=== PATIENT | female | born 1970 | race Caucasian/White ===

== ENCOUNTER 2016-07-12 12:08 | Outpatient (CLI) | payer MEDICARE, MEDICAID ==
[~2016-07-12] VITALS: Ht 160 cm; Wt 125.0 kg
[~2016-07-12 12:08] MED LIST: /ONDA4TA; /ONDA4TA OR; ACET500C; ACET500C OR; ALLE25CA OR; AMBI10TA OR; AMIT25TA PO; AUGM875T27 PO; BIOTPOW20; BIOTPOW20 OR; BONI150T PO; CALC500T36 PO; CALC500T49 OR; DARV100T; DIFL150T PO; DIPH50CA PO; FOSA5TAB OR; HUMIRA INJ; IBUP600T OR; IBUP800T OR; IBUPPOW25; INFL10VL IV; MORP15TA6 PO; NASAL SPRAY NEB; NEXI40CA PO; OXYC-208 PO; OXYC1SOL PO; PERC5TAB8 PO; PERCOCET; PRENATAL VIT; PRENATAL VITAMIN PO; PRENTAB74 PO; PROM25SU5 PO; RYZOLT; SODIUM CHLORIDE 0.9% INJ 10 ML SYR IV SCH; TRAZ50TA; TYLENOL; TYLENOL PM; TYLENOL PM OR; TYLENOL PM PO; ULTR300T; VITA50TA12; VITAMIN D50000 UNT OR; [UNRECOGNIZED DRUG - OTHER] OR; diphenhydrAMINE 25 MG CAP PO SCH; oxycodone IR PO; prenatal vitamin PO
[2016-07-12] MEDS ORDERED: NS 1,000 ML IV SCH (12:15)
[2016-07-12] MEDS ORDERED: inFLIXimab INJECTION 700 MG in NS 180 ML IV ONE (12:30)
[2016-07-12] MEDS ORDERED: ACETAMINOPHEN TAB 650MG DOSE (2X325MG) PO ONE (12:30)
== END 2016-07-12 15:00 | disposition home or self-care (01) ==
LOC: M INFU 12:08
PROVIDERS: ATTEND Hospitalist
DX: K50.80 Crohn's disease of both small and large intestine without complications (principal)
CPT/HCPCS: 96413; 96415; J1745

== ENCOUNTER 2016-08-09 12:02 | Outpatient (CLI) | payer MEDICARE, MEDICAID ==
[~2016-08-09] VITALS: Ht 165.1 cm; Wt 125.0 kg
[2016-08-09] MEDS ORDERED: ACETAMINOPHEN TAB 650MG DOSE (2X325MG) PO ONE (12:15)
[2016-08-09] MEDS ORDERED: inFLIXimab INJECTION 700 MG in NS 180 ML IV ONE (12:15)
[2016-08-09] MEDS ORDERED: NS 1,000 ML IV SCH (12:15)
== END 2016-08-09 15:00 | disposition home or self-care (01) ==
LOC: M INFU 12:02
PROVIDERS: ATTEND Internal Medicine
DX: K50.80 Crohn's disease of both small and large intestine without complications (principal)
CPT/HCPCS: 96413; 96415; J1745

== ENCOUNTER 2016-09-15 12:48 | Outpatient (CLI) | payer MEDICARE, MEDICAID ==
[~2016-09-15] VITALS: Ht 165.1 cm; Wt 125.0 kg
[2016-09-15] MEDS ORDERED: NS 1,000 ML IV SCH (13:15)
[2016-09-15] MEDS ORDERED: ACETAMINOPHEN TAB 650MG DOSE (2X325MG) PO ONE (13:30)
[2016-09-15] MEDS ORDERED: inFLIXimab INJECTION 700 MG in NS 180 ML IV ONE (13:30)
== END 2016-09-15 15:45 | disposition home or self-care (01) ==
LOC: M INFU 12:48
PROVIDERS: ATTEND General Practice
DX: K50.80 Crohn's disease of both small and large intestine without complications (principal)
CPT/HCPCS: 96413; 96415; J1745

== ENCOUNTER → 2016-09-22 | Outpatient (CLI) | payer MEDICARE, MEDICAID ==
[~2016-09-22] MED LIST changes: -SODIUM CHLORIDE 0.9% INJ 10 ML SYR IV SCH; -diphenhydrAMINE 25 MG CAP PO SCH
--- NOTE | 2016-09-27 02:41 | ECWPNPC ---
PATIENT NAME: KAYLA CRUZ : 1970 GENDER: FEMALE VISIT DATE: 09/22/2016 DISCHARGE DATE: 09/22/16 1542 VISIT LOCKED DATE TIME: PHYSICIAN: BETY HOGAN RESOURCE: BETY HOGAN REASON FOR APPOINTMENT 1. REVIEW MRI, BLOODWORK HISTORY OF PRESENT ILLNESS HISTORY OF PRESENT ILLNESS: PAIN THE PATIENT DESCRIBES THE PAIN... FALL RISK SCREENING: SCREENING :NO FALLS IN THE PAST YEAR TODAY'S VISIT: NOTES: RATES PAIN TODAY 9/10. HAS BEEN HAVING INCREASED PAIN IN RECTAL AREA.ATTEMPTED TO TAKE A BATH, FELT SEVERE BURNING IN RECTAL AREA - HAD CLEAR NON ODOROUS DRAINAGE - NEXT MORNING HAD EXPULSION OF RECTAL PACKING THAT HAS BEEN THERE SINCE 2005. IS HAVING PAIN IN HIP AREA DUE TO HAVING TO BE ON SIDES. IS STILL ON REMICADE Q 4 WEEKS. ALL THE JOINTS ARE BOTHERING.DESCRIBES THE PAIN CONSTANT, ACHING, BURNING, SHARP , STABBING AND SHOOTING.AT LAST VISIT WAS STARTED ON METHYLPHENIDATE 10 MG IN AM FOR EXCESSIVE DAYTIME SLEEPINESS - NOTES THAT THIS IS EFFECTIVE BUT DOES NOT TAKE IT EVERY DAY.. CURRENT MEDICATIONS TAKING ZOFRAN ODT 4 MG TABLET DISPERSIBLE 1 TABLET ON THE TONGUE AND ALLOW TO DISSOLVE ORALLY EVERY 6 HRS TAKING CALCIUM 150 MG TABLET ORALLY DAILY TAKING VITAMIN D3 MAXIMUM STRENGTH 5000 UNIT CAPSULE ORALLY DAILY TAKING REMICADE 100 MG SOLUTION RECONSTITUTED INTRAVENOUS EVERY 4 WKS TAKING BONIVA 150 MG TABLET 1 TABLET ORALLY MONTHLY TAKING ACETAMINOPHEN 325 MG TABLET 1 TABLET NEEDED ORALLY EVERY 4- 6 HRS TAKING AMITRIPTYLINE HCL 25 MG TABLET 3 TABLET ORALLY ONCE A DAY AT BEDTIME TAKING PROMETHAZINE HCL 25 MG TABLET 1 TABLET NEEDED ORALLY EVERY 8 HRS PRN NAUSEA TAKING METHYLPHENIDATE HCL 10 MG TABLET 1 TABLET ORALLY DAILY MDD=1 TAKING OXYCODONE HCL 15 MG TABLET 1- 2 TABLET NEEDED ORALLY Q4-6H MDD6 TAKING IBUPROFEN 800 MG TABLET 1 TABLET ORALLY THREE TIMES A DAY MEDICATION LIST REVIEWED AND RECONCILED WITH THE PATIENT PAST MEDICAL HISTORY 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 CERVICAL AND OVARIAN CANCER HX FISTULAS ALLERGIES NAPROXEN: VOMITING FLAGYL: VOMITING VICODIN: VOMITING 6MP: ANAPHYLAXIS: ALLERGY SOCIAL HISTORY GENERAL: TOBACCO USE ARE YOU A:NONSMOKER LEARNING BARRIERS / SPECIAL NEEDS ORIENTED TO PLAN OF CARE: PATIENT, PAIN MANAGEMENT PATIENT, ORIENTED TO PLAN OF CARE: PATIENT, PAIN MANAGEMENT PATIENT. NEW PATIENT PAIN DIARY TODAY'S VISITNOTES FROM 0-10, WHAT LEVEL IS YOUR PAIN TODAY?0 PAIN CLINIC PFS, CLERGY, PUBLIC HEALTH REFERRALS PFS REFERRAL NEEDED?NO CLERGY REFERRAL NEEDED?NO PUBLIC HEALTH REFERRAL NEEDED?NO WAS THE PROVIDER NOTIFIED OF ANY PERTINENT INFO?NO PFS REFERRAL NEEDED?NO CLERGY REFERRAL NEEDED?NO PUBLIC HEALTH REFERRAL NEEDED?NO WAS THE PROVIDER NOTIFIED OF ANY PERTINENT INFO?NO REVIEW OF SYSTEMS CONSTITUTIONAL: ANY CHANGE IN YOUR MEDICAL CONDITION? NO . CHILLS NO . FEVER NO . INFECTION: DO YOU HAVE NEW INFECTIONS? NO . DO YOU HAVE HISTORY OF MRSA? NO . MUSCULOSKELETAL: ANY NEW PATTERNS OF PAIN OR NUMBNESS? YES RECTAL AREA DISCOMFORT . GASTROENTEROLOGY: ANY NEW CHANGE IN BOWEL CONTROL? NO . GENITOURINARY: ANY NEW CHANGE IN BLADDER CONTROL? NO . IS THERE A CHANCE YOU COULD BE ? NO . HEMATOLOGY/LYMPH: DO YOU TAKE ANY BLOOD THINNERS? (FOR EXAMPLE- COUMADIN, PLAVIX, AGGRENOX, PLATEL, PRADAXA, OR XARELTO) NO . WHEN WAS YOUR LAST DOSE? DATE: TIME: . NEUROLOGY: HAVE YOU FALLEN IN THE PAST 6 MONTHS? NO . ANY NEW EXTREMITY NUMBNESS OR WEAKNESS? NO . CARDIOLOGY: DO YOU HAVE A PACEMAKER OR DEFIBRILLATOR? NO . RESPIRATORY: HAVE YOU BEEN SICK IN THE PAST WEEK? NO . FEVER NO . FLU LIKE SYMPTOMS? NO . COUGH NO . INTEGUMENTARY: DO YOU HAVE ANY RASHES OR OPEN SORES? YES ABDOMINAL WOUND/RECTAL WOUND . ALLERGIC/IMMUNO: ARE YOU ALLERGIC TO SHELLFISH OR IV DYE? NO . ANY NEW ALLERGIES? NO . PSYCHIATRIC: DO YOU HAVE THOUGHTS OF HURTING YOURSELF OR SOMEONE ELSE? NO . ARE YOU ABUSED, NEGLECTED, OR IN AN UNSAFE ENVIRONMENT? NO . ENDOCRINOLOGY: ARE YOU DIABETIC? NO . OTHER: DO YOU NEED ANY PRESCRIPTIONS? NO . IF YES, PLEASE LIST: ____ . ANY NEW PROBLEMS WITH YOUR MEDICATIONS? NO . WHEN DID YOU LAST EAT? ____ . WHEN DID YOU LAST DRINK? ____ . WHAT DID YOU LAST DRINK? ____ . NAME OF PERSON DRIVING YOU HOME? ____ . DO YOU HAVE ANY OTHER QUESTIONS OR CONCERNS NO . REVIEWED BY: PROVIDER: BETY ARDON . VITAL SIGNS WT 285.2 LBS, HT 63 IN, BMI 50.52 INDEX, BP 148/82 MM HG, HR 90 /MIN, RR 18 /MIN, TEMP 98.6 F, OXYGEN SAT % 98%, REVIEWED BY: MLF. EXAMINATION GENERAL EXAMINATION: PSYCHALERT , ORIENTED X 3 , APPROPRIATE MOOD AND AFFECT . LUNGS:CLEAR TO AUSCULTATION BILATERALLY. HEART:HEART RATE REGULAR, RAPID. ABDOMEN:SOFT AND TENDER. BOWEL SOUNDS SCTIVE. . MUSCULOSKELETAL:MUSCLE STRENGTH TESTING 5/5 BILATERAL, TRIGGER POINTS:, ELICITED WITH PALPATION OVER LUMBAR PARAVERTEBRAL MUSCLES AND INTO THE SECRUM. RESTRICTION OF ROM IN THIS AREA. DUSKY BLUE COLORATION OF BOTH HANDS. HANDS COLD TO TOUCH.. JOINTS:BILATERAL KNEE , SWELLING , PAIN . DECREASED ROM WITH FLEXION/ EXTENSION AT KNEES. . ASSESSMENTS ABDOMINAL PAIN - R10.9 (PRIMARY) JOINT PAIN - M25.50 CHRONIC PRESCRIPTION OPIATE USE - Z79.899 TREATMENT ABDOMINAL PAIN REFILL OXYCODONE HCL TABLET, 15 MG, 1- 2 TABLET NEEDED, ORALLY, Q4-6H MDD6, 30 DAY(S), 180, REFILLS 0 START PROCARDIA CAPSULE, 10 MG, 1 CAPSULE, ORALLY, BID, 30 DAY(S), 60 CAPSULE, REFILLS 2 NOTES: DR BENNY VASQUEZ - [facility]. [phone] (FANY IS HIS NURSE) OK TO TAKE OXYCODONE 15 MG PRESCIBED 1-2 TABES EVERY 4-6 HRS MAX 6 TABS PER DAY TALK TO DR ESPAÑA ABOUT PROCARDIA/NIFEDIPINE 10 MG BID FOR RAYNAUDS SYMPTOMS. NO SMOKING., # 226 TOBACCO USE SCREENING/INTERVENTION: PATIENT CURRENTLY USED TOBACCO. WAS OFFERED SMOKING CESSATION FOR GUIDANCE IN QUITTING THROUGH THE [facility] QUITS PROGRAM AND THE [facility] CESSATION PROGRAM. , #128 - SCREENING BMI AND F/U PLAN IN : BMI ABOVE NORMAL TODAY. DISCUSSED WITH PATIENT NUTRITIONAL FOOD CHOICES TO ASSIST WITH WEIGHT LOSS. RECCOMMENDED REDUCING SALT, SUGAR, SODA INTAKE. RECOMMEND INCREASE ACTIVITY TO INCLUDE WALKING ON A REGULAR BASIS., FALLS CARE PLAN: 1. RECOMMEND REMOVING ALL THROW RUGS. 2. RECOMMEND NIGHT LIGHTS 3. RECOMMEND WEARING RUBBER SOLED SHOES AND TO NOT GO BAREFOOT. 4.. ADVISED TO CHANGE POSITION SLOWLY FROM SUPINE TO STANDING TO AVOID DIZZINESS. 5. ADVISED TO USE ASSISTIVE DEVICE SUCH CANE OR WALKER IF NEEDED. 6. USE LIFELINE SERVICES OR KEEP PORTABLE PHONE READILY AVAILABLE. CLINICAL NOTES: ISTOP REGISTRY REVIEWED AND DEMNOSTRATES COMPLLIANCE. BRINGS IN MEDICATIONS WHICH IS APPROPRIATE FOR WHAT WAS DISPENSED. RECENT URINE TOXICOLOGY REVIEWED. NO UNAUTHORIZED MEDICATIONS. NO ILLICIT SUBSTANCES AND PRESCRIBED MEDICATIONS WERE PRESENT. PROCEDURE CODES FA211 ESTABILISHED PATIENT [facility] FACILITY CHARGE G8783 BP SCR PRFRM RCMDD DEFIND SCR INTVL G8730 PAIN ASSESS POS TOOL F/U PLAN DOC 1124F ACP DISCUSS-NO [id number] DOCD 1036F TOBACCO NON-USER 0518F FALL PLAN OF CARE DOCD G8427 DOC MEDS VERIFIED W/PT OR RE G8417 BMI >=30 CALCUATE W/FOLLOWUP 3288F FALL RISK ASSESSMENT DOCD 4004F PT TOBACCO SCREEN RCVD TLK DISPOSITION & COMMUNICATION FOLLOW UP 3 MONTHS ELECTRONICALLY SIGNED BY MICHELA LEIGH ON 09/26/2016 AT 09:49 AM EDT DISCLAIMER : THIS IS A VISIT SUMMARY EXTRACTED FROM THE [facility] CHART. IT IS NOT A COPY OF THE [facility] PROGRESS NOTE. MTDD
== END ==
LOC: M PAIN 14:40
PROVIDERS: ATTEND Nurse Practitioner Family
DX: Z09 Encounter for follow-up examination after completed treatment for conditions other than malignant neoplasm (principal); G89.29 Other chronic pain; R10.2 Pelvic and perineal pain; M25.561 Pain in right knee; M25.562 Pain in left knee; M06.9 Rheumatoid arthritis, unspecified; M19.90 Unspecified osteoarthritis, unspecified site; K50.90 Crohn's disease, unspecified, without complications; Z88.5 Allergy status to narcotic agent; Z88.8 Allergy status to other drugs, medicaments and biological substances; Z79.1 Long term (current) use of non-steroidal anti-inflammatories (NSAID); Z79.899 Other long term (current) drug therapy

== ENCOUNTER 2016-10-26 12:12 | Outpatient (CLI) | payer MEDICARE, MEDICAID ==
[~2016-10-26] VITALS: Ht 165.1 cm; Wt 125.0 kg
[~2016-10-26 12:12] MED LIST changes: +SODIUM CHLORIDE 0.9% INJ 10 ML SYR IV SCH; +diphenhydrAMINE 25 MG CAP PO SCH
[2016-10-26] MEDS ORDERED: inFLIXimab INJECTION 700 MG in NS 180 ML IV ONE (12:30)
[2016-10-26] MEDS ORDERED: NS 1,000 ML IV SCH (12:30)
[2016-10-26] MEDS ORDERED: ACETAMINOPHEN TAB 650MG DOSE (2X325MG) PO ONE (12:30)
== END 2016-10-26 15:00 | disposition home or self-care (01) ==
LOC: M INFU 12:12
PROVIDERS: ATTEND Internal Medicine Nephrology
DX: K50.80 Crohn's disease of both small and large intestine without complications (principal)
CPT/HCPCS: 96413; 96415; J1745

== ENCOUNTER 2016-12-09 12:45 | Outpatient (CLI) | payer MEDICARE, MEDICAID ==
[~2016-12-09] VITALS: Ht 165.1 cm; Wt 125.0 kg
[~2016-12-09 12:45] MED LIST changes: -diphenhydrAMINE 25 MG CAP PO SCH
[2016-12-09] MEDS ORDERED: NS 1,000 ML IV SCH (13:15)
[2016-12-09] MEDS ORDERED: ACETAMINOPHEN TAB 650MG DOSE (2X325MG) PO ONE (13:30)
[2016-12-09] MEDS ORDERED: diphenhydrAMINE 25 MG CAP PO ONE (13:30)
[2016-12-09] MEDS ORDERED: inFLIXimab INJECTION 700 MG in NS 180 ML IV ONE (14:00)
== END 2016-12-09 16:30 | disposition home or self-care (01) ==
LOC: M INFU 12:45
PROVIDERS: ATTEND General Practice
DX: K50.80 Crohn's disease of both small and large intestine without complications (principal)
CPT/HCPCS: 96413; 96415; J1745

== ENCOUNTER → 2016-12-28 | Outpatient (CLI) | payer MEDICARE, MEDICAID ==
[~2016-12-28] MED LIST changes: -AUGM875T27 PO; +AUGM875T28 PO; -SODIUM CHLORIDE 0.9% INJ 10 ML SYR IV SCH
--- NOTE | 2017-01-17 00:41 | ECWPNPC ---
PATIENT NAME: KAYLA CRUZ : 1970 GENDER: FEMALE VISIT DATE: 12/28/2016 DISCHARGE DATE: 12/28/16 1457 VISIT LOCKED DATE TIME: PHYSICIAN: BETY HOGAN RESOURCE: BETY HOGAN REASON FOR APPOINTMENT 1. FOLLOW UP HISTORY OF PRESENT ILLNESS HISTORY OF PRESENT ILLNESS: PAIN THE PATIENT DESCRIBES THE PAIN... FALL RISK SCREENING: SCREENING :NO FALLS IN THE PAST YEAR TODAY'S VISIT: NOTES: RATES PAIN TODAY 9/10. DESCRIBES PAIN CONSTANT, ACHING, BURNING SHARP, STABBING AND THROBBING. REPORTS CONTINUED OPEN AREAS OVER ABDOMEN AND PERINEUM. NOTES PAINFUL JOINTS AT KNEES AND GENERALIZED ALL OVER PAIN. REMAINS ON REMICADE.IS TO SEE WOUND CENTER DR VASQUEZ IN NEXT FEW WEEKS. . CURRENT MEDICATIONS TAKING ZOFRAN ODT 4 MG TABLET DISPERSIBLE 1 TABLET ON THE TONGUE AND ALLOW TO DISSOLVE ORALLY EVERY 6 HRS TAKING CALCIUM 150 MG TABLET ORALLY DAILY TAKING VITAMIN D3 MAXIMUM STRENGTH 5000 UNIT CAPSULE ORALLY DAILY TAKING REMICADE 100 MG SOLUTION RECONSTITUTED INTRAVENOUS EVERY 4 WKS TAKING BONIVA 150 MG TABLET 1 TABLET ORALLY MONTHLY TAKING ACETAMINOPHEN 325 MG TABLET 1 TABLET NEEDED ORALLY EVERY 4- 6 HRS TAKING AMITRIPTYLINE HCL 25 MG TABLET 3 TABLET ORALLY ONCE A DAY AT BEDTIME TAKING PROMETHAZINE HCL 25 MG TABLET 1 TABLET NEEDED ORALLY EVERY 8 HRS PRN NAUSEA TAKING METHYLPHENIDATE HCL 10 MG TABLET 1 TABLET ORALLY DAILY NEEDED TAKING IBUPROFEN 800 MG TABLET 1 TABLET ORALLY THREE TIMES A DAY TAKING OXYCODONE HCL 15 MG TABLET 1- 2 TABLET NEEDED ORALLY Q4-6HRS PRN PAIN MDD6 NOT-TAKING PROCARDIA 10 MG CAPSULE 1 CAPSULE ORALLY BID MEDICATION LIST REVIEWED AND RECONCILED WITH THE PATIENT PAST MEDICAL HISTORY 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 CERVICAL AND OVARIAN CANCER HX FISTULAS ALLERGIES NAPROXEN: VOMITING FLAGYL: VOMITING VICODIN: VOMITING 6MP: ANAPHYLAXIS: ALLERGY SOCIAL HISTORY GENERAL: PAIN CLINIC PFS, CLERGY, PUBLIC HEALTH REFERRALS PFS REFERRAL NEEDED?NO CLERGY REFERRAL NEEDED?NO PUBLIC HEALTH REFERRAL NEEDED?NO HAS THE PATIENT BEEN EDUCATED REGARDING HIS/HER PLAN OF CARE?YES HAS THE PATIENT BEEN EDUCATED REGARDING PAIN, THE RISK FOR PAIN, THE IMPORTANCE OF EFFECTIVE PAIN MANAGEMENT, AND THE PAIN ASSESSMENT PROCESS?YES ADVANCE DIRECTIVES HEALTH CARE PROXY?YES NAME OF HCP ROLY MARIA AND JUSTO FREEDMAN DO YOU HAVE A COPY WITH YOU?NO REVIEW OF SYSTEMS REVIEWED BY: PROVIDER: BETY ARDON . CONSTITUTIONAL: ANY CHANGE IN YOUR MEDICAL CONDITION? YES, PAIN BEHIND OSTOMY . CHILLS NO . FEVER NO . INFECTION: DO YOU HAVE NEW INFECTIONS? NO . DO YOU HAVE HISTORY OF MRSA? NO . MUSCULOSKELETAL: ANY NEW PATTERNS OF PAIN OR NUMBNESS? YES, PAIN BEHIND OSTOMY . GASTROENTEROLOGY: ANY NEW CHANGE IN BOWEL CONTROL? NO . GENITOURINARY: ANY NEW CHANGE IN BLADDER CONTROL? NO . IS THERE A CHANCE YOU COULD BE ? NO . HEMATOLOGY/LYMPH: DO YOU TAKE ANY BLOOD THINNERS? (FOR EXAMPLE- COUMADIN, PLAVIX, AGGRENOX, PLATEL, PRADAXA, OR XARELTO) NO . WHEN WAS YOUR LAST DOSE? DATE: TIME: . NEUROLOGY: HAVE YOU FALLEN IN THE PAST 6 MONTHS? NO . ANY NEW EXTREMITY NUMBNESS OR WEAKNESS? NO . CARDIOLOGY: DO YOU HAVE A PACEMAKER OR DEFIBRILLATOR? NO . RESPIRATORY: HAVE YOU BEEN SICK IN THE PAST WEEK? NO . FEVER NO . FLU LIKE SYMPTOMS? NO . COUGH NO . INTEGUMENTARY: DO YOU HAVE ANY RASHES OR OPEN SORES? YES . ALLERGIC/IMMUNO: ARE YOU ALLERGIC TO SHELLFISH OR IV DYE? NO . ANY NEW ALLERGIES? NO . PSYCHIATRIC: DO YOU HAVE THOUGHTS OF HURTING YOURSELF OR SOMEONE ELSE? NO . ARE YOU ABUSED, NEGLECTED, OR IN AN UNSAFE ENVIRONMENT? NO . ENDOCRINOLOGY: ARE YOU DIABETIC? NO . OTHER: DO YOU NEED ANY PRESCRIPTIONS? YES . IF YES, PLEASE LIST: TYLENOL. IBUPROFEN, OXYCODONE. METHYLPHENIDATE, PROMETHAZINE AND AMITRIPTYLINE . ANY NEW PROBLEMS WITH YOUR MEDICATIONS? NO . WHEN DID YOU LAST EAT? ____ . WHEN DID YOU LAST DRINK? ____ . WHAT DID YOU LAST DRINK? ____ . NAME OF PERSON DRIVING YOU HOME? ____ . DO YOU HAVE ANY OTHER QUESTIONS OR CONCERNS NO . VITAL SIGNS WT 282.4 LBS, HT 63 IN, BMI 50.02 INDEX, BP 143/80 MM HG, HR 96 /MIN, RR 16 /MIN, TEMP 98.7 F, OXYGEN SAT % 98%, NA INITIALS TL 1409, REVIEWED BY: CS. EXAMINATION GENERAL EXAMINATION: PSYCHALERT , ORIENTED X 3 , APPROPRIATE MOOD AND AFFECT . LUNGS:CLEAR TO AUSCULTATION BILATERALLY. HEART:HEART RATE REGULAR, RAPID. ABDOMEN:SOFT AND TENDER. BOWEL SOUNDS SCTIVE. . MUSCULOSKELETAL:MUSCLE STRENGTH TESTING 5/5 BILATERAL UPPER AND LOWER EXTREMITIES. , TRIGGER POINTS:, ELICITED WITH PALPATION OVER LUMBAR PARAVERTEBRAL MUSCLES AND INTO THE SACRUM., WELL ACROSS THE TRAPEZIUS MUSCLES. RESTRICTION OF ROM IN THIS AREA. SLOW TO RISE TO STANDING POSITION. GAIT SLOW , ROCKING, STIFF. JOINTS:BILATERAL KNEE , SWELLING , PAIN . DECREASED ROM WITH FLEXION/ EXTENSION AT KNEES. . ASSESSMENTS ABDOMINAL PAIN - R10.9 (PRIMARY) OSTEOARTHRITIS OF MULTIPLE JOINTS, UNSPECIFIED OSTEOARTHRITIS TYPE - M15.9 CHRONIC PRESCRIPTION OPIATE USE - Z79.891 TREATMENT ABDOMINAL PAIN REFILL AMITRIPTYLINE HCL TABLET, 25 MG, 3 TABLET, ORALLY, ONCE A DAY AT BEDTIME, 30 DAY(S), 90, REFILLS 5 REFILL METHYLPHENIDATE HCL TABLET, 10 MG, 1 TABLET, ORALLY, Q AM MDD=1, 30 DAY(S), 30, REFILLS 0 REFILL IBUPROFEN TABLET, 800 MG, 1 TABLET, ORALLY, THREE TIMES A DAY, 20 DAY(S), 60, REFILLS 2 REFILL ACETAMINOPHEN TABLET, 325 MG, 1 TABLET NEEDED, ORALLY, EVERY 4- 6 HRS, 30 DAY(S), 180, REFILLS 5 REFILL PROMETHAZINE HCL TABLET, 25 MG, 1 TABLET NEEDED, ORALLY, EVERY 8 HRS PRN NAUSEA, 30 DAY(S), 90, REFILLS 3 NOTES: UTOX TODAY. CLINICAL NOTES: ISTOP REGISTRY REVIEWED AND DEMNOSTRATES COMPLLIANCE. BRINGS IN MEDICATIONS WHICH IS APPROPRIATE FOR WHAT WAS DISPENSED. RECENT URINE TOXICOLOGY REVIEWED. NO UNAUTHORIZED MEDICATIONS. NO ILLICIT SUBSTANCES AND PRESCRIBED MEDICATIONS WERE PRESENT. PROCEDURE CODES FA211 ESTABILISHED PATIENT [facility] FACILITY CHARGE G8730 PAIN ASSESS POS TOOL F/U PLAN DOC G8427 DOC MEDS VERIFIED W/PT OR RE DISPOSITION & COMMUNICATION FOLLOW UP 2-3 MONTHS (REASON: JOINT PAIN) ELECTRONICALLY SIGNED BY MICHELA LEIGH ON 01/16/2017 AT 11:29 AM EDT DISCLAIMER : THIS IS A VISIT SUMMARY EXTRACTED FROM THE [employer] CHART. IT IS NOT A COPY OF THE [employer] PROGRESS NOTE. MTDD
== END | disposition home or self-care (01) ==
LOC: M PAIN 14:20
PROVIDERS: ATTEND Nurse Practitioner Family
DX: G89.29 Other chronic pain (principal); R10.9 Unspecified abdominal pain; M15.9 Polyosteoarthritis, unspecified; M06.9 Rheumatoid arthritis, unspecified; K50.90 Crohn's disease, unspecified, without complications; L88 Pyoderma gangrenosum; Z85.41 Personal history of malignant neoplasm of cervix uteri; Z85.43 Personal history of malignant neoplasm of ovary; Z79.899 Other long term (current) drug therapy; Z88.5 Allergy status to narcotic agent; Z88.8 Allergy status to other drugs, medicaments and biological substances

== ENCOUNTER 2017-01-17 12:46 | Outpatient (CLI) | payer MEDICARE, MEDICAID ==
[~2017-01-17] VITALS: Ht 165.1 cm; Wt 125.0 kg
[~2017-01-17 12:46] MED LIST changes: +SODIUM CHLORIDE 0.9% INJ 10 ML SYR IV SCH; +diphenhydrAMINE 25 MG CAP PO SCH
[2017-01-17] MEDS ORDERED: NS 1,000 ML IV SCH (13:00)
[2017-01-17] MEDS ORDERED: inFLIXimab INJECTION 700 MG in NS 180 ML IV ONE (14:00)
[2017-01-17] MEDS ORDERED: ACETAMINOPHEN TAB 650MG DOSE (2X325MG) PO ONE (14:00)
== END 2017-01-17 16:00 | disposition home or self-care (01) ==
LOC: M INFU 12:46
PROVIDERS: ATTEND Internal Medicine Nephrology
DX: K50.80 Crohn's disease of both small and large intestine without complications (principal); F17.210 Nicotine dependence, cigarettes, uncomplicated; Z88.8 Allergy status to other drugs, medicaments and biological substances; Z79.899 Other long term (current) drug therapy
CPT/HCPCS: 96413; 96415; J1745

== ENCOUNTER 2017-02-22 12:39 | Outpatient (CLI) | payer MEDICARE, MEDICAID ==
[~2017-02-22] VITALS: Ht 165.1 cm; Wt 125.0 kg
[~2017-02-22 12:39] MED LIST changes: -diphenhydrAMINE 25 MG CAP PO SCH
[2017-02-22] MEDS ORDERED: NS 1,000 ML IV SCH (13:00)
[2017-02-22] MEDS ORDERED: ACETAMINOPHEN TAB 650MG DOSE (2X325MG) PO ONE (13:00)
[2017-02-22] MEDS ORDERED: diphenhydrAMINE 25 MG CAP PO ONE (13:00)
[2017-02-22] MEDS ORDERED: inFLIXimab INJECTION 700 MG in NS 180 ML IV ONE (13:30)
== END 2017-02-22 15:45 | disposition home or self-care (01) ==
LOC: M INFU 12:39
PROVIDERS: ATTEND Hospitalist
DX: K50.80 Crohn's disease of both small and large intestine without complications (principal); Z72.0 Tobacco use; Z88.8 Allergy status to other drugs, medicaments and biological substances; Z79.2 Long term (current) use of antibiotics; Z79.899 Other long term (current) drug therapy
CPT/HCPCS: 96413; 96415; J1745

== ENCOUNTER → 2017-03-21 | Outpatient (CLI) | payer MEDICARE, MEDICAID ==
[~2017-03-21] MED LIST changes: -SODIUM CHLORIDE 0.9% INJ 10 ML SYR IV SCH
--- NOTE | 2017-04-05 02:39 | ECWPNPC ---
PATIENT NAME: KAYLA CRUZ : 1970 GENDER: FEMALE VISIT DATE: 03/21/2017 DISCHARGE DATE: 03/21/17 1532 VISIT LOCKED DATE TIME: PHYSICIAN: BETY HOGAN RESOURCE: BETY HOGAN REASON FOR APPOINTMENT 1. CHRONIC PAIN HISTORY OF PRESENT ILLNESS HISTORY OF PRESENT ILLNESS: PAIN THE PATIENT DESCRIBES THE PAIN... FALL RISK SCREENING: SCREENING :NO FALLS IN THE PAST YEAR TODAY'S VISIT: NOTES: RATES PAIN TODAY 10/10. PAIN TODAY IS ALL OVER THE BODY AND IS DESCRIBES ACHING, BURNING, SHARP, STABBING, SHOOTING AND TENDER AND SORE. HAS BEEN HAVING DIFFICULTY WITH HER PORT FOR REMICADE INFUSION AND THEY HAVE BEEN HAVING DIFFICULTY GETTING AHOLD OF DR ESPAÑA. SHE FEELS SHE IS COMING OUT OF REMISSION. HAS NEW FISTULA UNDER LEFT BUTTUCK. WOUND DRAINAGE HAS INCREASED.. CURRENT MEDICATIONS TAKING ZOFRAN ODT 4 MG TABLET DISPERSIBLE 1 TABLET ON THE TONGUE AND ALLOW TO DISSOLVE ORALLY EVERY 6 HRS TAKING CALCIUM 150 MG TABLET ORALLY DAILY TAKING REMICADE 100 MG SOLUTION RECONSTITUTED INTRAVENOUS EVERY 4 WKS TAKING BONIVA 150 MG TABLET 1 TABLET ORALLY MONTHLY TAKING AMITRIPTYLINE HCL 25 MG TABLET 3 TABLET ORALLY ONCE A DAY AT BEDTIME TAKING PROMETHAZINE HCL 25 MG TABLET 1 TABLET NEEDED ORALLY EVERY 8 HRS PRN NAUSEA TAKING IBUPROFEN 800 MG TABLET 1 TABLET ORALLY THREE TIMES A DAY TAKING ACETAMINOPHEN 325 MG TABLET 1 TABLET NEEDED ORALLY EVERY 4- 6 HRS TAKING OXYCODONE HCL 15 MG TABLET 1- 2 TABLET NEEDED ORALLY Q4-6HRS PRN PAIN MDD6 NOT-TAKING AUGMENTIN 875-125 MG TABLET 1 TABLET ORALLY EVERY 12 HRS NOT-TAKING VENTOLIN HFA 108 (90 BASE) MCG/ACT AEROSOL SOLUTION 1-2 PUFFS NEEDED INHALATION EVERY 4-6 HRS MEDICATION LIST REVIEWED AND RECONCILED WITH THE PATIENT PAST MEDICAL HISTORY 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 CERVICAL AND OVARIAN CANCER HX FISTULAS ALLERGIES NAPROXEN: VOMITING FLAGYL: VOMITING VICODIN: VOMITING 6MP: ANAPHYLAXIS: ALLERGY SOCIAL HISTORY GENERAL: TOBACCO USE ARE YOU A:NONSMOKER HIV / HEP-C SCREENING HIV TEST OFFERED TO PATIENT:YES DATE OFFERED:02/15/2017 TEST ACCEPTED:NO REASON:PATIENT DECLINED HEP-C TEST OFFERED TO PATIENT:NO PROTESTANT [id number] NONE LANGUAGE LANGUAGES SPOKEN:[place] LEARNING BARRIERS / SPECIAL NEEDS CHANGE FROM LAST VISIT?NO BARRIERS TO LEARNING?NO HEARING IMPAIRED?NO VISION IMPAIRED?NO COGNITIVELY IMPAIRED?NO READINESS TO LEARN?YES LEARNING PREFERENCES?NO LEARNING CAPABILITIES PRESENT?YES EMOTIONAL BARRIERS?NO SPECIAL DEVICES?NO INVENTORY ASSISTANT NEEDED?NO PAIN CLINIC PFS, CLERGY, PUBLIC HEALTH REFERRALS PFS REFERRAL NEEDED?NO CLERGY REFERRAL NEEDED?NO PUBLIC HEALTH REFERRAL NEEDED?NO HAS THE PATIENT BEEN EDUCATED REGARDING HIS/HER PLAN OF CARE?YES HAS THE PATIENT BEEN EDUCATED REGARDING PAIN, THE RISK FOR PAIN, THE IMPORTANCE OF EFFECTIVE PAIN MANAGEMENT, AND THE PAIN ASSESSMENT PROCESS?YES ADVANCE DIRECTIVES HEALTH CARE PROXY?YES NAME OF HCP ROLY MARIA AND JUSTO FREEDMAN DO YOU HAVE A COPY WITH YOU?NO REVIEW OF SYSTEMS REVIEWED BY: PROVIDER: BETY ARDON . CONSTITUTIONAL: ANY CHANGE IN YOUR MEDICAL CONDITION? NO . CHILLS NO . FEVER NO . INFECTION: DO YOU HAVE NEW INFECTIONS? NO . DO YOU HAVE HISTORY OF MRSA? NO . MUSCULOSKELETAL: ANY NEW PATTERNS OF PAIN OR NUMBNESS? YES, INCREASED PAIN ALL OVER. PATIENT FEELS SHE'S HAVING ISSUES WITH THE CROHN'S DISEASE . JOINT PAIN ANKLES - AUDIBLE CLICKING . GASTROENTEROLOGY: ANY NEW CHANGE IN BOWEL CONTROL? NO . GENITOURINARY: ANY NEW CHANGE IN BLADDER CONTROL? NO - HAD SINGLE EPISODE OF HEMATURIA . IS THERE A CHANCE YOU COULD BE ? NO . HEMATOLOGY/LYMPH: DO YOU TAKE ANY BLOOD THINNERS? (FOR EXAMPLE- COUMADIN, PLAVIX, AGGRENOX, PLATEL, PRADAXA, OR XARELTO) NO . WHEN WAS YOUR LAST DOSE? DATE: TIME: . NEUROLOGY: HAVE YOU FALLEN IN THE PAST 6 MONTHS? NO . ANY NEW EXTREMITY NUMBNESS OR WEAKNESS? NO . CARDIOLOGY: DO YOU HAVE A PACEMAKER OR DEFIBRILLATOR? NO . RESPIRATORY: HAVE YOU BEEN SICK IN THE PAST WEEK? YES, BRONCHITIS . FEVER NO . FLU LIKE SYMPTOMS? NO . COUGH NO . INTEGUMENTARY: DO YOU HAVE ANY RASHES OR OPEN SORES? YES . ALLERGIC/IMMUNO: ARE YOU ALLERGIC TO SHELLFISH OR IV DYE? NO . ANY NEW ALLERGIES? NO . PSYCHIATRIC: DO YOU HAVE THOUGHTS OF HURTING YOURSELF OR SOMEONE ELSE? NO . ARE YOU ABUSED, NEGLECTED, OR IN AN UNSAFE ENVIRONMENT? NO . ENDOCRINOLOGY: ARE YOU DIABETIC? NO . OTHER: DO YOU NEED ANY PRESCRIPTIONS? NO . IF YES, PLEASE LIST: ____ . ANY NEW PROBLEMS WITH YOUR MEDICATIONS? NO . WHEN DID YOU LAST EAT? ____ . WHEN DID YOU LAST DRINK? ____ . WHAT DID YOU LAST DRINK? ____ . NAME OF PERSON DRIVING YOU HOME? ____ . DO YOU HAVE ANY OTHER QUESTIONS OR CONCERNS NO . SKIN: PATIENT COMPLAINING OF ABD/RECTAL WOUNDS AND NEW FISTULAS . VITAL SIGNS WT 278.4 LBS, HT 63 IN, BMI 49.31 INDEX, BP 141/82 MM HG, HR 109 /MIN, RR 18 /MIN, TEMP 99.2 F, OXYGEN SAT % 97%, NA INITIALS SC 14:37, REVIEWED BY: CS. EXAMINATION GENERAL EXAMINATION: PSYCHALERT , ORIENTED X 3 , APPROPRIATE MOOD AND AFFECT . LUNGS:CLEAR TO AUSCULTATION BILATERALLY. HEART:HEART RATE REGULAR, RAPID. ABDOMEN:SOFT AND TENDER. BOWEL SOUNDS SCTIVE. . MUSCULOSKELETAL:MUSCLE STRENGTH TESTING 5/5 BILATERAL UPPER AND LOWER EXTREMITIES. , TRIGGER POINTS:, ELICITED WITH PALPATION OVER LUMBAR PARAVERTEBRAL MUSCLES AND INTO THE SACRUM., WELL ACROSS THE TRAPEZIUS MUSCLES. RESTRICTION OF ROM IN THIS AREA. SLOW TO RISE TO STANDING POSITION. GAIT SLOW , ROCKING, STIFF. JOINTS:BILATERAL KNEE , SWELLING , PAIN . DECREASED ROM WITH FLEXION/ EXTENSION AT KNEES. . ASSESSMENTS ABDOMINAL PAIN - R10.9 (PRIMARY) OSTEOARTHRITIS OF MULTIPLE JOINTS, UNSPECIFIED OSTEOARTHRITIS TYPE - M15.9 CHRONIC PRESCRIPTION OPIATE USE - Z79.891 TREATMENT ABDOMINAL PAIN REFILL PROMETHAZINE HCL TABLET, 25 MG, 1 TABLET NEEDED, ORALLY, EVERY 8 HRS PRN NAUSEA, 30 DAY(S), 90, REFILLS 3 REFILL IBUPROFEN TABLET, 800 MG, 1 TABLET, ORALLY, THREE TIMES A DAY, 20 DAY(S), 60, REFILLS 2 REFILL OXYCODONE HCL TABLET, 15 MG, 1- 2 TABLET NEEDED, ORALLY, Q4-6HRS PRN PAIN MDD6, 30 DAY(S), 180, REFILLS 0 START TRAZODONE HCL TABLET, 50 MG, 1 - 2 TABLET, ORALLY, BEFORE BEDTIME, 30 DAY(S), 60, REFILLS 1 REFILL AMITRIPTYLINE HCL TABLET, 25 MG, 3 TABLET, ORALLY, ONCE A DAY AT BEDTIME, 30 DAY(S), 90, REFILLS 5 NOTES: UPDATE NARCOTIC AGREEMENT. WEAN OFF AMITRIPTYLINE. CLINICAL NOTES: ISTOP REGISTRY REVIEWED AND DEMNOSTRATES COMPLLIANCE. BRINGS IN MEDICATIONS WHICH IS APPROPRIATE FOR WHAT WAS DISPENSED. RECENT URINE TOXICOLOGY REVIEWED. NO UNAUTHORIZED MEDICATIONS. NO ILLICIT SUBSTANCES AND PRESCRIBED MEDICATIONS WERE PRESENT. PROCEDURE CODES FA211 ESTABILISHED PATIENT [facility] FACILITY CHARGE G8730 PAIN ASSESS POS TOOL F/U PLAN DOC G8427 DOC MEDS VERIFIED W/PT OR RE DISPOSITION & COMMUNICATION FOLLOW UP 3 MONTHS (REASON: ABD PAIN/JOINT PAIN) ELECTRONICALLY SIGNED BY MICHELA LEIGH ON 04/04/2017 AT 07:45 PM EDT DISCLAIMER : THIS IS A VISIT SUMMARY EXTRACTED FROM THE [employer] CHART. IT IS NOT A COPY OF THE [employer] PROGRESS NOTE. SHERIDAN
== END ==
LOC: M PAIN 15:00
PROVIDERS: ATTEND Nurse Practitioner Family
DX: R10.9 Unspecified abdominal pain (principal); M15.9 Polyosteoarthritis, unspecified; G89.29 Other chronic pain; Z79.891 Long term (current) use of opiate analgesic; Z79.899 Other long term (current) drug therapy; Z88.6 Allergy status to analgesic agent; Z88.5 Allergy status to narcotic agent

== ENCOUNTER 2017-03-22 12:08 | Outpatient (CLI) | payer MEDICARE, MEDICAID ==
[~2017-03-22 12:08] MED LIST changes: +SODIUM CHLORIDE 0.9% INJ 10 ML SYR IV SCH
[2017-03-22] MEDS ORDERED: diphenhydrAMINE 25 MG CAP PO ONE (12:30)
[2017-03-22] MEDS ORDERED: ACETAMINOPHEN TAB 650MG DOSE (2X325MG) PO ONE (12:30)
[2017-03-22] MEDS ORDERED: NS 1,000 ML IV SCH (12:30)
[2017-03-22] MEDS ORDERED: INFLIXIMAB BIOSIMILAR 700 MG in NS 180 ML IV ONE (12:30)
[2017-03-22] MEDS ORDERED: inFLIXimab INJECTION 700 MG in NS 180 ML IV ONE (13:00)
== END 2017-03-22 15:30 | disposition home or self-care (01) ==
LOC: M INFU 12:08
PROVIDERS: ATTEND Hospitalist
DX: K50.80 Crohn's disease of both small and large intestine without complications (principal); Z88.8 Allergy status to other drugs, medicaments and biological substances; Z88.5 Allergy status to narcotic agent; Z85.41 Personal history of malignant neoplasm of cervix uteri; Z85.43 Personal history of malignant neoplasm of ovary; F17.210 Nicotine dependence, cigarettes, uncomplicated; Z87.19 Personal history of other diseases of the digestive system; Z79.899 Other long term (current) drug therapy
CPT/HCPCS: 96413; 96415; J1745; Q5102

== ENCOUNTER 2017-04-19 13:17 | Outpatient (CLI) | payer MEDICARE, MEDICAID ==
[~2017-04-19] VITALS: Ht 165.1 cm; Wt 125.0 kg
[2017-04-19] MEDS ORDERED: diphenhydrAMINE 25 MG CAP PO ONE (13:30)
[2017-04-19] MEDS ORDERED: ACETAMINOPHEN TAB 650MG DOSE (2X325MG) PO ONE (13:30)
[2017-04-19] MEDS ORDERED: NS 1,000 ML IV SCH (13:30)
[2017-04-19] MEDS ORDERED: INFLIXIMAB BIOSIMILAR 700 MG in NS 180 ML IV ONE (14:00)
== END 2017-04-19 16:20 | disposition home or self-care (01) ==
LOC: M INFU 13:17
PROVIDERS: ATTEND Neuromusculoskeletal Medicine & OMM
DX: K50.80 Crohn's disease of both small and large intestine without complications (principal); Z87.891 Personal history of nicotine dependence; Z88.8 Allergy status to other drugs, medicaments and biological substances; Z88.5 Allergy status to narcotic agent; Z79.899 Other long term (current) drug therapy
CPT/HCPCS: 96413; 96415; Q5102

== ENCOUNTER 2017-05-17 12:18 | Outpatient (CLI) | payer MEDICARE, MEDICAID ==
[~2017-05-17] VITALS: Ht 165.1 cm; Wt 125.0 kg
[2017-05-17] MEDS ORDERED: diphenhydrAMINE 25 MG CAP PO ONE (12:30)
[2017-05-17] MEDS ORDERED: NS 1,000 ML IV SCH (12:30)
[2017-05-17] MEDS ORDERED: INFLIXIMAB BIOSIMILAR 700 MG in NS 180 ML IV ONE (12:30)
[2017-05-17] MEDS ORDERED: ACETAMINOPHEN TAB 650MG DOSE (2X325MG) PO ONE (12:30)
== END 2017-05-17 15:35 | disposition home or self-care (01) ==
LOC: M INFU 12:18
PROVIDERS: ATTEND Hospitalist
DX: K50.80 Crohn's disease of both small and large intestine without complications (principal); Z85.41 Personal history of malignant neoplasm of cervix uteri; Z85.43 Personal history of malignant neoplasm of ovary; Z92.3 Personal history of irradiation; Z88.8 Allergy status to other drugs, medicaments and biological substances; Z88.5 Allergy status to narcotic agent; Z72.0 Tobacco use
CPT/HCPCS: 96413; 96415; Q5102

== ENCOUNTER 2017-06-14 12:19 | Outpatient (CLI) | payer MEDICARE, MEDICAID ==
[~2017-06-14] VITALS: Ht 165.1 cm; Wt 125.0 kg
[2017-06-14] MEDS ORDERED: INFLIXIMAB BIOSIMILAR 700 MG in NS 180 ML IV ONE (13:00)
[2017-06-14] MEDS ORDERED: diphenhydrAMINE 25 MG CAP PO ONE (13:00)
[2017-06-14] MEDS ORDERED: NS 1,000 ML IV SCH (13:00)
[2017-06-14] MEDS ORDERED: ACETAMINOPHEN TAB 650MG DOSE (2X325MG) PO ONE (13:00)
== END 2017-06-14 15:15 | disposition home or self-care (01) ==
LOC: M INFU 12:19
PROVIDERS: ATTEND Internal Medicine
DX: K50.80 Crohn's disease of both small and large intestine without complications (principal); D64.9 Anemia, unspecified; M54.2 Cervicalgia; M19.90 Unspecified osteoarthritis, unspecified site; F17.210 Nicotine dependence, cigarettes, uncomplicated; Z79.891 Long term (current) use of opiate analgesic; Z79.899 Other long term (current) drug therapy; Z79.2 Long term (current) use of antibiotics; Z88.8 Allergy status to other drugs, medicaments and biological substances
CPT/HCPCS: 96413; 96415; Q5102

== ENCOUNTER 2017-07-20 12:39 | Outpatient (CLI) | payer MEDICARE, MEDICAID ==
[2017-07-20] MEDS: diphenhydrAMINE 25 MG CAP PO (13:19)
[2017-07-20] MEDS: ACETAMINOPHEN TAB 650MG DOSE (2X325MG) PO (13:20)
[2017-07-20] MEDS: NS 1,000 ML IV (13:20)
[2017-07-20] MEDS: INFLIXIMAB BIOSIMILAR 700 MG in NS 180 ML IV (13:21)
[2017-07-20] MEDS: SODIUM CHLORIDE 0.9% INJ 10 ML SYR IV (15:37)
[2017-07-21] MEDS ORDERED: SODIUM CHLORIDE 0.9% INJ 10 ML SYR IV (09:00)
== END 2017-07-20 15:55 | disposition home or self-care (01) ==
LOC: M INFU 12:39
DX: K50.80 Crohn's disease of both small and large intestine without complications (principal); Z79.2 Long term (current) use of antibiotics; Z79.899 Other long term (current) drug therapy; Z88.5 Allergy status to narcotic agent; Z88.8 Allergy status to other drugs, medicaments and biological substances; Z88.1 Allergy status to other antibiotic agents
CPT/HCPCS: 96413

== ENCOUNTER → 2017-08-08 | Outpatient (CLI) | payer MEDICARE, MEDICAID | LOC: M PAIN 14:30 | DX: R10.9 Unspecified abdominal pain (principal); M25.50 Pain in unspecified joint; L88 Pyoderma gangrenosum; M06.9 Rheumatoid arthritis, unspecified; M19.90 Unspecified osteoarthritis, unspecified site; K50.90 Crohn's disease, unspecified, without complications; Z79.899 Other long term (current) drug therapy; Z88.1 Allergy status to other antibiotic agents; Z88.5 Allergy status to narcotic agent; Z88.8 Allergy status to other drugs, medicaments and biological substances | CPT/HCPCS: G0463 ==

== ENCOUNTER 2017-08-23 12:40 | Outpatient (CLI) | payer MEDICARE, MEDICAID ==
[2017-08-23] MEDS: diphenhydrAMINE 25 MG CAP PO (13:31)
[2017-08-23] MEDS: ACETAMINOPHEN TAB 650MG DOSE (2X325MG) PO (13:31)
[2017-08-23] MEDS: NS 1,000 ML IV (13:33)
[2017-08-23] MEDS: INFLIXIMAB BIOSIMILAR 700 MG in NS 180 ML IV (13:33)
[2017-08-23] MEDS: SODIUM CHLORIDE 0.9% INJ 10 ML SYR IV (15:34)
== END 2017-08-23 16:00 | disposition home or self-care (01) ==
LOC: M INFU 12:40
DX: K50.80 Crohn's disease of both small and large intestine without complications (principal); Z79.899 Other long term (current) drug therapy; Z79.891 Long term (current) use of opiate analgesic; Z88.8 Allergy status to other drugs, medicaments and biological substances
CPT/HCPCS: Q5102

== ENCOUNTER 2017-09-27 12:40 | Outpatient (CLI) | payer MEDICARE, MEDICAID ==
[2017-09-27] MEDS: ACETAMINOPHEN TAB 650MG DOSE (2X325MG) PO (13:01)
[2017-09-27] MEDS: diphenhydrAMINE 25 MG CAP PO (13:01)
[2017-09-27] MEDS: NS 1,000 ML IV (13:02)
[2017-09-27] MEDS: INFLIXIMAB BIOSIMILAR 700 MG in NS 180 ML IV (13:18)
[2017-09-27] MEDS: SODIUM CHLORIDE 0.9% INJ 10 ML SYR IV (15:28)
== END 2017-09-27 15:55 | disposition home or self-care (01) ==
LOC: M INFU 12:40
DX: K50.80 Crohn's disease of both small and large intestine without complications (principal); Z88.8 Allergy status to other drugs, medicaments and biological substances; Z88.5 Allergy status to narcotic agent; Z79.899 Other long term (current) drug therapy
CPT/HCPCS: Q5102

== ENCOUNTER → 2017-11-06 | Outpatient (CLI) | payer MEDICARE, MEDICAID | LOC: M PAIN 15:00 | DX: G89.29 Other chronic pain (principal); R10.9 Unspecified abdominal pain; M25.50 Pain in unspecified joint; M06.9 Rheumatoid arthritis, unspecified; M19.90 Unspecified osteoarthritis, unspecified site; K50.90 Crohn's disease, unspecified, without complications; Z85.41 Personal history of malignant neoplasm of cervix uteri; Z85.43 Personal history of malignant neoplasm of ovary; Z90.49 Acquired absence of other specified parts of digestive tract; F17.210 Nicotine dependence, cigarettes, uncomplicated; Z79.899 Other long term (current) drug therapy; Z79.891 Long term (current) use of opiate analgesic; Z88.6 Allergy status to analgesic agent; Z88.5 Allergy status to narcotic agent; Z88.1 Allergy status to other antibiotic agents; Z88.8 Allergy status to other drugs, medicaments and biological substances | CPT/HCPCS: G0463 ==

== ENCOUNTER 2017-11-13 13:25 | Outpatient (CLI) | payer MEDICARE, MEDICAID ==
[2017-11-13] MEDS: FILTER 1.2 MICRON (ADULT TPN/MANNITOL/REMICADE) XX (13:45)
[2017-11-13] MEDS: diphenhydrAMINE 25 MG CAP PO (14:04)
[2017-11-13] MEDS: ACETAMINOPHEN TAB 650MG DOSE (2X325MG) PO (14:05)
[2017-11-13] MEDS: NS 1,000 ML IV (14:05)
[2017-11-13] MEDS: INFLIXIMAB BIOSIMILAR 700 MG in NS 180 ML IV (14:10)
[2017-11-13] MEDS: SODIUM CHLORIDE 0.9% INJ 10 ML SYR IV (16:17)
== END 2017-11-13 16:30 | disposition home or self-care (01) ==
LOC: M INFU 13:25
DX: K50.80 Crohn's disease of both small and large intestine without complications (principal); Z88.8 Allergy status to other drugs, medicaments and biological substances; Z88.5 Allergy status to narcotic agent; Z79.899 Other long term (current) drug therapy
CPT/HCPCS: Q5103

== ENCOUNTER 2017-12-25 11:20 | Outpatient (CLI) | payer MEDICARE, MEDICAID ==
[2017-12-25] MEDS: diphenhydrAMINE 25 MG CAP PO (11:57)
[2017-12-25] MEDS: ACETAMINOPHEN TAB 650MG DOSE (2X325MG) PO (11:57)
[2017-12-25] MEDS: FILTER 1.2 MICRON (ADULT TPN/MANNITOL/REMICADE) XX (11:58)
[2017-12-25] MEDS ORDERED: NS 1,000 ML IV (12:00)
[2017-12-25] MEDS: INFLIXIMAB BIOSIMILAR 700 MG in NS 180 ML IV (12:21)
[2017-12-25] MEDS: SODIUM CHLORIDE 0.9% INJ 10 ML SYR IV (14:40)
== END 2017-12-25 15:00 | disposition home or self-care (01) ==
LOC: M INFU 11:20
DX: K50.80 Crohn's disease of both small and large intestine without complications (principal); D64.9 Anemia, unspecified; M54.2 Cervicalgia; F17.210 Nicotine dependence, cigarettes, uncomplicated; Z79.891 Long term (current) use of opiate analgesic; Z79.899 Other long term (current) drug therapy; Z88.8 Allergy status to other drugs, medicaments and biological substances; Z90.710 Acquired absence of both cervix and uterus
CPT/HCPCS: Q5103

== ENCOUNTER 2018-01-22 13:19 | Outpatient (CLI) | payer MEDICARE, MEDICAID ==
[2018-01-22] MEDS ORDERED: NS 1,000 ML IV (13:30)
[2018-01-22] MEDS: diphenhydrAMINE 25 MG CAP PO (13:54)
[2018-01-22] MEDS: ACETAMINOPHEN TAB 650MG DOSE (2X325MG) PO (13:54)
[2018-01-22] MEDS: INFLIXIMAB BIOSIMILAR 700 MG in NS 180 ML IV (14:38)
[2018-01-22] MEDS: FILTER 1.2 MICRON (ADULT TPN/MANNITOL/REMICADE) XX (14:40)
[2018-01-22] MEDS: SODIUM CHLORIDE 0.9% INJ 10 ML SYR IV (16:44)
== END 2018-01-22 17:00 | disposition home or self-care (01) ==
LOC: M INFU 13:19
DX: K50.80 Crohn's disease of both small and large intestine without complications (principal); Z88.8 Allergy status to other drugs, medicaments and biological substances; Z88.5 Allergy status to narcotic agent; Z79.899 Other long term (current) drug therapy; Z79.2 Long term (current) use of antibiotics
CPT/HCPCS: Q5103

== ENCOUNTER → 2018-02-07 | Outpatient (CLI) | payer MEDICARE, MEDICAID | LOC: M PAIN 14:30 | DX: R10.9 Unspecified abdominal pain (principal); M25.50 Pain in unspecified joint; K50.90 Crohn's disease, unspecified, without complications; M15.9 Polyosteoarthritis, unspecified; Z79.891 Long term (current) use of opiate analgesic; Z79.899 Other long term (current) drug therapy; Z88.8 Allergy status to other drugs, medicaments and biological substances | CPT/HCPCS: G0463 ==

== ENCOUNTER 2018-02-21 14:21 | Outpatient (CLI) | payer MEDICARE, MEDICAID ==
[2018-02-21] MEDS: diphenhydrAMINE 25 MG CAP PO (14:47)
[2018-02-21] MEDS: ACETAMINOPHEN TAB 650MG DOSE (2X325MG) PO (14:47)
[2018-02-21] MEDS: FILTER 1.2 MICRON (ADULT TPN/MANNITOL/REMICADE) XX (14:51)
[2018-02-21] MEDS: INFLIXIMAB BIOSIMILAR 700 MG in NS 180 ML IV (14:51)
[2018-02-21] MEDS ORDERED: NS 1,000 ML IV (15:00)
[2018-02-21] MEDS: SODIUM CHLORIDE 0.9% INJ 10 ML SYR IV (17:11)
== END 2018-02-21 17:15 | disposition home or self-care (01) ==
LOC: M INFU 14:21
DX: K50.80 Crohn's disease of both small and large intestine without complications (principal); D64.9 Anemia, unspecified; M12.9 Arthropathy, unspecified; F17.210 Nicotine dependence, cigarettes, uncomplicated; Z79.891 Long term (current) use of opiate analgesic; Z79.899 Other long term (current) drug therapy; Z88.8 Allergy status to other drugs, medicaments and biological substances; Z90.710 Acquired absence of both cervix and uterus; Z93.2 Ileostomy status
CPT/HCPCS: Q5103

== ENCOUNTER → 2018-02-26 | Outpatient (REF) | payer MEDICARE, MEDICAID ==
[2018-02-26 18:52] LABS: APPEARANCE, URINE HAZY (CLEAR); BACTERIA, URINE AUTO NEGATIVE (NEGATIVE); BILIRUBIN, URINE AUTO NEGATIVE (NEGATIVE); BLOOD, URINE BLOOD 3+ (NEGATIVE); COLOR, URINE YELLOW (YELLOW); GLUCOSE, URINE (UA) AUTO NEGATIVE (NEGATIVE); KETONE, URINE AUTO NEGATIVE (NEGATIVE); LEUKOCYTE ESTERASE, URINE AUTO TRACE (NEGATIVE); MUCUS, URINE SMALL (NEGATIVE); NITRITE, URINE AUTO NEGATIVE (NEGATIVE); PROTEIN, URINE AUTO NEGATIVE (NEGATIVE); RBC, URINE AUTO 127 /HPF (0-3); SPECIFIC GRAVITY URINE AUTO 1.016 (1.002-1.035); SQUAMOUS EPITHELIAL CELL UR AU 0 /HPF (0-6); UROBILINOGEN, URINE AUTO 0.2 mg/dL (0.0-2.0); WBC, URINE AUTO 0 /HPF (0-3)
== END ==
LOC: M SMT 17:23
DX: N20.0 Calculus of kidney (principal)
CPT/HCPCS: 81001

== ENCOUNTER → 2018-03-19 | Outpatient (CLI) | payer MEDICARE, MEDICAID | LOC: M WUC 12:09 | DX: R05 Cough (principal) | CPT/HCPCS: 71046 ==

== ENCOUNTER 2018-03-30 13:22 | Outpatient (CLI) | payer MEDICARE, MEDICAID ==
[2018-03-30] MEDS: SODIUM CHLORIDE 0.9% INJ 10 ML SYR IV (09:00)
[2018-03-30] MEDS: diphenhydrAMINE 25 MG CAP PO (14:00)
[2018-03-30] MEDS ORDERED: NS 1,000 ML IV (14:00)
[2018-03-30] MEDS: FILTER 1.2 MICRON (ADULT TPN/MANNITOL/REMICADE) XX (14:00)
[2018-03-30] MEDS: ACETAMINOPHEN TAB 650MG DOSE (2X325MG) PO (14:00)
[2018-03-30] MEDS: INFLIXIMAB BIOSIMILAR 700 MG in NS 180 ML IV (15:04)
== END 2018-03-30 16:45 | disposition home or self-care (01) ==
LOC: M INFU 13:22
DX: K50.80 Crohn's disease of both small and large intestine without complications (principal); Z88.8 Allergy status to other drugs, medicaments and biological substances; Z88.5 Allergy status to narcotic agent
CPT/HCPCS: Q5103

== ENCOUNTER 2018-04-27 13:26 | Outpatient (CLI) | payer MEDICARE, MEDICAID ==
[2018-04-27] MEDS: diphenhydrAMINE 25 MG CAP PO (13:51)
[2018-04-27] MEDS: ACETAMINOPHEN TAB 650MG DOSE (2X325MG) PO (13:51)
[2018-04-27] MEDS ORDERED: NS 1,000 ML IV (14:00)
[2018-04-27] MEDS: FILTER 1.2 MICRON (ADULT TPN/MANNITOL/REMICADE) XX (14:00)
[2018-04-27] MEDS: INFLIXIMAB BIOSIMILAR 700 MG in NS 180 ML IV (14:04)
[2018-04-27] MEDS: SODIUM CHLORIDE 0.9% INJ 10 ML SYR IV (16:15)
== END 2018-04-27 16:25 | disposition home or self-care (01) ==
LOC: M INFU 13:26
DX: K50.80 Crohn's disease of both small and large intestine without complications (principal); Z79.891 Long term (current) use of opiate analgesic; Z79.899 Other long term (current) drug therapy
CPT/HCPCS: Q5103

== ENCOUNTER → 2018-05-03 | Outpatient (REF) | payer MEDICARE, MEDICAID ==
[2018-05-03 13:51] LABS: INR 0.93; PROTHROMBIN TIME 12.5 SECONDS (12.1-14.4)
[2018-05-03 13:56] LABS: APPEARANCE, URINE HAZY (CLEAR); BACTERIA, URINE AUTO NEGATIVE (NEGATIVE); BILIRUBIN, URINE AUTO NEGATIVE (NEGATIVE); BLOOD, URINE BLOOD 2+ (NEGATIVE); COLOR, URINE YELLOW (YELLOW); GLUCOSE, URINE (UA) AUTO NEGATIVE (NEGATIVE); KETONE, URINE AUTO NEGATIVE (NEGATIVE); LEUKOCYTE ESTERASE, URINE AUTO 1+ (NEGATIVE); MUCUS, URINE MODERATE (NEGATIVE); NITRITE, URINE AUTO NEGATIVE (NEGATIVE); PROTEIN, URINE AUTO NEGATIVE (NEGATIVE); RBC, URINE AUTO 77 /HPF (0-3); SPECIFIC GRAVITY URINE AUTO 1.018 (1.002-1.035); SQUAMOUS EPITHELIAL CELL UR AU 0 /HPF (0-6); WBC, URINE AUTO 15 /HPF (0-3)
[2018-05-03 14:13] LABS: PARTIAL THROMBOPLASTIN TIME 40.3 SECONDS (25.4-37.6)
== END ==
LOC: M LAB REF 13:12
DX: Z01.818 Encounter for other preprocedural examination (principal); N20.0 Calculus of kidney
CPT/HCPCS: 85610

== ENCOUNTER 2018-05-11 06:02 | Day surgery (SDC) | payer MEDICARE, MEDICAID ==
[2018-05-11] MEDS ORDERED: LIDOCAINE 2% INJ 100 MG/5 ML SDV (FOR ANES.) As Ordered (06:15)
[2018-05-11] MEDS ORDERED: ROCURONIUM BROMIDE 50 MG/5 ML VIAL As Ordered (06:15)
[2018-05-11] MEDS ORDERED: KETOROLAC 60 MG/2 ML VIAL (J1885) As Ordered (06:15)
[2018-05-11] MEDS ORDERED: ONDANSETRON 4MG/2ML VIAL (J2405) As Ordered ×2 (06:15→09:53)
[2018-05-11] MEDS ORDERED: PROPOFOL 200 MG/20 ML VIAL As Ordered (06:15)
[2018-05-11] MEDS ORDERED: dexameTHASONE 4 MG/ML 1ML VIAL (J1100) As Ordered (06:15)
[2018-05-11] MEDS: LR 1,000 ML IV (06:57)
[2018-05-11] MEDS: ceFAZolin SOD 1 GM in D5W MINI-BAG PLUS 50 ML IV (07:40)
[2018-05-11] MEDS ORDERED: MIDAZOLAM INJ 2 MG/2 ML VIAL (J2250) As Ordered (08:09)
[2018-05-11] MEDS ORDERED: fentaNYL 100 MCG/2 ML INJECTION (J3010) As Ordered ×2 (08:09→09:48)
[2018-05-11] MEDS: CONRAY-60 60% 50ML VIAL (Q9961) As Ordered (08:11)
[2018-05-11] MEDS ORDERED: PERCOCET 5MG/325MG TAB As Ordered (09:48)
[2018-05-11] MEDS: fentaNYL 100 MCG/2 ML INJECTION (J3010) IV ×4 (09:52→10:07)
[2018-05-11] MEDS: ONDANSETRON 4MG/2ML VIAL (J2405) IV (10:00)
[2018-05-11] MEDS ORDERED: LR 1,000 ML IV (10:00)
[2018-05-11] MEDS ORDERED: PERCOCET 5MG/325MG TAB PO ×2 (10:00)
[2018-05-11] MEDS: PERCOCET 5MG/325MG TAB PO ×2 (10:09→10:53)
[2018-05-11] MEDS ORDERED: MORPHINE 10 MG/ML 1ML VIAL (J2270) As Ordered (10:36)
[2018-05-11] MEDS: MORPHINE 10 MG/ML 1ML VIAL (J2270) IV ×4 (10:38→10:53)
[2018-05-11] MEDS ORDERED: HYDROMORPHONE HCL 0.5 MG/ 0.5 ML SYRINGE (J1170 PER 1) As Ordered ×2 (11:14→11:40)
[2018-05-11] MEDS: HYDROMORPHONE HCL 0.5 MG/ 0.5 ML SYRINGE (J1170 PER 1) IV ×4 (11:20→11:50)
== END 2018-05-11 13:40 | disposition home or self-care (01) ==
LOC: M SDC 06:02
DX: N20.0 Calculus of kidney (principal); K50.913 Crohn's disease, unspecified, with fistula; M19.90 Unspecified osteoarthritis, unspecified site; L88 Pyoderma gangrenosum; E66.01 Morbid (severe) obesity due to excess calories; Z68.42 Body mass index [BMI] 45.0-49.9, adult; Z88.5 Allergy status to narcotic agent; Z88.6 Allergy status to analgesic agent; Z88.8 Allergy status to other drugs, medicaments and biological substances; Z79.899 Other long term (current) drug therapy; Z92.21 Personal history of antineoplastic chemotherapy; Z92.3 Personal history of irradiation; Z90.710 Acquired absence of both cervix and uterus; Z85.41 Personal history of malignant neoplasm of cervix uteri; Z85.43 Personal history of malignant neoplasm of ovary; Z72.0 Tobacco use; Z98.42 Cataract extraction status, left eye; Z96.1 Presence of intraocular lens
CPT/HCPCS: 52356

== ENCOUNTER 2018-05-29 12:53 | Outpatient (CLI) | payer MEDICARE, MEDICAID ==
[2018-05-29] MEDS: NS 1,000 ML IV (12:30)
[~2018-05-29 12:53] MED LIST changes: -/ONDA4TA; -/ONDA4TA OR; -ACET500C; -ACET500C OR; -ALLE25CA OR; -AMBI10TA OR; -AMIT25TA PO; -AUGM875T28 PO; -BIOTPOW20; -BIOTPOW20 OR; -BONI150T PO; -CALC500T36 PO; -CALC500T49 OR; -DARV100T; -DIFL150T PO; -DIPH50CA PO; +FILTER 1.2 MICRON (ADULT TPN/MANNITOL/REMICADE) XX; -FOSA5TAB OR; -HUMIRA INJ; -IBUP600T OR; -IBUP800T OR; -IBUPPOW25; -INFL10VL IV; -MORP15TA6 PO; -NASAL SPRAY NEB; -NEXI40CA PO; -OXYC-208 PO; -OXYC1SOL PO; -PERC5TAB8 PO; -PERCOCET; -PRENATAL VIT; -PRENATAL VITAMIN PO; -PRENTAB74 PO; -PROM25SU5 PO; -RYZOLT; +SODIUM CHLORIDE 0.9% INJ 10 ML SYR IV; -SODIUM CHLORIDE 0.9% INJ 10 ML SYR IV SCH; -TRAZ50TA; -TYLENOL; -TYLENOL PM; -TYLENOL PM OR; -TYLENOL PM PO; -ULTR300T; -VITA50TA12; -VITAMIN D50000 UNT OR; -[UNRECOGNIZED DRUG - OTHER] OR; -oxycodone IR PO; -prenatal vitamin PO
[2018-05-29] MEDS: diphenhydrAMINE 25MG PO PRIOR TO INFUSION PO (13:16)
[2018-05-29] MEDS: ACETAMINOPHEN 650MG PO PRIOR TO INFUSION PO (13:17)
[2018-05-29] MEDS: INFLIXIMAB BIOSIMILAR 700 MG in NS 180 ML IV (13:25)
== END 2018-05-29 15:45 | disposition home or self-care (01) ==
LOC: M INFU 12:53
DX: K50.80 Crohn's disease of both small and large intestine without complications (principal); Z88.8 Allergy status to other drugs, medicaments and biological substances; Z88.1 Allergy status to other antibiotic agents; Z88.5 Allergy status to narcotic agent
CPT/HCPCS: Q5103

== ENCOUNTER → 2018-06-11 | Outpatient (REF) | payer MEDICARE, MEDICAID ==
[2018-06-11 17:31] LABS: INR 0.96; PROTHROMBIN TIME 12.8 SECONDS (12.1-14.4)
[2018-06-11 17:32] LABS: PARTIAL THROMBOPLASTIN TIME 41.2 SECONDS (25.4-37.6)
== END ==
LOC: M LAB REF 16:51
DX: Z01.818 Encounter for other preprocedural examination (principal); N20.0 Calculus of kidney
CPT/HCPCS: 85610

== ENCOUNTER 2018-06-14 07:30 | Day surgery (SDC) | payer MEDICARE, MEDICAID ==
[2018-06-14] MEDS ORDERED: MIDAZOLAM INJ 2 MG/2 ML VIAL (J2250) As Ordered (07:55)
[2018-06-14] MEDS ORDERED: fentaNYL 100 MCG/2 ML INJECTION (J3010) As Ordered (07:55)
[2018-06-14] MEDS ORDERED: PROPOFOL 200 MG/20 ML VIAL As Ordered ×2 (07:55→09:39)
[2018-06-14] MEDS ORDERED: LR 1,000 ML IV (08:00)
[2018-06-14] MEDS: ceFAZolin SOD 1 GM in D5W MINI-BAG PLUS 50 ML IV (09:13)
== END 2018-06-14 10:37 | disposition home or self-care (01) ==
LOC: M SDC 07:30
DX: N20.0 Calculus of kidney (principal); M06.9 Rheumatoid arthritis, unspecified; M19.90 Unspecified osteoarthritis, unspecified site; K50.90 Crohn's disease, unspecified, without complications; L88 Pyoderma gangrenosum; R06.02 Shortness of breath; M81.0 Age-related osteoporosis without current pathological fracture; F41.9 Anxiety disorder, unspecified; F03.90 Unspecified dementia, unspecified severity, without behavioral disturbance, psychotic disturbance, mood disturbance, and anxiety; M79.7 Fibromyalgia; E66.9 Obesity, unspecified; Z68.42 Body mass index [BMI] 45.0-49.9, adult; Z88.5 Allergy status to narcotic agent; Z88.6 Allergy status to analgesic agent; Z88.8 Allergy status to other drugs, medicaments and biological substances; Z79.899 Other long term (current) drug therapy; Z85.41 Personal history of malignant neoplasm of cervix uteri; Z85.43 Personal history of malignant neoplasm of ovary; Z90.710 Acquired absence of both cervix and uterus; Z92.3 Personal history of irradiation; Z72.0 Tobacco use; Z98.42 Cataract extraction status, left eye; Z96.1 Presence of intraocular lens
CPT/HCPCS: 50590

== ENCOUNTER 2018-06-27 11:55 | Outpatient (CLI) | payer MEDICARE, MEDICAID ==
[~2018-06-27] VITALS: Ht 157.5 cm; Wt 125.0 kg
[2018-06-27] VITALS (8 sets, daily range): BP systolic 129–162; BP diastolic 65–80
[~2018-06-27 11:55] MED LIST changes: +/ONDA4TA; +/ONDA4TA OR; +ACET500C; +ACET500C OR; +ALLE25CA OR; +AMBI10TA OR; +AMIT25TA PO; +AUGM875T28 PO; +BIOTPOW20; +BIOTPOW20 OR; +BONI150T PO; +CALC500T36 PO; +CALC500T49 OR; +DARV100T; +DIFL150T PO; +DIPH50CA PO; -FILTER 1.2 MICRON (ADULT TPN/MANNITOL/REMICADE) XX; +FOSA5TAB OR; +HUMIRA INJ; +IBUP-1114 PO; +IBUP600T OR; +IBUP800T OR; +IBUPPOW25; +INFL10VL IV; +MORP15TA6 PO; +NASAL SPRAY NEB; +NEXI40CA PO; +OXYC-208 PO; +OXYC15TA76 PO; +OXYC1SOL PO; +PERC5TAB8 PO; +PERCOCET; +PRENATAL VIT; +PRENATAL VITAMIN PO; +PRENTAB74 PO; +PROM25SU5 PO; +PROM25TA PO; +RYZOLT; -SODIUM CHLORIDE 0.9% INJ 10 ML SYR IV; +SODIUM CHLORIDE 0.9% INJ 10 ML SYR IV SCH; +TRAZ50TA; +TYLENOL; +TYLENOL PM; +TYLENOL PM OR; +TYLENOL PM PO; +ULTR300T; +VITA50TA12; +VITAMIN D50000 UNT OR; +ZOFR4SOL PO; +[UNRECOGNIZED DRUG - OTHER] OR; +oxycodone IR PO; +prenatal vitamin PO
[2018-06-27] MEDS ORDERED: INFLIXIMAB BIOSIMILAR 700 MG in NS 180 ML IV ONE (13:00)
[2018-06-27] MEDS ORDERED: ACETAMINOPHEN 650MG PO PRIOR TO INFUSION PO ONE (13:00)
[2018-06-27] MEDS ORDERED: NS 1,000 ML IV SCH (13:00)
[2018-06-27] MEDS ORDERED: FILTER 1.2 MICRON (ADULT TPN/MANNITOL/REMICADE) XX ONE (13:00)
[2018-06-27] MEDS ORDERED: diphenhydrAMINE 25MG PO PRIOR TO INFUSION PO ONE (13:00)
== END 2018-06-27 15:15 | disposition home or self-care (01) ==
LOC: M INFU 11:55
PROVIDERS: ATTEND Internal Medicine
DX: K50.80 Crohn's disease of both small and large intestine without complications (principal); Z88.8 Allergy status to other drugs, medicaments and biological substances; Z88.1 Allergy status to other antibiotic agents; Z88.5 Allergy status to narcotic agent
CPT/HCPCS: 96413; 96415; Q5103

== ENCOUNTER → 2018-07-23 | Outpatient (CLI) | payer MEDICARE, MEDICAID ==
[~2018-07-23] MED LIST changes: -PROM25TA PO; +PROM25TA12 PO; -SODIUM CHLORIDE 0.9% INJ 10 ML SYR IV SCH
--- NOTE | 2018-07-23 15:03 | REP ---
KUB ONE VIEW: HISTORY: Kidney stone. COMPARISON: 06/14/2018. A small amount of air is present in the intestine. There are no air fluid levels or dilated loops of intestine. There is no pneumoperitoneum. Calcifications are present overlying the right kidney consistent with nephrolithiasis. A right ureteral stent is present. Degenerative change is present in the spine. IMPRESSION: Nonspecific bowl gas pattern. Right nephrolithiasis. Electronically Signed by Jesus Villa MD 07/23/2018 03:08 P
== END ==
LOC: M SMT 13:14
PROVIDERS: ATTEND Urology
DX: N20.0 Calculus of kidney (principal)

== ENCOUNTER 2018-08-02 13:28 | Outpatient (CLI) | payer MEDICARE, MEDICAID ==
[2018-08-02] VITALS (7 sets, daily range): BP systolic 111–148; BP diastolic 57–89
[~2018-08-02] VITALS: Ht 157.5 cm; Wt 115.7 kg
[~2018-08-02 13:28] MED LIST changes: +SODIUM CHLORIDE 0.9% INJ 10 ML SYR IV SCH
[2018-08-02] MEDS ORDERED: NS 1,000 ML IV SCH (14:00)
[2018-08-02] MEDS ORDERED: diphenhydrAMINE 25MG PO PRIOR TO INFUSION PO ONE (14:00)
[2018-08-02] MEDS ORDERED: FILTER 1.2 MICRON (ADULT TPN/MANNITOL/REMICADE) XX ONE (14:00)
[2018-08-02] MEDS ORDERED: ACETAMINOPHEN 650MG PO PRIOR TO INFUSION PO ONE (14:00)
[2018-08-02] MEDS ORDERED: INFLIXIMAB BIOSIMILAR 700 MG in NS 180 ML IV ONE (14:00)
== END 2018-08-02 16:35 | disposition home or self-care (01) ==
LOC: M INFU 13:28
PROVIDERS: ATTEND Internal Medicine
DX: K50.90 Crohn's disease, unspecified, without complications (principal); Z88.8 Allergy status to other drugs, medicaments and biological substances; Z88.5 Allergy status to narcotic agent
CPT/HCPCS: 96413; 96415; Q5103

== ENCOUNTER 2018-08-30 11:49 | Outpatient (CLI) | payer MEDICARE, MEDICAID ==
[2018-08-30] VITALS (8 sets, daily range): BP systolic 129–151; BP diastolic 67–94
[~2018-08-30] VITALS: Ht 157.5 cm; Wt 112.0 kg
[~2018-08-30 11:49] MED LIST changes: -SODIUM CHLORIDE 0.9% INJ 10 ML SYR IV SCH
[2018-08-30] MEDS ORDERED: SODIUM CHLORIDE 0.9% INJ 10 ML SYR IV PRN (12:15)
[2018-08-30] MEDS ORDERED: INFLIXIMAB BIOSIMILAR 700 MG in NS 180 ML IV ONE (12:30)
[2018-08-30] MEDS ORDERED: NS 1,000 ML IV SCH (12:30)
[2018-08-30] MEDS ORDERED: FILTER 1.2 MICRON (ADULT TPN/MANNITOL/REMICADE) XX ONE (12:30)
[2018-08-30] MEDS ORDERED: ACETAMINOPHEN 650MG PO PRIOR TO INFUSION PO ONE (12:30)
[2018-08-30] MEDS ORDERED: diphenhydrAMINE 25MG PO PRIOR TO INFUSION PO ONE (12:30)
[2018-08-31] MEDS ORDERED: SODIUM CHLORIDE 0.9% INJ 10 ML SYR IV SCH (09:00)
== END 2018-08-30 14:40 | disposition home or self-care (01) ==
LOC: M INFU 11:49
PROVIDERS: ATTEND Internal Medicine
DX: K50.90 Crohn's disease, unspecified, without complications (principal); Z79.891 Long term (current) use of opiate analgesic; Z79.899 Other long term (current) drug therapy; Z88.5 Allergy status to narcotic agent; Z88.8 Allergy status to other drugs, medicaments and biological substances
CPT/HCPCS: 96413; 96415; Q5103

== ENCOUNTER → 2018-09-20 | Outpatient (CLI) | payer MEDICARE, MEDICAID ==
--- NOTE | 2018-10-05 01:55 | ECWPNPC ---
PATIENT NAME: KAYLA CRUZ : 1970 GENDER: FEMALE VISIT DATE: 09/20/2018 DISCHARGE DATE: 09/20/18 1053 VISIT LOCKED DATE TIME: PHYSICIAN: GUERO JACQUES RESOURCE: GUERO JACQUES REASON FOR APPOINTMENT 1. SW PATIENT,ABD PAIN HISTORY OF PRESENT ILLNESS HISTORY OF PRESENT ILLNESS: HERE FOR F/U OF CHRONIC GENERALIZED BODY PAIN W HX OF RHEUMATOID ARTHRITIS AND CROHNS DISEASE.REPORTING POOR SLEEP DESPITE MEDICATIONS.RATING PAIN VAS 8/10. PAIN THE PATIENT DESCRIBES THE PAIN... FALL RISK SCREENING: SCREENING : NO FALLS IN THE PAST YEAR. CURRENT MEDICATIONS TAKING REMICADE 100 MG SOLUTION RECONSTITUTED INTRAVENOUS EVERY 4 WKS TAKING BONIVA 150 MG TABLET 1 TABLET ORALLY MONTHLY TAKING AMITRIPTYLINE HCL 25 MG TABLET 3 TABLET ORALLY ONCE A DAY AT BEDTIME TAKING IBUPROFEN 800 MG TABLET 1 TABLET ORALLY THREE TIMES A DAY TAKING ACETAMINOPHEN 325 MG TABLET 1 TABLET NEEDED ORALLY EVERY 4- 6 HRS PRN PAIN MAX 3000 MG/24 HRS TAKING ZOFRAN ODT 4 MG TABLET DISPERSIBLE 1 TABLET ON THE TONGUE AND ALLOW TO DISSOLVE ORALLY EVERY 6 HRS TAKING OXYCODONE HCL 15 MG TABLET 1- 2 TABLET NEEDED ORALLY Q4-6HRS PRN PAIN MDD6 TAKING PROMETHAZINE HCL 25 MG TABLET 1 TABLET NEEDED ORALLY EVERY 8 HRS PRN NAUSEA TAKING SILVADENE 1 % CREAM 1 APPLICATION TO AFFECTED AREA EXTERNALLY ONCE A DAY TO OPEN LESIONS POSTERIOR THIGHS NOT-TAKING FLOMAX 0.4 MG CAPSULE 1 CAPSULE ORALLY ONCE A DAY NOT-TAKING CIPROFLOXACIN HCL 500 MG TABLET 1 TABLET FOR YOUR CYSTOSCOPY TODAY ORALLY DIRECTED NOT-TAKING OXYBUTYNIN CHLORIDE 5 MG TABLET 1 TABLET ORALLY EVERY 8 HOURS A NEEDED FOR BLADDER SPASMS OR URINARY FREQUENCY NOT-TAKING FLOMAX 0.4 MG CAPSULE 1 CAPSULE 30 MINUTES AFTER THE SAME MEAL EACH DAY ORALLY ONCE A DAY NOT-TAKING CALCIUM 150 MG TABLET ORALLY DAILY DISCONTINUED FLOMAX 0.4 MG CAPSULE 1 CAPSULE ORALLY ONCE A DAY MEDICATION LIST REVIEWED AND RECONCILED WITH THE PATIENT PAST MEDICAL HISTORY 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 CERVICAL AND OVARIAN CANCER HX FISTULAS KIDNEY STONES ABDOMINAL PAIN JOINT PAIN 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 ALLERGIES NAPROXEN: VOMITING - CONTRAINDICATION FLAGYL: VOMITING - CONTRAINDICATION VICODIN: VOMITING - CONTRAINDICATION 6MP: ANAPHYLAXIS - ALLERGY SURGICAL HISTORY ANAL FISTULA SURGERY 1997 VAGINAL ANAL FISTULA SURGERY 2003 EMERGENCY FULL HYSTERECTOMY AND COLON REMOVAL AND LARGE INTESTINE 2004 EMERGENCY HERNIA REPAIR BLOCKAGE 2012 CATARACT LEFT GALL BLADDER ILEOSTOMY SALPINGECTOMY RIGHT URETEROSCOPY WITH LASER LITHOTRIPSY AND BASKET EXTRACTION OF STONES, RIGHT RETROGRADE PYELOGRAM WITH INTRAOPERATIVE INTERCEPTION OF IMAGES, RIGHT URETERAL STENT PLACEMENT 05/11/2018 CYSTO RIGHT STENT REMOVAL 07/23/2018 FAMILY HISTORY FATHER: ALIVE MOTHER: , STARTED LUNG CANCER THAT SPREAD EVERYWHERE, DIAGNOSED WITH HEART DISEASE, CANCER SIBLINGS: SISTER-GRAVES DISEASE MATERNAL GRAND FATHER: HEART DISEASE MATERNAL GRAND MOTHER: CANCER 1 SISTER(S) . 1DAUGHTER(S) - HEALTHY. DENIES FAMILY HISTORY OF UROLOGICAL DX. SOCIAL HISTORY GENERAL: TOBACCO USE ARE YOU A:CURRENT SMOKER ARE YOU INTERESTED IN QUITTING?NOT READY TO QUIT COUNSELED THE PATIENT ON SMOKING EFFECTS, EDUCATION [id number]/14/2019 HOW MANY CIGARETTES A DAY DO YOU SMOKE?5 OR LESS HOW OFTEN DO YOU SMOKE CIGARETTES?EVERY DAY PATIENT COUNSELED ON THE DANGERS OF TOBACCO USE AND URGED TO QUIT:09/20/2018 ALCOHOL SCREENING DID YOU HAVE A DRINK CONTAINING ALCOHOL IN THE PAST YEAR?NO POINTS0 INTERPRETATIONNEGATIVE RECREATIONAL DRUG USE DRUG USE?NO CAFFEINE CAFFEINE USE?NO SEXUAL HX HAD SEX IN THE LAST 12 MONTHS (VAGINAL, ORAL, OR ANAL)?NO HAVE YOU EVER HAD AN STD?NO YARSANI [id number] UATSDIN NO MANDAEN BELIEFS THAT WOULD IMPACT HEALTH CARE. EDUCATION LEVEL OF EDUCATION:FINISHED HIGH SCHOOL LEARNING BARRIERS / SPECIAL NEEDS BARRIERS TO LEARNING?NO HEARING IMPAIRED?NO VISION IMPAIRED?YES :CORRECTIVE LENSES READINESS TO LEARN?YES LEARNING PREFERENCES?NO LEARNING CAPABILITIES PRESENT?YES EMOTIONAL BARRIERS?NO SPECIAL DEVICES?NO PERIPHERAL EQUIPMENT OPERATOR NEEDED?NO DOMESTIC VIOLENCE DO YOU FEEL SAFE IN YOUR ENVIRONMENT?YES DIET: REGULAR. EXERCISE: NO REGULAR EXERCISE. MARITAL STATUS: .. PAIN CLINIC PFS, CLERGY, PUBLIC HEALTH REFERRALS PFS REFERRAL NEEDED?NO CLERGY REFERRAL NEEDED?NO PUBLIC HEALTH REFERRAL NEEDED?NO HAS THE PATIENT BEEN EDUCATED REGARDING HIS/HER PLAN OF CARE?YES HAS THE PATIENT BEEN EDUCATED REGARDING PAIN, THE RISK FOR PAIN, THE IMPORTANCE OF EFFECTIVE PAIN MANAGEMENT, AND THE PAIN ASSESSMENT PROCESS?YES ADVANCE DIRECTIVE ADVANCE DIRECTIVE DISCUSSED WITH PATIENT:YES 09/20/18 PT STATES SHE HAS HCP--JUSTO FREEDMAN [phone] 09/20/18 REVIEWED WITH PT. AD. HOSPITALIZATION/MAJOR DIAGNOSTIC PROCEDURE R/T SURGERIES KIDNEY STONES 01/2018 REVIEW OF SYSTEMS REVIEWED BY: PROVIDER: GUERO ARDON . CONSTITUTIONAL: ANY CHANGE IN YOUR MEDICAL CONDITION? NO . CHILLS NO . FEVER NO . INFECTION: DO YOU HAVE NEW INFECTIONS? YES, HAS BEEN SICK ALL WINTER WITH RESP. ISSUES . DO YOU HAVE HISTORY OF MRSA? NO . MUSCULOSKELETAL: ANY NEW PATTERNS OF PAIN OR NUMBNESS? NO . GASTROENTEROLOGY: ANY NEW CHANGE IN BOWEL CONTROL? NO . GENITOURINARY: ANY NEW CHANGE IN BLADDER CONTROL? NO . IS THERE A CHANCE YOU COULD BE ? NO . HEMATOLOGY/LYMPH: DO YOU TAKE ANY BLOOD THINNERS? (FOR EXAMPLE- COUMADIN, PLAVIX, AGGRENOX, PLATEL, PRADAXA, OR XARELTO) NO . WHEN WAS YOUR LAST DOSE? DATE: TIME: . NEUROLOGY: HAVE YOU FALLEN IN THE PAST 12 MONTHS? NO . ANY NEW EXTREMITY NUMBNESS OR WEAKNESS? NO . CARDIOLOGY: DO YOU HAVE A PACEMAKER OR DEFIBRILLATOR? NO . RESPIRATORY: HAVE YOU BEEN SICK IN THE PAST WEEK? YES . FEVER YES . FLU LIKE SYMPTOMS? NO . COUGH YES, PRODUCTIVE, YELLOW TO CLEAR SPUTUM . INTEGUMENTARY: DO YOU HAVE ANY RASHES OR OPEN SORES? YES, OPEN SORES AND RASH WAIST TO GROIN AND ON BUTTOCKS . ALLERGIC/IMMUNO: ARE YOU ALLERGIC TO IV DYE? NO . ANY NEW ALLERGIES? NO . PSYCHIATRIC: DO YOU HAVE THOUGHTS OF HURTING YOURSELF OR SOMEONE ELSE? NO . ARE YOU ABUSED, NEGLECTED, OR IN AN UNSAFE ENVIRONMENT? NO . ENDOCRINOLOGY: ARE YOU DIABETIC? NO . OTHER: DO YOU NEED ANY PRESCRIPTIONS? YES . IF YES, PLEASE LIST: JIM NOT SURE IF ANYTHING ELSE . ANY NEW PROBLEMS WITH YOUR MEDICATIONS? NO . WHEN DID YOU LAST EAT? ____ . WHEN DID YOU LAST DRINK? ____ . WHAT DID YOU LAST DRINK? ____ . NAME OF PERSON DRIVING YOU HOME? ____ . DO YOU HAVE ANY OTHER QUESTIONS OR CONCERNS YES, WOULD LIKE TO DISCUSS SLEEP AID__NOT SLEEPING WELL AT ALL-HAS BEEN GOING ON FOR YEARS BUT IS WORSE LATELY . VITAL SIGNS WT 249 LBS, HT 63 IN, BMI 44.10 INDEX, BP 144/94 MM HG, HR 109 /MIN, RR 18 /MIN, TEMP 97.4 F, OXYGEN SAT % 96, SAFE IN ENV? (Y/N) Y, NA INITIALS AW [id number], REVIEWED BY: SAMEER. EXAMINATION GENERAL EXAMINATION: GENERAL APPEARANCE:AWAKE,ALERT ,PLEAASANT . PSYCHAFFECT NORMAL . LUNGS:LUNG BELLA ARE CLEAR TO AUSCULTATION BILATERALLY. GOOD MOVEMENT OF AIR . HEART:S1, S2 IN A REGULAR RATE AND RHYTHM. NO SIGNIFICANT MURMURS, RUBS OR GALLOPS NOTED . ASSESSMENTS ABDOMINAL PAIN - R10.9 (PRIMARY) TREATMENT ABDOMINAL PAIN REFILL OXYCODONE HCL TABLET, 15 MG, 1- 2 TABLET NEEDED, ORALLY, Q4-6HRS PRN PAIN MDD6, 30 DAY(S), 180, REFILLS 0 CONTINUE AMITRIPTYLINE HCL TABLET, 25 MG, 3 TABLET, ORALLY, ONCE A DAY AT BEDTIME START GABAPENTIN CAPSULE, 300 MG, 1 TO CAP 2, ORALLY, BEFORE BEDTIME, 30 DAY(S), 60, REFILLS 2 NOTES: ISTOP REGISTRY REVIEWED AND DEMONSTRATES COMPLLIANCE. (REF # ) BRINGS IN MEDICATIONS WHICH IS APPROPRIATE FOR WHAT WAS DISPENSED. RECENT URINE TOXICOLOGY REVIEWED. NO UNAUTHORIZED MEDICATIONS. NO ILLICIT SUBSTANCES AND PRESCRIBED MEDICATIONS WERE PRESENT. [facility] WAS REVIEWED/UPDATED AND SIGNED TODAY BY THE PATIENT. SEE ATTACHED DOCUMENT FOR FULL DETAILS; SPECIFIC ISSUES WERE REVIEWED: 1) KEEP PAIN MEDS IN THEIR ORIGINAL BOTTLES AND ANY WEEKLY PLANNERS ARE TO BE BROUGHT TO THE PAIN CENTER AT EVERY VISIT. 2) THE PATIENT IS NOT TO INCREASE DOSING OR TIMING OF THEIR PAIN MEDICATION WITHOUT SPECIFIC DIRECTION OF THEIR PAIN CENTERPROVIDER (NOT ER OR OTHER PROVIDERS). 3) ALL PAIN MEDS ARE TO BE KEPT SECURED, IN A LOCKED BOX. 4) NO PAIN MEDS ARE TO BE SHARED WITH ANY OTHER PERSON FOR ANY REASON. 5) NO PAIN MEDS MAY BE TAKEN FROM ANY FRIENDS OR RELATIVES FOR ANY REASON 6) NO MEDS OR SUBSTANCES WHICH ARE NOT LEGAL ARE TO BE USED- NO MARIJUANA, NO COCAINE, AMPHETAMINES, HEROIN, OR OTHERS ARE EVER TO BE USED. 7)URINE TESTING IS DONE TO ACCOUNT FOR MEDS AND SUBSTANCES BEING TAKEN AND WILL BE DONE RANDOMLY., RISKS AND BENEFITS OF NARCOTIC/OPIOD MEDICATIONS WERE REVIEWED WITH PATIENT - THIS INCLUDES BUT IS NOT LIMITED TO RISK OF DEPENDANCE/DEVELOPMENT OF ADDICTION, MOOD DISTURBANCE AND DEPRESSION, OSTEOPOROSIS, HORMONAL AND LABIDAL CHANGES, RESPIRATORY DEPRESSION AND . PATIENT IS ADVISED NOT TO DRIVE OR DRINK ALCOHOL WHILE ON THESE MEDICATIONS, . PROCEDURE CODES FA211 ESTABILISHED PATIENT [facility] CHARGE DISPOSITION & COMMUNICATION FOLLOW UP 2 MONTHS ELECTRONICALLY SIGNED BY DUGLAS OTTH ON 10/04/2018 AT 04:30 PM EDT DISCLAIMER : THIS IS A VISIT SUMMARY EXTRACTED FROM THE [employer] CHART. IT IS NOT A COPY OF THE [email or web address] PROGRESS NOTE. SHERIDAN
== END ==
LOC: M PAIN 09:30
PROVIDERS: ATTEND Nurse Practitioner Family
DX: R10.9 Unspecified abdominal pain (principal); M06.9 Rheumatoid arthritis, unspecified; M19.90 Unspecified osteoarthritis, unspecified site; K50.90 Crohn's disease, unspecified, without complications; F17.210 Nicotine dependence, cigarettes, uncomplicated; L88 Pyoderma gangrenosum; Z85.41 Personal history of malignant neoplasm of cervix uteri; Z87.442 Personal history of urinary calculi; Z85.43 Personal history of malignant neoplasm of ovary; Z79.891 Long term (current) use of opiate analgesic; Z79.899 Other long term (current) drug therapy; Z98.42 Cataract extraction status, left eye; Z88.5 Allergy status to narcotic agent; Z88.6 Allergy status to analgesic agent; Z88.8 Allergy status to other drugs, medicaments and biological substances

== ENCOUNTER 2018-10-02 11:33 | Outpatient (CLI) | payer MEDICARE, MEDICAID ==
[~2018-10-02] VITALS: Ht 157.5 cm; Wt 115.7 kg
[~2018-10-02 11:33] MED LIST changes: +SODIUM CHLORIDE 0.9% INJ 10 ML SYR IV SCH
[2018-10-02] MEDS ORDERED: diphenhydrAMINE 25MG PO PRIOR TO INFUSION PO ONE (11:45)
[2018-10-02] MEDS ORDERED: ACETAMINOPHEN 650MG PO PRIOR TO INFUSION PO ONE (11:45)
[2018-10-02] MEDS ORDERED: inFLIXimab INJECTION 700 MG in NS 180 ML IV ONE (11:45)
[2018-10-02] MEDS ORDERED: FILTER 1.2 MICRON (ADULT TPN/MANNITOL/REMICADE) XX ONE (11:45)
[2018-10-02] MEDS ORDERED: NS 1,000 ML IV SCH (11:45)
[2018-10-02 11:54] VITALS: BP 148/80
[2018-10-02] MEDS ORDERED: ALTEPLASE 2 MG/2 ML VIAL (J2997 PER 1MG) XX ONE ×2 (12:00→13:15)
[2018-10-02 14:57] VITALS: BP 136/87
== END 2018-10-02 15:15 | disposition home or self-care (01) ==
LOC: M INFU 11:33
PROVIDERS: ATTEND Internal Medicine
DX: K50.90 Crohn's disease, unspecified, without complications (principal); Z88.5 Allergy status to narcotic agent; Z88.8 Allergy status to other drugs, medicaments and biological substances
CPT/HCPCS: 36593; 96413; 96415; J1745; J2997

== ENCOUNTER → 2018-10-31 | Outpatient (CLI) | payer MEDICARE, MEDICAID ==
[~2018-10-31] MED LIST changes: -/ONDA4TA; -/ONDA4TA OR; -BONI150T PO; +BONI1TAB PO; +BUPIVACAINE HCL 0.5% 10 ML VIAL As Ordered ONE; +CALC12504 PO; -CALC500T36 PO; +ISOVUE-300 61% 100ML VIAL (Q9967) As Ordered ONE; +LIDOCAINE 2% MDV 20 ML VIAL As Ordered ONE; +ONDA-1; +ONDA-1 OR; -SODIUM CHLORIDE 0.9% INJ 10 ML SYR IV SCH; +ceFAZolin 1GM INJ (J0690 PER 500MG) As Ordered ONE
== END ==
LOC: M IRPRO 10-17 09:30
PROVIDERS: ATTEND Surgery Vascular Surgery
DX: T82.9XXA Unspecified complication of cardiac and vascular prosthetic device, implant and graft, initial encounter (principal); X58.XXXA Exposure to other specified factors, initial encounter; Y92.9 Unspecified place or not applicable; Z53.29 Procedure and treatment not carried out because of patient's decision for other reasons

== ENCOUNTER 2018-11-06 12:52 | Outpatient (CLI) | payer MEDICARE, MEDICAID ==
[~2018-11-06] VITALS: Ht 157.5 cm; Wt 115.7 kg
[~2018-11-06 12:52] MED LIST changes: -BUPIVACAINE HCL 0.5% 10 ML VIAL As Ordered ONE; -ISOVUE-300 61% 100ML VIAL (Q9967) As Ordered ONE; -LIDOCAINE 2% MDV 20 ML VIAL As Ordered ONE; +SODIUM CHLORIDE 0.9% INJ 10 ML SYR IV SCH; -ceFAZolin 1GM INJ (J0690 PER 500MG) As Ordered ONE
[2018-11-06] MEDS ORDERED: FILTER 1.2 MICRON (ADULT TPN/MANNITOL/REMICADE) XX ONE (13:15)
[2018-11-06] MEDS ORDERED: INFLIXIMAB BIOSIMILAR 700 MG in NS 180 ML IV ONE (13:15)
[2018-11-06] MEDS ORDERED: ACETAMINOPHEN 650MG PO PRIOR TO INFUSION PO ONE (13:15)
[2018-11-06] MEDS ORDERED: diphenhydrAMINE 25MG PO PRIOR TO INFUSION PO ONE (13:15)
[2018-11-06] MEDS ORDERED: NS 1,000 ML IV SCH (13:15)
[2018-11-06 13:40] VITALS: BP 136/80
== END 2018-11-06 16:00 | disposition home or self-care (01) ==
LOC: M INFU 12:52
PROVIDERS: ATTEND Internal Medicine
DX: K50.90 Crohn's disease, unspecified, without complications (principal); Z88.8 Allergy status to other drugs, medicaments and biological substances; Z88.5 Allergy status to narcotic agent
CPT/HCPCS: 96413; 96415; Q5103

== ENCOUNTER → 2018-11-20 | Outpatient (CLI) | payer MEDICARE, MEDICAID ==
[~2018-11-20] MED LIST changes: -SODIUM CHLORIDE 0.9% INJ 10 ML SYR IV SCH
--- NOTE | 2018-12-08 01:47 | ECWPNPC ---
PATIENT NAME: KAYLA CRUZ : 1970 GENDER: FEMALE VISIT DATE: 11/20/2018 DISCHARGE DATE: 11/20/18 1509 VISIT LOCKED DATE TIME: PHYSICIAN: GUERO JACQUES RESOURCE: GUERO JACQUES REASON FOR APPOINTMENT 1. ABD PAIN HISTORY OF PRESENT ILLNESS HISTORY OF PRESENT ILLNESS: HERE FOR F/U OF CHRONIC GENERALIZED BODY PAIN W HX OF RHEUMATOID ARTHRITIS AND CROHNS DISEASE.REPORTING POOR SLEEP DESPITE MEDICATIONS.RATING PAIN VAS 9/10. PAIN THE PATIENT DESCRIBES THE PAIN... THE PATIENT DESCRIBES THE PAIN... FALL RISK SCREENING: SCREENING :NO FALLS REPORTED IN THE LAST YEAR CURRENT MEDICATIONS TAKING REMICADE 100 MG SOLUTION RECONSTITUTED INTRAVENOUS EVERY 4 WKS TAKING IBUPROFEN 800 MG TABLET 1 TABLET ORALLY THREE TIMES A DAY TAKING ACETAMINOPHEN 325 MG TABLET 1 TABLET NEEDED ORALLY EVERY 4- 6 HRS PRN PAIN MAX 3000 MG/24 HRS TAKING ZOFRAN ODT 4 MG TABLET DISPERSIBLE 1 TABLET ON THE TONGUE AND ALLOW TO DISSOLVE ORALLY EVERY 6 HRS TAKING PROMETHAZINE HCL 25 MG TABLET 1 TABLET NEEDED ORALLY EVERY 8 HRS PRN NAUSEA TAKING AMITRIPTYLINE HCL 25 MG TABLET 3 TABLET ORALLY ONCE A DAY AT BEDTIME TAKING OXYCODONE HCL 15 MG TABLET 1- 2 TABLET NEEDED ORALLY Q4-6HRS PRN PAIN MDD6 TAKING PHENTERMINE HCL 15 MG CAPSULE 1 CAPSULE ORALLY ONCE A DAY TAKING AMOXICILLIN 500 MG CAPSULE 1 CAPSULE ORALLY TWICE A DAY NOT-TAKING BONIVA 150 MG TABLET 1 TABLET ORALLY MONTHLY NOT-TAKING GABAPENTIN 300 MG CAPSULE 1 TO CAP 2 ORALLY BEFORE BEDTIME NOT-TAKING FLOMAX 0.4 MG CAPSULE 1 CAPSULE ORALLY ONCE A DAY NOT-TAKING CIPROFLOXACIN HCL 500 MG TABLET 1 TABLET FOR YOUR CYSTOSCOPY TODAY ORALLY DIRECTED NOT-TAKING OXYBUTYNIN CHLORIDE 5 MG TABLET 1 TABLET ORALLY EVERY 8 HOURS A NEEDED FOR BLADDER SPASMS OR URINARY FREQUENCY NOT-TAKING FLOMAX 0.4 MG CAPSULE 1 CAPSULE 30 MINUTES AFTER THE SAME MEAL EACH DAY ORALLY ONCE A DAY NOT-TAKING CALCIUM 150 MG TABLET ORALLY DAILY DISCONTINUED SILVADENE 1 % CREAM 1 APPLICATION TO AFFECTED AREA EXTERNALLY ONCE A DAY TO OPEN LESIONS POSTERIOR THIGHS MEDICATION LIST REVIEWED AND RECONCILED WITH THE PATIENT PAST MEDICAL HISTORY 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 CERVICAL AND OVARIAN CANCER HX FISTULAS KIDNEY STONES ABDOMINAL PAIN JOINT PAIN 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 ALLERGIES NAPROXEN: VOMITING - CONTRAINDICATION FLAGYL: VOMITING - CONTRAINDICATION VICODIN: VOMITING - CONTRAINDICATION 6MP: ANAPHYLAXIS - ALLERGY SURGICAL HISTORY ANAL FISTULA SURGERY 1998 VAGINAL ANAL FISTULA SURGERY 2003 EMERGENCY FULL HYSTERECTOMY AND COLON REMOVAL AND LARGE INTESTINE 2004 EMERGENCY HERNIA REPAIR BLOCKAGE 2012 CATARACT LEFT GALL BLADDER ILEOSTOMY SALPINGECTOMY RIGHT URETEROSCOPY WITH LASER LITHOTRIPSY AND BASKET EXTRACTION OF STONES, RIGHT RETROGRADE PYELOGRAM WITH INTRAOPERATIVE INTERCEPTION OF IMAGES, RIGHT URETERAL STENT PLACEMENT 05/11/2018 CYSTO RIGHT STENT REMOVAL 07/23/2018 FAMILY HISTORY FATHER: ALIVE MOTHER: , STARTED LUNG CANCER THAT SPREAD EVERYWHERE, DIAGNOSED WITH HEART DISEASE, CANCER SIBLINGS: SISTER-GRAVES DISEASE MATERNAL GRAND FATHER: HEART DISEASE MATERNAL GRAND MOTHER: CANCER 1 SISTER(S) . 1DAUGHTER(S) - HEALTHY. DENIES FAMILY HISTORY OF UROLOGICAL DX. SOCIAL HISTORY GENERAL: TOBACCO USE ARE YOU A:CURRENT SMOKER ARE YOU INTERESTED IN QUITTING?NOT READY TO QUIT COUNSELED THE PATIENT ON SMOKING EFFECTS, EDUCATION [id number]/14/2019 HOW MANY CIGARETTES A DAY DO YOU SMOKE?5 OR LESS HOW OFTEN DO YOU SMOKE CIGARETTES?EVERY DAY PATIENT COUNSELED ON THE DANGERS OF TOBACCO USE AND URGED TO QUIT:09/20/2018 EDUCATION LEVEL OF EDUCATION:FINISHED HIGH SCHOOL DIET: REGULAR. DOMESTIC VIOLENCE DO YOU FEEL SAFE IN YOUR ENVIRONMENT?YES RECREATIONAL DRUG USE DRUG USE?NO EXERCISE: NO REGULAR EXERCISE. LEARNING BARRIERS / SPECIAL NEEDS BARRIERS TO LEARNING?NO HEARING IMPAIRED?NO VISION IMPAIRED?YES :CORRECTIVE LENSES READINESS TO LEARN?YES LEARNING PREFERENCES?NO LEARNING CAPABILITIES PRESENT?YES EMOTIONAL BARRIERS?NO SPECIAL DEVICES?NO WATCH SUPERVISOR NEEDED?NO PAIN CLINIC PFS, CLERGY, PUBLIC HEALTH REFERRALS PFS REFERRAL NEEDED?NO CLERGY REFERRAL NEEDED?NO PUBLIC HEALTH REFERRAL NEEDED?NO HAS THE PATIENT BEEN EDUCATED REGARDING HIS/HER PLAN OF CARE?YES HAS THE PATIENT BEEN EDUCATED REGARDING PAIN, THE RISK FOR PAIN, THE IMPORTANCE OF EFFECTIVE PAIN MANAGEMENT, AND THE PAIN ASSESSMENT PROCESS?YES LATEX QUESTIONNAIRE LATEX ALLERGY : HAVE YOU EVER DEVELOPED ANY TYPE OF REACTION AFTER HANDLING LATEX PRODUCTS SUCH RUBBER GLOVES, CONDOMS, DIAPHRAGMS, BALLOONS, SOCKS, OR UNDERWEAR?NO LATEX ALLERGY : HAVE YOU EVER DEVELOPED ANY TYPE OF REACTION DURING OR AFTER DENTAL APPOINTMENT, VAGINAL/RECTAL EXAMINATION, SURGICAL PROCEDURE, OR ANY OTHER EXPOSURE?NO LATEX RISK : HAVE YOU EVER HAD ANY DIFFICULTY BREATHING OR HIVES AFTER EATING OR HANDLING ANY FRUITS, OR VEGETABLES; SUCH KIWI, BANANAS, STONE FRUITS, OR CHESTNUTSNO LATEX RISK : DO YOU HAVE A PREVIOUS PERSONAL HISTORY OF MORE THAN NINE SURGERIES, SPINA BIFIDA, OR REPEATED CATHERTIZATIONS? YES - PLEASE INDICATE : > 9 SURGERIES LATEX RISK : ARE YOU FREQUENTLY EXPOSED TO LATEX PRODUCTS IN YOUR OCCUPATION?NO DATE ASKED : 11/20/2018 CAFFEINE CAFFEINE USE?NO ADVANCE DIRECTIVE ADVANCE DIRECTIVE DISCUSSED WITH PATIENT:YES PT STATES SHE HAS HCP--JUSTO FREEDMAN [phone] 11/20/18 GNOSTICISM [id number] TAOISM NO YARSANISM BELIEFS THAT WOULD IMPACT HEALTH CARE. MARITAL STATUS: .. ALCOHOL SCREENING DID YOU HAVE A DRINK CONTAINING ALCOHOL IN THE PAST YEAR?NO POINTS0 INTERPRETATIONNEGATIVE SEXUAL HX HAD SEX IN THE LAST 12 MONTHS (VAGINAL, ORAL, OR ANAL)?NO HAVE YOU EVER HAD AN STD?NO 09/20/18 REVIEWED WITH PT. ADREVIEWED WITH PT 11/20/18 1432 BV. HOSPITALIZATION/MAJOR DIAGNOSTIC PROCEDURE R/T SURGERIES KIDNEY STONES 01/2018 REVIEW OF SYSTEMS REVIEWED BY: PROVIDER: GUERO ARDON . CONSTITUTIONAL: ANY CHANGE IN YOUR MEDICAL CONDITION? NO . CHILLS NO . FEVER NO . INFECTION: DO YOU HAVE NEW INFECTIONS? YES, CURRENTLY ON ANTIBIOTICS FOR INFECTION IN JAW . DO YOU HAVE HISTORY OF MRSA? NO . MUSCULOSKELETAL: ANY NEW PATTERNS OF PAIN OR NUMBNESS? NO . GASTROENTEROLOGY: ANY NEW CHANGE IN BOWEL CONTROL? NO . GENITOURINARY: ANY NEW CHANGE IN BLADDER CONTROL? NO . IS THERE A CHANCE YOU COULD BE ? NO . HEMATOLOGY/LYMPH: DO YOU TAKE ANY BLOOD THINNERS? (FOR EXAMPLE- COUMADIN, PLAVIX, AGGRENOX, PLATEL, PRADAXA, OR XARELTO) NO . WHEN WAS YOUR LAST DOSE? DATE: TIME: . NEUROLOGY: HAVE YOU FALLEN IN THE PAST 12 MONTHS? NO . ANY NEW EXTREMITY NUMBNESS OR WEAKNESS? NO . CARDIOLOGY: DO YOU HAVE A PACEMAKER OR DEFIBRILLATOR? NO . RESPIRATORY: HAVE YOU BEEN SICK IN THE PAST WEEK? YES, PT CURRENTLY ON ANTIBIOTICS FOR INFECTION, SEE ABOVE. . FEVER NO . FLU LIKE SYMPTOMS? NO . COUGH NO . INTEGUMENTARY: DO YOU HAVE ANY RASHES OR OPEN SORES? YES, PT STATES SHE SEES WOUND CARE REGARDING OPEN SORES SHE HAS . ALLERGIC/IMMUNO: ARE YOU ALLERGIC TO IV DYE? NO . ANY NEW ALLERGIES? NO . PSYCHIATRIC: DO YOU HAVE THOUGHTS OF HURTING YOURSELF OR SOMEONE ELSE? NO . ARE YOU ABUSED, NEGLECTED, OR IN AN UNSAFE ENVIRONMENT? NO . ENDOCRINOLOGY: ARE YOU DIABETIC? NO . OTHER: DO YOU NEED ANY PRESCRIPTIONS? YES, OXYCODONE, IBUPROFEN, ZOFRAN, PROMETHAZINE, ACETAMINOPHEN, AMITRIPTYLINE . IF YES, PLEASE LIST: ____ . ANY NEW PROBLEMS WITH YOUR MEDICATIONS? NO . WHEN DID YOU LAST EAT? ____ . WHEN DID YOU LAST DRINK? ____ . WHAT DID YOU LAST DRINK? ____ . NAME OF PERSON DRIVING YOU HOME? ____ . DO YOU HAVE ANY OTHER QUESTIONS OR CONCERNS NO . VITAL SIGNS WT 251.0 LBS, HT 63 IN, BMI 44.46 INDEX, BP 149/83 MM HG, HR 96 /MIN, RR 18 /MIN, TEMP 98.6 F, OXYGEN SAT % 96, NA INITIALS MP 1423, REVIEWED BY: BV. EXAMINATION GENERAL EXAMINATION: GENERAL APPEARANCE:AWAKE,ALERT ,PLEAASANT . PSYCHAFFECT NORMAL . LUNGS:LUNG BELLA ARE CLEAR TO AUSCULTATION BILATERALLY. GOOD MOVEMENT OF AIR . HEART:S1, S2 IN A REGULAR RATE AND RHYTHM. NO SIGNIFICANT MURMURS, RUBS OR GALLOPS NOTED . ASSESSMENTS ABDOMINAL PAIN - R10.9 (PRIMARY) TREATMENT ABDOMINAL PAIN CONTINUE OXYCODONE HCL TABLET, 15 MG, 1- 2 TABLET NEEDED, ORALLY, Q4-6HRS PRN PAIN MDD6 CONTINUE AMITRIPTYLINE HCL TABLET, 25 MG, 3 TABLET, ORALLY, ONCE A DAY AT BEDTIME CONTINUE IBUPROFEN TABLET, 800 MG, 1 TABLET, ORALLY, THREE TIMES A DAY CONTINUE ACETAMINOPHEN TABLET, 325 MG, 1 TABLET NEEDED, ORALLY, EVERY 4- 6 HRS PRN PAIN MAX 3000 MG/24 HRS NOTES: ISTOP REGISTRY REVIEWED AND DEMONSTRATES COMPLLIANCE. BRINGS IN MEDICATIONS WHICH IS APPROPRIATE FOR WHAT WAS DISPENSED. RECENT URINE TOXICOLOGY REVIEWED. NO UNAUTHORIZED MEDICATIONS. NO ILLICIT SUBSTANCES AND PRESCRIBED MEDICATIONS WERE PRESENT. , RISKS AND BENEFITS OF NARCOTIC/OPIOD MEDICATIONS WERE REVIEWED WITH PATIENT - THIS INCLUDES BUT IS NOT LIMITED TO RISK OF DEPENDANCE/DEVELOPMENT OF ADDICTION, MOOD DISTURBANCE AND DEPRESSION, OSTEOPOROSIS, HORMONAL AND LABIDAL CHANGES, RESPIRATORY DEPRESSION AND . PATIENT IS ADVISED NOT TO DRIVE OR DRINK ALCOHOL WHILE ON THESE MEDICATIONS. PROCEDURE CODES FA211 ESTABILISHED PATIENT [facility] CHARGE DISPOSITION & COMMUNICATION FOLLOW UP 3 MONTHS ELECTRONICALLY SIGNED BY DUGLAS TOTH ON 12/06/2018 AT 12:45 PM EDT DISCLAIMER : THIS IS A VISIT SUMMARY EXTRACTED FROM THE [employer] CHART. IT IS NOT A COPY OF THE [employer] PROGRESS NOTE. SHERIDAN
== END ==
LOC: M PAIN 14:00
PROVIDERS: ATTEND Nurse Practitioner Family
DX: R10.9 Unspecified abdominal pain (principal); G89.29 Other chronic pain; M06.9 Rheumatoid arthritis, unspecified; F17.210 Nicotine dependence, cigarettes, uncomplicated; Z88.1 Allergy status to other antibiotic agents; Z88.5 Allergy status to narcotic agent; Z88.6 Allergy status to analgesic agent; E66.01 Morbid (severe) obesity due to excess calories; Z68.41 Body mass index [BMI] 40.0-44.9, adult; Z79.1 Long term (current) use of non-steroidal anti-inflammatories (NSAID); Z79.899 Other long term (current) drug therapy

== ENCOUNTER 2019-01-18 12:33 | Outpatient (CLI) | payer MEDICARE, MEDICAID ==
[~2019-01-18] VITALS: Ht 160 cm; Wt 111.3 kg
[~2019-01-18 12:33] MED LIST changes: -CALC12504 PO; +CALC500T61 PO; +SODIUM CHLORIDE 0.9% INJ 10 ML SYR IV SCH
[2019-01-18 12:40] VITALS: BP 173/102
[2019-01-18] MEDS ORDERED: ACETAMINOPHEN 650MG PO PRIOR TO INFUSION PO ONE (13:45)
[2019-01-18] MEDS ORDERED: NS 1,000 ML IV SCH (13:45)
[2019-01-18] MEDS ORDERED: diphenhydrAMINE 25MG PO PRIOR TO INFUSION PO ONE (13:45)
[2019-01-18] MEDS ORDERED: FILTER 1.2 MICRON (ADULT TPN/MANNITOL/REMICADE) XX ONE (13:45)
[2019-01-18] MEDS ORDERED: INFLIXIMAB BIOSIMILAR 600 MG in NS 190 ML IV ONE (14:15)
[2019-01-18 16:35] VITALS: BP 163/88
== END 2019-01-18 16:35 | disposition home or self-care (01) ==
LOC: M INFU 12:33
PROVIDERS: ATTEND Internal Medicine Gastroenterology
DX: K50.80 Crohn's disease of both small and large intestine without complications (principal); Z88.8 Allergy status to other drugs, medicaments and biological substances
CPT/HCPCS: 96413; 96415; Q5103

== ENCOUNTER → 2019-01-31 | Outpatient (CLI) | payer MEDICARE, MEDICAID ==
[~2019-01-31] MED LIST changes: +IBUP1TAB7 PO; +ONDA4TAB6 PO; -SODIUM CHLORIDE 0.9% INJ 10 ML SYR IV SCH
--- NOTE | 2019-01-31 15:15 | REP ---
REASON: History of renal calculi. COMPARISON: 07/23/2018 The double pigtail catheter seen previously on the right has been removed. Once again, there are multiple calcifications seen in the right kidney, status quo. Chronic changes are again seen involving the spine, hips, and sacroiliac joints. IMPRESSION: Status post removal of the right-sided stent. Calcifications and other findings as described above. Electronically Signed by Amish Prajapati DO 01/31/2019 04:20 P
== END ==
LOC: M SMT 14:15
PROVIDERS: ATTEND Urology
DX: N20.0 Calculus of kidney (principal)
CPT/HCPCS: 74018; G0463

== ENCOUNTER → 2019-02-05 | Outpatient (CLI) | payer MEDICARE, MEDICAID ==
[~2019-02-05] MED LIST changes: -IBUP1TAB7 PO; -ONDA4TAB6 PO
--- NOTE | 2019-02-05 15:52 | REP ---
Clinical: Kidney stone. Technique: Real time fuchs scale and color evaluation using curved array transducer. Findings: Bilateral kidneys are normal in contour, size, echogenicity, and reniform shape without hydronephrosis, or renal mass lesion. No perinephric fluid collections are identified. The right kidney measures 12.1 x 5.3 x 5.1 cm with suspected 8 mm mid pole and 3 mm lower pole nonobstructing calculi as well as possible 2.5 cm medial peripelvic cyst. The left kidney measures 12.5 x 5.2 x 5.2 cm and punctate nonobstructing calculi cannot be excluded. Impression: Suspected bilateral nonobstructing calculi (right greater than left) and possible 2.5 cm right medial peripelvic cyst Electronically Signed by John Paul Joshua MD 02/05/2019 03:44 P
== END ==
LOC: M RAD 14:00
PROVIDERS: ATTEND Urology
DX: N20.0 Calculus of kidney (principal)

== ENCOUNTER 2019-02-20 12:08 | Outpatient (CLI) | payer MEDICARE, MEDICAID ==
[~2019-02-20] VITALS: Ht 160 cm; Wt 109.5 kg
[~2019-02-20 12:08] MED LIST changes: -IBUP1TAB7 PO; -ONDA4TAB6 PO; +SODIUM CHLORIDE 0.9% INJ 10 ML SYR IV SCH
[2019-02-20] MEDS ORDERED: NS 1,000 ML IV SCH (12:15)
[2019-02-20] MEDS ORDERED: FILTER 1.2 MICRON (ADULT TPN/MANNITOL/REMICADE) XX ONE (12:15)
[2019-02-20] MEDS ORDERED: INFLIXIMAB BIOSIMILAR 600 MG in NS 190 ML IV ONE (12:15)
[2019-02-20] MEDS ORDERED: ACETAMINOPHEN 650MG PO PRIOR TO INFUSION PO ONE (12:15)
[2019-02-20] MEDS ORDERED: diphenhydrAMINE 25MG PO PRIOR TO INFUSION PO ONE (12:15)
[2019-02-20 12:50] VITALS: BP 136/74
== END 2019-02-20 14:15 | disposition home or self-care (01) ==
LOC: M INFU 12:08
PROVIDERS: ATTEND Internal Medicine Gastroenterology
DX: K50.80 Crohn's disease of both small and large intestine without complications (principal); Z88.1 Allergy status to other antibiotic agents; Z88.2 Allergy status to sulfonamides; Z88.8 Allergy status to other drugs, medicaments and biological substances
CPT/HCPCS: 96413; G0463; Q5103

== ENCOUNTER → 2019-02-20 | Outpatient (CLI) | payer MEDICARE, MEDICAID ==
[~2019-02-20] MED LIST changes: +IBUP1TAB7 PO; +ONDA4TAB6 PO
--- NOTE | 2019-02-22 00:27 | ECWPNPC ---
PATIENT NAME: KAYLA CRUZ : 1970 GENDER: FEMALE VISIT DATE: 02/20/2019 DISCHARGE DATE: 02/20/19 1201 VISIT LOCKED DATE TIME: PHYSICIAN: NEIL PEREZ RESOURCE: NEIL PEREZ REASON FOR APPOINTMENT 1. ABD PAIN HISTORY OF PRESENT ILLNESS HISTORY OF PRESENT ILLNESS: PAIN THE PATIENT DESCRIBES THE PAIN... 49 YEAR OLD FEMALE IN FOR CHRONIC PAIN FOLLOW UP. SHE RATES HER PAIN AT A 9/10 CURRENTLY AND DESCRIBES IT ACHING, BURNING, SHARP, SORE, TENDER, STABBING, AND SHOOTING. SHE FEELS THE MEDICATIONS ARE WORKING WELL AND DENIES MED SIDE EFFECTS. FALL RISK SCREENING: SCREENING :NO FALLS REPORTED IN THE LAST YEAR CURRENT MEDICATIONS TAKING REMICADE 100 MG SOLUTION RECONSTITUTED INTRAVENOUS EVERY 4 WKS TAKING PROMETHAZINE HCL 25 MG TABLET 1 TABLET NEEDED ORALLY EVERY 8 HRS PRN NAUSEA TAKING AMITRIPTYLINE HCL 25 MG TABLET 3 TABLET ORALLY ONCE A DAY AT BEDTIME TAKING IBUPROFEN 800 MG TABLET 1 TABLET ORALLY THREE TIMES A DAY TAKING ZOFRAN ODT 4 MG TABLET DISPERSIBLE 1 TABLET ON THE TONGUE AND ALLOW TO DISSOLVE ORALLY EVERY 6 HRS TAKING OXYCODONE HCL 15 MG TABLET -1 2 TABLET NEEDED ORALLY Q4-6HRS PRN PAIN MDD6 TAKING ACETAMINOPHEN 325 MG TABLET 1 TABLET NEEDED ORALLY EVERY -4 6 HRS PRN PAIN MAX 3000 MG/24 HRS NOT-TAKING AMOXICILLIN 500 MG CAPSULE 1 CAPSULE ORALLY TWICE A DAY NOT-TAKING PHENTERMINE HCL 15 MG CAPSULE 1 CAPSULE ORALLY ONCE A DAY NOT-TAKING BONIVA 150 MG TABLET 1 TABLET ORALLY MONTHLY NOT-TAKING GABAPENTIN 300 MG CAPSULE 1 TO CAP 2 ORALLY BEFORE BEDTIME NOT-TAKING FLOMAX 0.4 MG CAPSULE 1 CAPSULE ORALLY ONCE A DAY NOT-TAKING CIPROFLOXACIN HCL 500 MG TABLET 1 TABLET FOR YOUR CYSTOSCOPY TODAY ORALLY DIRECTED NOT-TAKING OXYBUTYNIN CHLORIDE 5 MG TABLET 1 TABLET ORALLY EVERY 8 HOURS A NEEDED FOR BLADDER SPASMS OR URINARY FREQUENCY NOT-TAKING FLOMAX 0.4 MG CAPSULE 1 CAPSULE 30 MINUTES AFTER THE SAME MEAL EACH DAY ORALLY ONCE A DAY NOT-TAKING CALCIUM 150 MG TABLET ORALLY DAILY MEDICATION LIST REVIEWED AND RECONCILED WITH THE PATIENT PAST MEDICAL HISTORY 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 CERVICAL AND OVARIAN CANCER HX FISTULAS KIDNEY STONES ABDOMINAL PAIN JOINT PAIN 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 ALLERGIES NAPROXEN: VOMITING - CONTRAINDICATION FLAGYL: VOMITING - CONTRAINDICATION VICODIN: VOMITING - CONTRAINDICATION 6MP: ANAPHYLAXIS - ALLERGY SURGICAL HISTORY ANAL FISTULA SURGERY 1998 VAGINAL ANAL FISTULA SURGERY 2003 EMERGENCY FULL HYSTERECTOMY AND COLON REMOVAL AND LARGE INTESTINE 2004 EMERGENCY HERNIA REPAIR BLOCKAGE 2012 CATARACT LEFT GALL BLADDER ILEOSTOMY SALPINGECTOMY RIGHT URETEROSCOPY WITH LASER LITHOTRIPSY AND BASKET EXTRACTION OF STONES, RIGHT RETROGRADE PYELOGRAM WITH INTRAOPERATIVE INTERCEPTION OF IMAGES, RIGHT URETERAL STENT PLACEMENT 05/11/2018 CYSTO RIGHT STENT REMOVAL 07/23/2018 FAMILY HISTORY FATHER: ALIVE MOTHER: , STARTED LUNG CANCER THAT SPREAD EVERYWHERE, DIAGNOSED WITH CANCER, HEART DISEASE SIBLINGS: SISTER-GRAVES DISEASE MATERNAL GRAND FATHER: HEART DISEASE MATERNAL GRAND MOTHER: CANCER 1 SISTER(S) . 1DAUGHTER(S) - HEALTHY. DENIES FAMILY HISTORY OF UROLOGICAL DX. SOCIAL HISTORY GENERAL: TOBACCO USE ARE YOU A:CURRENT SMOKER ARE YOU INTERESTED IN QUITTING?NOT READY TO QUIT COUNSELED THE PATIENT ON SMOKING EFFECTS, EDUCATION [id number]/14/2019 HOW MANY CIGARETTES A DAY DO YOU SMOKE?5 OR LESS HOW OFTEN DO YOU SMOKE CIGARETTES?EVERY DAY PATIENT COUNSELED ON THE DANGERS OF TOBACCO USE AND URGED TO QUIT:02/20/2019 EDUCATION LEVEL OF EDUCATION:FINISHED HIGH SCHOOL DIET: REGULAR. DOMESTIC VIOLENCE DO YOU FEEL SAFE IN YOUR ENVIRONMENT?YES RECREATIONAL DRUG USE DRUG USE?NO EXERCISE: NO REGULAR EXERCISE. LEARNING BARRIERS / SPECIAL NEEDS BARRIERS TO LEARNING?NO HEARING IMPAIRED?NO VISION IMPAIRED?YES :CORRECTIVE LENSES READINESS TO LEARN?YES LEARNING PREFERENCES?NO LEARNING CAPABILITIES PRESENT?YES EMOTIONAL BARRIERS?NO SPECIAL DEVICES?NO ARTIFICIAL BREEDING DISTRIBUTOR NEEDED?NO PAIN CLINIC PFS, CLERGY, PUBLIC HEALTH REFERRALS PFS REFERRAL NEEDED?NO CLERGY REFERRAL NEEDED?NO PUBLIC HEALTH REFERRAL NEEDED?NO WAS THE PROVIDER NOTIFIED OF ANY PERTINENT INFO?YES HAS THE PATIENT BEEN EDUCATED REGARDING HIS/HER PLAN OF CARE?YES HAS THE PATIENT BEEN EDUCATED REGARDING PAIN, THE RISK FOR PAIN, THE IMPORTANCE OF EFFECTIVE PAIN MANAGEMENT, AND THE PAIN ASSESSMENT PROCESS?YES LATEX QUESTIONNAIRE LATEX ALLERGY : HAVE YOU EVER DEVELOPED ANY TYPE OF REACTION AFTER HANDLING LATEX PRODUCTS SUCH RUBBER GLOVES, CONDOMS, DIAPHRAGMS, BALLOONS, SOCKS, OR UNDERWEAR?NO LATEX ALLERGY : HAVE YOU EVER DEVELOPED ANY TYPE OF REACTION DURING OR AFTER DENTAL APPOINTMENT, VAGINAL/RECTAL EXAMINATION, SURGICAL PROCEDURE, OR ANY OTHER EXPOSURE?NO LATEX RISK : HAVE YOU EVER HAD ANY DIFFICULTY BREATHING OR HIVES AFTER EATING OR HANDLING ANY FRUITS, OR VEGETABLES; SUCH KIWI, BANANAS, STONE FRUITS, OR CHESTNUTSNO LATEX RISK : DO YOU HAVE A PREVIOUS PERSONAL HISTORY OF MORE THAN NINE SURGERIES, SPINA BIFIDA, OR REPEATED CATHERIZATIONS? YES - PLEASE INDICATE : > 9 SURGERIES LATEX RISK : ARE YOU FREQUENTLY EXPOSED TO LATEX PRODUCTS IN YOUR OCCUPATION?NO DATE ASKED : 02/20/2019 CAFFEINE CAFFEINE USE?NO ADVANCE DIRECTIVE ADVANCE DIRECTIVE DISCUSSED WITH PATIENT:YES PT STATES SHE HAS HCP--JUSTO FREEDMAN [phone] 11/20/18 CATHOLIC [id number] PENTECOSTALISM NO PENTECOSTAL BELIEFS THAT WOULD IMPACT HEALTH CARE. MARITAL STATUS: .. ALCOHOL SCREENING DID YOU HAVE A DRINK CONTAINING ALCOHOL IN THE PAST YEAR?NO POINTS0 INTERPRETATIONNEGATIVE SEXUAL HX HAD SEX IN THE LAST 12 MONTHS (VAGINAL, ORAL, OR ANAL)?NO HAVE YOU EVER HAD AN STD?NO 09/20/18 REVIEWED WITH PT. ADREVIEWED WITH PT 11/20/18 1432 BV. HOSPITALIZATION/MAJOR DIAGNOSTIC PROCEDURE R/T SURGERIES KIDNEY STONES 01/2018 REVIEW OF SYSTEMS REVIEWED BY: PROVIDER: LESLIE PEREZ DIRECTOR OF GLOBAL TALENT-C . CONSTITUTIONAL: ANY CHANGE IN YOUR MEDICAL CONDITION? NO . CHILLS NO . FEVER NO . INFECTION: DO YOU HAVE NEW INFECTIONS? NO . DO YOU HAVE HISTORY OF MRSA? NO . MUSCULOSKELETAL: ANY NEW PATTERNS OF PAIN OR NUMBNESS? NO . GASTROENTEROLOGY: ANY NEW CHANGE IN BOWEL CONTROL? NO . GENITOURINARY: ANY NEW CHANGE IN BLADDER CONTROL? YES, KIDNEY STONES, SEEING [facility] . IS THERE A CHANCE YOU COULD BE ? NO . HEMATOLOGY/LYMPH: DO YOU TAKE ANY BLOOD THINNERS? (FOR EXAMPLE- COUMADIN, PLAVIX, AGGRENOX, PLATEL, PRADAXA, OR XARELTO) NO . WHEN WAS YOUR LAST DOSE? DATE: TIME: . NEUROLOGY: HAVE YOU FALLEN IN THE PAST 12 MONTHS? NO . ANY NEW EXTREMITY NUMBNESS OR WEAKNESS? NO . CARDIOLOGY: DO YOU HAVE A PACEMAKER OR DEFIBRILLATOR? NO . RESPIRATORY: HAVE YOU BEEN SICK IN THE PAST WEEK? YES, NO FEVER . FEVER NO . FLU LIKE SYMPTOMS? NO . COUGH NO . INTEGUMENTARY: DO YOU HAVE ANY RASHES OR OPEN SORES? YES, STOMACH, BUTTOCKS . ALLERGIC/IMMUNO: ARE YOU ALLERGIC TO IV DYE? NO . ANY NEW ALLERGIES? NO . PSYCHIATRIC: DO YOU HAVE THOUGHTS OF HURTING YOURSELF OR SOMEONE ELSE? NO . ARE YOU ABUSED, NEGLECTED, OR IN AN UNSAFE ENVIRONMENT? NO . ENDOCRINOLOGY: ARE YOU DIABETIC? NO . OTHER: DO YOU NEED ANY PRESCRIPTIONS? YES, ALL REFILLS . IF YES, PLEASE LIST: ____ . ANY NEW PROBLEMS WITH YOUR MEDICATIONS? NO . WHEN DID YOU LAST EAT? ____ . WHEN DID YOU LAST DRINK? ____ . WHAT DID YOU LAST DRINK? ____ . NAME OF PERSON DRIVING YOU HOME? ____ . DO YOU HAVE ANY OTHER QUESTIONS OR CONCERNS NO . VITAL SIGNS WT 243 LBS, HT 63 IN, BMI 43.04 INDEX, BP 152/77 MM HG, HR 95 /MIN, RR 18 /MIN, TEMP 97.0 F, OXYGEN SAT % 99%, SAFE IN ENV? (Y/N) Y, NA INITIALS SC 11:18, REVIEWED BY: [place]. EXAMINATION GENERAL EXAMINATION: GENERALNO ACUTE DISTRESS, WELL NOURISHED AND HYDRATED. PSYCHAPPROPRIATE MOOD AND AFFECT . LUNGS:CLEAR TO AUSCULTATION BILATERALLY, NO WHEEZES, RHONCHI, RALES. HEART:NO MURMURS, REGULAR RATE AND RHYTHM. ASSESSMENTS ABDOMINAL PAIN - R10.9 (PRIMARY) TREATMENT ABDOMINAL PAIN REFILL AMITRIPTYLINE HCL TABLET, 25 MG, 3 TABLET, ORALLY, ONCE A DAY AT BEDTIME, 30 DAY(S), 90, REFILLS 5 OTHERS REFILL OXYCODONE HCL TABLET, 15 MG, -1 2 TABLET NEEDED, ORALLY, Q4-6HRS PRN PAIN MDD6, 30 DAY(S), 180, REFILLS 0 CLINICAL NOTES: 49 YEAR OLD FEMALE IN FOR CHRONIC PAIN FOLLOW UP. GIVEN PRESENTING SYMPTOMS AND RESULTS OF PHYSICAL EXAMINATION RECOMMENDED CONTINUATION OF CURRENT MEDICATION REGIMEN WITH FOLLOW UP IN 3 MONTHS. PATIENT HAS EXPRESSED UNDERSTANDING OF AND WAS IN AGREEMENT WITH TREATMENT PLAN. GIVEN TIME TO ASK QUESTIONS AND EXPRESS CONCERNS. , ISTOP REGISTRY REVIEWED AND DEMONSTRATES COMPLLIANCE. (REF #[id number] ) BRINGS IN MEDICATIONS WHICH IS APPROPRIATE FOR WHAT WAS DISPENSED. RECENT URINE TOXICOLOGY REVIEWED. NO UNAUTHORIZED MEDICATIONS. NO ILLICIT SUBSTANCES AND PRESCRIBED MEDICATIONS WERE PRESENT. PROCEDURE CODES FA211 ESTABILISHED PATIENT [facility] CHARGE DISPOSITION & COMMUNICATION FOLLOW UP 3 MONTHS (REASON: CHRONIC PAIN ) ELECTRONICALLY SIGNED BY DUGLAS KUNZ ON 02/21/2019 AT 10:26 AM EDT DISCLAIMER : THIS IS A VISIT SUMMARY EXTRACTED FROM THE [employer] CHART. IT IS NOT A COPY OF THE [employer] PROGRESS NOTE. SHERIDAN
== END ==
LOC: M PAIN 11:15
PROVIDERS: ATTEND Family Medicine
DX: R10.9 Unspecified abdominal pain (principal); G89.29 Other chronic pain; M06.9 Rheumatoid arthritis, unspecified; M19.90 Unspecified osteoarthritis, unspecified site; F17.210 Nicotine dependence, cigarettes, uncomplicated; Z88.5 Allergy status to narcotic agent; Z88.6 Allergy status to analgesic agent; Z88.8 Allergy status to other drugs, medicaments and biological substances; E66.01 Morbid (severe) obesity due to excess calories; Z68.41 Body mass index [BMI] 40.0-44.9, adult; Z79.899 Other long term (current) drug therapy

== ENCOUNTER 2019-02-24 03:22 | Emergency (ER) | payer MEDICARE, MEDICAID ==
[~2019-02-24] VITALS: Ht 160 cm; Wt 109.5 kg
[~2019-02-24 03:22] MED LIST changes: -SODIUM CHLORIDE 0.9% INJ 10 ML SYR IV SCH
[2019-02-24] MEDS ORDERED: ONDANSETRON 4MG/2ML VIAL (J2405) IV ONE (04:15)
[2019-02-24] MEDS ORDERED: KETOROLAC 30 MG/ML VIAL (J1885) IV ONE (04:15)
[2019-02-24] MEDS ORDERED: NS 1,000 ML IV ONE (04:15)
[2019-02-24 04:22] LABS: BASO % 0.5 % (0.0-1.0); EOS # 0.1 10^3/uL (0.0-0.50); EOS % 1.3 % (0.0-3.0); HEMATOCRIT 45.2 % (36.0-47.0); HEMOGLOBIN 15.2 g/dl (12.0-15.5); LYMPH # 2.1 10^3/uL (1.5-4.5); MEAN CORPUSCULAR HEMOGLOBIN 30.5 pg (27.0-33.0); MEAN CORPUSCULAR HGB CONC 33.6 g/dl (32.0-36.5); MEAN CORPUSCULAR VOLUME 90.6 fl (80.0-96.0); MONO # 0.5 10^3/uL (0.0-0.8); MONO % 5.5 % (0.0-5.0); NEUTROPHILS # 5.5 10^3/uL (1.8-7.7); NEUTROPHILS % 66.3 % (36.0-66.0); PLATELET COUNT, AUTOMATED 229 10^3/uL (150-450); RED BLOOD COUNT 4.99 10^6/uL (4.00-5.40); WHITE BLOOD COUNT 8.2 10^3/uL (4.0-10.0)
[2019-02-24 04:33] LABS: ALBUMIN 3.4 GM/DL (3.2-5.2); BILIRUBIN,DIRECT 0.1 MG/DL (0.0-0.2); BILIRUBIN,TOTAL 0.3 MG/DL (0.2-1.0); TOTAL PROTEIN 7.7 GM/DL (6.4-8.2)
[2019-02-24] MEDS: HYDROMORPHONE HCL 0.5 MG/ 0.5 ML SYRINGE (J1170 PER 1) IV PRN ×2 (05:38→07:43)
--- NOTE | 2019-02-24 06:40 | REPVR ---
EXAM: CT Abdomen and Pelvis Without Contrast EXAM DATE/TIME: 02/24/2019 4:45 AM CLINICAL HISTORY: 49 years old, female; Abdominal pain; Flank; Right; Additional info: Right flank pain TECHNIQUE: Imaging protocol: Axial computed tomography images of the abdomen and pelvis without contrast. Coronal and sagittal reformatted images were created and reviewed. Radiation optimization: All CT scans at this facility use at least one of these dose optimization techniques: automated exposure control; mA and/or kV adjustment per patient size (includes targeted exams where dose is matched to clinical indication); or iterative reconstruction. COMPARISON: RENAL US 02/05/2019 2:34 PM FINDINGS: Lungs: There is minimal, nonspecific dependent density in the lung bases. Liver: There are no focal liver lesions present. Gallbladder and bile ducts: There has been a cholecystectomy. There is no biliary ductal dilation. Pancreas: There is diffuse atrophy of the pancreatic parenchyma. Spleen: The spleen is normal. Adrenals: The adrenal glands are normal. Kidneys and ureters: There is moderate right hydronephrosis.There is right sided perinephric stranding. There are multiple stones in tandem in the distal right ureter. The largest stone is the most proximal stone which measures 12 x 8 x 8 mm. The ureter beyond the stones appears nondilated. Multiple additional clustered stones are present in a lower pole calyx in the right kidney and there is an additional 4 mm right kidney upper pole stone. The left ureter appears normal with no stones or hydronephrosis. Stomach and bowel: There is an ostomy in the right lower abdominal wall with a large parastomal hernia. There is extension of multiple loops of bowel into the hernia sac. There is evidence of at least a partial colon resection. It is difficult to differentiate small bowel from colon due to distortion of the bowel. No dilated or thickened bowel is seen to indicate obstruction or strangulation. Appendix: The appendix is not specifically identified. Intraperitoneal space: There is no free intraperitoneal air. There is no evidence of free intraperitoneal or pelvic fluid. Vasculature: Atherosclerotic changes are present in the abdominal aorta and the iliac arteries. Lymph nodes: There are a few prominent right inguinal lymph nodes. Bladder: There is mild distortion of the bladder, somewhat elongated in configuration from anterior to posterior, probably related to prior pelvic surgery. No significant bladder wall thickening or bladder stones identified. Reproductive: The uterus may have been resected. There is a soft tissue structure posteriorly in the pelvis which may be the uterus or any residual segment of the distal colon. Bones/joints: The bones appear diffusely osteopenic with coarsening of the trabecular pattern. H-shaped vertebrae are seen throughout the visualized lower thoracic and lumbar spine. Soft tissues: There is a large parastomal hernia in the right lower anterior abdominal wall. There are multiple varices in the anterior abdominal wall. There is distortion of the anterior abdominal wall and thickening of the superficial fascia in the lower anterior abdominal wall, likely scar tissue. IMPRESSION: 1. Right-sided hydronephrosis with ureteral obstruction by multiple stones in tandem in the distal right ureter. Multiple additional nonobstructing stones in the right renal calyces. 2. Large parastomal hernia without signs of bowel obstruction or strangulation. 3. Diffuse osteopenia and coarsening of the trabecular pattern with central end plate depressions throughout visualized spine, most likely a systemic disorder or metabolic bone disease such as sickle cell disease. Please correlate with history. Electronically signed by: Crystal Bowling On 02/24/2019 06:39:44 AM
[2019-02-24 08:20] VITALS: BP 120/59
== END 2019-02-24 08:26 | disposition home or self-care (01) ==
LOC: M ED 03:22
DX: N20.1 Calculus of ureter (principal); Z88.5 Allergy status to narcotic agent; Z88.8 Allergy status to other drugs, medicaments and biological substances
CPT/HCPCS: 74176; 80047; 80076; 81001; 83690; 85025; 87086; 93041; 96361; 96374; 96375; 96376; 99285; J1170; J1885; J2405

== ENCOUNTER 2019-03-15 18:19 | Inpatient (IN) | payer MEDICARE, MEDICAID ==
[~2019-03-15] VITALS: Ht 160 cm; Wt 106.8 kg
[~2019-03-15 18:19] MED LIST changes: -IBUP1TAB7 PO; -ONDA4TAB6 PO
[2019-03-15] MEDS ORDERED: NS 1,000 ML IV SCH (18:36)
[2019-03-15 18:56] LABS: BASO % 0.4 % (0.0-1.0); EOS # 0.1 10^3/uL (0.0-0.5); EOS % 1.1 % (0.0-3.0); HEMATOCRIT 46.2 % (36.0-47.0); HEMOGLOBIN 15.5 g/dl (12.0-15.5); LYMPH # 1.6 10^3/uL (1.5-5.0); LYMPH % 20.3 % (24.0-44.0); MEAN CORPUSCULAR HEMOGLOBIN 30.5 pg (27.0-33.0); MEAN CORPUSCULAR HGB CONC 33.5 g/dl (32.0-36.5); MEAN CORPUSCULAR VOLUME 90.9 fl (80.0-96.0); MONO # 0.5 10^3/uL (0.0-0.8); MONO % 6.6 % (0.0-5.0); NEUTROPHILS # 5.6 10^3/uL (1.5-8.5); NEUTROPHILS % 71.3 % (36.0-66.0); PLATELET COUNT, AUTOMATED 224 10^3/uL (150-450); RED BLOOD COUNT 5.08 10^6/uL (4.00-5.40); WHITE BLOOD COUNT 7.8 10^3/uL (4.0-10.0)
[2019-03-15 19:18] LABS: ALBUMIN 3.7 GM/DL (3.2-5.2); ALT/SGPT 17 U/L (12-78); BILIRUBIN,DIRECT < 0.1 MG/DL (0.0-0.2); BILIRUBIN,TOTAL 0.2 MG/DL (0.2-1.0); BLOOD UREA NITROGEN 46 MG/DL (7-18); CALCIUM LEVEL 9.5 MG/DL (8.5-10.1); CARBON DIOXIDE LEVEL 25 MEQ/L (21-32); CHLORIDE LEVEL 104 MEQ/L (98-107); CREATININE FOR GFR 2.84 MG/DL (0.55-1.30); GLOMERULAR FILTRATION RATE 18.8 (>58); GLUCOSE, FASTING 115 MG/DL (70-100); LIPASE 59 U/L (73-393); POTASSIUM SERUM 3.8 MEQ/L (3.5-5.1); SODIUM LEVEL 137 MEQ/L (136-145); TOTAL PROTEIN 8.5 GM/DL (6.4-8.2)
[2019-03-15] MEDS ORDERED: AMITRIPTYLINE 25 MG TAB PO SCH (21:00)
--- NOTE | 2019-03-15 22:15 | REPVR ---
EXAM: US Retroperitoneal Limited, Kidneys EXAM DATE/TIME: 03/15/2019 9:42 PM CLINICAL HISTORY: 49 years old, female; Abnormal findings; Abnormal lab test; Abnormal kidney function lab tests; Additional info: Right renal calculi; Elevated cre TECHNIQUE: Imaging protocol: Real-time ultrasound of the retroperitoneum with image documentation. Examination was focused on the kidneys. COMPARISON: RENAL US 02/05/2019 2:34 PM FINDINGS: Right kidney: Right kidney measures 12.4 x 5.3 x 5.9 cm. Multiple shadowing echogenic foci demonstrated with the largest measuring 7.6 mm in the lower pole consistent with renal calculi. Mild hydronephrosis. Proximal right ureter not visualized. Left kidney: Left kidney measures 13 x 5 x 4.8 cm. Bladder: Urinary bladder unremarkable. Ureteral jets are visualized. IMPRESSION: Mild right hydronephrosis. Multiple right renal calculi measuring up to 7.6 mm. Electronically signed by: Robinson Farris On 03/15/2019 22:15:34 PM
[2019-03-15] MEDS ORDERED: NS 1,000 ML IV ONE (22:45)
[2019-03-15] MEDS ORDERED: cefTRIAXone SOD 1 GM in D5W MINI-BAG PLUS 50 ML IV ONE (22:45)
[2019-03-15] MEDS ORDERED: oxyCODONE 5MG TAB PO ONE (23:00)
[2019-03-15] MEDS ORDERED: IBUP1TAB7 PO (23:26)
[2019-03-15] MEDS ORDERED: ONDA4TAB6 PO (23:26)
--- NOTE | 2019-03-15 23:39 | HPEPDOC ---
[facility] Medical History & Physical Date of Admission Mar 15, 2019 Date of Service: Mar 15, 2019 Primary Care Physician: JAZIEL VAZ DO Attending Physician: JUNE QUINTERO MD History and Physical TIME OF SERVICE: 10:50 PM CHIEF COMPLAINT: Sent by PCP HISTORY OF PRESENT ILLNESS: This is a 49-year-old female who was sent by her PCP for evaluation because of abnormal labs. According to the patient, she has a history of recurrent kidney stones and was scheduled to have a procedure done, including stent placement on the . She went to her PCP today for perioperative evaluation and had blood work done. Later on in the afternoon her PCP called her back and instructed her to come to the hospital because her lab work looked abnormal. The patient denies having any back pain today and only had 1 episode a few weeks ago. She denies abdominal pain, denies having fevers, denies having chills, denies having chest pain, and denies having dyspnea. She has had a poor appetite, and joint pain today, which she attributes to her Crohn's acting up; per discussion with the ED provider the patient has been using a lot of Motrin. REVIEW OF SYSTEMS: 12 point review of systems negative except as listed in HPI PAST MEDICAL/ SURGICAL HISTORY: Crohn's disease complicated by arthritis and pyoderma gangrenosum. History of cervical and ovarian cancer CKD History of recurrent kidney stones that is closed. Uterus copy and laser lithotripsy with basket extraction. Status post cystoscopy and right stent removal 2018 Status post anal fistula repair. 1997 Status post vaginal anal fistula repair 2002. Status post hysterectomy and colectomy with resection of large intestine and placement of colostomy 2003. Status post hernia repair 2011. Status post cataract surgery Status post cholecystectomy. Status post ileostomy SOCIAL HISTORY: Smoker FAMILY HISTORY: Coronary artery disease Lung cancer Graves' disease ALLERGIES: Please see below. HOME MEDICATIONS: Please see below. PHYSICAL EXAMINATION: VITAL SIGNS: Please see below. GENERAL APPEARANCE: Well-nourished, well-developed, not in apparent distress, does not appear toxic HEENT: Normocephalic, atraumatic, mucous members moist and pink CARDIOVASCULAR: Regular rate and rhythm. No murmurs, rubs or gallops LUNGS: Clear to auscultation bilaterally on room air, soft and nontender on palpation. There is a colostomy bag lower abdomen ABDOMEN: Bowel sounds present, MUSCULOSKELETAL: Age of motion intact in all 4 extremities INTEGUMENT: There are postsurgical scars and scars from healed pyoderma gangrenosum at the abdomen and coccyx NEUROLOGICAL: Cranial nerves II-12 are grossly intact. Speech is not dysarthric PSYCHIATRIC: Alert and oriented to person, place and time, able to understand and follow commands LABORATORY DATA: See below. IMAGING: Renal ultrasound revealed mild hydronephrosis, and multiple renal calculi measuring up to 7.6 mm; those no mention of findings consistent with CKD and the kidneys were not less than 10 cm in length MICROBIOLOGY: Please see below. ASSESSMENT: 1. HOMAR, on CKD HOMAR, likely due to increased Motrin use The patient reports having CKD at baseline. Baseline, creatine 0.8 in 2010, today it is 2.84. BUN was previously 15, today's 46 GFR was previously 60 today to 18.8. Calcium within normal limits UA positive for protein & glucose. Renal ultrasound reviewed Plan: Plan: Is/Os, daily weights / IVF / f/u BMP daily / Renal diet / f/u ulytes for FENa or FEUrea, Phosphorous, 25 Vitamin D, PTH, C3, C4, UPro:Cr ratio / pending repeat BMP that day time team can decide if a nephrology consult is warranted / stop Ibuprofen, and avoid other Nephrotoxic drugs 2. Crohn's disease / arthritis / pyoderma gangrenosum Patient reports that she feels like her Crohn's is acting up Plan: Continue home meds/ Solu-Medrol once tonight 3. Abnormal UA. The patient denies having stomach pain or back pain. UA positive for leukocyte esterase, WBCs, and squamous cells. She received ceftriaxone in the ED Plan: repeat UA as previous and squamous cells/ will not continue antibiotics because the patient is asymptomatic. 4. Nephrolithiasis Renal ultrasound findings as listed above Per discussion with the ED attending Dr. Cintron did not feel that this was due to obstructive uropathy Plan: Follow-up with urology, Dr. Cintron 5. Morbid obesity BMI 41.7 Plan: Patient requires special equipment including bariatric bed DVT prophylaxis with heparin because of reduced GFR. Disposition pending clinical course Vital Signs Vital Signs Date Time Temp Pulse Resp B/P (MAP) Pulse Ox O2 Delivery O2 Flow Rate FiO2 03/15/19 23:13 95 20 150/80 (103) 98 Room Air 03/15/19 18:19 97.2 Laboratory Data Labs 24H Laboratory Tests 2 9/6/19 18:38: Immature Granulocyte % (Auto) 0.3, White Blood Count 7.8, Red Blood Count 5.08, Hemoglobin 15.5, Hematocrit 46.2, Mean Corpuscular Volume 90.9, Mean Corpuscular Hemoglobin 30.5, Mean Corpuscular Hemoglobin Concent 33.5, Red Cell Distribution Width 13.6, Platelet Count 224, Neutrophils (%) (Auto) 71.3H, Lymphocytes (%) (Auto) 20.3L, Monocytes (%) (Auto) 6.6H, Eosinophils (%) (Auto) 1.1, Basophils (%) (Auto) 0.4, Neutrophils # (Auto) 5.6, Lymphocytes # (Auto) 1.6, Monocytes # (Auto) 0.5, Eosinophils # (Auto) 0.1, Basophils # (Auto) 0.0, Nucleated Red Blood Cells % (auto) 0.0, Anion Gap 8, Glomerular Filtration Rate 18.8L, Calcium Level 9.5, Aspartate Amino Transf (AST/SGOT) 14, Alanine Aminotransferase (ALT/SGPT) 17, Alkaline Phosphatase 90, Total Bilirubin 0.2, Direct Bilirubin < 0.1, Total Protein 8.5H, Albumin 3.7, Albumin/Globulin Ratio 0.77L, Lipase 59L 03/15/19 19:28: Urine Color YELLOW, Urine Appearance HAZY, Urine pH 5.0, Urine Specific Aston 1.012, Urine Protein 1+H, Urine Glucose (UA) 1+H, Urine Ketones NEGATIVE, Urine Blood 2+H, Urine Nitrite NEGATIVE, Urine Bilirubin NEGATIVE, Urine Urobilinogen 0.2, Urine Leukocyte Esterase 3+H, Urine WBC (Auto) 63H, Urine RBC (Auto) 20H, Urine Hyaline Casts (Auto) 4, Urine Bacteria (Auto) 1+H, Urine Squamous Epithelial Cells 3, Urine Transitional Epithelial Cells 3, Urine Mucus (Auto) SMALL, Urine Sperm (Auto) CBC/BMP Laboratory Tests 03/15/19 18:38 Red Blood Count 5.08, Mean Corpuscular Volume 90.9, Mean Corpuscular Hemoglobin 30.5, Mean Corpuscular Hemoglobin Concent 33.5, Red Cell Distribution Width 13.6, Neutrophils (%) (Auto) 71.3 H, Lymphocytes (%) (Auto) 20.3 L, Monocytes (%) (Auto) 6.6 H, Eosinophils (%) (Auto) 1.1, Basophils (%) (Auto) 0.4, Neutrophils # (Auto) 5.6, Lymphocytes # (Auto) 1.6, Monocytes # (Auto) 0.5, Eosinophils # (Auto) 0.1, Basophils # (Auto) 0.0 Microbiology Microbiology 03/15/19 Urine Culture, Received Pending Home Medications Scheduled Amitriptyline HCl (Amitriptyline HCl) 25 Mg Tab, 75 MG PO QHS Infliximab Injection (Remicade) 100 Mg/10 Ml Vial, 100 MG IV Q4WKS Ondansetron (Ondansetron Odt) 4 Mg Tab.rapdis, 4 MG PO Q6H Scheduled PRN Oxycodone Hcl (Oxycodone HCl) 15 Mg Tab, 15 MG PO TIDP PRN for PAIN Allergies Coded Allergies: azathioprine (Verified Adverse Reaction, Intermediate, SEVERE VOMITING, 02/24/19) diclofenac (Verified Adverse Reaction, Intermediate, SEVERE VOMITING, 02/07 02/25) hydrocodone (Verified Adverse Reaction, Intermediate, SEVERE VOMITING, 02/24/19) mercaptopurine (Verified Adverse Reaction, Intermediate, 6MP- SEVERE VOMITING, 02/24/19) naproxen (Verified Adverse Reaction, Intermediate, VOMITING, 02/24/19) metronidazole (Verified Adverse Reaction, Unknown, SEVERE VOMITING, 02/24/19) A-FIB/CHADSVASC A-FIB History Current/History of A-Fib/PAF?: No Current PO Anticoag Therapy: JUNE Gao MD Mar 15, 2019 23:39
[2019-03-15] MEDS ORDERED: methylPREDNISolone INJ 125 MG/2 ML VIAL (J2930) IV ONE (23:45)
[2019-03-15] MEDS ORDERED: oxyCODONE 5MG TAB PO PRN (23:45)
[2019-03-15] MEDS: NS 1,000 ML IV SCH (23:55)
[2019-03-16] MEDS: ONDANSETRON 4 MG ORAL DISINTEGRATING TAB (Q0162 PER 1MG) PO SCH ×3 (00:26→12:00)
[2019-03-16 01:30] VITALS: BP 176/91
[2019-03-16 02:00] LABS: CREATININE,RANDOM URINE 73.2 MG/DL; SODIUM,RANDOM URINE 53 MEQ/L; UREA NITROGEN RANDOM URINE 404 MG/DL
[2019-03-16 02:04] LABS: APPEARANCE, URINE HAZY (CLEAR); BACTERIA, URINE AUTO NEGATIVE (NEGATIVE); BILIRUBIN, URINE AUTO NEGATIVE (NEGATIVE); BLOOD, URINE BLOOD 1+ (NEGATIVE); COLOR, URINE YELLOW (YELLOW); GLUCOSE, URINE (UA) AUTO 1+ mg/dL (NEGATIVE); KETONE, URINE AUTO NEGATIVE (NEGATIVE); LEUKOCYTE ESTERASE, URINE AUTO 3+ (NEGATIVE); MUCUS, URINE SMALL (NEGATIVE); NITRITE, URINE AUTO NEGATIVE (NEGATIVE); PROTEIN, URINE AUTO 1+ mg/dL (NEGATIVE); RBC, URINE AUTO 12 /HPF (0-3); SQUAMOUS EPITHELIAL CELL UR AU 2 /HPF (0-6); UROBILINOGEN, URINE AUTO 0.2 mg/dL (0.0-2.0); WBC, URINE AUTO 28 /HPF (0-3)
[2019-03-16 06:00] VITALS: BP 153/92
[2019-03-16] MEDS ORDERED: HEPARIN SOD (PORCINE) 5000 UNITS/ML VIAL SC SCH (06:00)
[2019-03-16] MEDS: NS 1,000 ML IV SCH (06:10)
[2019-03-16 06:31] LABS: HEMATOCRIT 43.6 % (36.0-47.0); HEMOGLOBIN 14.4 g/dl (12.0-15.5); MEAN CORPUSCULAR HEMOGLOBIN 29.4 pg (27.0-33.0); MEAN CORPUSCULAR VOLUME 89.2 fl (80.0-96.0); PLATELET COUNT, AUTOMATED 227 10^3/uL (150-450); RED BLOOD COUNT 4.89 10^6/uL (4.00-5.40); WHITE BLOOD COUNT 6.1 10^3/uL (4.0-10.0)
[2019-03-16 06:59] LABS: CALCIUM LEVEL 8.8 MG/DL (8.5-10.1); CREATININE FOR GFR 2.23 MG/DL (0.55-1.30); GLOMERULAR FILTRATION RATE 24.9 (>58); MAGNESIUM LEVEL 1.9 MG/DL (1.8-2.4); PHOSPHORUS LEVEL 2.5 MG/DL (2.5-4.9); POTASSIUM SERUM 3.5 MEQ/L (3.5-5.1)
--- NOTE | 2019-03-16 10:23 | CR.PDOC ---
General Date of Consultation: Mar 16, 2019 Consultation REASON FOR CONSULTATION/CHIEF COMPLAINT: Nephrolithiasis HISTORY OF PRESENT ILLNESS: 49-year-old female with a long history of nephrolithiasis. Several weeks ago patient presented to the emergency department with right-sided colic. A CT scan at that time showed several right ureteral ca lculi with hydronephrosis. Patient had been scheduled for ureteroscopy with laser lithotripsy next week. She states she has passed 3 large stones and her pain resolved. She has residual calculi in the right lower pole and was scheduled for lithotripsy of her renal calculi. Her preadmission lab testing showed renal insufficiency with a BUN 46 and a creatinine of 2.84. Patient denies any abdominal or flank pain. She denies nausea or vomiting fever or chills. She denies difficulty urinating. She denies gross hematuria. Patient reports she had been using ibuprofen and large amounts for pain control. A renal ultrasound was performed in the emergency department reporting only mild right hydronephrosis. ALLERGIES: Please see below. HOME MEDICATIONS: Please see below. PAST MEDICAL HISTORY: 1. Crohn's disease. 2. History of cervical and ovarian carcinoma. PAST SURGICAL HISTORY: 1. Total abdominal hysterectomy and colectomy 2. Cholecystectomy 3. Repair of a vaginal anal fistula REVIEW OF SYSTEMS: CONSTITUTIONAL: Denies nausea or vomiting. HEENT: Denies eye or ear pain. CARDIOVASCULAR: Denies shortness of breath or chest pain. RESPIRATORY: Denies shortness of breath. GENITOURINARY: See HPI. MUSCULOSKELETAL: Denies joint pain. GASTROINTESTINAL: Denies nausea or vomiting. SKIN: Denies rashes. NEUROLOGICAL: Denies weakness or paresthesias. HEMATOLOGIC/LYMPHATIC: Denies bleeding disorders. . PHYSICAL EXAMINATION: VITAL SIGNS: Please see below. GENERAL APPEARANCE: Awake and alert in no apparent distress. HEENT: Unremarkable. RESPIRATORY: No respiratory distress. CARDIOVASCULAR: Mild peripheral edema. ABDOMEN: Obese nontender with no CVA tenderness. EXTREMITIES: Full range of motion. NEUROLOGICAL: No focal deficits. LABORATORY DATA: Please see below. ASSESSMENT/PLAN: 1. Patient has acute renal insufficiency with a history of nephrolithiasis. She reports passing 3 large stones and most recent ultrasound shows only mild right- sided hydronephrosis. A CT scan stone protocol will be obtained to rule out residual ureteral calculi. If there is no evidence of ureteral obstruction, no urologic intervention is necessary at this time. Patient's elevated creatinine is likely secondary to her intake of ibuprofen. We will follow with you during her hospitalization. Thank you very much for this consultation. Vital Signs/I&O Vital Signs Date Time Temp Pulse Resp B/P (MAP) Pulse Ox O2 Delivery O2 Flow Rate FiO2 03/16/19 09:04 18 03/16/19 06:00 97.5 83 153/92 (112) 98 03/16/19 00:51 Room Air I&O- Last 24 Hours up to 6 AM 03/16/19 05:59 Intake Total 1800 ml Output Total 600 ml Balance 1200 ml Laboratory Data Labs 24H Laboratory Tests 2 03/15/19 18:38: Immature Granulocyte % (Auto) 0.3, White Blood Count 7.8, Red Blood Count 5.08, Hemoglobin 15.5, Hematocrit 46.2, Mean Corpuscular Volume 90.9, Mean Corpuscular Hemoglobin 30.5, Mean Corpuscular Hemoglobin Concent 33.5, Red Cell Distribution Width 13.6, Platelet Count 224, Neutrophils (%) (Auto) 71.3H, Lymphocytes (%) (Auto) 20.3L, Monocytes (%) (Auto) 6.6H, Eosinophils (%) (Auto) 1.1, Basophils (%) (Auto) 0.4, Neutrophils # (Auto) 5.6, Lymphocytes # (Auto) 1.6, Monocytes # (Auto) 0.5, Eosinophils # (Auto) 0.1, Basophils # (Auto) 0.0, Nucleated Red Bloo d Cells % (auto) 0.0, Anion Gap 8, Glomerular Filtration Rate 18.8L, Calcium Level 9.5, Aspartate Amino Transf (AST/SGOT) 14, Alanine Aminotransferase (ALT/SGPT) 17, Alkaline Phosphatase 90, Total Bilirubin 0.2, Direct Bilirubin < 0.1, Total Protein 8.5H, Albumin 3.7, Albumin/Globulin Ratio 0.77L, Lipase 59L 03/15/19 19:28: Urine Color YELLOW, Urine Appearance HAZY, Urine pH 5.0, Urine Specific Bradley 1.012, Urine Protein 1+H, Urine Glucose (UA) 1+H, Urine Ketones NEGATIVE, Urine Blood 2+H, Urine Nitrite NEGATIVE, Urine Bilirubin NEGATIVE, Urine Urobilinogen 0.2, Urine Leukocyte Esterase 3+H, Urine WBC (Auto) 63H, Urine RBC (Auto) 20H, Urine Hyaline Casts (Auto) 4, Urine Bacteria (Auto) 1+H, Urine Squamous Epithelial Cells 3, Urine Transitional Epithelial Cells 3, Urine Mucus (Auto) SMALL, Urine Sperm (Auto) 03/16/19 01:40: Urine Color YELLOW, Urine Appearance HAZY, Urine pH 5.0, Urine Specific Bradley 1.010, Urine Protein 1+H, Urine Glucose (UA) 1+H, Urine Ketones NEGATIVE, Urine Blood 1+H, Urine Nitrite NEGATIVE, Urine Bilirubin NEGATIVE, Urine Urobilinogen 0.2, Urine Leukocyte Esterase 3+H, Urine WBC (Auto) 28H, Urine RBC (Auto) 12H, Urine Hyaline Casts (Auto) 0, Urine Bacteria (Auto) NEGATIVE, Urine Squamous Epithelial Cells 2, Urine Mucus (Auto) SMALL, Urine Sperm (Auto) , Urine Random Creatinine 73.2, Urine Random Sodium 53, Urine Random Potassium 39.0, Urine Random Urea Nitrogen 404 03/16/19 06:13: Nucleated Red Blood Cells % (auto) 0.0, Anion Gap 6L, Glomerular Filtration Rate 24.9L, Calcium Level 8.8, Blood Urea Nitrogen 41H, Creatinine 2.23H, Sodium Level 138, Potassium Level 3.5, Chloride Level 111H, Carbon Dioxide Level 21, Phosphorus Level 2.5, Magnesium Level 1.9 CBC/BMP Laboratory Tests 03/15/19 18:38 Red Blood Count 5.08, Mean Corpuscular Volume 90.9, Mean Corpuscular Hemoglobin 30.5, Mean Corpuscular Hemoglobin Concent 33.5, Red Cell Distribution Width 13.6, Neutrophils (%) (Auto) 71.3 H, Lymphocytes (%) (Auto) 20.3 L, Monocytes (%) (Auto) 6.6 H, Eosinophils (%) (Auto) 1.1, Basophils (%) (Auto) 0.4, Neutrophils # (Auto) 5.6, Lymphocytes # (Auto) 1.6, Monocytes # (Auto) 0.5, Eosinophils # (Auto) 0.1, Basophils # (Auto) 0.0 03/16/19 06:13 Red Blood Count 4.89, Mean Corpuscular Volume 89.2, Mean Corpuscular Hemoglobin 29.4, Mean Corpuscular Hemoglobin Concent 33.0, Red Cell Distribution Width 13.6, Calcium Level 8.8 Microbiology Microbiology 03/15/19 Urine Culture, Received Pending Allergies Coded Allergies: azathioprine (Verified Adverse Reaction, Intermediate, SEVERE VOMITING, 02/24/19) diclofenac (Verified Adverse Reaction, Intermediate, SEVERE VOMITING, 02/24/19) hydrocodone (Verified Adverse Reaction, Intermediate, SEVERE VOMITING, 02/24/19) mercaptopurine (Verified Adverse Reaction, Intermediate, 6MP- SEVERE VOMITING, 02/24/19) naproxen (Verified Adverse Reaction, Intermediate, VOMITING, 02/24/19) metronidazole (Verified Adverse Reaction, Unknown, SEVERE VOMITING, 02/24/19) Home Medications Scheduled Amitriptyline HCl (Amitriptyline HCl) 25 Mg Tab, 75 MG PO QHS, (Reported) Ibuprofen (Ibuprofen) 800 Mg Tablet, 1,600 MG PO BID, (Reported) PRESCRIBED FOR 1 TAB TID, PATIENT TAKES 2 TABS BID Infliximab Injection (Remicade) 100 Mg/10 Ml Vial, 100 MG IV Q4WKS, (Reported) Ondansetron (Ondansetron Odt) 4 Mg Tab.rapdis, 4 MG PO Q6H, (Reported) Scheduled PRN Oxycodone Hcl (Oxycodone HCl) 15 Mg Tab, 15 MG PO TIDP PRN for PAIN, (Reported) Shalom Cintron MD Mar 16, 2019 10:23
--- NOTE | 2019-03-16 10:36 | REP ---
Clinical: History of obstructive uropathy with elevated renal function tests. Technique: Axial noncontrast images from the lung bases to the pubic symphysis with coronal and sagittal re-formations. Comparison: 02/24/2019. Findings: Stable moderate right-sided hydroureteronephrosis secondary to a conglomerate of multiple obstructing distal right ureteral calculi measuring greater than 12 mm (images 85-91) again noted along with nonobstructing right intrarenal calculi. Left kidney/ureter appears normal. Bladder is grossly unremarkable. There is evidence for prior partial bowel resection. A large right parastomal/spigelian hernia contains multiple loops of nonobstructed bowel and appears relatively stable including bowel extending through the stoma. Liver, spleen, pancreas, and bilateral adrenal glands are normal. Evidence of prior cholecystectomy. Pelvis demonstrates relatively normal bladder and evidence of prior hysterectomy. No ascites. No free air. No obvious adenopathy. Abdominal aorta without aneurysm. Osseous structures demonstrate ill-defined degenerative changes and osteopenia. Impression: 1. Moderate stable right-sided obstructive uropathy as described above unchanged from prior examination. 2. Relatively stable appearance to the right parastomal hernia with multiple loops of nonobstructed bowel. 3. No ascites. No focal inflammatory stranding. No adenopathy. 4. Further chronic changes as above. Electronically Signed by John Paul Joshua MD 03/16/2019 10:27 A
--- NOTE | 2019-03-16 12:35 | IPNPDOC ---
Date Seen The patient was seen on 03/16/19. Progress Note SUBJECTIVE: Pt without c/o. CT scan reviewed. Patient with distal ureteral calculi present. LABORATORY DATA, IMAGING STUDIES, MICROBIOLOGY: Please see below. ASSESSMENT AND PLAN: Patients distal ureteral stones may contribute to her elevated BUN/Creatinine. However, she has no colic and is not septic. Urologically cleared for discharge. Patient will f/u on for ureteroscopy laser lithotripsy. VS, I&O, 24H, Fishbone Vital Signs/I&O Vital Signs Date Time Temp Pulse Resp B/P (MAP) Pulse Ox O2 Delivery O2 Flow Rate FiO2 03/16/19 09:34 16 03/16/19 06:00 97.5 83 153/92 (112) 98 03/16/19 00:51 Room Air I&O- Last 24 Hours up to 6 AM 03/16/19 06:00 Intake Total 1800 ml Output Total 600 ml Balance 1200 ml Laboratory Data 24H LABS Laboratory Tests 2 03/15/19 18:38: Immature Granulocyte % (Auto) 0.3, White Blood Count 7.8, Red Blood Count 5.08, Hemoglobin 15.5, Hematocrit 46.2, Mean Corpuscular Volume 90.9, Mean Corpuscular Hemoglobin 30.5, Mean Corpuscular Hemoglobin Concent 33.5, Red Cell Distribution Width 13.6, Platelet Count 224, Neutrophils (%) (Auto) 71.3H, Lymphocytes (%) (Auto) 20.3L, Monocytes (%) (Auto) 6.6H, Eosinophils (%) (Auto) 1.1, Basophils (%) (Auto) 0.4, Neutrophils # (Auto) 5.6, Lymphocytes # (Auto) 1.6, Monocytes # (Auto) 0.5, Eosinophils # (Auto) 0.1, Basophils # (Auto) 0.0, Nucleated Red Blood Cells % (auto) 0.0, Anion Gap 8, Glomerular Filtration Rate 18.8L, Calcium Level 9.5, Aspartate Amino Transf (AST/SGOT) 14, Alanine Aminotransferase (ALT/SGPT) 17, Alkaline Phosphatase 90, Total Bilirubin 0.2, Direct Bilirubin < 0.1, Total Protein 8.5H, Albumin 3.7, Albumin/Globulin Ratio 0.77L, Lipase 59L 03/15/19 19:28: Urine Color YELLOW, Urine Appearance HAZY, Urine pH 5.0, Urine Specific Junior 1.012, Urine Protein 1+H, Urine Glucose (UA) 1+H, Urine Ketones NEGATIVE, Urine Blood 2+H, Urine Nitrite NEGATIVE, Urine Bilirubin NEGATIVE, Urine Urobilinogen 0.2, Urine Leukocyte Esterase 3+H, Urine WBC (Auto) 63H, Urine RBC (Auto) 20H, Urine Hyaline Casts (Auto) 4, Urine Bacteria (Auto) 1+H, Urine Squamous Epithelial Cells 3, Urine Transitional Epithelial Cells 3, Urine Mucus (Auto) SMALL, Urine Sperm (Auto) 03/16/19 01:40: Urine Color YELLOW, Urine Appearance HAZY, Urine pH 5.0, Urine Specific Junior 1.010, Urine Protein 1+H, Urine Glucose (UA) 1+H, Urine Ketones NEGATIVE, Urine Blood 1+H, Urine Nitrite NEGATIVE, Urine Bilirubin NEGATIVE, Urine Urobilinogen 0.2, Urine Leukocyte Esterase 3+H, Urine WBC (Auto) 28H, Urine RBC (Auto) 12H, Urine Hyaline Casts (Auto) 0, Urine Bacteria (Auto) NEGATIVE, Urine Squamous Epithelial Cells 2, Urine Mucus (Auto) SMALL, Urine Sperm (Auto) , Urine Random Creatinine 73.2, Urine Random Sodium 53, Urine Random Potassium 39.0, Urine Random Urea Nitrogen 404 03/16/19 06:13: Nucleated Red Blood Cells % (auto) 0.0, Anion Gap 6L, Glomerular Filtration Rate 24.9L, Calcium Level 8.8, Blood Urea Nitrogen 41H, Creatinine 2.23H, Sodium Level 138, Potassium Level 3.5, Chloride Level 111H, Carbon Dioxide Level 21, Phosphorus Level 2.5, Magnesium Level 1.9 CBC/BMP Laboratory Tests 03/15/19 18:38 Red Blood Count 5.08, Mean Corpuscular Volume 90.9, Mean Corpuscular Hemoglobin 30.5, Mean Corpuscular Hemoglobin Concent 33.5, Red Cell Distribution Width 13 .6, Neutrophils (%) (Auto) 71.3 H, Lymphocytes (%) (Auto) 20.3 L, Monocytes (%) (Auto) 6.6 H, Eosinophils (%) (Auto) 1.1, Basophils (%) (Auto) 0.4, Neutrophils # (Auto) 5.6, Lymphocytes # (Auto) 1.6, Monocytes # (Auto) 0.5, Eosinophils # (Auto) 0.1, Basophils # (Auto) 0.0 03/16/19 06:13 Red Blood Count 4.89, Mean Corpuscular Volume 89.2, Mean Corpuscular Hemoglobin 29.4, Mean Corpuscular Hemoglobin Concent 33.0, Red Cell Distribution Width 13.6, Calcium Level 8.8 Microbiology Microbiology 03/15/19 Urine Culture, Received Pending Shalom Cintron MD Mar 16, 2019 12:35
--- NOTE | 2019-03-17 14:20 | DS.PDOC ---
Discharge Summary General Date of Admission Mar 15, 2019 at 23:35 Date of Discharge March 16, 2019 Specialist/Consultants Involve: Shalom Cintron MD Discharge Summary PROCEDURES PERFORMED DURING STAY: None. ADMITTING DIAGNOSES: 1. Acute kidney injury. DISCHARGE DIAGNOSES: 1. Acute on chronic kidney injury improving, known chronic kidney disease, Crohn's disease, arthritis, recurrent nephrolithiasis. COMPLICATIONS/CHIEF COMPLAINT: Acute Kidney Injury. HISTORY OF PRESENT ILLNESS/HOSPITAL COURSE: This is a 49-year-old female with a known history of nephrolithiasis. She's had recurrent stones. She is scheduled to have intervention with stent placement. She went to her PCP for preop evaluation and was notified that her creatinine was elevated and that she needed to go to the emergency room. The patient's creatinine was noted to be 2.84 with an elevated BUN of 46. GFR was noted to be 18.8. The patient was given IV hydration and her creatinine came down to 2.23. Patient was not having any other clinical difficulty. She underwent evaluation by ultrasound as she has the past, which demonstrated multiple renal stones to the right kidney. Similar findings were found. His CT scan of the abdomen and pelvis. Patient was seen by the urology service who know the patient well. There were no new findings, and she was not felt to be having an acute obstructive process. The greatest contributory factor was the patient had been taking significant amounts of ibuprofen for pain related to her Crohn's disease flare. With stopping the ibuprofen and continuing aggressive hydration the patient's creatinine appears to be responding. Of interest, we do not have the patient's true baseline as her last known creatinine that we have is 0.8 from 2010. The patient is otherwise stable for discharge to home.. DISCHARGE MEDICATIONS: Please see below. ALLERGIES: Please see below. PHYSICAL EXAMINATION ON DISCHARGE: VITAL SIGNS: Please see below. GENERAL: Fully awake, alert, conversant, and ambulatory. HEENT: Neck is supple with no adenopathy or thyromegaly, oral mucosa is moist, she does not have any scleral icterus CARDIOVASCULAR EXAMINATION: Regular rate and rhythm with a normal S1 and S2 RESPIRATORY EXAMINATION: Clear to auscultation, no wheezes or rales ABDOMINAL EXAMINATION: Soft, mildly tender, nondistended, moderate central obesity, ostomy site is intact and functioning EXTREMITIES: No peripheral edema or lesions or jaundice NEUROLOGICAL EXAMINATION: No focal neuromotor or sensory deficit PSYCHIATRIC EXAMINATION: Calm but frustrated, she would like to go home LABORATORY DATA: Please see below. IMAGING: PROGNOSIS: ACTIVITY: As tolerated. DIET: As tolerated by her Crohn's disease DISCHARGE PLAN: Patient is stable for discharge to home. She has been instructed not to resume her ibuprofen; she has listed adverse reactions to diclofenac and naproxen and we have explained that ibuprofen is in the same drug class. She will follow-up and proceed with her outpatient procedure on March [address] Newton of the urology service. She has also been referred to Dr. Weber for nephrology follow-up; patient thought Drs. Newton and Abdulaziz were nephrologists as well. We have explained the difference. DISPOSITION: 01 Home, Self-Care. DISCHARGE INSTRUCTIONS: 1. . ITEMS TO FOLLOWUP ON ON OUTPATIENT: 1. . DISCHARGE CONDITION: Stable. TIME SPENT ON DISCHARGE: Greater than 35 minutes. Vital Signs/I&Os Vital Signs Date Time Temp Pulse Resp B/P (MAP) Pulse Ox O2 Delivery O2 Flow Rate FiO2 03/16/19 09:34 16 03/16/19 06:00 97.5 83 153/92 (112) 98 03/16/19 00:51 Room Air I&O- Last 24 Hours up to 6 AM 03/17/19 05:59 Intake Total 1080 ml Output Total 800 ml Balance 280 ml Microbiology Microbiology 03/15/19 Urine Culture - Final, Complete Discharge Medications Scheduled Amitriptyline HCl (Amitriptyline HCl) 25 Mg Tab, 75 MG PO QHS, (Reported) Infliximab Injection (Remicade) 100 Mg/10 Ml Vial, 100 MG IV Q4WKS, (Reported) Ondansetron (Ondansetron Odt) 4 Mg Tab.rapdis, 4 MG PO Q6H, (Reported) Scheduled PRN Oxycodone Hcl (Oxycodone HCl) 15 Mg Tab, 15 MG PO TIDP PRN for PAIN, (Reported) Allergies Coded Allergies: azathioprine (Verified Adverse Reaction, Intermediate, SEVERE VOMITING, 02/24/19) diclofenac (Verified Adverse Reaction, Intermediate, SEVERE VOMITING, 02/24/19) hydrocodone (Verified Adverse Reaction, Intermediate, SEVERE VOMITING, 02/24/19) mercaptopurine (Verified Adverse Reaction, Intermediate, 6MP- SEVERE VOMITING, 02/24/19) naproxen (Verified Adverse Reaction, Intermediate, VOMITING, 02/24/19) metronidazole (Verified Adverse Reaction, Unknown, SEVERE VOMITING, 02/24/19) ZACK HERNANDEZ MD Mar 17, 2019 14:20
[2019-03-18 14:40] LABS: PTH INTACT 67.1 PG/ML (18.5-88.0); TOTAL 25(OH) VITAMIN D 27.8 NG/ML (30.0-100.0)
== END 2019-03-16 13:40 | disposition home or self-care (01) | DRG 683 ==
LOC: M ED 18:19 → M ED INP 23:35 → M MS5PR 03-16 01:18
PROVIDERS: ADMIT Internal Medicine; ATTEND Internal Medicine
DX: N17.9 Acute kidney failure, unspecified (principal); Z68.41 Body mass index [BMI] 40.0-44.9, adult; K50.90 Crohn's disease, unspecified, without complications; L88 Pyoderma gangrenosum; N13.2 Hydronephrosis with renal and ureteral calculous obstruction; N13.30 Unspecified hydronephrosis; E66.01 Morbid (severe) obesity due to excess calories; T39.315A Adverse effect of propionic acid derivatives, initial encounter; Z90.49 Acquired absence of other specified parts of digestive tract; Z90.710 Acquired absence of both cervix and uterus; Z93.3 Colostomy status; Z98.49 Cataract extraction status, unspecified eye; Z88.5 Allergy status to narcotic agent; Z88.6 Allergy status to analgesic agent; Z88.8 Allergy status to other drugs, medicaments and biological substances

== ENCOUNTER → 2019-03-15 | Outpatient (REF) | payer MEDICARE, MEDICAID ==
[~2019-03-15] MED LIST changes: +IBUP1TAB7 PO; +ONDA4TAB6 PO
== END ==
LOC: M LAB REF 16:24
PROVIDERS: ATTEND Internal Medicine
DX: Z01.818 Encounter for other preprocedural examination (principal); N20.0 Calculus of kidney

== ENCOUNTER 2019-03-21 11:00 | Day surgery (SDC) | payer MEDICARE, MEDICAID ==
[~2019-03-21] VITALS: Ht 160 cm; Wt 109.1 kg
[~2019-03-21 11:00] MED LIST changes: +IBUP1TAB7 PO; +LIDOCAINE 1% MDV 20ML VIAL SQ PRN; +LR 1,000 ML IV ONE; +ONDA4TAB6 PO
[2019-03-21] MEDS ORDERED: fentaNYL 100 MCG/2 ML INJECTION (J3010) As Ordered ONE ×3 (12:10→16:40)
[2019-03-21] MEDS ORDERED: PROPOFOL 200 MG/20 ML VIAL As Ordered ONE (12:11)
[2019-03-21] MEDS ORDERED: MIDAZOLAM INJ 2 MG/2 ML VIAL (J2250) As Ordered ONE (12:11)
[2019-03-21] MEDS ORDERED: ONDANSETRON 4MG/2ML VIAL (J2405) As Ordered ONE (12:11)
[2019-03-21] MEDS ORDERED: dexameTHASONE 4 MG/ML 1ML VIAL (J1100) As Ordered ONE (12:11)
[2019-03-21] MEDS ORDERED: LIDOCAINE 2% INJ 100 MG/5 ML SDV (FOR ANES.) As Ordered ONE (12:11)
[2019-03-21] MEDS ORDERED: CONRAY-60 60% 50ML VIAL (Q9961) As Ordered ONE (13:08)
[2019-03-21] MEDS ORDERED: ACETAMINOPHEN 1000MG 100ML IV BTL (OFIRMEV) (J0131 PER 10MG) As Ordered ONE (13:41)
[2019-03-21] MEDS ORDERED: ONDANSETRON 4MG/2ML VIAL (J2405) IV PRN (16:30)
[2019-03-21] MEDS ORDERED: PERCOCET 5MG/325MG TAB PO PRN ×2 (16:30)
[2019-03-21] MEDS: fentaNYL 100 MCG/2 ML INJECTION (J3010) IV PRN ×4 (16:43→16:58)
--- NOTE | 2019-03-21 16:58 | REP ---
Portable abdomen, one-view. Indication: Postop in PACU. Comparison: CT abdomen pelvis of 03/16/2019. Findings: There is a double-J right ureteral stent which is new since the prior study. No calcification or other foreign body is identified. There is diffuse bone demineralization. There are diffuse degenerative changes of the spine and bony pelvis. Image bowel gas pattern is within normal limits. Electronically Signed by Avelino Echeverria MD 03/21/2019 04:50 P
[2019-03-21] MEDS ORDERED: HYDROMORPHONE HCL 0.5 MG/ 0.5 ML SYRINGE (J1170 PER 1) As Ordered ONE ×2 (17:02→17:11)
[2019-03-21] MEDS: HYDROMORPHONE HCL 0.5 MG/ 0.5 ML SYRINGE (J1170 PER 1) IV PRN ×3 (17:05→17:15)
[2019-03-21] MEDS ORDERED: LR 1,000 ML IV SCH (17:15)
[2019-03-21 18:29] VITALS: BP 158/80
--- NOTE | 2019-03-22 11:37 | RO ---
DATE OF PROCEDURE: 03/21/2019 PREPROCEDURE DIAGNOSIS: Right kidney and ureteral stones. POSTPROCEDURE DIAGNOSIS: Right kidney and ureteral stones. PROCEDURE: Cystoscopy, right ureteroscopy with laser lithotripsy and basket extraction of stones, right ureteral stent placement. SURGEON: David Newton MD [employer] TEACHER: None. ANESTHESIA: General. OPERATIVE INDICATIONS: This is a 49-year-old female who was found to have an obstructing 1 cm distal right ureteral stone as well as several stones in the right kidney. She was brought to the operating room today for above-listed procedure. DESCRIPTION OF PROCEDURE: The patient was brought to the operating room and general anesthesia induced. Prophylactic antibiotics were infused. She was then placed in dorsal lithotomy position, prepped and draped in the usual sterile fashion. At this point, a rigid cystoscope was inserted into the urethral meatus and advanced to the bladder. A guidewire was advanced up the right collecting system. I then went up the right collecting system with a short semi rigid ureteroscope and within the distal ureter a 1 cm stone was seen. The stone was fragmented into smaller pieces using a 272 micron laser fiber and the fragments were removed using a basket. Of note, it was difficult to get to the stone given the location and it took a while to get all the fragments out. Ultimately, we were able to get the fragments out and then we advanced the ureteral access sheath into the more proximal ureter. We then went in the kidney with the flexible ureteroscope and of note there were several stones in the lower pole of the right kidney. These stones were fragmented into smaller pieces using a laser. We then removed all the larger fragments using a basket. Once done it appeared that the only fragments remained appeared to be small enough to pass. Once this was done, the ureteroscope was removed along with the access sheath no additional stones were seen within the ureter. I then utilized the wire and advanced a 7 Lebanese x 22-32 cm JJ ureteral stent up into the right collecting system. The wire was then removed and then I went back in the bladder with a camera and there was adequate curl of the stent, distal end of the stent in the bladder. The bladder was emptied of all fluids and marked the conclusion of the procedure. The patient was then taken out of dorsal lithotomy position, awakened from anesthesia and transported to the recovery room in stable condition. ESTIMATED BLOOD LOSS: 5 mL. COMPLICATIONS: None. SPECIMENS: Kidney stone fragments. PLAN: I will leave the patient's stent in for approximately 3-4 weeks as there was trauma in the distal ureter due to the impacted stone. I will have her followup after the time and get a KUB prior to stent removal. SHERIDAN
== END 2019-03-21 18:30 | disposition home or self-care (01) ==
LOC: M SDC 11:00
PROVIDERS: ATTEND Urology
DX: N20.0 Calculus of kidney (principal); N20.1 Calculus of ureter; L88 Pyoderma gangrenosum; M79.7 Fibromyalgia; M81.0 Age-related osteoporosis without current pathological fracture; Z85.43 Personal history of malignant neoplasm of ovary; Z92.21 Personal history of antineoplastic chemotherapy; Z92.3 Personal history of irradiation; F17.210 Nicotine dependence, cigarettes, uncomplicated; Z79.899 Other long term (current) drug therapy
CPT/HCPCS: 52356; 74018; 74420; 82360; 88300; C1769; C1894; C2617; J0131; J0690; J1100; J2250; J2405; J3010; Q9961

== ENCOUNTER 2019-04-01 12:18 | Outpatient (CLI) | payer MEDICARE, MEDICAID ==
[~2019-04-01] VITALS: Ht 160 cm; Wt 113.5 kg
[~2019-04-01 12:18] MED LIST changes: -LIDOCAINE 1% MDV 20ML VIAL SQ PRN; -LR 1,000 ML IV ONE; +SODIUM CHLORIDE 0.9% INJ 10 ML SYR IV SCH
[2019-04-01 12:20] VITALS: BP 128/78
[2019-04-01] MEDS ORDERED: INFLIXIMAB BIOSIMILAR 600 MG in NS 190 ML IV ONE (12:30)
[2019-04-01] MEDS ORDERED: diphenhydrAMINE 25MG PO PRIOR TO INFUSION PO ONE (12:30)
[2019-04-01] MEDS ORDERED: FILTER 1.2 MICRON (ADULT TPN/MANNITOL/REMICADE) XX ONE (12:30)
[2019-04-01] MEDS ORDERED: ACETAMINOPHEN 650MG PO PRIOR TO INFUSION PO ONE (12:30)
[2019-04-01] MEDS: NS 1,000 ML IV SCH ×2 (13:39→14:19)
== END 2019-04-01 15:15 | disposition home or self-care (01) ==
LOC: M INFU 12:18
PROVIDERS: ATTEND Internal Medicine Gastroenterology
DX: K50.80 Crohn's disease of both small and large intestine without complications (principal); Z88.8 Allergy status to other drugs, medicaments and biological substances; Z88.5 Allergy status to narcotic agent
CPT/HCPCS: 96413; Q5103

== ENCOUNTER → 2019-04-08 | Outpatient (CLI) | payer MEDICARE, MEDICAID ==
[~2019-04-08] MED LIST changes: -SODIUM CHLORIDE 0.9% INJ 10 ML SYR IV SCH
--- NOTE | 2019-04-08 19:33 | REP ---
KUB ABDOMEN AND PELVIS: Two KUB films of the abdomen and pelvis were performed. Right ureteral stent was again noted. This does not appear to be significantly changed in position when compared to the prior study of 03/21/2019. Three subcentimeter calcific densities overlie the mid to lower right kidney. Cholecystectomy clips overlie the upper aspect of the right renal shadow. No abnormal calcifications are seen overlying the left renal shadow. Bowel gas pattern is normal. There are degenerative changes of the spine. Electronically Signed by Marcus Purvis MD 04/10/2019 03:59 P
== END ==
LOC: M SMT 14:55
PROVIDERS: ATTEND Urology
DX: N20.0 Calculus of kidney (principal)

== ENCOUNTER 2019-05-07 13:33 | Outpatient (CLI) | payer MEDICARE, MEDICAID ==
[~2019-05-07] VITALS: Ht 160 cm; Wt 113.5 kg
[2019-05-07 13:34] VITALS: BP 137/99
[2019-05-07] MEDS ORDERED: SODIUM CHLORIDE 0.9% INJ 10 ML SYR IV ONE (14:00)
[2019-05-07] MEDS ORDERED: INFLIXIMAB BIOSIMILAR 600 MG in NS 190 ML IV ONE (14:30)
[2019-05-07] MEDS ORDERED: ACETAMINOPHEN 650MG PO PRIOR TO INFUSION PO ONE (14:30)
[2019-05-07] MEDS ORDERED: FILTER 1.2 MICRON (ADULT TPN/MANNITOL/REMICADE) XX ONE (14:30)
[2019-05-07] MEDS ORDERED: NS 1,000 ML IV SCH (14:30)
[2019-05-07] MEDS ORDERED: diphenhydrAMINE 25MG PO PRIOR TO INFUSION PO ONE (14:30)
== END 2019-05-07 16:00 | disposition home or self-care (01) ==
LOC: M INFU 13:33
PROVIDERS: ATTEND Internal Medicine Gastroenterology
DX: K50.80 Crohn's disease of both small and large intestine without complications (principal); Z88.8 Allergy status to other drugs, medicaments and biological substances
CPT/HCPCS: 96413; Q5103

== ENCOUNTER → 2019-05-29 | Outpatient (CLI) | payer MEDICARE, MEDICAID ==
--- NOTE | 2019-05-29 11:52 | REP ---
RENAL ULTRASOUND: Real-time sonographic evaluation of the kidneys performed. Kidneys are normal in size and echotexture, right kidney measuring 11.9 x 4.5 x 4.3 cm and left kidney 12.3 x 4.3 x 4.4 cm. There is no hydronephrosis bilaterally. Cyst in the medial aspect of the right kidney inferiorly measures 2.9 x 2.3 x 2.5 cm. Two shadowing echogenic structures in the upper right kidney likely represent renal calculi with a maximum diameter of 1.4 cm and 0.8 cm. No definite abnormality is seen of the left kidney. IMPRESSION: No hydronephrosis. Suspect two calculi upper collecting system right kidney. Cyst lower pole right kidney. Electronically Signed by Marcus Purvis MD 05/30/2019 11:18 A
== END ==
LOC: M RAD 10:37
PROVIDERS: ATTEND Urology
DX: N20.0 Calculus of kidney (principal)

== ENCOUNTER 2019-06-18 12:49 | Outpatient (CLI) | payer MEDICARE, MEDICAID ==
[~2019-06-18] VITALS: Ht 160 cm; Wt 113.5 kg
[2019-06-18 12:55] VITALS: BP 118/70
[2019-06-18] MEDS ORDERED: ACETAMINOPHEN 650MG PO PRIOR TO INFUSION PO ONE (13:00)
[2019-06-18] MEDS ORDERED: INFLIXIMAB BIOSIMILAR 600 MG in NS 190 ML IV ONE (13:00)
[2019-06-18] MEDS ORDERED: diphenhydrAMINE 25MG PO PRIOR TO INFUSION PO ONE (13:00)
[2019-06-18] MEDS ORDERED: NS 1,000 ML IV SCH (13:00)
[2019-06-18] MEDS ORDERED: SODIUM CHLORIDE 0.9% INJ 10 ML SYR IV PRN (13:30)
[2019-06-18 15:10] VITALS: BP 122/70
[2019-06-19] MEDS ORDERED: SODIUM CHLORIDE 0.9% INJ 10 ML SYR IV SCH (09:00)
== END 2019-06-18 15:10 | disposition home or self-care (01) ==
LOC: M INFU 12:49
PROVIDERS: ATTEND Internal Medicine Gastroenterology
DX: K50.80 Crohn's disease of both small and large intestine without complications (principal); Z88.1 Allergy status to other antibiotic agents; Z88.5 Allergy status to narcotic agent; Z88.8 Allergy status to other drugs, medicaments and biological substances
CPT/HCPCS: 96413; Q5103

== ENCOUNTER → 2019-07-08 | Outpatient (CLI) | payer MEDICARE, MEDICAID | LOC: M LAB 13:40 | PROVIDERS: ATTEND Internal Medicine Gastroenterology | DX: K50.00 Crohn's disease of small intestine without complications (principal) ==

== ENCOUNTER → 2019-07-08 | Outpatient (CLI) | payer MEDICARE, MEDICAID ==
--- NOTE | 2019-07-12 03:04 | ECWPNPC ---
PATIENT NAME: KAYLA CRUZ : 1970 GENDER: FEMALE VISIT DATE: 07/08/2019 DISCHARGE DATE: 07/08/19 1502 VISIT LOCKED DATE TIME: PHYSICIAN: NEIL PEREZ RESOURCE: NEIL PEREZ REASON FOR APPOINTMENT 1. MEDICARE AB-CHRONIC PAIN HISTORY OF PRESENT ILLNESS HISTORY OF PRESENT ILLNESS: PAIN THE PATIENT DESCRIBES THE PAIN... 49-YEAR-OLD FEMALE IN FOR CHRONIC PAIN FOLLOW-UP. SHE RATES HER PAIN CURRENTLY AT A 9 OUT OF 10 AND DESCRIBES IT ACHING, SHARP, BURNING, STABBING, SORE, SHOOTING, AND TENDER. SHE HAS THE MEDICATIONS ARE HELPFUL AND DENIES MED SIDE EFFECTS THIS TIME. FALL RISK SCREENING: SCREENING :NO FALLS REPORTED IN THE LAST YEAR CURRENT MEDICATIONS TAKING REMICADE 100 MG SOLUTION RECONSTITUTED INTRAVENOUS EVERY 4 WKS TAKING PROMETHAZINE HCL 25 MG TABLET 1 TABLET NEEDED ORALLY EVERY 8 HRS PRN NAUSEA TAKING AMITRIPTYLINE HCL 25 MG TABLET 3 TABLET ORALLY ONCE A DAY AT BEDTIME TAKING IBUPROFEN 800 MG TABLET 1 TABLET ORALLY THREE TIMES A DAY TAKING ZOFRAN ODT 4 MG TABLET DISPERSIBLE 1 TABLET ON THE TONGUE AND ALLOW TO DISSOLVE ORALLY EVERY 6 HRS TAKING OXYCODONE HCL 15 MG TABLET -1 2 TABLET NEEDED ORALLY Q4-6HRS PRN PAIN MDD6 TAKING ACETAMINOPHEN 325 MG TABLET 1 TABLET NEEDED ORALLY EVERY -4 6 HRS PRN PAIN MAX 3000 MG/24 HRS NOT-TAKING FLOMAX 0.4 MG CAPSULE 1 CAPSULE 30 MINUTES AFTER THE SAME MEAL EACH DAY ORALLY ONCE A DAY NOT-TAKING AMOXICILLIN 500 MG CAPSULE 1 CAPSULE ORALLY TWICE A DAY NOT-TAKING PHENTERMINE HCL 15 MG CAPSULE 1 CAPSULE ORALLY ONCE A DAY NOT-TAKING BONIVA 150 MG TABLET 1 TABLET ORALLY MONTHLY NOT-TAKING GABAPENTIN 300 MG CAPSULE 1 TO CAP 2 ORALLY BEFORE BEDTIME NOT-TAKING FLOMAX 0.4 MG CAPSULE 1 CAPSULE ORALLY ONCE A DAY NOT-TAKING CIPROFLOXACIN HCL 500 MG TABLET 1 TABLET FOR YOUR CYSTOSCOPY TODAY ORALLY DIRECTED NOT-TAKING OXYBUTYNIN CHLORIDE 5 MG TABLET 1 TABLET ORALLY EVERY 8 HOURS A NEEDED FOR BLADDER SPASMS OR URINARY FREQUENCY NOT-TAKING CALCIUM 150 MG TABLET ORALLY DAILY MEDICATION LIST REVIEWED AND RECONCILED WITH THE PATIENT PAST MEDICAL HISTORY 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 CERVICAL AND OVARIAN CANCER HX FISTULAS KIDNEY STONES ABDOMINAL PAIN JOINT PAIN 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 ALLERGIES NAPROXEN: VOMITING - CONTRAINDICATION FLAGYL: VOMITING - CONTRAINDICATION VICODIN: VOMITING - CONTRAINDICATION 6MP: ANAPHYLAXIS - ALLERGY SURGICAL HISTORY ANAL FISTULA SURGERY 1997 VAGINAL ANAL FISTULA SURGERY 2003 EMERGENCY FULL HYSTERECTOMY AND COLON REMOVAL AND LARGE INTESTINE 2004 EMERGENCY HERNIA REPAIR BLOCKAGE 2012 CATARACT LEFT GALL BLADDER ILEOSTOMY SALPINGECTOMY RIGHT URETEROSCOPY WITH LASER LITHOTRIPSY AND BASKET EXTRACTION OF STONES, RIGHT RETROGRADE PYELOGRAM WITH INTRAOPERATIVE INTERCEPTION OF IMAGES, RIGHT URETERAL STENT PLACEMENT 05/11/2018 CYSTO RIGHT STENT REMOVAL 07/23/2018 URETEROSCOPY WITH LASER LITHO RIGHT SIDE STENT PLACEMENT 03/21/2019 CYSTO RIGHT STENT REMOVAL 04/08/2019 FAMILY HISTORY FATHER: ALIVE MOTHER: , STARTED LUNG CANCER THAT SPREAD EVERYWHERE, DIAGNOSED WITH UNSPECIFIED HEART DISEASE, OTHER MALIGNANT NEOPLASM OF UNSPECIFIED SITE SIBLINGS: SISTER-GRAVES DISEASE MATERNAL GRAND FATHER: UNSPECIFIED HEART DISEASE MATERNAL GRAND MOTHER: OTHER MALIGNANT NEOPLASM OF UNSPECIFIED SITE 1 SISTER(S) . 1DAUGHTER(S) - HEALTHY. DENIES FAMILY HISTORY OF UROLOGICAL DX. SOCIAL HISTORY GENERAL: TOBACCO USE ARE YOU A:CURRENT SMOKER ARE YOU INTERESTED IN QUITTING?THINKING ABOUT QUITTING WOULD LIKE TO DISCUSS STARTING BUPROPION. COUNSELED THE PATIENT ON SMOKING CESSATION, EDUCATION [id number]/30/2019 HOW MANY CIGARETTES A DAY DO YOU SMOKE?5 OR LESS HOW OFTEN DO YOU SMOKE CIGARETTES?EVERY DAY PATIENT COUNSELED ON THE DANGERS OF TOBACCO USE AND URGED TO QUIT:07/08/2019 EDUCATION LEVEL OF EDUCATION:FINISHED HIGH SCHOOL DIET: REGULAR. DOMESTIC VIOLENCE DO YOU FEEL SAFE IN YOUR ENVIRONMENT?YES RECREATIONAL DRUG USE DRUG USE?NO EXERCISE: NO REGULAR EXERCISE. LEARNING BARRIERS / SPECIAL NEEDS BARRIERS TO LEARNING?NO HEARING IMPAIRED?NO VISION IMPAIRED?YES COGNITIVELY IMPAIRED?NO :CORRECTIVE LENSES READINESS TO LEARN?YES LEARNING PREFERENCES?NO LEARNING CAPABILITIES PRESENT?YES EMOTIONAL BARRIERS?NO SPECIAL DEVICES?NO AUTOMOTIVE REPAIR TECHNICIAN NEEDED?NO PAIN CLINIC PFS, CLERGY, PUBLIC HEALTH REFERRALS PFS REFERRAL NEEDED?NO CLERGY REFERRAL NEEDED?NO PUBLIC HEALTH REFERRAL NEEDED?NO WAS THE PROVIDER NOTIFIED OF ANY PERTINENT INFO?YES HAS THE PATIENT BEEN EDUCATED REGARDING HIS/HER PLAN OF CARE?YES HAS THE PATIENT BEEN EDUCATED REGARDING PAIN, THE RISK FOR PAIN, THE IMPORTANCE OF EFFECTIVE PAIN MANAGEMENT, AND THE PAIN ASSESSMENT PROCESS?YES LATEX QUESTIONNAIRE LATEX ALLERGY : HAVE YOU EVER DEVELOPED ANY TYPE OF REACTION AFTER HANDLING LATEX PRODUCTS SUCH RUBBER GLOVES, CONDOMS, DIAPHRAGMS, BALLOONS, SOCKS, OR UNDERWEAR?NO LATEX ALLERGY : HAVE YOU EVER DEVELOPED ANY TYPE OF REACTION DURING OR AFTER DENTAL APPOINTMENT, VAGINAL/RECTAL EXAMINATION, SURGICAL PROCEDURE, OR ANY OTHER EXPOSURE?NO LATEX RISK : HAVE YOU EVER HAD ANY DIFFICULTY BREATHING OR HIVES AFTER EATING OR HANDLING ANY FRUITS, OR VEGETABLES; SUCH KIWI, BANANAS, STONE FRUITS, OR CHESTNUTSNO LATEX RISK : DO YOU HAVE A PREVIOUS PERSONAL HISTORY OF MORE THAN NINE SURGERIES, SPINA BIFIDA, OR REPEATED CATHERIZATIONS? YES - PLEASE INDICATE : > 9 SURGERIES LATEX RISK : ARE YOU FREQUENTLY EXPOSED TO LATEX PRODUCTS IN YOUR OCCUPATION?NO DATE ASKED : 02/20/2019 CAFFEINE CAFFEINE USE?NO ADVANCE DIRECTIVE ADVANCE DIRECTIVE DISCUSSED WITH PATIENT:YES 07/08/19 PT STATES SHE HAS HCP--JUSTO FREEDMAN [phone] MAURI EPISCOPAL [id number] [place] NO CHEONDOISM BELIEFS THAT WOULD IMPACT HEALTH CARE. MARITAL STATUS: .. ALCOHOL SCREENING DID YOU HAVE A DRINK CONTAINING ALCOHOL IN THE PAST YEAR?NO POINTS0 INTERPRETATIONNEGATIVE SEXUAL HX HAD SEX IN THE LAST 12 MONTHS (VAGINAL, ORAL, OR ANAL)?NO HAVE YOU EVER HAD AN STD?NO 09/20/18 REVIEWED WITH PT. ADREVIEWED WITH PT 11/20/18 1432 BVREVIEWED WITH PATIENT 07/08/19 1415 JS. HOSPITALIZATION/MAJOR DIAGNOSTIC PROCEDURE R/T SURGERIES KIDNEY STONES 01/2018 KIDNEY FAILURE 03/2019 REVIEW OF SYSTEMS REVIEWED BY: PROVIDER: LESLIE ARDON-Carolin . CONSTITUTIONAL: ANY CHANGE IN YOUR MEDICAL CONDITION? NO . CHILLS NO . FEVER NO . INFECTION: DO YOU HAVE NEW INFECTIONS? NO . DO YOU HAVE HISTORY OF MRSA? NO . MUSCULOSKELETAL: ANY NEW PATTERNS OF PAIN OR NUMBNESS? NO . GASTROENTEROLOGY: ANY NEW CHANGE IN BOWEL CONTROL? NO . GENITOURINARY: ANY NEW CHANGE IN BLADDER CONTROL? NO . IS THERE A CHANCE YOU COULD BE ? NO . HEMATOLOGY/LYMPH: DO YOU TAKE ANY BLOOD THINNERS? (FOR EXAMPLE- COUMADIN, PLAVIX, AGGRENOX, PLATEL, PRADAXA, OR XARELTO) NO . WHEN WAS YOUR LAST DOSE? DATE: TIME: . NEUROLOGY: HAVE YOU FALLEN IN THE PAST 12 MONTHS? NO . ANY NEW EXTREMITY NUMBNESS OR WEAKNESS? NO . CARDIOLOGY: DO YOU HAVE A PACEMAKER OR DEFIBRILLATOR? NO . RESPIRATORY: HAVE YOU BEEN SICK IN THE PAST WEEK? NO . FEVER NO . FLU LIKE SYMPTOMS? NO . COUGH NO . INTEGUMENTARY: DO YOU HAVE ANY RASHES OR OPEN SORES? YES, OPEN SORES TO ABDOMEN AND BACKSIDE FROM SURGERY IN 2004 - NONHEALING . ALLERGIC/IMMUNO: ARE YOU ALLERGIC TO IV DYE? NO . ANY NEW ALLERGIES? NO . PSYCHIATRIC: DO YOU HAVE THOUGHTS OF HURTING YOURSELF OR SOMEONE ELSE? NO . ARE YOU ABUSED, NEGLECTED, OR IN AN UNSAFE ENVIRONMENT? NO . ENDOCRINOLOGY: ARE YOU DIABETIC? NO . OTHER: DO YOU NEED ANY PRESCRIPTIONS? YES . IF YES, PLEASE LIST: ____OXYCODONE . ANY NEW PROBLEMS WITH YOUR MEDICATIONS? NO . WHEN DID YOU LAST EAT? ____ . WHEN DID YOU LAST DRINK? ____ . WHAT DID YOU LAST DRINK? ____ . NAME OF PERSON DRIVING YOU HOME? ____ . DO YOU HAVE ANY OTHER QUESTIONS OR CONCERNS NO . VITAL SIGNS WT 241 LBS, HT 63 IN, BMI 42.69 INDEX, BP 157/78 MM HG, HR 87 /MIN, RR 18 /MIN, TEMP 97.1 F, OXYGEN SAT % 99%, SAFE IN ENV? (Y/N) YES, NA INITIALS SC 14:08, REVIEWED BY: MAURI. EXAMINATION GENERAL EXAMINATION: GENERALNO ACUTE DISTRESS, WELL NOURISHED AND HYDRATED. PSYCHAPPROPRIATE MOOD AND AFFECT . LUNGS:CLEAR TO AUSCULTATION BILATERALLY, NO WHEEZES, RHONCHI, RALES. HEART:NO MURMURS, REGULAR RATE AND RHYTHM. ASSESSMENTS ABDOMINAL PAIN - R10.9 (PRIMARY) TREATMENT ABDOMINAL PAIN REFILL OXYCODONE HCL TABLET, 15 MG, -1 2 TABLET NEEDED, ORALLY, Q4-6HRS PRN PAIN MDD6, 30 DAY(S), 180, REFILLS 0 CLINICAL NOTES: 49-YEAR-OLD FEMALE IN FOR CHRONIC PAIN FOLLOW-UP. GIVEN PRESENTING SYMPTOMS AND RESULTS OF PHYSICAL EXAMINATION RECOMMENDED CONTINUATION OF CURRENT MEDICATION REGIMEN WITH FOLLOW-UP IN 3 MONTHS. PATIENT HAS EXPRESSED UNDERSTANDING OF AND WAS IN AGREEMENT WITH TREATMENT PLAN. GIVEN TIME TO ASK QUESTIONS AND EXPRESS CONCERNS., ISTOP REGISTRY REVIEWED AND DEMONSTRATES COMPLLIANCE. (REF # [id number] ) BRINGS IN MEDICATIONS WHICH IS APPROPRIATE FOR WHAT WAS DISPENSED. RECENT URINE TOXICOLOGY REVIEWED. NO UNAUTHORIZED MEDICATIONS. NO ILLICIT SUBSTANCES AND PRESCRIBED MEDICATIONS WERE PRESENT. PROCEDURE CODES FA211 ESTABILISHED PATIENT [facility] CHARGE DISPOSITION & COMMUNICATION FOLLOW UP 3 MONTHS (REASON: ABDOMINAL PAIN) ELECTRONICALLY SIGNED BY DUGLAS KUNZ ON 07/11/2019 AT 09:02 AM EST DISCLAIMER : THIS IS A VISIT SUMMARY EXTRACTED FROM THE [employer] CHART. IT IS NOT A COPY OF THE [employer] PROGRESS NOTE. SHERIDAN
== END ==
LOC: M PAIN 14:30
PROVIDERS: ATTEND Family Medicine
DX: R10.9 Unspecified abdominal pain (principal)
CPT/HCPCS: 36415; 86480; G0463

== ENCOUNTER 2019-07-19 12:02 | Outpatient (CLI) | payer MEDICARE, MEDICAID ==
[~2019-07-19] VITALS: Ht 160 cm; Wt 106.4 kg
[2019-07-19] MEDS ORDERED: ACETAMINOPHEN 650MG PO PRIOR TO INFUSION PO ONE (13:00)
[2019-07-19] MEDS ORDERED: diphenhydrAMINE 25MG PO PRIOR TO INFUSION PO ONE (13:00)
[2019-07-19] MEDS ORDERED: NS 1,000 ML IV SCH (13:00)
[2019-07-19] MEDS ORDERED: INFLIXIMAB BIOSIMILAR 600 MG in NS 190 ML IV ONE (13:00)
[2019-07-19] MEDS ORDERED: SODIUM CHLORIDE 0.9% INJ 10 ML SYR IV PRN (13:45)
[2019-07-20] MEDS ORDERED: SODIUM CHLORIDE 0.9% INJ 10 ML SYR IV SCH (09:00)
== END 2019-07-19 14:00 | disposition home or self-care (01) ==
LOC: M INFU 12:02
PROVIDERS: ATTEND Internal Medicine Gastroenterology
DX: K50.00 Crohn's disease of small intestine without complications (principal); Z88.6 Allergy status to analgesic agent; Z88.8 Allergy status to other drugs, medicaments and biological substances; Z88.5 Allergy status to narcotic agent; Z88.1 Allergy status to other antibiotic agents
CPT/HCPCS: 96365; Q5103

== ENCOUNTER → 2019-07-21 | Outpatient (CLI) | payer MEDICARE, MEDICAID ==
--- NOTE | 2019-07-23 10:34 | SLEEPCENT ---
DATE OF STUDY: 07/21/2019 ORDERED BY: Venus Anna Nocturnal polysomnography was performed for evaluation of sleep physiology in this patient with history of excessive somnolence and nonrestorative sleep. 7 hours and 4 minutes of data were reviewed. There were 199 minutes of sleep identified. Sleep latency was prolonged at 55 minutes. The patient did not achieve rapid eye movement (REM) sleep. Sleep architecture showed poor progression. Overall sleep efficiency was 47.6%. The electrocardiogram showed a sinus rhythm with an average heart rate of 80 beats per minute. Electroencephalogram (EEG) showed coarsening and alpha intrusions, medication effect (amitriptyline). There were only 5 respiratory events identified of 10 seconds in duration or greater for an apnea-hypopnea index of 1.5, snoring was noted however. Respiratory related arousals only occurred 1.5 times per hour and there were no oxygen desaturations. There was minimal limb activity. Limb movement arousal index was 3.6. IMPRESSION: Normal nocturnal polysomnography with snoring. RECOMMENDATION: The patient did display poor sleep progression, possibly related to medication.
== END ==
LOC: M SLEEP 20:00
PROVIDERS: ATTEND Nurse Practitioner Family
DX: R40.0 Somnolence (principal)

== ENCOUNTER 2019-08-20 14:47 | Outpatient (CLI) | payer MEDICARE, MEDICAID ==
[~2019-08-20] VITALS: Ht 160 cm; Wt 109.0 kg
[~2019-08-20 14:47] MED LIST changes: +SODIUM CHLORIDE 0.9% INJ 10 ML SYR IV SCH
[2019-08-20 15:15] VITALS: BP 134/92
[2019-08-20] MEDS ORDERED: INFLIXIMAB BIOSIMILAR 500 MG in NS 200 ML IV ONE (16:00)
[2019-08-20] MEDS ORDERED: diphenhydrAMINE 25MG PO PRIOR TO INFUSION PO ONE (16:00)
[2019-08-20] MEDS ORDERED: NS 1,000 ML IV SCH (16:00)
[2019-08-20] MEDS ORDERED: ACETAMINOPHEN 650MG PO PRIOR TO INFUSION PO ONE (16:00)
[2019-08-20] MEDS ORDERED: inFLIXimab INJECTION 500 MG in NS 200 ML IV ONE (16:00)
[2019-08-20 17:01] VITALS: BP 131/82
== END 2019-08-20 17:00 | disposition home or self-care (01) ==
LOC: M INFU 14:47
PROVIDERS: ATTEND Internal Medicine Gastroenterology
DX: K50.00 Crohn's disease of small intestine without complications (principal); Z88.1 Allergy status to other antibiotic agents; Z88.5 Allergy status to narcotic agent; Z88.8 Allergy status to other drugs, medicaments and biological substances
CPT/HCPCS: 96413; J1642; Q5103

== ENCOUNTER 2019-09-17 12:13 | Outpatient (CLI) | payer MEDICARE, MEDICAID ==
[~2019-09-17] VITALS: Ht 160 cm; Wt 109.0 kg
[~2019-09-17 12:13] MED LIST changes: -SODIUM CHLORIDE 0.9% INJ 10 ML SYR IV SCH
[2019-09-17 12:54] VITALS: BP 147/80
[2019-09-17] MEDS ORDERED: SODIUM CHLORIDE 0.9% INJ 10 ML SYR IV ONE (13:00)
[2019-09-17] MEDS ORDERED: ACETAMINOPHEN 650MG PO PRIOR TO INFUSION PO ONE (13:00)
[2019-09-17] MEDS ORDERED: diphenhydrAMINE 25MG PO PRIOR TO INFUSION PO ONE (13:00)
[2019-09-17] MEDS ORDERED: INFLIXIMAB BIOSIMILAR 500 MG in NS 200 ML IV ONE (13:30)
[2019-09-17] MEDS ORDERED: NS 1,000 ML IV SCH (13:30)
== END 2019-09-17 14:40 | disposition home or self-care (01) ==
LOC: M INFU 12:13
PROVIDERS: ATTEND Internal Medicine Gastroenterology
DX: K50.00 Crohn's disease of small intestine without complications (principal); Z88.1 Allergy status to other antibiotic agents; Z88.5 Allergy status to narcotic agent; Z88.8 Allergy status to other drugs, medicaments and biological substances
CPT/HCPCS: 96365; J1642; Q5103

== ENCOUNTER → 2019-10-07 | Outpatient (CLI) | payer MEDICARE, MEDICAID ==
--- NOTE | 2019-10-09 04:22 | ECWPNPC ---
PATIENT NAME: KAYLA CRUZ : 1970 GENDER: FEMALE VISIT DATE: 10/07/2019 DISCHARGE DATE: 10/07/19 1226 VISIT LOCKED DATE TIME: PHYSICIAN: NEIL PEREZ RESOURCE: NEIL PEREZ REASON FOR APPOINTMENT 1. ABD PAIN HISTORY OF PRESENT ILLNESS HISTORY OF PRESENT ILLNESS: PAIN THE PATIENT DESCRIBES THE PAINDURING THE LAST MONTH SEVERITY - PAIN SCORE OF9/10 LOCATIONS ABDOMEN QUALITYSHOOTING NAUSEA DURATIONCONTINUOUS, CONSTANT, ALL DAY PAIN IS INCREASED BY:ACTIVITIES PERMISSION REQUESTED AND RECEIVED FROM PATIENT TO PERFORM TELEPHONE VISIT. 49-YEAR-OLD FEMALE IN FOR CHRONIC PAIN FOLLOW-UP. SHE RATES HER PAIN CURRENTLY AT A 9 OUT OF 10 AND DESCRIBES IT CONTINUOUS, AND SHOOTING. SHE FURTHER STATES THAT GIVEN THE RAIN RECENTLY THIS HAS EXACERBATED HER PAIN. SHE FEELS MEDICATIONS ARE WORKING WELL AND DENIES MED SIDE EFFECTS AT THIS TIME. FALL RISK SCREENING: SCREENING :NO FALLS REPORTED IN THE LAST YEAR CURRENT MEDICATIONS TAKING REMICADE 100 MG SOLUTION RECONSTITUTED INTRAVENOUS EVERY 4 WKS TAKING PROMETHAZINE HCL 25 MG TABLET 1 TABLET NEEDED ORALLY EVERY 8 HRS PRN NAUSEA TAKING AMITRIPTYLINE HCL 25 MG TABLET 3 TABLET ORALLY ONCE A DAY AT BEDTIME TAKING IBUPROFEN 800 MG TABLET 1 TABLET ORALLY THREE TIMES A DAY TAKING ZOFRAN ODT 4 MG TABLET DISPERSIBLE 1 TABLET ON THE TONGUE AND ALLOW TO DISSOLVE ORALLY EVERY 6 HRS TAKING ACETAMINOPHEN 325 MG TABLET 1 TABLET NEEDED ORALLY EVERY -4 6 HRS PRN PAIN MAX 3000 MG/24 HRS TAKING PHENTERMINE HCL 37.5 MG CAPSULE 1 CAPSULE ORALLY ONCE A DAY TAKING OXYCODONE HCL 15 MG TABLET -1 2 TABLET NEEDED ORALLY Q4-6HRS PRN PAIN MDD6 NOT-TAKING FLOMAX 0.4 MG CAPSULE 1 CAPSULE 30 MINUTES AFTER THE SAME MEAL EACH DAY ORALLY ONCE A DAY NOT-TAKING AMOXICILLIN 500 MG CAPSULE 1 CAPSULE ORALLY TWICE A DAY NOT-TAKING BONIVA 150 MG TABLET 1 TABLET ORALLY MONTHLY NOT-TAKING GABAPENTIN 300 MG CAPSULE 1 TO CAP 2 ORALLY BEFORE BEDTIME NOT-TAKING FLOMAX 0.4 MG CAPSULE 1 CAPSULE ORALLY ONCE A DAY NOT-TAKING CIPROFLOXACIN HCL 500 MG TABLET 1 TABLET FOR YOUR CYSTOSCOPY TODAY ORALLY DIRECTED NOT-TAKING OXYBUTYNIN CHLORIDE 5 MG TABLET 1 TABLET ORALLY EVERY 8 HOURS A NEEDED FOR BLADDER SPASMS OR URINARY FREQUENCY NOT-TAKING CALCIUM 150 MG TABLET ORALLY DAILY MEDICATION LIST REVIEWED AND RECONCILED WITH THE PATIENT PAST MEDICAL HISTORY 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 CERVICAL AND OVARIAN CANCER HX FISTULAS KIDNEY STONES ABDOMINAL PAIN JOINT PAIN 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 ALLERGIES NAPROXEN: VOMITING - CONTRAINDICATION FLAGYL: VOMITING - CONTRAINDICATION VICODIN: VOMITING - CONTRAINDICATION 6MP: ANAPHYLAXIS - ALLERGY SURGICAL HISTORY ANAL FISTULA SURGERY 1997 VAGINAL ANAL FISTULA SURGERY 2002 EMERGENCY FULL HYSTERECTOMY AND COLON REMOVAL AND LARGE INTESTINE 2004 EMERGENCY HERNIA REPAIR BLOCKAGE 2012 CATARACT LEFT GALL BLADDER ILEOSTOMY SALPINGECTOMY RIGHT URETEROSCOPY WITH LASER LITHOTRIPSY AND BASKET EXTRACTION OF STONES, RIGHT RETROGRADE PYELOGRAM WITH INTRAOPERATIVE INTERCEPTION OF IMAGES, RIGHT URETERAL STENT PLACEMENT 05/11/2018 CYSTO RIGHT STENT REMOVAL 07/23/2018 URETEROSCOPY WITH LASER LITHO RIGHT SIDE STENT PLACEMENT 03/21/2019 CYSTO RIGHT STENT REMOVAL 04/08/2019 FAMILY HISTORY FATHER: ALIVE MOTHER: , STARTED LUNG CANCER THAT SPREAD EVERYWHERE, DIAGNOSED WITH UNSPECIFIED HEART DISEASE, OTHER MALIGNANT NEOPLASM OF UNSPECIFIED SITE SIBLINGS: SISTER-GRAVES DISEASE MATERNAL GRAND FATHER: UNSPECIFIED HEART DISEASE MATERNAL GRAND MOTHER: OTHER MALIGNANT NEOPLASM OF UNSPECIFIED SITE 1 SISTER(S) . 1DAUGHTER(S) - HEALTHY. DENIES FAMILY HISTORY OF UROLOGICAL DX. SOCIAL HISTORY GENERAL: TOBACCO USE ARE YOU A:CURRENT SMOKER HOW OFTEN DO YOU SMOKE CIGARETTES?EVERY DAY HOW MANY CIGARETTES A DAY DO YOU SMOKE?5 OR LESS ARE YOU INTERESTED IN QUITTING?THINKING ABOUT QUITTING WOULD LIKE TO DISCUSS STARTING BUPROPION. PATIENT COUNSELED ON THE DANGERS OF TOBACCO USE AND URGED TO QUIT:07/08/2019 COUNSELED THE PATIENT ON SMOKING CESSATION, EDUCATION [id number]/30/2019 EDUCATION LEVEL OF EDUCATION:FINISHED HIGH SCHOOL DIET: REGULAR. DOMESTIC VIOLENCE DO YOU FEEL SAFE IN YOUR ENVIRONMENT?YES RECREATIONAL DRUG USE DRUG USE?NO EXERCISE: NO REGULAR EXERCISE. LEARNING BARRIERS / SPECIAL NEEDS BARRIERS TO LEARNING?NO HEARING IMPAIRED?NO VISION IMPAIRED?YES COGNITIVELY IMPAIRED?NO :CORRECTIVE LENSES READINESS TO LEARN?YES LEARNING PREFERENCES?NO LEARNING CAPABILITIES PRESENT?YES EMOTIONAL BARRIERS?NO SPECIAL DEVICES?NO HEMMER CHAINSTITCH NEEDED?NO PAIN CLINIC PFS, CLERGY, PUBLIC HEALTH REFERRALS PFS REFERRAL NEEDED?NO CLERGY REFERRAL NEEDED?NO PUBLIC HEALTH REFERRAL NEEDED?NO WAS THE PROVIDER NOTIFIED OF ANY PERTINENT INFO?YES HAS THE PATIENT BEEN EDUCATED REGARDING HIS/HER PLAN OF CARE?YES HAS THE PATIENT BEEN EDUCATED REGARDING PAIN, THE RISK FOR PAIN, THE IMPORTANCE OF EFFECTIVE PAIN MANAGEMENT, AND THE PAIN ASSESSMENT PROCESS?YES LATEX QUESTIONNAIRE LATEX ALLERGY : HAVE YOU EVER DEVELOPED ANY TYPE OF REACTION AFTER HANDLING LATEX PRODUCTS SUCH RUBBER GLOVES, CONDOMS, DIAPHRAGMS, BALLOONS, SOCKS, OR UNDERWEAR?NO LATEX ALLERGY : HAVE YOU EVER DEVELOPED ANY TYPE OF REACTION DURING OR AFTER DENTAL APPOINTMENT, VAGINAL/RECTAL EXAMINATION, SURGICAL PROCEDURE, OR ANY OTHER EXPOSURE?NO DATE ASKED : 08/26/2019 LATEX RISK : HAVE YOU EVER HAD ANY DIFFICULTY BREATHING OR HIVES AFTER EATING OR HANDLING ANY FRUITS, OR VEGETABLES; SUCH KIWI, BANANAS, STONE FRUITS, OR CHESTNUTSNO LATEX RISK : DO YOU HAVE A PREVIOUS PERSONAL HISTORY OF MORE THAN NINE SURGERIES, SPINA BIFIDA, OR REPEATED CATHERIZATIONS? YES - PLEASE INDICATE : > 9 SURGERIES LATEX RISK : ARE YOU FREQUENTLY EXPOSED TO LATEX PRODUCTS IN YOUR OCCUPATION?NO CAFFEINE CAFFEINE USE?NO ADVANCE DIRECTIVE ADVANCE DIRECTIVE DISCUSSED WITH PATIENT:YES 07/08/19 PT STATES SHE HAS HCP--JUSTO FREEDMAN [phone] [employer] [id number] NO BAHAI BELIEFS THAT WOULD IMPACT HEALTH CARE. MARITAL STATUS: .. ALCOHOL SCREENING DID YOU HAVE A DRINK CONTAINING ALCOHOL IN THE PAST YEAR?NO POINTS0 INTERPRETATIONNEGATIVE SEXUAL HX HAD SEX IN THE LAST 12 MONTHS (VAGINAL, ORAL, OR ANAL)?NO HAVE YOU EVER HAD AN STD?NO HOSPITALIZATION/MAJOR DIAGNOSTIC PROCEDURE R/T SURGERIES KIDNEY STONES 01/2018 KIDNEY FAILURE 03/2019 REVIEW OF SYSTEMS REVIEWED BY: PROVIDER: LESLIE ABERNATHY . CONSTITUTIONAL: ANY CHANGE IN YOUR MEDICAL CONDITION? NO . CHILLS NO . FEVER NO . INFECTION: DO YOU HAVE NEW INFECTIONS? YES, SKIN . DO YOU HAVE HISTORY OF MRSA? NO . MUSCULOSKELETAL: ANY NEW PATTERNS OF PAIN OR NUMBNESS? NO . GASTROENTEROLOGY: ANY NEW CHANGE IN BOWEL CONTROL? NO . GENITOURINARY: ANY NEW CHANGE IN BLADDER CONTROL? NO . IS THERE A CHANCE YOU COULD BE ? NO . HEMATOLOGY/LYMPH: DO YOU TAKE ANY BLOOD THINNERS? (FOR EXAMPLE- COUMADIN, PLAVIX, AGGRENOX, PLATEL, PRADAXA, OR XARELTO) NO . WHEN WAS YOUR LAST DOSE? DATE: TIME: . NEUROLOGY: HAVE YOU FALLEN IN THE PAST 12 MONTHS? NO . ANY NEW EXTREMITY NUMBNESS OR WEAKNESS? NO . CARDIOLOGY: DO YOU HAVE A PACEMAKER OR DEFIBRILLATOR? NO . RESPIRATORY: HAVE YOU BEEN SICK IN THE PAST WEEK? YES, . FEVER NO . FLU LIKE SYMPTOMS? NO . COUGH NO . INTEGUMENTARY: DO YOU HAVE ANY RASHES OR OPEN SORES? YES, SINCE 2003 STOMACH AND BACK SIDE . ALLERGIC/IMMUNO: ARE YOU ALLERGIC TO IV DYE? NO . ANY NEW ALLERGIES? NO . PSYCHIATRIC: DO YOU HAVE THOUGHTS OF HURTING YOURSELF OR SOMEONE ELSE? NO . ARE YOU ABUSED, NEGLECTED, OR IN AN UNSAFE ENVIRONMENT? NO . ENDOCRINOLOGY: ARE YOU DIABETIC? NO . OTHER: DO YOU NEED ANY PRESCRIPTIONS? NO . IF YES, PLEASE LIST: ____ . ANY NEW PROBLEMS WITH YOUR MEDICATIONS? NO . WHEN DID YOU LAST EAT? ____ . WHEN DID YOU LAST DRINK? ____ . WHAT DID YOU LAST DRINK? ____ . NAME OF PERSON DRIVING YOU HOME? ____ . DO YOU HAVE ANY OTHER QUESTIONS OR CONCERNS YES, NEEDS STEROID CREAM FOR THE INFECTION ON HER STOMACH . ASSESSMENTS ABDOMINAL PAIN - R10.9 (PRIMARY) TREATMENT ABDOMINAL PAIN CLINICAL NOTES: 49-YEAR-OLD FEMALE IN FOR CHRONIC PAIN FOLLOW-UP. GIVEN PRESENTING SYMPTOMS RECOMMEND FOLLOW-UP IN 2 MONTHS. PATIENT HAS EXPRESSED UNDERSTANDING OF AND WAS IN AGREEMENT WITH TREATMENT PLAN. GIVEN TIME TO ASK QUESTIONS AND EXPRESS CONCERNS.THIS VISIT TO BE BILLED BASED ON TIME SPENT WITH PATIENT. DISPOSITION & COMMUNICATION FOLLOW UP 2 MONTHS (REASON: ABDOMINAL PAIN) ELECTRONICALLY SIGNED BY DUGLAS KUNZ ON 10/08/2019 AT 01:25 PM EDT DISCLAIMER : THIS IS A VISIT SUMMARY EXTRACTED FROM THE [employer] CHART. IT IS NOT A COPY OF THE [employer] PROGRESS NOTE. SHERIDAN
== END ==
LOC: M PAIN 12:00
PROVIDERS: ATTEND Family Medicine
DX: R10.9 Unspecified abdominal pain (principal); M06.9 Rheumatoid arthritis, unspecified; K50.90 Crohn's disease, unspecified, without complications; M19.90 Unspecified osteoarthritis, unspecified site; F17.210 Nicotine dependence, cigarettes, uncomplicated; Z79.891 Long term (current) use of opiate analgesic; Z79.899 Other long term (current) drug therapy

== ENCOUNTER 2019-10-15 11:11 | Outpatient (CLI) | payer MEDICARE, MEDICAID ==
[~2019-10-15] VITALS: Ht 160 cm; Wt 109.0 kg
[~2019-10-15 11:11] MED LIST changes: +SODIUM CHLORIDE 0.9% INJ 10 ML SYR IV SCH
[2019-10-15 11:15] VITALS: BP 149/90
[2019-10-15] MEDS ORDERED: NS 1,000 ML IV SCH (11:15)
[2019-10-15] MEDS ORDERED: INFLIXIMAB BIOSIMILAR 500 MG in NS 200 ML IV ONE (11:15)
[2019-10-15] MEDS ORDERED: diphenhydrAMINE 25MG PO PRIOR TO INFUSION PO ONE (11:15)
[2019-10-15] MEDS ORDERED: ACETAMINOPHEN 650MG PO PRIOR TO INFUSION PO ONE (11:15)
[2019-10-15 12:45] VITALS: BP 133/76
== END 2019-10-15 12:50 | disposition home or self-care (01) ==
LOC: M INFU 11:11
PROVIDERS: ATTEND Internal Medicine Gastroenterology
DX: K50.00 Crohn's disease of small intestine without complications (principal)
CPT/HCPCS: 96413; J1642; Q5103

== ENCOUNTER 2019-11-22 12:47 | Outpatient (CLI) | payer MEDICARE, MEDICAID ==
[~2019-11-22] VITALS: Ht 160 cm; Wt 109.0 kg
[~2019-11-22 12:47] MED LIST changes: +OXYC-1 PO; -OXYC15TA76 PO
[2019-11-22 12:50] VITALS: BP 135/86
[2019-11-22] MEDS ORDERED: NS 1,000 ML IV SCH (13:00)
[2019-11-22] MEDS ORDERED: diphenhydrAMINE 25MG PO PRIOR TO INFUSION PO ONE (13:00)
[2019-11-22] MEDS ORDERED: ACETAMINOPHEN 650MG PO PRIOR TO INFUSION PO ONE (13:00)
[2019-11-22] MEDS ORDERED: INFLIXIMAB BIOSIMILAR 500 MG in NS 200 ML IV ONE (13:00)
[2019-11-22 13:25] VITALS: BP 135/86
[2019-11-22 13:40] VITALS: BP 130/78
[2019-11-22 14:25] VITALS: BP 129/77
== END 2019-11-22 14:40 | disposition home or self-care (01) ==
LOC: M INFU 12:47
PROVIDERS: ATTEND Internal Medicine Gastroenterology
DX: K50.00 Crohn's disease of small intestine without complications (principal); Z88.5 Allergy status to narcotic agent; Z88.8 Allergy status to other drugs, medicaments and biological substances
CPT/HCPCS: 96413; J1642; Q5103

== ENCOUNTER → 2019-12-06 | Outpatient (CLI) | payer MEDICARE, MEDICAID ==
[~2019-12-06] MED LIST changes: -SODIUM CHLORIDE 0.9% INJ 10 ML SYR IV SCH
--- NOTE | 2019-12-10 05:44 | ECWPNPC ---
PATIENT NAME: KAYLA CRUZ : 1970 GENDER: FEMALE VISIT DATE: 12/06/2019 DISCHARGE DATE: 12/06/19 1452 VISIT LOCKED DATE TIME: PHYSICIAN: NEIL PEREZ RESOURCE: NEIL PEREZ REASON FOR APPOINTMENT 1. ABD PAIN PAT DONE HISTORY OF PRESENT ILLNESS GENERAL: - PERMISSION REQUESTED AND RECEIVED FROM PATIENT TO PERFORM TELEPHONE VISIT. 49-YEAR-OLD FEMALE IN FOR CHRONIC PAIN FOLLOW-UP. SHE RATES HER PAIN CURRENTLY AT A 10 OUT OF 10. SHE FEELS INCREASED PAIN IS RELATED TO BEING SICK RECENTLY. SHE FEELS HER MEDICATIONS ARE HELPFUL AND DENIES MED SIDE EFFECTS AT THIS TIME. FALL RISK SCREENING: SCREENING :NO FALLS REPORTED IN THE LAST YEAR PAIN SCREENING: PATIENT HAS A COMPLAINT OF ACUTE OR CHRONIC PAIN :YES LOCATION OF PAIN:ABDOMEN INTENSITY OF PAIN (SCALE OF 1 TO 10):7 WHAT DOES YOUR PAIN FEEL LIKE:CONTINOUS, THROBBING DURATION:CONTINOUS, CONSTANT PAIN IS INCREASED BY:ACTIVITIES PAIN IS DECREASED BY:OTHERS REST NURSING NOTE: -. PAIN CENTER INTAKE QUESTIONS: DO YOU HAVE A HISTORY OF MRSA? :NO DO YOU TAKE A BLOOD THINNERS? :NO DO YOU HAVE ANY BLEEDING DISORDERS? :NO ANY NEW NUMBNESS OR WEAKNESS IN YOUR LEGS OR ARMS? :YES PT STATES THAT SHE IS HAVING NEW PAIN IN BILATERAL BOTTOMS OF FEET ANY PACEMAKER,DEFIBRILLATOR, OR DORSAL COLUMN STIMULATOR? :NO DO YOU HAVE ANY RASHES OR OPEN SORES? :NO ARE YOU ALLERGIC TO IV DYE? :NO ARE YOU DIABETIC? :NO ANY NEW PROBLEMS WITH YOUR MEDICATIONS? :NO HAVE YOU RECEIVED A VACCINE IN THE PAST 30 DAYS? :NO DO YOU PLAN TO RECEIVE A VACCINE IN THE NEXT 21 DAYS? :NO DO YOU NEED ANY PRESCRIPTION? :YES OXYCODONE, ACETAMINOPHEN, AMITRIPTYLINE, ZOFRAN DO YOU TAKE ANY IMMUNOSUPPRESSIVE MEDICATIONS? :NO CURRENT MEDICATIONS TAKING REMICADE 100 MG SOLUTION RECONSTITUTED INTRAVENOUS EVERY 4 WKS TAKING PROMETHAZINE HCL 25 MG TABLET 1 TABLET NEEDED ORALLY EVERY 8 HRS PRN NAUSEA TAKING AMITRIPTYLINE HCL 25 MG TABLET 3 TABLET ORALLY ONCE A DAY AT BEDTIME TAKING IBUPROFEN 800 MG TABLET 1 TABLET ORALLY THREE TIMES A DAY TAKING ZOFRAN ODT 4 MG TABLET DISPERSIBLE 1 TABLET ON THE TONGUE AND ALLOW TO DISSOLVE ORALLY EVERY 6 HRS TAKING ACETAMINOPHEN 325 MG TABLET 1 TABLET NEEDED ORALLY EVERY -4 6 HRS PRN PAIN MAX 3000 MG/24 HRS TAKING PHENTERMINE HCL 37.5 MG CAPSULE 1 CAPSULE ORALLY ONCE A DAY TAKING OXYCODONE HCL 15 MG TABLET -1 2 TABLET NEEDED ORALLY Q4-6HRS PRN PAIN MDD6 NOT-TAKING FLOMAX 0.4 MG CAPSULE 1 CAPSULE 30 MINUTES AFTER THE SAME MEAL EACH DAY ORALLY ONCE A DAY NOT-TAKING AMOXICILLIN 500 MG CAPSULE 1 CAPSULE ORALLY TWICE A DAY NOT-TAKING BONIVA 150 MG TABLET 1 TABLET ORALLY MONTHLY NOT-TAKING GABAPENTIN 300 MG CAPSULE 1 TO CAP 2 ORALLY BEFORE BEDTIME NOT-TAKING FLOMAX 0.4 MG CAPSULE 1 CAPSULE ORALLY ONCE A DAY NOT-TAKING CIPROFLOXACIN HCL 500 MG TABLET 1 TABLET FOR YOUR CYSTOSCOPY TODAY ORALLY DIRECTED NOT-TAKING OXYBUTYNIN CHLORIDE 5 MG TABLET 1 TABLET ORALLY EVERY 8 HOURS A NEEDED FOR BLADDER SPASMS OR URINARY FREQUENCY NOT-TAKING CALCIUM 150 MG TABLET ORALLY DAILY MEDICATION LIST REVIEWED AND RECONCILED WITH THE PATIENT PAST MEDICAL HISTORY 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 CERVICAL AND OVARIAN CANCER HX FISTULAS KIDNEY STONES ABDOMINAL PAIN JOINT PAIN 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 ANEMIA ALLERGIES NAPROXEN: VOMITING - CONTRAINDICATION FLAGYL: VOMITING - CONTRAINDICATION VICODIN: VOMITING - CONTRAINDICATION 6MP: ANAPHYLAXIS - ALLERGY SURGICAL HISTORY ANAL FISTULA SURGERY 1997 VAGINAL ANAL FISTULA SURGERY 2002 EMERGENCY FULL HYSTERECTOMY AND COLON REMOVAL AND LARGE INTESTINE 2004 EMERGENCY HERNIA REPAIR BLOCKAGE 2012 CATARACT LEFT GALL BLADDER ILEOSTOMY SALPINGECTOMY RIGHT URETEROSCOPY WITH LASER LITHOTRIPSY AND BASKET EXTRACTION OF STONES, RIGHT RETROGRADE PYELOGRAM WITH INTRAOPERATIVE INTERCEPTION OF IMAGES, RIGHT URETERAL STENT PLACEMENT 05/11/2018 CYSTO RIGHT STENT REMOVAL 07/23/2018 URETEROSCOPY WITH LASER LITHO RIGHT SIDE STENT PLACEMENT 03/21/2019 CYSTO RIGHT STENT REMOVAL 04/08/2019 FAMILY HISTORY FATHER: ALIVE MOTHER: , STARTED LUNG CANCER THAT SPREAD EVERYWHERE, DIAGNOSED WITH UNSPECIFIED HEART DISEASE, OTHER MALIGNANT NEOPLASM OF UNSPECIFIED SITE SIBLINGS: SISTER-GRAVES DISEASE MATERNAL GRAND FATHER: UNSPECIFIED HEART DISEASE MATERNAL GRAND MOTHER: OTHER MALIGNANT NEOPLASM OF UNSPECIFIED SITE 1 SISTER(S) . 1DAUGHTER(S) - HEALTHY. DENIES FAMILY HISTORY OF UROLOGICAL DX. SOCIAL HISTORY GENERAL: TOBACCO USE ARE YOU A:CURRENT SMOKER ARE YOU INTERESTED IN QUITTING?THINKING ABOUT QUITTING WOULD LIKE TO DISCUSS STARTING BUPROPION. COUNSELED THE PATIENT ON SMOKING CESSATION, EDUCATION [id number]/30/2019 HOW MANY CIGARETTES A DAY DO YOU SMOKE?5 OR LESS HOW OFTEN DO YOU SMOKE CIGARETTES?EVERY DAY PATIENT COUNSELED ON THE DANGERS OF TOBACCO USE AND URGED TO QUIT:12/05/2019 LATEX QUESTIONNAIRE LATEX ALLERGY : HAVE YOU EVER DEVELOPED ANY TYPE OF REACTION AFTER HANDLING LATEX PRODUCTS SUCH RUBBER GLOVES, CONDOMS, DIAPHRAGMS, BALLOONS, SOCKS, OR UNDERWEAR?NO LATEX ALLERGY : HAVE YOU EVER DEVELOPED ANY TYPE OF REACTION DURING OR AFTER DENTAL APPOINTMENT, VAGINAL/RECTAL EXAMINATION, SURGICAL PROCEDURE, OR ANY OTHER EXPOSURE?NO DATE ASKED : 08/26/2019 LATEX RISK : HAVE YOU EVER HAD ANY DIFFICULTY BREATHING OR HIVES AFTER EATING OR HANDLING ANY FRUITS, OR VEGETABLES; SUCH KIWI, BANANAS, STONE FRUITS, OR CHESTNUTSNO LATEX RISK : DO YOU HAVE A PREVIOUS PERSONAL HISTORY OF MORE THAN NINE SURGERIES, SPINA BIFIDA, OR REPEATED CATHERIZATIONS? YES - PLEASE INDICATE : > 9 SURGERIES LATEX RISK : ARE YOU FREQUENTLY EXPOSED TO LATEX PRODUCTS IN YOUR OCCUPATION?NO ALCOHOL SCREENING DID YOU HAVE A DRINK CONTAINING ALCOHOL IN THE PAST YEAR?NO POINTS0 INTERPRETATIONNEGATIVE RECREATIONAL DRUG USE DRUG USE?NO CAFFEINE CAFFEINE USE?NO SEXUAL HX HAD SEX IN THE LAST 12 MONTHS (VAGINAL, ORAL, OR ANAL)?NO HAVE YOU EVER HAD AN STD?NO [facility] [id number] RESTORATION NO YARSANISM BELIEFS THAT WOULD IMPACT HEALTH CARE. EDUCATION LEVEL OF EDUCATION:FINISHED HIGH SCHOOL LEARNING BARRIERS / SPECIAL NEEDS BARRIERS TO LEARNING?NO HEARING IMPAIRED?NO VISION IMPAIRED?YES COGNITIVELY IMPAIRED?NO :CORRECTIVE LENSES READINESS TO LEARN?YES LEARNING PREFERENCES?NO LEARNING CAPABILITIES PRESENT?YES EMOTIONAL BARRIERS?NO SPECIAL DEVICES?NO DIRECTOR OF PRECLINICAL RESEARCH NEEDED?NO DOMESTIC VIOLENCE DO YOU FEEL SAFE IN YOUR ENVIRONMENT?YES DIET: REGULAR. EXERCISE: NO REGULAR EXERCISE. MARITAL STATUS: .. PAIN CLINIC PFS, CLERGY, PUBLIC HEALTH REFERRALS PFS REFERRAL NEEDED?NO CLERGY REFERRAL NEEDED?NO PUBLIC HEALTH REFERRAL NEEDED?NO WAS THE PROVIDER NOTIFIED OF ANY PERTINENT INFO?YES HAS THE PATIENT BEEN EDUCATED REGARDING HIS/HER PLAN OF CARE?YES HAS THE PATIENT BEEN EDUCATED REGARDING PAIN, THE RISK FOR PAIN, THE IMPORTANCE OF EFFECTIVE PAIN MANAGEMENT, AND THE PAIN ASSESSMENT PROCESS?YES ADVANCE DIRECTIVE ADVANCE DIRECTIVE DISCUSSED WITH PATIENT:YES PT STATES SHE HAS HCP--JUSTO FREEDMAN [phone] HOSPITALIZATION/MAJOR DIAGNOSTIC PROCEDURE R/T SURGERIES KIDNEY STONES 01/2018 KIDNEY FAILURE 03/2019 REVIEW OF SYSTEMS CONSTITUTIONAL: ANY RECENT FEVER OR ILLNESS NO . CHILLS NO . GASTROENTEROLOGY: BOWEL INCONTINENCE NO . ANY NEW CHANGE IN BOWEL CONTROL? NO . ABDOMINAL PAIN NO . CONSTIPATION NO . GENITOURINARY: ANY NEW CHANGE IN BLADDER CONTROL? NO . IS THERE A CHANCE YOU COULD BE ? NO . URINARY INCONTINENCE NO . CARDIOLOGY: CHEST PRESSURE NO . CHEST PAIN NO . RESPIRATORY: COUGH NO . SHORTNESS OF BREATH NO . EXAMINATION GENERAL EXAMINATION: PSYCHAPPROPRIATE MOOD AND AFFECT , ORIENTED X 3. ASSESSMENTS ABDOMINAL PAIN - R10.9 (PRIMARY) TREATMENT ABDOMINAL PAIN CLINICAL NOTES: 49-YEAR-OLD FEMALE IN FOR CHRONIC PAIN FOLLOW-UP. GIVEN PRESENT SYMPTOMS RECOMMENDED CONTINUATION OF CURRENT MEDICATION REGIMEN WITH FOLLOW-UP IN 3 MONTHS. PATIENT HAS EXPRESSED UNDERSTANDING OF AND WAS IN AGREEMENT WITH TREATMENT PLAN. GIVEN TIME TO ASK QUESTIONS AND EXPRESS CONCERNS. , ISTOP REGISTRY REVIEWED AND DEMONSTRATES COMPLLIANCE. (REF # [id number] ) BRINGS IN MEDICATIONS WHICH IS APPROPRIATE FOR WHAT WAS DISPENSED. RECENT URINE TOXICOLOGY REVIEWED. NO UNAUTHORIZED MEDICATIONS. NO ILLICIT SUBSTANCES AND PRESCRIBED MEDICATIONS WERE PRESENT. VISIT TO BE BILLED BASED ON TIME SPENT WITH PATIENT. TIME SPENT WITH PATIENT 11 MINUTES. DISPOSITION & COMMUNICATION FOLLOW UP 3 MONTHS (REASON: ABDOMINAL PAIN) ELECTRONICALLY SIGNED BY DUGLAS KUNZ ON 12/09/2019 AT 08:39 AM EDT DISCLAIMER : THIS IS A VISIT SUMMARY EXTRACTED FROM THE [employer] CHART. IT IS NOT A COPY OF THE [employer] PROGRESS NOTE. EDDYD
== END ==
LOC: M PAIN 14:30
PROVIDERS: ATTEND Family Medicine
DX: R10.9 Unspecified abdominal pain (principal)

== ENCOUNTER 2019-12-23 13:56 | Outpatient (CLI) | payer MEDICARE, MEDICAID ==
[~2019-12-23] VITALS: Ht 160 cm; Wt 109.0 kg
[2019-12-23] MEDS ORDERED: INFLIXIMAB BIOSIMILAR 500 MG in NS 200 ML IV ONE (14:15)
[2019-12-23] MEDS ORDERED: ACETAMINOPHEN 650MG PO PRIOR TO INFUSION PO ONE (14:15)
[2019-12-23] MEDS ORDERED: NS 1,000 ML IV SCH (14:15)
[2019-12-23] MEDS ORDERED: SODIUM CHLORIDE 0.9% INJ 10 ML SYR IV PRN (14:15)
[2019-12-23] MEDS ORDERED: diphenhydrAMINE 25MG PO PRIOR TO INFUSION PO ONE (14:15)
[2019-12-23 14:45] VITALS: BP 129/69
[2019-12-23 15:00] VITALS: BP 109/74
[2019-12-23 15:45] VITALS: BP 132/65
[2019-12-24] MEDS ORDERED: SODIUM CHLORIDE 0.9% INJ 10 ML SYR IV SCH (09:00)
== END 2019-12-23 16:00 | disposition home or self-care (01) ==
LOC: M INFU 13:56
PROVIDERS: ATTEND Internal Medicine Gastroenterology
DX: K50.00 Crohn's disease of small intestine without complications (principal); Z88.8 Allergy status to other drugs, medicaments and biological substances
CPT/HCPCS: 96413; J1642; Q5103

== ENCOUNTER → 2020-02-18 | Outpatient (POV) | payer MEDICARE, MEDICAID ==
--- NOTE | 2020-03-12 15:15 | IRCOV ---
[facility] IR Consult Office Visit IR Consult Office Visit DATE: Feb 18, 2020 Patient agreed to this telephone consultation. I spent 30 minutes reviewing patient's history, imaging and talking to the patient. REASON FOR CONSULTATION/CHIEF COMPLAINT: Port malfunction. HISTORY OF PRESENT ILLNESS: 50-year-old female with rheumatoid arthritis, Crohn's disease, cervical and ovarian cancer and kidney stones, presents for port malfunction. She has a right-sided port which was placed in 2012 and is used regularly for her Remicade infusions. For some years now, the port will not aspirate. This was treated with TPA and reviewed by Dr. Padilla in the past without success. Now she feels pain when the port is flushed. No chest pain, shortness of breath. No dehiscence at the port site. No redness or swelling of the neck. ALLERGIES: Please see below. HOME MEDICATIONS: Please see below. PAST MEDICAL HISTORY: Rheumatoid arthritis Osteoarthritis Crohn's disease Pyodermagangrenosum Cervical and ovarian cancer Fistulas Kidney stones Abdominal pain Joint pain Opiate use Decubitus PAST SURGICAL HISTORY: Anal fistula surgery vaginal and fistula surgery Hysterectomy Colon resection Hernia repair Cataract Gallbladder Ileostomy Salpingectomy Ureteroscopy laser lithotripsy Stone extraction Right ureteral stent placement FAMILY HISTORY: Noncontributory SOCIAL HISTORY: Smoker. Denies alcohol or drugs. REVIEW OF SYSTEMS: Otherwise negative PHYSICAL EXAMINATION: No video on patient site. LABORATORY DATA: No recent labs in the [employer] system Imaging: I personally reviewed the fluoroscopy images from 01/02/2013. A right-sided port was placed which looked good at that time. I reviewed the chest x-ray from 03/19/2018. The port tip is now retracted back to the brachiocephalic vein. There is an acute angle and kink at the arch of the port. ASSESSMENT/PLAN: 50-year-old female with right-sided port placed 5 years ago. This port is now migrated. This port will need to be removed and a new port placed. We discussed the risks and benefits of the procedure. We'll schedule the patient for port removal and new placement. I spent 30 minutes in consultation with the patient. Thank you for this referral. Cc PCP Cc infusion Allergies Coded Allergies: azathioprine (Verified Adverse Reaction, Intermediate, SEVERE VOMITING, 03/21/19) diclofenac (Verified Adverse Reaction, Intermediate, SEVERE VOMITING, 03/21/19) hydrocodone (Verified Adverse Reaction, Intermediate, SEVERE VOMITING, 03/21/19) mercaptopurine (Verified Adverse Reaction, Intermediate, 6MP- SEVERE VOMITING, 03/21/19) naproxen (Verified Adverse Reaction, Intermediate, VOMITING, 03/21/19) metronidazole (Verified Adverse Reaction, Unknown, SEVERE VOMITING, 03/21/19) Home Medications Scheduled Amitriptyline HCl (Amitriptyline HCl), 75 MG PO QHS, (Reported) Infliximab Injection (Remicade), 100 MG IV Q4WKS, (Reported) Ondansetron (Ondansetron Odt), 4 MG PO Q6H, (Reported) Scheduled PRN Oxycodone Hcl (Oxycodone HCl), 15 MG PO TIDP PRN for PAIN, (Reported) ANDREE FANG MD Mar 12, 2020 15:14
== END ==
LOC: M IRPOV 13:00
PROVIDERS: ATTEND Radiology Diagnostic Radiology
DX: T82.598A Other mechanical complication of other cardiac and vascular devices and implants, initial encounter (principal); F17.210 Nicotine dependence, cigarettes, uncomplicated; M06.9 Rheumatoid arthritis, unspecified; M19.90 Unspecified osteoarthritis, unspecified site; K50.90 Crohn's disease, unspecified, without complications; L88 Pyoderma gangrenosum; X58.XXXA Exposure to other specified factors, initial encounter; Z79.891 Long term (current) use of opiate analgesic; Z79.899 Other long term (current) drug therapy; Z85.41 Personal history of malignant neoplasm of cervix uteri; Z87.442 Personal history of urinary calculi; Z88.5 Allergy status to narcotic agent; Z88.8 Allergy status to other drugs, medicaments and biological substances; Z90.710 Acquired absence of both cervix and uterus

== ENCOUNTER 2020-02-19 02:39 | Emergency (ER) | payer MEDICARE, MEDICAID ==
[2020-02-19] MEDS ORDERED: KETOROLAC 30 MG/ML 1ML VIAL ONE (04:08)
[2020-02-19] MEDS ORDERED: KETOROLAC 30 MG/ML 1ML VIAL As Ordered ONE (04:08)
[2020-02-19] MEDS ORDERED: ISOVUE-370 76% 100ML VIAL As Ordered ONE (06:44)
[2020-02-19] MEDS ORDERED: ONDANSETRON 4MG/2ML VIAL As Ordered ONE (08:19)
[2020-02-19] MEDS ORDERED: ONDANSETRON 4MG/2ML VIAL ONE (08:19)
[2020-04-03 10:06] LABS: BASO % 0.5 % (0.0-1.0); EOS # 0.1 10^3/uL (0.0-0.5); EOS % 1.1 % (0.0-3.0); HEMATOCRIT 47.8 % (36.0-47.0); HEMOGLOBIN 15.8 g/dl (12.0-15.5); LYMPH # 1.7 10^3/uL (1.5-5.0); LYMPH % 22.6 % (24.0-44.0); MEAN CORPUSCULAR HEMOGLOBIN 29.9 pg (27.0-33.0); MEAN CORPUSCULAR HGB CONC 33.1 g/dl (32.0-36.5); MEAN CORPUSCULAR VOLUME 90.4 fl (80.0-96.0); MONO # 0.4 10^3/uL (0.0-0.8); MONO % 5.4 % (0.0-5.0); NEUTROPHILS # 5.2 10^3/uL (1.5-8.5); PLATELET COUNT, AUTOMATED 227 10^3/uL (150-450); RED BLOOD COUNT 5.29 10^6/uL (4.00-5.40); WHITE BLOOD COUNT 7.4 10^3/uL (4.0-10.0)
[2020-04-03 10:29] LABS: APPEARANCE, URINE CLEAR (CLEAR); BACTERIA, URINE AUTO NEGATIVE (NEGATIVE); BILIRUBIN, URINE AUTO NEGATIVE (NEGATIVE); BLOOD, URINE BLOOD 3+ (NEGATIVE); CALCIUM OXALATE CRYSTALS SMALL; COLOR, URINE YELLOW (YELLOW); GLUCOSE, URINE (UA) AUTO NEGATIVE (NEGATIVE); KETONE, URINE AUTO 1+ mg/dL (NEGATIVE); LEUKOCYTE ESTERASE, URINE AUTO 1+ (NEGATIVE); MUCUS, URINE SMALL (NEGATIVE); NITRITE, URINE AUTO NEGATIVE (NEGATIVE); PROTEIN, URINE AUTO NEGATIVE (NEGATIVE); RBC, URINE AUTO 45 /HPF (0-3); SPECIFIC GRAVITY URINE AUTO 1.018 (1.002-1.035); SQUAMOUS EPITHELIAL CELL UR AU 1 /HPF (0-6); UROBILINOGEN, URINE AUTO 0.2 mg/dL (0.0-2.0); WBC, URINE AUTO 7 /HPF (0-3)
[2020-05-13 04:32] LABS: ALBUMIN 3.5 GM/DL (3.2-5.2); ALT/SGPT 16 U/L (12-78); BILIRUBIN,DIRECT 0.1 MG/DL (0.0-0.2); BILIRUBIN,TOTAL 0.4 MG/DL (0.2-1.0); BLOOD UREA NITROGEN 14 MG/DL (7-18); CARBON DIOXIDE LEVEL 27 MEQ/L (21-32); CHLORIDE LEVEL 108 MEQ/L (98-107); CREATININE FOR GFR 0.87 MG/DL (0.55-1.30); GLOMERULAR FILTRATION RATE > 60.0 (>51); GLUCOSE, FASTING 144 MG/DL (70-100); LIPASE 40 U/L (73-393); POTASSIUM SERUM 3.7 MEQ/L (3.5-5.1); SODIUM LEVEL 140 MEQ/L (136-145); TOTAL PROTEIN 7.9 GM/DL (6.4-8.2)
[2020-05-13 04:35] LABS: HCG, SERUM QUALITATIVE NEGATIVE (NEGATIVE)
== END 2020-02-19 10:40 | disposition home or self-care (01) ==
LOC: M ED 02:39
DX: N13.30 Unspecified hydronephrosis (principal); N20.1 Calculus of ureter; R59.0 Localized enlarged lymph nodes; K50.90 Crohn's disease, unspecified, without complications; M19.90 Unspecified osteoarthritis, unspecified site; Z85.43 Personal history of malignant neoplasm of ovary; Z85.41 Personal history of malignant neoplasm of cervix uteri; Z87.442 Personal history of urinary calculi; Z93.2 Ileostomy status; Z90.49 Acquired absence of other specified parts of digestive tract; Z79.899 Other long term (current) drug therapy; Z88.5 Allergy status to narcotic agent; Z88.1 Allergy status to other antibiotic agents
CPT/HCPCS: 74178; 80048; 80076; 81001; 83690; 84703; 85025; 87086; 96361; 96374; 96375; 99284; J1885; J2405; Q9967

== ENCOUNTER 2020-02-27 11:58 | Outpatient (CLI) | payer MEDICARE, MEDICAID ==
[~2020-02-27] VITALS: Ht 160 cm; Wt 108.0 kg
[~2020-02-27 11:58] MED LIST changes: +SODIUM CHLORIDE 0.9% INJ 10 ML SYR IV SCH
[2020-02-27 12:00] VITALS: BP 146/86
[2020-02-27] MEDS ORDERED: INFLIXIMAB BIOSIMILAR 500 MG in NS 200 ML IV ONE (12:00)
[2020-02-27] MEDS ORDERED: ACETAMINOPHEN 650MG PO PRIOR TO INFUSION PO ONE (12:00)
[2020-02-27] MEDS ORDERED: NS 1,000 ML IV SCH (12:00)
[2020-02-27] MEDS ORDERED: diphenhydrAMINE 25MG PO PRIOR TO INFUSION PO ONE (12:00)
[2020-02-27] MEDS ORDERED: diphenhydrAMINE 25MG CAP As Ordered ONE (12:31)
[2020-02-27 13:00] VITALS: BP 146/86
[2020-02-27 13:15] VITALS: BP 148/85
[2020-02-27 14:00] VITALS: BP 145/68
[2020-02-27 14:10] VITALS: BP 145/64
== END 2020-02-27 14:10 | disposition home or self-care (01) ==
LOC: M INFU 11:58
PROVIDERS: ATTEND Internal Medicine Gastroenterology
DX: K50.00 Crohn's disease of small intestine without complications (principal)
CPT/HCPCS: 96413; Q5103

== ENCOUNTER 2020-04-10 12:11 | Outpatient (CLI) | payer MEDICARE, MEDICAID ==
[~2020-04-10] VITALS: Ht 160 cm; Wt 101.8 kg
[~2020-04-10 12:11] MED LIST changes: +NS 1,000 ML IV SCH
[2020-04-10 12:15] VITALS: BP 136/81
[2020-04-10] MEDS: diphenhydrAMINE 25MG PO PRIOR TO INFUSION PO ONE (12:33)
[2020-04-10] MEDS: ACETAMINOPHEN 650MG PO PRIOR TO INFUSION PO ONE (12:33)
[2020-04-10] MEDS: INFLIXIMAB BIOSIMILAR 1,000 MG in NS 150 ML IV ONE (13:09)
[2020-04-10 13:25] VITALS: BP 148/88
[2020-04-10 14:23] VITALS: BP 139/74
== END 2020-04-10 14:26 | disposition home or self-care (01) ==
LOC: M INFU 12:11
PROVIDERS: ATTEND Internal Medicine Gastroenterology
DX: K50.00 Crohn's disease of small intestine without complications (principal)
CPT/HCPCS: 96413; J1642; Q5103

== ENCOUNTER → 2020-05-05 | Outpatient (CLI) | payer MEDICARE, MEDICAID ==
[~2020-05-05] MED LIST changes: -NS 1,000 ML IV SCH; -SODIUM CHLORIDE 0.9% INJ 10 ML SYR IV SCH
--- NOTE | 2020-05-07 02:02 | ECWPNPC ---
PATIENT NAME: KAYLA CRUZ : 1970 GENDER: FEMALE VISIT DATE: 05/05/2020 DISCHARGE DATE: 05/05/20 1531 VISIT LOCKED DATE TIME: PHYSICIAN: NEIL PEREZ RESOURCE: NEIL PEREZ REASON FOR APPOINTMENT 1. ABDOMINAL PAIN HISTORY OF PRESENT ILLNESS DEPRESSION SCREENING: PHQ-2 (2015 EDITION) LITTLE INTEREST OR PLEASURE IN DOING THINGS?NOT AT ALL FEELING DOWN, DEPRESSED, OR HOPELESS?NOT AT ALL TOTAL SCORE0 GENERAL: - 50-YEAR-OLD FEMALE IN FOR CHRONIC PAIN FOLLOW-UP. SHE RATES HER PAIN CURRENTLY AT A 9 OUT OF 10 AND DESCRIBES IT CONTINUOUS, STABBING, TENDER, THROBBING, SORE, AND SHOOTING. SHE FEELS HER MEDICATIONS ARE HELPFUL AND DENIES MED SIDE EFFECTS AT THIS TIME. FALL RISK SCREENING: SCREENING :NO FALLS REPORTED IN THE LAST YEAR PAIN SCREENING: PATIENT HAS A COMPLAINT OF ACUTE OR CHRONIC PAIN :YES LOCATION OF PAIN:OTHER: FULL BODY INTENSITY OF PAIN (SCALE OF 1 TO 10):9 WHAT DOES YOUR PAIN FEEL LIKE:ACHING, CONTINOUS, STABBING, TENDER, THROBBING, SORE, SHOOTING DURATION:CONSTANT, STEADY, ALL DAY PAIN IS INCREASED BY:ACTIVITIES PAIN IS DECREASED BY:USE OF PAIN MEDICATIONS RESTING NURSING NOTE: -. PAIN CENTER INTAKE QUESTIONS: DO YOU HAVE A HISTORY OF MRSA? :NO DO YOU TAKE A BLOOD THINNERS? :NO DO YOU HAVE ANY BLEEDING DISORDERS? :NO ANY NEW NUMBNESS OR WEAKNESS IN YOUR LEGS OR ARMS? :NO ANY PACEMAKER,DEFIBRILLATOR, OR DORSAL COLUMN STIMULATOR? :NO DO YOU HAVE ANY RASHES OR OPEN SORES? :YES STOMACH, BUTTOCK OPEN AREAS FROM SURGERY IN 2003 ARE YOU ALLERGIC TO IV DYE? :NO ARE YOU DIABETIC? :NO ANY NEW PROBLEMS WITH YOUR MEDICATIONS? :NO HAVE YOU RECEIVED A VACCINE IN THE PAST 30 DAYS? :YES IF SO WHAT VACCINE AND WHEN? FLU SHOT 2 WEEKS AGO DO YOU PLAN TO RECEIVE A VACCINE IN THE NEXT 21 DAYS? :NO DO YOU NEED ANY PRESCRIPTION? :NO DO YOU TAKE ANY IMMUNOSUPPRESSIVE MEDICATIONS? :NO IS THERE A CHANCE YOU COULD BE ? :NO ARE YOU BREAST FEEDING? :NO CURRENT MEDICATIONS TAKING REMICADE 100 MG SOLUTION RECONSTITUTED INTRAVENOUS EVERY 4 WKS TAKING ACETAMINOPHEN 325 MG TABLET 1 TABLET NEEDED ORALLY EVERY -4 6 HRS PRN PAIN MAX 3000 MG/24 HRS TAKING PHENTERMINE HCL 37.5 MG CAPSULE 1 CAPSULE ORALLY ONCE A DAY TAKING IBUPROFEN 800 MG TABLET 1 TABLET ORALLY THREE TIMES A DAY TAKING ZOFRAN ODT 4 MG TABLET DISPERSIBLE 1 TABLET ON THE TONGUE AND ALLOW TO DISSOLVE ORALLY EVERY 6 HRS TAKING AMITRIPTYLINE HCL 25 MG TABLET 3 TABLET ORALLY ONCE A DAY AT BEDTIME TAKING OXYCODONE HCL 15 MG TABLET -1 2 TABLET NEEDED ORALLY Q4-6HRS PRN PAIN MDD6 NOT-TAKING PROMETHAZINE HCL 25 MG TABLET 1 TABLET NEEDED ORALLY EVERY 8 HRS PRN NAUSEA NOT-TAKING FLOMAX 0.4 MG CAPSULE 1 CAPSULE 30 MINUTES AFTER THE SAME MEAL EACH DAY ORALLY ONCE A DAY NOT-TAKING AMOXICILLIN 500 MG CAPSULE 1 CAPSULE ORALLY TWICE A DAY NOT-TAKING BONIVA 150 MG TABLET 1 TABLET ORALLY MONTHLY NOT-TAKING GABAPENTIN 300 MG CAPSULE 1 TO CAP 2 ORALLY BEFORE BEDTIME NOT-TAKING FLOMAX 0.4 MG CAPSULE 1 CAPSULE ORALLY ONCE A DAY NOT-TAKING CIPROFLOXACIN HCL 500 MG TABLET 1 TABLET FOR YOUR CYSTOSCOPY TODAY ORALLY DIRECTED NOT-TAKING OXYBUTYNIN CHLORIDE 5 MG TABLET 1 TABLET ORALLY EVERY 8 HOURS A NEEDED FOR BLADDER SPASMS OR URINARY FREQUENCY NOT-TAKING CALCIUM 150 MG TABLET ORALLY DAILY MEDICATION LIST REVIEWED AND RECONCILED WITH THE PATIENT PAST MEDICAL HISTORY 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 CERVICAL AND OVARIAN CANCER HX FISTULAS KIDNEY STONES ABDOMINAL PAIN JOINT PAIN 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 ANEMIA ALLERGIES NAPROXEN: VOMITING - CONTRAINDICATION FLAGYL: VOMITING - CONTRAINDICATION VICODIN: VOMITING - CONTRAINDICATION 6MP: ANAPHYLAXIS - ALLERGY SURGICAL HISTORY ANAL FISTULA SURGERY 1997 VAGINAL ANAL FISTULA SURGERY 2002 EMERGENCY FULL HYSTERECTOMY AND COLON REMOVAL AND LARGE INTESTINE 2004 EMERGENCY HERNIA REPAIR BLOCKAGE 2012 CATARACT LEFT GALL BLADDER ILEOSTOMY SALPINGECTOMY RIGHT URETEROSCOPY WITH LASER LITHOTRIPSY AND BASKET EXTRACTION OF STONES, RIGHT RETROGRADE PYELOGRAM WITH INTRAOPERATIVE INTERCEPTION OF IMAGES, RIGHT URETERAL STENT PLACEMENT 05/11/2018 CYSTO RIGHT STENT REMOVAL 07/23/2018 URETEROSCOPY WITH LASER LITHO RIGHT SIDE STENT PLACEMENT 03/21/2019 CYSTO RIGHT STENT REMOVAL 04/08/2019 FAMILY HISTORY FATHER: ALIVE MOTHER: , STARTED LUNG CANCER THAT SPREAD EVERYWHERE, DIAGNOSED WITH UNSPECIFIED HEART DISEASE, OTHER MALIGNANT NEOPLASM OF UNSPECIFIED SITE SIBLINGS: SISTER-GRAVES DISEASE MATERNAL GRAND FATHER: UNSPECIFIED HEART DISEASE MATERNAL GRAND MOTHER: OTHER MALIGNANT NEOPLASM OF UNSPECIFIED SITE 1 SISTER(S) . 1DAUGHTER(S) - HEALTHY. DENIES FAMILY HISTORY OF UROLOGICAL DX. SOCIAL HISTORY GENERAL: TOBACCO USE ARE YOU A:CURRENT SMOKER ARE YOU INTERESTED IN QUITTING?THINKING ABOUT QUITTING WOULD LIKE TO DISCUSS STARTING BUPROPION. COUNSELED THE PATIENT ON SMOKING CESSATION, EDUCATION [id number]/30/2019 HOW MANY CIGARETTES A DAY DO YOU SMOKE?5 OR LESS HOW OFTEN DO YOU SMOKE CIGARETTES?EVERY DAY PATIENT COUNSELED ON THE DANGERS OF TOBACCO USE AND URGED TO QUIT:05/05/2020 LATEX QUESTIONNAIRE LATEX ALLERGY : HAVE YOU EVER DEVELOPED ANY TYPE OF REACTION AFTER HANDLING LATEX PRODUCTS SUCH RUBBER GLOVES, CONDOMS, DIAPHRAGMS, BALLOONS, SOCKS, OR UNDERWEAR?NO LATEX ALLERGY : HAVE YOU EVER DEVELOPED ANY TYPE OF REACTION DURING OR AFTER DENTAL APPOINTMENT, VAGINAL/RECTAL EXAMINATION, SURGICAL PROCEDURE, OR ANY OTHER EXPOSURE?NO LATEX RISK : HAVE YOU EVER HAD ANY DIFFICULTY BREATHING OR HIVES AFTER EATING OR HANDLING ANY FRUITS, OR VEGETABLES; SUCH KIWI, BANANAS, STONE FRUITS, OR CHESTNUTSNO LATEX RISK : DO YOU HAVE A PREVIOUS PERSONAL HISTORY OF MORE THAN NINE SURGERIES, SPINA BIFIDA, OR REPEATED CATHERIZATIONS? YES - PLEASE INDICATE : > 9 SURGERIES LATEX RISK : ARE YOU FREQUENTLY EXPOSED TO LATEX PRODUCTS IN YOUR OCCUPATION?NO DATE ASKED : 05/05/2020 ALCOHOL SCREENING DID YOU HAVE A DRINK CONTAINING ALCOHOL IN THE PAST YEAR?NO POINTS0 INTERPRETATIONNEGATIVE RECREATIONAL DRUG USE DRUG USE?NO CAFFEINE CAFFEINE USE?NO SEXUAL HX HAD SEX IN THE LAST 12 MONTHS (VAGINAL, ORAL, OR ANAL)?NO HAVE YOU EVER HAD AN STD?NO PROTESTANT [id number] JAIN NO MORAVIAN BELIEFS THAT WOULD IMPACT HEALTH CARE. EDUCATION LEVEL OF EDUCATION:FINISHED HIGH SCHOOL LEARNING BARRIERS / SPECIAL NEEDS BARRIERS TO LEARNING?NO HEARING IMPAIRED?NO VISION IMPAIRED?YES COGNITIVELY IMPAIRED?NO :CORRECTIVE LENSES READINESS TO LEARN?YES LEARNING PREFERENCES?NO LEARNING CAPABILITIES PRESENT?YES EMOTIONAL BARRIERS?NO SPECIAL DEVICES?NO DIRECTOR ORACLE RETAIL NEEDED?NO DOMESTIC VIOLENCE DO YOU FEEL SAFE IN YOUR ENVIRONMENT?YES DIET: REGULAR. EXERCISE: NO REGULAR EXERCISE. MARITAL STATUS: .. PAIN CLINIC PFS, CLERGY, PUBLIC HEALTH REFERRALS PFS REFERRAL NEEDED?NO CLERGY REFERRAL NEEDED?NO PUBLIC HEALTH REFERRAL NEEDED?NO WAS THE PROVIDER NOTIFIED OF ANY PERTINENT INFO?YES HAS THE PATIENT BEEN EDUCATED REGARDING HIS/HER PLAN OF CARE?YES HAS THE PATIENT BEEN EDUCATED REGARDING PAIN, THE RISK FOR PAIN, THE IMPORTANCE OF EFFECTIVE PAIN MANAGEMENT, AND THE PAIN ASSESSMENT PROCESS?YES ADVANCE DIRECTIVE ADVANCE DIRECTIVE DISCUSSED WITH PATIENT:YES PT STATES SHE HAS HCP--JUSTO FREEDMAN [phone] HOSPITALIZATION/MAJOR DIAGNOSTIC PROCEDURE R/T SURGERIES KIDNEY STONES 01/2018 KIDNEY FAILURE 03/2019 ER VISIT FOR WOUND OPENING IN ABDOMEN, CULTURES COMPLETED 03/2020 REVIEW OF SYSTEMS CONSTITUTIONAL: ANY RECENT FEVER NO . CHILLS NO . WEIGHT CHANGE OF UNKNOWN REASONS NO . GASTROENTEROLOGY: NEW UNEXPLAINABLE CHANGES IN BOWEL CONTROL NO . CONSTIPATION NO . GENITOURINARY: ANY NEW CHANGE IN BLADDER CONTROL? NO . NEUROLOGY: NEW ONSET DIZZINESS OR NEUROLOGICAL CHANGES NOT MENTIONED NO . NEW NUMBNESS OR PAIN PATTERNS NOT MENTIONED AND PERTINENT TO TODAY'S VISIT NO . CARDIOLOGY: NEW CHEST PRESSURE NO . NEW CHEST PAIN NO . RESPIRATORY: UNEXPLAINABLE COUGH NO . NEW SHORTNESS OF BREATH NO . VITAL SIGNS WT 249.2 LBS, HT 63 IN, BMI 44.14 INDEX, BP 165/79 MM HG, HR 86 /MIN, RR 18 /MIN, TEMP 97.2 F, OXYGEN SAT % 98%, SAFE IN ENV? (Y/N) Y, NA INITIALS SC 14:57, REVIEWED BY: [place]. EXAMINATION GENERAL EXAMINATION: GENERALNO ACUTE DISTRESS, WELL NOURISHED AND HYDRATED. PSYCHAPPROPRIATE MOOD AND AFFECT . LUNGS:CLEAR TO AUSCULTATION BILATERALLY, NO WHEEZES, RHONCHI, RALES. HEART:NO MURMURS, REGULAR RATE AND RHYTHM. ASSESSMENTS ABDOMINAL PAIN - R10.9 (PRIMARY) TREATMENT ABDOMINAL PAIN NOTES: 50-YEAR-OLD FEMALE IN FOR CHRONIC PAIN FOLLOW-UP. GIVEN PRESENTING SYMPTOMS RECOMMEND CONTINUATION OF CURRENT MEDICATION REGIMEN WITH FOLLOW-UP IN 3 MONTHS. PATIENT HAS EXPRESSED UNDERSTANDING OF AND WAS IN AGREEMENT WITH TREATMENT PLAN. GIVEN TIME TO ASK QUESTIONS AND EXPRESS CONCERNS. , ISTOP REGISTRY REVIEWED AND DEMONSTRATES COMPLLIANCE. (REF # [id number] ) BRINGS IN MEDICATIONS WHICH IS APPROPRIATE FOR WHAT WAS DISPENSED. RECENT URINE TOXICOLOGY REVIEWED. NO UNAUTHORIZED MEDICATIONS. NO ILLICIT SUBSTANCES AND PRESCRIBED MEDICATIONS WERE PRESENT. PROCEDURE CODES [id number] ESTABILISHED PATIENT [facility] FACILITY CHARGE DISPOSITION & COMMUNICATION FOLLOW UP 3 MONTHS (REASON: ABDOMINAL PAIN) ELECTRONICALLY SIGNED BY DUGLAS KUNZ ON 05/06/2020 AT 09:16 AM EDT DISCLAIMER : THIS IS A VISIT SUMMARY EXTRACTED FROM THE [employer] CHART. IT IS NOT A COPY OF THE [facility] PROGRESS NOTE. MTDD
== END ==
LOC: M PAIN 14:45
PROVIDERS: ATTEND Family Medicine
DX: R10.9 Unspecified abdominal pain (principal); M06.9 Rheumatoid arthritis, unspecified; M19.90 Unspecified osteoarthritis, unspecified site; K50.90 Crohn's disease, unspecified, without complications; D64.9 Anemia, unspecified; F17.210 Nicotine dependence, cigarettes, uncomplicated; Z79.891 Long term (current) use of opiate analgesic; Z79.899 Other long term (current) drug therapy; Z88.1 Allergy status to other antibiotic agents; Z88.5 Allergy status to narcotic agent; Z88.6 Allergy status to analgesic agent; Z88.8 Allergy status to other drugs, medicaments and biological substances

== ENCOUNTER 2020-05-15 14:29 | Outpatient (CLI) | payer MEDICARE, MEDICAID ==
[~2020-05-15] VITALS: Ht 160 cm; Wt 101.8 kg
[~2020-05-15 14:29] MED LIST changes: +SODIUM CHLORIDE 0.9% INJ 10 ML SYR IV SCH
[2020-05-15] MEDS ORDERED: diphenhydrAMINE 25MG PO PRIOR TO INFUSION PO ONE (14:30)
[2020-05-15] MEDS ORDERED: INFLIXIMAB BIOSIMILAR 1,000 MG in NS 150 ML IV ONE (14:30)
[2020-05-15] MEDS ORDERED: ACETAMINOPHEN 650MG PO PRIOR TO INFUSION PO ONE (14:30)
[2020-05-15] MEDS ORDERED: NS 1,000 ML IV SCH (14:30)
[2020-05-15 15:10] VITALS: BP 148/68
[2020-05-15 15:25] VITALS: BP 136/70
[2020-05-15 16:18] VITALS: BP 126/59
== END 2020-05-15 16:30 | disposition home or self-care (01) ==
LOC: M INFU 14:29
PROVIDERS: ATTEND Internal Medicine Gastroenterology
DX: K50.00 Crohn's disease of small intestine without complications (principal); Z88.8 Allergy status to other drugs, medicaments and biological substances
CPT/HCPCS: 96365; J1642; Q5103

== ENCOUNTER 2020-06-18 14:14 | Outpatient (CLI) | payer MEDICARE, MEDICAID ==
[~2020-06-18] VITALS: Ht 160 cm; Wt 101.8 kg
[~2020-06-18 14:14] MED LIST changes: +ACETAMINOPHEN 650MG PO PRIOR TO INFUSION PO ONE; +INFLIXIMAB BIOSIMILAR 1,000 MG in NS 150 ML IV ONE; +NS 1,000 ML IV SCH; +diphenhydrAMINE 25MG PO PRIOR TO INFUSION PO ONE
[2020-06-18 14:28] VITALS: BP 176/83
[2020-06-18 14:54] VITALS: BP 176/83
[2020-06-18 15:10] VITALS: BP 142/73
[2020-06-18 16:04] VITALS: BP 160/88
== END 2020-06-18 16:15 | disposition home or self-care (01) ==
LOC: M INFU 14:14
PROVIDERS: ATTEND Internal Medicine Gastroenterology
DX: K50.00 Crohn's disease of small intestine without complications (principal); Z88.8 Allergy status to other drugs, medicaments and biological substances
CPT/HCPCS: 36415; 86480; 96365; J1642; Q5103

== ENCOUNTER → 2020-07-24 | Outpatient (CLI) | payer MEDICARE, MEDICAID ==
[~2020-07-24] VITALS: Ht 160 cm; Wt 101.8 kg
[~2020-07-24] MED LIST changes: +AMIT25TA17 PO
[2020-07-24 14:45] VITALS: BP 150/72
[2020-07-24 16:10] VITALS: BP 126/61
[2020-07-24 17:10] VITALS: BP 133/72
== END ==
LOC: M INFU 14:41
PROVIDERS: ATTEND Internal Medicine Gastroenterology
DX: K50.00 Crohn's disease of small intestine without complications (principal); Z88.8 Allergy status to other drugs, medicaments and biological substances
CPT/HCPCS: 96365; J1642; Q5103

== ENCOUNTER 2020-08-27 13:42 | Outpatient (CLI) | payer MEDICARE, MEDICAID ==
[~2020-08-27] VITALS: Ht 160 cm; Wt 101.8 kg
[2020-08-27 13:45] VITALS: BP 167/78
[2020-08-27] MEDS ORDERED: diphenhydrAMINE 25MG PO PRIOR TO INFUSION PO ONE (14:00)
[2020-08-27] MEDS ORDERED: ACETAMINOPHEN 650MG PO PRIOR TO INFUSION PO ONE (14:00)
[2020-08-27] MEDS ORDERED: NS 1,000 ML IV SCH (14:00)
[2020-08-27] MEDS ORDERED: INFLIXIMAB BIOSIMILAR 1,000 MG in NS 150 ML IV ONE (14:00)
[2020-08-27 14:18] VITALS: BP 122/70
[2020-08-27 14:19] VITALS: BP 122/70
[2020-08-27 16:00] VITALS: BP 156/72
== END 2020-08-27 16:00 | disposition home or self-care (01) ==
LOC: M INFU 13:42
PROVIDERS: ATTEND Internal Medicine Gastroenterology
DX: K50.00 Crohn's disease of small intestine without complications (principal); Z88.6 Allergy status to analgesic agent; Z88.8 Allergy status to other drugs, medicaments and biological substances
CPT/HCPCS: 96365; J1642; Q5103

== ENCOUNTER 2020-09-24 13:58 | Outpatient (CLI) | payer MEDICARE, MEDICAID ==
[~2020-09-24] VITALS: Ht 160 cm; Wt 101.8 kg
[~2020-09-24 13:58] MED LIST changes: -ACETAMINOPHEN 650MG PO PRIOR TO INFUSION PO ONE; -INFLIXIMAB BIOSIMILAR 1,000 MG in NS 150 ML IV ONE; -NS 1,000 ML IV SCH; -SODIUM CHLORIDE 0.9% INJ 10 ML SYR IV SCH; -diphenhydrAMINE 25MG PO PRIOR TO INFUSION PO ONE
[2020-09-24] MEDS ORDERED: INFLIXIMAB BIOSIMILAR 1,000 MG in NS 150 ML IV ONE (14:00)
[2020-09-24] MEDS ORDERED: diphenhydrAMINE 25MG PO PRIOR TO INFUSION PO ONE (14:00)
[2020-09-24] MEDS ORDERED: SODIUM CHLORIDE 0.9% INJ 10 ML SYR IV PRN (14:00)
[2020-09-24] MEDS ORDERED: NS 1,000 ML IV SCH (14:00)
[2020-09-24] MEDS ORDERED: ACETAMINOPHEN TAB 650MG DOSE (2X325MG) PO ONE (14:30)
[2020-09-24 14:48] VITALS: BP 165/80
[2020-09-24 15:17] VITALS: BP 128/61
[2020-09-24 16:20] VITALS: BP 140/74
[2020-09-25] MEDS ORDERED: SODIUM CHLORIDE 0.9% INJ 10 ML SYR IV SCH (09:00)
== END 2020-09-24 16:20 | disposition home or self-care (01) ==
LOC: M INFU 13:58
PROVIDERS: ATTEND Internal Medicine Gastroenterology
DX: K50.00 Crohn's disease of small intestine without complications (principal); Z88.8 Allergy status to other drugs, medicaments and biological substances
CPT/HCPCS: 96365; J1642; Q5103

== ENCOUNTER → 2020-10-20 | Outpatient (CLI) | payer MEDICARE, MEDICAID ==
--- NOTE | 2020-10-21 23:26 | ECWPNPC ---
PATIENT NAME: KAYLA CRUZ : 1970 GENDER: FEMALE VISIT DATE: 10/20/2020 DISCHARGE DATE: 10/20/20 1529 VISIT LOCKED DATE TIME: PHYSICIAN: NEIL PEREZ RESOURCE: NEIL PEREZ REASON FOR APPOINTMENT 1. ABDOMINAL PAIN HISTORY OF PRESENT ILLNESS DEPRESSION SCREENING: PHQ-9 LITTLE INTEREST OR PLEASURE IN DOING THINGSSEVERAL DAYS FEELING DOWN, DEPRESSED, OR HOPELESSSEVERAL DAYS TROUBLE FALLING OR STAYING ASLEEP, OR SLEEPING TOO MUCHNEARLY EVERY DAY FEELING TIRED OR HAVING LITTLE ENERGYNEARLY EVERY DAY POOR APPETITE OR OVEREATING NEARLY EVERY DAY FEELING BAD ABOUT YOURSELF-OR THAT YOU ARE A FAILURE OR HAVE LET YOURSELF OR YOUR FAMILY DOWN NEARLY EVERY DAY TROUBLE CONCENTRATING ON THINGS, SUCH READING THE NEWSPAPER OR WATCHING TELEVISION NEARLY EVERY DAY MOVING OR SPEAKING SO SLOWLY THAT OTHER PEOPLE COULD HAVE NOTICED. OR THE OPPOSITE- BEING SO FIDGETY OR RESTLESS THAT YOU HAVE BEEN MOVING AROUND A LOT MORE THAN USUALNEARLY EVERY DAY THOUGHTS THAT YOU WOULD BE BETTER OFF , OR OF HURTING YOURSELF IN SOME WAY?NOT AT ALL TOTAL SCORE:20 INTERPRETATIONSEVERE DEPRESSION PHQ-2 (2015 EDITION) LITTLE INTEREST OR PLEASURE IN DOING THINGS?SEVERAL DAYS FEELING DOWN, DEPRESSED, OR HOPELESS?SEVERAL DAYS TOTAL SCORE2 50-YEAR-OLD FEMALE IN FOR CHRONIC PAIN FOLLOW-UP. SHE FEELS HER MEDICATIONS ARE HELPFUL AND DENIES MED SIDE EFFECTS AT THIS TIME. SHE RATES HER PAIN CURRENTLY AT AN 8 OUT OF 10 AND DESCRIBES IT CONTINUOUS, STABBING, THROBBING, AND OVERLY SENSITIVE. GENERAL: -. FALL RISK SCREENING: SCREENING : NO FALLS REPORTED IN THE LAST YEAR. PAIN SCREENING: PATIENT HAS A COMPLAINT OF ACUTE OR CHRONIC PAIN :YES LOCATION OF PAIN:ABDOMEN PATIENT STATES SHE IS IN "PAIN ALL OVER." INTENSITY OF PAIN (SCALE OF 1 TO 10):8 WHAT DOES YOUR PAIN FEEL LIKE:CONTINOUS, STABBING, THROBBING OVERLY SENSITIVE TO THE PAIN. DURATION:CONTINOUS PAIN IS INCREASED BY:ACTIVITIES, PROLONGED STANDING PAIN IS DECREASED BY:USE OF PAIN MEDICATIONS, SITTING, OTHERS TILTING FORWARD NURSING NOTE: -. PAIN CENTER INTAKE QUESTIONS: DO YOU HAVE A HISTORY OF MRSA? :NO DO YOU TAKE A BLOOD THINNERS? :NO DO YOU HAVE ANY BLEEDING DISORDERS? :NO ANY NEW NUMBNESS OR WEAKNESS IN YOUR LEGS OR ARMS? :NO ANY PACEMAKER,DEFIBRILLATOR, OR DORSAL COLUMN STIMULATOR? :NO DO YOU HAVE ANY RASHES OR OPEN SORES? :YES ARE YOU ALLERGIC TO IV DYE? :NO ARE YOU DIABETIC? :NO ANY NEW PROBLEMS WITH YOUR MEDICATIONS? :NO HAVE YOU RECEIVED A VACCINE IN THE PAST 30 DAYS? :YES IF SO WHAT VACCINE AND WHEN? FIRST COVID VACCINATION 10/09/2020 DO YOU PLAN TO RECEIVE A VACCINE IN THE NEXT 21 DAYS? :YES IF SO WHAT VACCINE AND WHEN? SECOND COVID SCHEDULED VACCINATION 11/08/2020 DO YOU NEED ANY PRESCRIPTION? :NO DO YOU TAKE ANY IMMUNOSUPPRESSIVE MEDICATIONS? :NO DO YOU HAVE ANY KIDNEY OR LIVER DISEASE? :YES RECURRENT KIDNEY STONES IS THERE A CHANCE YOU COULD BE ? :NO ARE YOU BREAST FEEDING? :NO CURRENT MEDICATIONS TAKING REMICADE 100 MG SOLUTION RECONSTITUTED INTRAVENOUS EVERY 4 WKS TAKING ACETAMINOPHEN 325 MG TABLET 1 TABLET NEEDED ORALLY EVERY -4 6 HRS PRN PAIN MAX 3000 MG/24 HRS TAKING PHENTERMINE HCL 37.5 MG CAPSULE 1 CAPSULE ORALLY ONCE A DAY TAKING IBUPROFEN 800 MG TABLET 1 TABLET ORALLY THREE TIMES A DAY TAKING ZOFRAN ODT 4 MG TABLET DISPERSIBLE 1 TABLET ON THE TONGUE AND ALLOW TO DISSOLVE ORALLY EVERY 6 HRS TAKING AMITRIPTYLINE HCL 25 MG TABLET 3 TABLET ORALLY ONCE A DAY AT BEDTIME TAKING OXYCODONE HCL 15 MG TABLET -1 2 TABLET NEEDED ORALLY Q4-6HRS PRN PAIN MDD6 UNKNOWN PROMETHAZINE HCL 25 MG TABLET 1 TABLET NEEDED ORALLY EVERY 8 HRS PRN NAUSEA UNKNOWN FLOMAX 0.4 MG CAPSULE 1 CAPSULE 30 MINUTES AFTER THE SAME MEAL EACH DAY ORALLY ONCE A DAY UNKNOWN AMOXICILLIN 500 MG CAPSULE 1 CAPSULE ORALLY TWICE A DAY UNKNOWN BONIVA 150 MG TABLET 1 TABLET ORALLY MONTHLY UNKNOWN GABAPENTIN 300 MG CAPSULE 1 TO CAP 2 ORALLY BEFORE BEDTIME UNKNOWN FLOMAX 0.4 MG CAPSULE 1 CAPSULE ORALLY ONCE A DAY UNKNOWN CIPROFLOXACIN HCL 500 MG TABLET 1 TABLET FOR YOUR CYSTOSCOPY TODAY ORALLY DIRECTED UNKNOWN OXYBUTYNIN CHLORIDE 5 MG TABLET 1 TABLET ORALLY EVERY 8 HOURS A NEEDED FOR BLADDER SPASMS OR URINARY FREQUENCY UNKNOWN CALCIUM 150 MG TABLET ORALLY DAILY MEDICATION LIST REVIEWED AND RECONCILED WITH THE PATIENT 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 PATIENT COUNSELED ON THE DANGERS OF TOBACCO USE AND URGED TO QUIT:05/05/2020 COUNSELED THE PATIENT ON SMOKING CESSATION, EDUCATION [id number] LATEX QUESTIONNAIRE LATEX ALLERGY : HAVE YOU EVER DEVELOPED ANY TYPE OF REACTION AFTER HANDLING LATEX PRODUCTS SUCH RUBBER GLOVES, CONDOMS, DIAPHRAGMS, BALLOONS, SOCKS, OR UNDERWEAR?NO LATEX ALLERGY : HAVE YOU EVER DEVELOPED ANY TYPE OF REACTION DURING OR AFTER DENTAL APPOINTMENT, VAGINAL/RECTAL EXAMINATION, SURGICAL PROCEDURE, OR ANY OTHER EXPOSURE?NO LATEX RISK : HAVE YOU EVER HAD ANY DIFFICULTY BREATHING OR HIVES AFTER EATING OR HANDLING ANY FRUITS, OR VEGETABLES; SUCH KIWI, BANANAS, STONE FRUITS, OR CHESTNUTSNO LATEX RISK : DO YOU HAVE A PREVIOUS PERSONAL HISTORY OF MORE THAN NINE SURGERIES, SPINA BIFIDA, OR REPEATED CATHERIZATIONS? YES - PLEASE INDICATE : > 9 SURGERIES LATEX RISK : ARE YOU FREQUENTLY EXPOSED TO LATEX PRODUCTS IN YOUR OCCUPATION?NO DATE ASKED : 10/20/2020 ALCOHOL USE: NO. ALCOHOL SCREENING DID YOU HAVE A DRINK CONTAINING ALCOHOL IN THE PAST YEAR?NO POINTS0 INTERPRETATIONNEGATIVE RECREATIONAL DRUG USE DRUG USE?NO CAFFEINE CAFFEINE USE?NO SEXUAL HX HAD SEX IN THE LAST 12 MONTHS (VAGINAL, ORAL, OR ANAL)?NO HAVE YOU EVER HAD AN STD?NO [employer] [id number] [employer] NO RESTORATIONISM BELIEFS THAT WOULD IMPACT HEALTH CARE. EDUCATION LEVEL OF EDUCATION:FINISHED HIGH SCHOOL LEARNING BARRIERS / SPECIAL NEEDS CHANGE FROM LAST VISIT?NO BARRIERS TO LEARNING?NO HEARING IMPAIRED?NO VISION IMPAIRED?YES :CORRECTIVE LENSES COGNITIVELY IMPAIRED?NO READINESS TO LEARN?YES LEARNING PREFERENCES?NO LEARNING CAPABILITIES PRESENT?YES EMOTIONAL BARRIERS?NO SPECIAL DEVICES?NO BARREL LATHE OPERATOR NEEDED?NO DOMESTIC VIOLENCE DO YOU FEEL SAFE IN YOUR ENVIRONMENT?YES DIET: REGULAR. EXERCISE: NO REGULAR EXERCISE. MARITAL STATUS: .. - PFS REFERRAL NEEDED?NO CLERGY REFERRAL NEEDED?NO PUBLIC HEALTH REFERRAL NEEDED?NO WAS THE PROVIDER NOTIFIED OF ANY PERTINENT INFO?YES HAS THE PATIENT BEEN EDUCATED REGARDING HIS/HER PLAN OF CARE?YES HAS THE PATIENT BEEN EDUCATED REGARDING PAIN, THE RISK FOR PAIN, THE IMPORTANCE OF EFFECTIVE PAIN MANAGEMENT, AND THE PAIN ASSESSMENT PROCESS?YES ADVANCE DIRECTIVE ADVANCE DIRECTIVE DISCUSSED WITH PATIENT:YES PT STATES SHE HAS HCP--JUSTO FREEDMAN [phone] REVIEW OF SYSTEMS CONSTITUTIONAL: ANY RECENT FEVER NO . CHILLS NO . WEIGHT CHANGE OF UNKNOWN REASONS NO . GASTROENTEROLOGY: NEW UNEXPLAINABLE CHANGES IN BOWEL CONTROL NO . CONSTIPATION NO . GENITOURINARY: ANY NEW CHANGE IN BLADDER CONTROL? NO . NEUROLOGY: NEW ONSET DIZZINESS OR NEUROLOGICAL CHANGES NOT MENTIONED NO . NEW NUMBNESS OR PAIN PATTERNS NOT MENTIONED AND PERTINENT TO TODAY'S VISIT NO . CARDIOLOGY: NEW CHEST PRESSURE NO . PATIENT DENIES NO . RESPIRATORY: UNEXPLAINABLE COUGH NO . NEW SHORTNESS OF BREATH NO . VITAL SIGNS WT 251.4 LBS, HT 63 IN, BMI 44.53 INDEX, BP 143/90 MM HG, HR 103 /MIN, RR 18 /MIN, TEMP 98.2 F, OXYGEN SAT % 96%, SAFE IN ENV? (Y/N) YES, NA INITIALS AW 1427, REVIEWED BY: LARRY CONNOLLY MA. EXAMINATION GENERAL EXAMINATION: GENERALNO ACUTE DISTRESS, WELL NOURISHED AND HYDRATED. PSYCHAPPROPRIATE MOOD AND AFFECT . LUNGS:CLEAR TO AUSCULTATION BILATERALLY, NO WHEEZES, RHONCHI, RALES. HEART:NO MURMURS, REGULAR RATE AND RHYTHM. ASSESSMENTS ABDOMINAL PAIN - R10.9 (PRIMARY) CHRONIC PRESCRIPTION OPIATE USE - Z79.891 TREATMENT ABDOMINAL PAIN NOTES: 50-YEAR-OLD FEMALE IN FOR CHRONIC PAIN FOLLOW-UP. GIVEN PRESENTING SYMPTOMS RECOMMENDED CONTINUATION OF CURRENT MEDICATION REGIMEN WITH FOLLOW-UP IN 3 MONTHS. PATIENT EXPRESSED UNDERSTANDING OF AND WAS IN AGREEMENT WITH TREATMENT PLAN. GIVEN TIME TO ASK QUESTIONS AND EXPRESS CONCERNS. , ISTOP REGISTRY REVIEWED AND DEMONSTRATES COMPLLIANCE. (REF # [id number] ) BRINGS IN MEDICATIONS WHICH IS APPROPRIATE FOR WHAT WAS DISPENSED. RECENT URINE TOXICOLOGY REVIEWED. NO UNAUTHORIZED MEDICATIONS. NO ILLICIT SUBSTANCES AND PRESCRIBED MEDICATIONS WERE PRESENT. CLINICAL NOTES: PROVIDER NOTIFIED OF PHQ9. INFORMATION PRINTED AND PROVIDED TO PROVIDER FOR PATIENT. SEKOU CNONOLLY MA . CHRONIC PRESCRIPTION OPIATE USE LAB: URINE TEST GROUP SEKOU CONNOLLY 10/20/2020 3:26:35 PM > LAST DOSE: OXYCODONE 10/20/2020; AMITRIPTYLINE 10/19/2020 PROCEDURE CODES FA211 ESTABILISHED PATIENT [facility] CHARGE DISPOSITION & COMMUNICATION FOLLOW UP 3 MONTHS (REASON: ABDOMINAL PAIN ) ELECTRONICALLY SIGNED BY DUGLAS KUNZ ON 10/21/2020 AT 12:55 PM EDT DISCLAIMER : THIS IS A VISIT SUMMARY EXTRACTED FROM THE [employer] CHART. IT IS NOT A COPY OF THE [employer] PROGRESS NOTE. SHERIDAN
== END ==
LOC: M PAIN 14:30
PROVIDERS: ATTEND Family Medicine
DX: R10.9 Unspecified abdominal pain (principal); M06.9 Rheumatoid arthritis, unspecified; D64.9 Anemia, unspecified; M19.90 Unspecified osteoarthritis, unspecified site; K50.90 Crohn's disease, unspecified, without complications; F17.210 Nicotine dependence, cigarettes, uncomplicated; Z88.6 Allergy status to analgesic agent; Z88.1 Allergy status to other antibiotic agents; Z79.891 Long term (current) use of opiate analgesic; Z88.5 Allergy status to narcotic agent; Z79.1 Long term (current) use of non-steroidal anti-inflammatories (NSAID); Z79.899 Other long term (current) drug therapy

== ENCOUNTER 2020-10-23 14:32 | Outpatient (CLI) | payer MEDICARE, MEDICAID ==
[~2020-10-23] VITALS: Ht 160 cm; Wt 113.6 kg
[~2020-10-23 14:32] MED LIST changes: +SODIUM CHLORIDE 0.9% INJ 10 ML SYR IV PRN; +SODIUM CHLORIDE 0.9% INJ 10 ML SYR IV SCH
[2020-10-23 14:35] VITALS: BP 136/76
[2020-10-23] MEDS ORDERED: diphenhydrAMINE 25MG PO PRIOR TO INFUSION PO ONE (15:00)
[2020-10-23] MEDS ORDERED: NS 1,000 ML IV SCH (15:00)
[2020-10-23] MEDS ORDERED: INFLIXIMAB BIOSIMILAR IV ONE (15:00)
[2020-10-23] MEDS ORDERED: NS IV ONE (15:00)
[2020-10-23 15:30] VITALS: BP 132/73
[2020-10-23 16:00] VITALS: BP 127/67
[2020-10-23 17:44] VITALS: BP 136/82
== END 2020-10-23 17:45 | disposition home or self-care (01) ==
LOC: M INFU 14:32
PROVIDERS: ATTEND Internal Medicine Gastroenterology
DX: K50.90 Crohn's disease, unspecified, without complications (principal); Z88.8 Allergy status to other drugs, medicaments and biological substances
CPT/HCPCS: 96365; 96366; 96523; J1642; Q5103

== ENCOUNTER 2020-11-20 12:53 | Outpatient (CLI) | payer MEDICARE, MEDICAID ==
[~2020-11-20] VITALS: Ht 160 cm; Wt 115.0 kg
[~2020-11-20 12:53] MED LIST changes: +INFLIXIMAB BIOSIMILAR IV ONE; +NS 1,000 ML IV SCH; +NS IV ONE; +diphenhydrAMINE 25MG PO PRIOR TO INFUSION PO ONE
[2020-11-20 13:11] VITALS: BP 174/85
[2020-11-20] MEDS ORDERED: NS IV ONE (13:30)
[2020-11-20] MEDS ORDERED: INFLIXIMAB BIOSIMILAR IV ONE (13:30)
[2020-11-20] MEDS ORDERED: NS 1,000 ML IV SCH (13:30)
[2020-11-20] MEDS ORDERED: diphenhydrAMINE 25MG PO PRIOR TO INFUSION PO ONE (13:30)
[2020-11-20] MEDS ORDERED: ACETAMINOPHEN 650MG PO PRIOR TO INFUSION PO ONE (13:30)
[2020-11-20 13:50] VITALS: BP 151/73
[2020-11-20 14:04] VITALS: BP 140/80
[2020-11-20 15:39] VITALS: BP 152/68
== END 2020-11-20 16:00 | disposition home or self-care (01) ==
LOC: M INFU 12:53
PROVIDERS: ATTEND Internal Medicine Gastroenterology
DX: K50.00 Crohn's disease of small intestine without complications (principal); Z88.6 Allergy status to analgesic agent; Z88.8 Allergy status to other drugs, medicaments and biological substances
CPT/HCPCS: 96365; 96366; 96523; J1642; Q5103

== ENCOUNTER 2020-12-17 13:35 | Outpatient (CLI) | payer MEDICARE, MEDICAID ==
[~2020-12-17 13:35] MED LIST changes: -INFLIXIMAB BIOSIMILAR IV ONE; -NS 1,000 ML IV SCH; -NS IV ONE; -diphenhydrAMINE 25MG PO PRIOR TO INFUSION PO ONE
[2020-12-17] MEDS ORDERED: NS 1,000 ML IV SCH (14:00)
[2020-12-17] MEDS ORDERED: INFLIXIMAB BIOSIMILAR IV ONE (14:00)
[2020-12-17] MEDS ORDERED: NS IV ONE (14:00)
[2020-12-17] MEDS ORDERED: diphenhydrAMINE 25MG PO PRIOR TO INFUSION PO ONE (14:00)
[2020-12-17 14:30] VITALS: BP 167/83
[2020-12-17 14:45] VITALS: BP 152/78
[2020-12-17 15:00] VITALS: BP 138/74
[2020-12-17 15:15] VITALS: BP 148/70
[2020-12-17 15:30] VITALS: BP 140/76
[2020-12-17 16:40] VITALS: BP 168/86
== END 2020-12-17 16:50 | disposition home or self-care (01) ==
LOC: M INFU 13:35
PROVIDERS: ATTEND Internal Medicine Gastroenterology
DX: K50.00 Crohn's disease of small intestine without complications (principal)
CPT/HCPCS: 96413; 96415; 96523; J1642; Q5103

== ENCOUNTER → 2021-01-25 | Outpatient (CLI) | payer MEDICARE, MEDICAID ==
[~2021-01-25] MED LIST changes: -SODIUM CHLORIDE 0.9% INJ 10 ML SYR IV PRN; -SODIUM CHLORIDE 0.9% INJ 10 ML SYR IV SCH
--- NOTE | 2021-01-28 00:38 | ECWPNPC ---
PATIENT NAME: KAYLA CRUZ : 1970 GENDER: FEMALE VISIT DATE: 01/25/2021 DISCHARGE DATE: 01/25/21 1521 VISIT LOCKED DATE TIME: PHYSICIAN: NEIL PEREZ RESOURCE: NEIL PEREZ REASON FOR APPOINTMENT 1. ABDOMINAL PAIN HISTORY OF PRESENT ILLNESS GENERAL: HPI 50-YEAR-OLD FEMALE IN FOR CHRONIC PAIN FOLLOW-UP. SHE RATES HER PAIN CURRENTLY AT A 9 OUT OF 10 DESCRIBES IT ACHING, BURNING, AND CONTINUOUS. PATIENT FEELS HER MEDICATIONS ARE HELPFUL AND DENIES MED SIDE EFFECTS AT THIS TIME.. -. FALL RISK SCREENING: SCREENING : NO FALLS REPORTED IN THE LAST YEAR. PAIN SCREENING: PATIENT HAS A COMPLAINT OF ACUTE OR CHRONIC PAIN :YES LOCATION OF PAIN:ABDOMEN INTENSITY OF PAIN (SCALE OF 1 TO 10):9 WHAT DOES YOUR PAIN FEEL LIKE:ACHING, BURNING, CONTINOUS, SHARP, STABBING, TENDER, THROBBING, SORE, SHOOTING DURATION:CONTINOUS, CONSTANT, AWAKENS FROM SLEEP PAIN IS INCREASED BY:ACTIVITIES, PROLONGED STANDING PAIN IS DECREASED BY:USE OF PAIN MEDICATIONS, SITTING NURSING NOTE: -. PAIN CENTER INTAKE QUESTIONS: DO YOU HAVE A HISTORY OF MRSA? :NO DO YOU TAKE A BLOOD THINNERS? :NO DO YOU HAVE ANY BLEEDING DISORDERS? :NO ANY NEW NUMBNESS OR WEAKNESS IN YOUR LEGS OR ARMS? :NO ANY PACEMAKER,DEFIBRILLATOR, OR DORSAL COLUMN STIMULATOR? :NO DO YOU HAVE ANY RASHES OR OPEN SORES? :YES ARE YOU ALLERGIC TO IV DYE? :NO ARE YOU DIABETIC? :NO ANY NEW PROBLEMS WITH YOUR MEDICATIONS? :NO HAVE YOU RECEIVED A VACCINE IN THE PAST 30 DAYS? :NO SECOND COVID VACCINATION 11/08/2020 DO YOU PLAN TO RECEIVE A VACCINE IN THE NEXT 21 DAYS? :NO DO YOU NEED ANY PRESCRIPTION? :YES OXYCODONE DO YOU TAKE ANY IMMUNOSUPPRESSIVE MEDICATIONS? :NO DO YOU HAVE ANY KIDNEY OR LIVER DISEASE? :YES RECURRENT KIDNEY STONES IS THERE A CHANCE YOU COULD BE ? :NO ARE YOU BREAST FEEDING? 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 ALLERGIES NAPROXEN: VOMITING - CONTRAINDICATION FLAGYL: VOMITING - CONTRAINDICATION VICODIN: VOMITING - CONTRAINDICATION 6MP: ANAPHYLAXIS - ALLERGY SOCIAL HISTORY GENERAL: TOBACCO USE ARE YOU A:CURRENT SMOKER ARE YOU INTERESTED IN QUITTING?NOT READY TO QUIT HOW MANY CIGARETTES A DAY DO YOU SMOKE?5 OR LESS HOW OFTEN DO YOU SMOKE CIGARETTES?EVERY DAY PATIENT COUNSELED ON THE DANGERS OF TOBACCO USE AND URGED TO QUIT:01/25/2021 LATEX QUESTIONNAIRE LATEX ALLERGY : HAVE YOU EVER DEVELOPED ANY TYPE OF REACTION AFTER HANDLING LATEX PRODUCTS SUCH RUBBER GLOVES, CONDOMS, DIAPHRAGMS, BALLOONS, SOCKS, OR UNDERWEAR?NO LATEX ALLERGY : HAVE YOU EVER DEVELOPED ANY TYPE OF REACTION DURING OR AFTER DENTAL APPOINTMENT, VAGINAL/RECTAL EXAMINATION, SURGICAL PROCEDURE, OR ANY OTHER EXPOSURE?NO DATE ASKED : 10/20/2020 LATEX RISK : HAVE YOU EVER HAD ANY DIFFICULTY BREATHING OR HIVES AFTER EATING OR HANDLING ANY FRUITS, OR VEGETABLES; SUCH KIWI, BANANAS, STONE FRUITS, OR CHESTNUTSNO LATEX RISK : DO YOU HAVE A PREVIOUS PERSONAL HISTORY OF MORE THAN NINE SURGERIES, SPINA BIFIDA, OR REPEATED CATHERIZATIONS? YES - PLEASE INDICATE : > 9 SURGERIES LATEX RISK : ARE YOU FREQUENTLY EXPOSED TO LATEX PRODUCTS IN YOUR OCCUPATION?NO ALCOHOL USE: NO. ALCOHOL SCREENING DID YOU HAVE A DRINK CONTAINING ALCOHOL IN THE PAST YEAR?NO POINTS0 INTERPRETATIONNEGATIVE RECREATIONAL DRUG USE DRUG USE?NO CAFFEINE CAFFEINE USE?NO SEXUAL HX HAD SEX IN THE LAST 12 MONTHS (VAGINAL, ORAL, OR ANAL)?NO HAVE YOU EVER HAD AN STD?NO [employer] [id number] NO HINDU BELIEFS THAT WOULD IMPACT HEALTH CARE. EDUCATION LEVEL OF EDUCATION:FINISHED HIGH SCHOOL LEARNING BARRIERS / SPECIAL NEEDS CHANGE FROM LAST VISIT?NO BARRIERS TO LEARNING?NO HEARING IMPAIRED?NO VISION IMPAIRED?YES :CORRECTIVE LENSES COGNITIVELY IMPAIRED?NO READINESS TO LEARN?YES LEARNING PREFERENCES?NO LEARNING CAPABILITIES PRESENT?YES EMOTIONAL BARRIERS?NO SPECIAL DEVICES?NO CORRECTIONAL THERAPY TEACHER NEEDED?NO DOMESTIC VIOLENCE DO YOU FEEL SAFE IN YOUR ENVIRONMENT?YES DIET: REGULAR. EXERCISE: NO REGULAR EXERCISE. MARITAL STATUS: .. - PFS REFERRAL NEEDED?NO CLERGY REFERRAL NEEDED?NO PUBLIC HEALTH REFERRAL NEEDED?NO WAS THE PROVIDER NOTIFIED OF ANY PERTINENT INFO?YES HAS THE PATIENT BEEN EDUCATED REGARDING HIS/HER PLAN OF CARE?YES HAS THE PATIENT BEEN EDUCATED REGARDING PAIN, THE RISK FOR PAIN, THE IMPORTANCE OF EFFECTIVE PAIN MANAGEMENT, AND THE PAIN ASSESSMENT PROCESS?YES ADVANCE DIRECTIVE ADVANCE DIRECTIVE DISCUSSED WITH PATIENT:YES PT STATES SHE HAS HCP--JUSTO FREEDMAN [phone] REVIEW OF SYSTEMS CONSTITUTIONAL: ANY RECENT FEVER NO . CHILLS NO . WEIGHT CHANGE OF UNKNOWN REASONS NO . GASTROENTEROLOGY: NEW UNEXPLAINABLE CHANGES IN BOWEL CONTROL NO . CONSTIPATION NO . GENITOURINARY: ANY NEW CHANGE IN BLADDER CONTROL? NO . NEUROLOGY: NEW ONSET DIZZINESS OR NEUROLOGICAL CHANGES NOT MENTIONED NO . NEW NUMBNESS OR PAIN PATTERNS NOT MENTIONED AND PERTINENT TO TODAY'S VISIT NO . CARDIOLOGY: NEW CHEST PRESSURE NO . PATIENT DENIES NO . RESPIRATORY: UNEXPLAINABLE COUGH NO . NEW SHORTNESS OF BREATH NO . VITAL SIGNS WT 250.0 LBS, HT 63 IN, BMI 44.28 INDEX, BP 148/95 MM HG, HR 86 /MIN, RR 18 /MIN, TEMP 98.0 F, OXYGEN SAT % 99%, SAFE IN ENV? (Y/N) YES, NA INITIALS AW 1508, REVIEWED BY: LARRY CONNOLLY MA. EXAMINATION GENERAL EXAMINATION: GENERALNO ACUTE DISTRESS, WELL NOURISHED AND HYDRATED. PSYCHAPPROPRIATE MOOD AND AFFECT . LUNGS:CLEAR TO AUSCULTATION BILATERALLY, NO WHEEZES, RHONCHI, RALES. HEART:NO MURMURS, REGULAR RATE AND RHYTHM. ASSESSMENTS ABDOMINAL PAIN - R10.9 (PRIMARY) TREATMENT ABDOMINAL PAIN REFILL OXYCODONE HCL TABLET, 15 MG, -1 2 TABLET NEEDED, ORALLY, Q4-6HRS PRN PAIN MDD6, 30 DAY(S), 180, REFILLS 0 NOTES: 50 YEAR OLD FEMALE IN FOR CHRONIC PAIN FOLLOW UP. GIVEN PRESENTING SYMPTOMS RECOMMEND CONTINUATION OF CURRENT MEDICATION REGIMEN WITH FOLLOW UP IN 3 MONTHS. GIVEN TIME TO ASK QUESTIONS AND EXPRESS CONCERNS. ISTOP REGISTRY REVIEWED AND DEMONSTRATES COMPLLIANCE. (REF # [id number] ) BRINGS IN MEDICATIONS WHICH IS APPROPRIATE FOR WHAT WAS DISPENSED. RECENT URINE TOXICOLOGY REVIEWED. NO UNAUTHORIZED MEDICATIONS. NO ILLICIT SUBSTANCES AND PRESCRIBED MEDICATIONS WERE PRESENT. PROCEDURE CODES FA211 ESTABILISHED PATIENT [facility] CHARGE DISPOSITION & COMMUNICATION FOLLOW UP 3 MONTHS (REASON: ABDOMINAL PAIN) ELECTRONICALLY SIGNED BY DUGLAS KUNZ ON 01/27/2021 AT 08:28 AM EDT DISCLAIMER : THIS IS A VISIT SUMMARY EXTRACTED FROM THE [employer] CHART. IT IS NOT A COPY OF THE [employer] PROGRESS NOTE. SHERIDAN
== END ==
LOC: M PAIN 14:45
PROVIDERS: ATTEND Family Medicine
DX: R10.9 Unspecified abdominal pain (principal); M06.9 Rheumatoid arthritis, unspecified; K50.90 Crohn's disease, unspecified, without complications; M19.90 Unspecified osteoarthritis, unspecified site; D64.9 Anemia, unspecified; F17.210 Nicotine dependence, cigarettes, uncomplicated; Z88.1 Allergy status to other antibiotic agents; Z88.5 Allergy status to narcotic agent; Z88.6 Allergy status to analgesic agent; Z88.8 Allergy status to other drugs, medicaments and biological substances

== ENCOUNTER → 2021-01-25 | Outpatient (CLI) | payer MEDICARE, MEDICAID ==
[~2021-01-25] VITALS: Ht 160 cm; Wt 113.8 kg
[~2021-01-25] MED LIST changes: +INFLIXIMAB BIOSIMILAR IV ONE; +NS 1,000 ML IV SCH; +NS IV ONE; +SODIUM CHLORIDE 0.9% INJ 10 ML SYR IV PRN; +SODIUM CHLORIDE 0.9% INJ 10 ML SYR IV SCH; +diphenhydrAMINE 25MG PO PRIOR TO INFUSION PO ONE
[2021-01-25 12:00] VITALS: BP 148/75
[2021-01-25 12:55] VITALS: BP 132/80
[2021-01-25 13:25] VITALS: BP 131/82
[2021-01-25 13:40] VITALS: BP 127/71
[2021-01-25 14:10] VITALS: BP 124/73
[2021-01-25 14:55] VITALS: BP 138/78
== END ==
LOC: M INFU 11:47
PROVIDERS: ATTEND Internal Medicine Gastroenterology
DX: K50.00 Crohn's disease of small intestine without complications (principal); Z88.8 Allergy status to other drugs, medicaments and biological substances; R10.9 Unspecified abdominal pain; M06.9 Rheumatoid arthritis, unspecified; K50.90 Crohn's disease, unspecified, without complications; M19.90 Unspecified osteoarthritis, unspecified site; D64.9 Anemia, unspecified; F17.210 Nicotine dependence, cigarettes, uncomplicated; Z88.1 Allergy status to other antibiotic agents; Z88.5 Allergy status to narcotic agent; Z88.6 Allergy status to analgesic agent
CPT/HCPCS: 96365; 96366; G0463; J1642; Q5103

== ENCOUNTER 2021-03-02 13:24 | Outpatient (CLI) | payer MEDICARE, MEDICAID ==
[2021-03-02] VITALS (8 sets, daily range): BP systolic 120–150; BP diastolic 64–77
[~2021-03-02] VITALS: Ht 160 cm; Wt 113.6 kg
[2021-03-02] MEDS ORDERED: NS IV ONE (13:30)
[2021-03-02] MEDS ORDERED: diphenhydrAMINE 25MG PO PRIOR TO INFUSION PO ONE (13:30)
[2021-03-02] MEDS ORDERED: NS 1,000 ML IV SCH (13:30)
[2021-03-02] MEDS ORDERED: INFLIXIMAB BIOSIMILAR IV ONE (13:30)
[2021-03-02 15:56] LABS: PERCENT SATURATION 26.3 % (13.2-45.0)
[2021-03-02 16:03] LABS: TOTAL 25(OH) VITAMIN D 22.8 NG/ML (30.0-100.0)
== END 2021-03-02 17:15 | disposition home or self-care (01) ==
LOC: M INFU 13:24
PROVIDERS: ATTEND Internal Medicine Gastroenterology
DX: K50.00 Crohn's disease of small intestine without complications (principal); Z88.8 Allergy status to other drugs, medicaments and biological substances
CPT/HCPCS: 36415; 82306; 82607; 82728; 83550; 96365; 96366; J1642; Q5103

== ENCOUNTER 2021-04-05 12:30 | Outpatient (CLI) | payer MEDICARE, MEDICAID ==
[2021-04-05] VITALS (7 sets, daily range): BP systolic 125–158; BP diastolic 65–95
[~2021-04-05] VITALS: Ht 160 cm; Wt 115.0 kg
== END 2021-04-05 16:20 | disposition home or self-care (01) ==
LOC: M INFU 12:30
PROVIDERS: ATTEND Internal Medicine Gastroenterology
DX: K50.00 Crohn's disease of small intestine without complications (principal); Z88.8 Allergy status to other drugs, medicaments and biological substances
CPT/HCPCS: 36592; 80230; 82397; 96365; 96366; J1642; Q5103

== ENCOUNTER 2021-05-14 12:38 | Outpatient (CLI) | payer MEDICARE, MEDICAID ==
[~2021-05-14] VITALS: Ht 160 cm; Wt 115.0 kg
[2021-05-14 12:50] VITALS: BP 159/88
[2021-05-14] MEDS ORDERED: diphenhydrAMINE 25MG PO PRIOR TO INFUSION PO ONE (13:30)
[2021-05-14] MEDS ORDERED: INFLIXIMAB BIOSIMILAR IV ONE (13:30)
[2021-05-14] MEDS ORDERED: NS 1,000 ML IV SCH (13:30)
[2021-05-14] MEDS ORDERED: NS IV ONE (13:30)
[2021-05-14 14:10] VITALS: BP 163/81
[2021-05-14 14:35] VITALS: BP 141/76
[2021-05-14 14:50] VITALS: BP 130/83
[2021-05-14 15:21] VITALS: BP 133/80
[2021-05-14] MEDS ORDERED: SODIUM CHLORIDE 0.9% INJ 10 ML SYR IV PRN (16:10)
[2021-05-14 16:20] VITALS: BP 132/76
[2021-05-15] MEDS ORDERED: SODIUM CHLORIDE 0.9% INJ 10 ML SYR IV SCH (09:00)
== END 2021-05-14 16:25 | disposition home or self-care (01) ==
LOC: M INFU 12:38
PROVIDERS: ATTEND Internal Medicine Gastroenterology
DX: K50.00 Crohn's disease of small intestine without complications (principal); Z88.8 Allergy status to other drugs, medicaments and biological substances
CPT/HCPCS: 96365; 96366; J1642; Q5103

== ENCOUNTER → 2021-06-09 | Outpatient (CLI) | payer MEDICARE, MEDICAID ==
[~2021-06-09] MED LIST changes: -INFLIXIMAB BIOSIMILAR IV ONE; -NS 1,000 ML IV SCH; -NS IV ONE; -SODIUM CHLORIDE 0.9% INJ 10 ML SYR IV PRN; -SODIUM CHLORIDE 0.9% INJ 10 ML SYR IV SCH; -diphenhydrAMINE 25MG PO PRIOR TO INFUSION PO ONE
== END ==
LOC: M PAIN 14:30
PROVIDERS: ATTEND Nurse Practitioner Family
DX: K50.918 Crohn's disease, unspecified, with other complication (principal); R10.9 Unspecified abdominal pain; M54.50 Low back pain, unspecified; M47.816 Spondylosis without myelopathy or radiculopathy, lumbar region; L88 Pyoderma gangrenosum; M19.90 Unspecified osteoarthritis, unspecified site; C56.9 Malignant neoplasm of unspecified ovary; M06.9 Rheumatoid arthritis, unspecified; D64.9 Anemia, unspecified; Z79.891 Long term (current) use of opiate analgesic; Z79.899 Other long term (current) drug therapy; F17.210 Nicotine dependence, cigarettes, uncomplicated; Z88.5 Allergy status to narcotic agent; Z88.6 Allergy status to analgesic agent; Z88.1 Allergy status to other antibiotic agents; Z88.8 Allergy status to other drugs, medicaments and biological substances

== ENCOUNTER 2021-06-23 11:41 | Outpatient (CLI) | payer MEDICARE, MEDICAID ==
[~2021-06-23] VITALS: Ht 160 cm; Wt 114.7 kg
[~2021-06-23 11:41] MED LIST changes: +SODIUM CHLORIDE 0.9% INJ 10 ML SYR IV PRN
[2021-06-23 11:50] VITALS: BP 154/74
[2021-06-23] MEDS ORDERED: INFLIXIMAB BIOSIMILAR IV ONE (12:00)
[2021-06-23] MEDS ORDERED: NS 1,000 ML IV SCH (12:00)
[2021-06-23] MEDS ORDERED: diphenhydrAMINE 25MG PO PRIOR TO INFUSION PO ONE (12:00)
[2021-06-23] MEDS ORDERED: NS IV ONE (12:00)
[2021-06-23 12:46] VITALS: BP 133/88
[2021-06-23 13:02] VITALS: BP 151/71
[2021-06-23 13:15] VITALS: BP 130/82
[2021-06-23 13:45] VITALS: BP 142/81
[2021-06-23 14:38] VITALS: BP 169/85
[2021-06-24] MEDS ORDERED: SODIUM CHLORIDE 0.9% INJ 10 ML SYR IV SCH (09:00)
== END 2021-06-23 14:35 | disposition home or self-care (01) ==
LOC: M INFU 11:41
PROVIDERS: ATTEND Internal Medicine Gastroenterology
DX: K50.00 Crohn's disease of small intestine without complications (principal); Z88.8 Allergy status to other drugs, medicaments and biological substances
CPT/HCPCS: 96365; 96366; J1642; Q5103

== ENCOUNTER → 2021-07-07 | Outpatient (REF) | payer MEDICARE, MEDICAID ==
[~2021-07-07] MED LIST changes: -SODIUM CHLORIDE 0.9% INJ 10 ML SYR IV PRN
== END ==
LOC: M LAB REF 16:25
PROVIDERS: ATTEND Internal Medicine
DX: K50.00 Crohn's disease of small intestine without complications (principal)

== ENCOUNTER → 2021-09-16 | Outpatient (CLI) | payer MEDICARE, MEDICAID | LOC: M PAIN 14:30 | PROVIDERS: ATTEND Anesthesiology | DX: R10.9 Unspecified abdominal pain (principal); M54.50 Low back pain, unspecified; L88 Pyoderma gangrenosum; K50.918 Crohn's disease, unspecified, with other complication; M47.816 Spondylosis without myelopathy or radiculopathy, lumbar region; M19.90 Unspecified osteoarthritis, unspecified site; M06.9 Rheumatoid arthritis, unspecified; F17.210 Nicotine dependence, cigarettes, uncomplicated; D64.9 Anemia, unspecified; Z79.899 Other long term (current) drug therapy; Z79.891 Long term (current) use of opiate analgesic; Z88.5 Allergy status to narcotic agent; Z88.6 Allergy status to analgesic agent; Z88.1 Allergy status to other antibiotic agents; Z88.8 Allergy status to other drugs, medicaments and biological substances; Z85.41 Personal history of malignant neoplasm of cervix uteri; Z85.43 Personal history of malignant neoplasm of ovary ==

== ENCOUNTER 2021-10-04 12:29 | Outpatient (CLI) | payer MEDICARE, MEDICAID ==
[~2021-10-04] VITALS: Ht 160 cm; Wt 114.0 kg
[~2021-10-04 12:29] MED LIST changes: +INFLIXIMAB BIOSIMILAR IV ONE; +NS 1,000 ML IV SCH; +NS IV ONE; +diphenhydrAMINE 25MG PO PRIOR TO INFUSION PO ONE
[2021-10-04] MEDS ORDERED: diphenhydrAMINE 25MG PO PRIOR TO INFUSION PO ONE (12:30)
[2021-10-04] MEDS ORDERED: NS 1,000 ML IV SCH (12:30)
[2021-10-04] MEDS ORDERED: SODIUM CHLORIDE 0.9% INJ 10 ML SYR IV PRN (12:30)
[2021-10-04 12:39] VITALS: BP 165/99
[2021-10-04] MEDS ORDERED: INFLIXIMAB BIOSIMILAR IV ONE (13:00)
[2021-10-04] MEDS ORDERED: NS IV ONE (13:00)
[2021-10-04 13:55] VITALS: BP 134/77
[2021-10-04 14:25] VITALS: BP 129/76
[2021-10-04 15:10] VITALS: BP 132/59
[2021-10-04 15:40] VITALS: BP 160/80
[2021-10-05] MEDS ORDERED: SODIUM CHLORIDE 0.9% INJ 10 ML SYR IV SCH (09:00)
== END 2021-10-04 15:55 | disposition home or self-care (01) ==
LOC: M INFU 12:29
PROVIDERS: ATTEND Internal Medicine Gastroenterology
DX: K50.00 Crohn's disease of small intestine without complications (principal); Z88.8 Allergy status to other drugs, medicaments and biological substances
CPT/HCPCS: 96413; 96415; Q5103

== ENCOUNTER 2021-11-09 12:43 | Outpatient (CLI) | payer MEDICARE, MEDICAID ==
[~2021-11-09] VITALS: Ht 160 cm; Wt 115.0 kg
[2021-11-09 12:45] VITALS: BP 167/95
[2021-11-09] MEDS ORDERED: NS 1,000 ML IV SCH (13:00)
[2021-11-09] MEDS ORDERED: NS IV ONE (13:00)
[2021-11-09] MEDS ORDERED: diphenhydrAMINE 25MG PO PRIOR TO INFUSION PO ONE (13:00)
[2021-11-09] MEDS ORDERED: INFLIXIMAB BIOSIMILAR IV ONE (13:00)
[2021-11-09 13:45] VITALS: BP 127/87
[2021-11-09 14:00] VITALS: BP 138/85
[2021-11-09 14:15] VITALS: BP 152/74
[2021-11-09 15:00] VITALS: BP 127/61
[2021-11-09 15:15] VITALS: BP 131/71
== END 2021-11-09 15:30 | disposition home or self-care (01) ==
LOC: M INFU 12:43
PROVIDERS: ATTEND Internal Medicine Gastroenterology
DX: K50.90 Crohn's disease, unspecified, without complications (principal); Z88.8 Allergy status to other drugs, medicaments and biological substances
CPT/HCPCS: 96413; 96415; Q5103

== ENCOUNTER → 2021-12-02 | Outpatient (CLI) | payer MEDICARE, MEDICAID ==
[~2021-12-02] MED LIST changes: +E-Z-PAQUE 96% w/w SUSP 176GM BTL As Ordered ONE; -INFLIXIMAB BIOSIMILAR IV ONE; -NS 1,000 ML IV SCH; -NS IV ONE; -diphenhydrAMINE 25MG PO PRIOR TO INFUSION PO ONE
== END ==
LOC: M RAD 08:21
PROVIDERS: ATTEND Internal Medicine Gastroenterology
DX: K43.5 Parastomal hernia without obstruction or gangrene (principal)

== ENCOUNTER → 2021-12-09 | Outpatient (REF) | payer MEDICARE, MEDICAID ==
[~2021-12-09] MED LIST changes: -E-Z-PAQUE 96% w/w SUSP 176GM BTL As Ordered ONE
[2021-12-09 19:40] LABS: C REACTIVE PROTEIN QUANTITATIV 0.55 MG/DL (0.00-0.30)
== END ==
LOC: M LAB REF 17:17
PROVIDERS: ATTEND Internal Medicine
DX: K50.00 Crohn's disease of small intestine without complications (principal)

== ENCOUNTER 2021-12-15 13:50 | Outpatient (CLI) | payer MEDICARE, MEDICAID ==
[~2021-12-15] VITALS: Ht 160 cm; Wt 115.0 kg
[~2021-12-15 13:50] MED LIST changes: +INFLIXIMAB BIOSIMILAR IV ONE; +NS 1,000 ML IV SCH; +NS IV ONE; +diphenhydrAMINE 25MG PO PRIOR TO INFUSION PO ONE
[2021-12-15 13:55] VITALS: BP 145/84
[2021-12-15] MEDS ORDERED: diphenhydrAMINE 25MG PO PRIOR TO INFUSION PO ONE (14:00)
[2021-12-15] MEDS ORDERED: NS IV ONE (14:00)
[2021-12-15] MEDS ORDERED: NS 1,000 ML IV SCH (14:00)
[2021-12-15] MEDS ORDERED: INFLIXIMAB BIOSIMILAR IV ONE (14:00)
[2021-12-15 15:22] VITALS: BP 172/74
[2021-12-15 15:50] VITALS: BP 153/79
[2021-12-15 16:20] VITALS: BP 137/91
[2021-12-15 17:10] VITALS: BP 175/85
== END 2021-12-15 17:10 | disposition home or self-care (01) ==
LOC: M INFU 13:50
PROVIDERS: ATTEND Internal Medicine Gastroenterology
DX: K50.00 Crohn's disease of small intestine without complications (principal); Z88.8 Allergy status to other drugs, medicaments and biological substances
CPT/HCPCS: 96413; 96415; Q5103

== ENCOUNTER → 2022-01-06 | Outpatient (CLI) | payer MEDICARE, MEDICAID ==
[~2022-01-06] MED LIST changes: -INFLIXIMAB BIOSIMILAR IV ONE; -NS 1,000 ML IV SCH; -NS IV ONE; -diphenhydrAMINE 25MG PO PRIOR TO INFUSION PO ONE
== END ==
LOC: M PAIN 11:15
PROVIDERS: ATTEND Anesthesiology
DX: R52 Pain, unspecified (principal); L88 Pyoderma gangrenosum; M06.9 Rheumatoid arthritis, unspecified; M19.90 Unspecified osteoarthritis, unspecified site; K50.90 Crohn's disease, unspecified, without complications; D64.9 Anemia, unspecified; F17.210 Nicotine dependence, cigarettes, uncomplicated; Z79.899 Other long term (current) drug therapy; Z79.891 Long term (current) use of opiate analgesic; Z88.1 Allergy status to other antibiotic agents; Z88.5 Allergy status to narcotic agent; Z88.6 Allergy status to analgesic agent; Z88.8 Allergy status to other drugs, medicaments and biological substances

== ENCOUNTER → 2022-01-31 | Outpatient (CLI) | payer MEDICARE, MEDICAID ==
[~2022-01-31] VITALS: Ht 160 cm; Wt 115.0 kg
[~2022-01-31] MED LIST changes: +DITR1TAB PO; +INFLIXIMAB BIOSIMILAR IV ONE; +NS 1,000 ML IV SCH; +NS IV ONE; +diphenhydrAMINE 25MG PO PRIOR TO INFUSION PO ONE
[2022-01-31 13:53] VITALS: BP 137/86
[2022-01-31 14:15] VITALS: BP 133/84
[2022-01-31 16:08] VITALS: BP 135/88
== END ==
LOC: M INFU 13:30
PROVIDERS: ATTEND Internal Medicine Gastroenterology
DX: K50.00 Crohn's disease of small intestine without complications (principal); Z88.1 Allergy status to other antibiotic agents; Z88.5 Allergy status to narcotic agent; Z88.8 Allergy status to other drugs, medicaments and biological substances; Z88.6 Allergy status to analgesic agent
CPT/HCPCS: 96413; Q5103

== ENCOUNTER → 2022-02-15 | Outpatient (CLI) | payer MEDICARE, MEDICAID ==
[~2022-02-15] MED LIST changes: -DITR1TAB PO; -INFLIXIMAB BIOSIMILAR IV ONE; -NS 1,000 ML IV SCH; -NS IV ONE; -diphenhydrAMINE 25MG PO PRIOR TO INFUSION PO ONE
== END ==
LOC: M RAD 14:43
PROVIDERS: ATTEND Radiology Diagnostic Radiology
DX: K50.90 Crohn's disease, unspecified, without complications (principal)

== ENCOUNTER → 2022-03-10 | Outpatient (REF) | payer MEDICARE, MEDICAID ==
[2022-03-10 13:09] LABS: C REACTIVE PROTEIN QUANTITATIV 1.4 MG/DL (0.00-0.30); PERCENT SATURATION 15.1 % (13.2-45.0)
== END ==
LOC: M LAB REF 11:22
PROVIDERS: ATTEND Internal Medicine
DX: K50.00 Crohn's disease of small intestine without complications (principal)

== ENCOUNTER 2022-03-16 12:30 | Outpatient (CLI) | payer MEDICARE, MEDICAID ==
[~2022-03-16] VITALS: Ht 153.2 cm; Wt 102.6 kg
[2022-03-16 12:30] VITALS: BP 148/101
[2022-03-16] MEDS ORDERED: INFLIXIMAB BIOSIMILAR 1,000 MG in NS 150 ML IV ONE (13:30)
[2022-03-16] MEDS ORDERED: NS 1,000 ML IV SCH (13:30)
[2022-03-16] MEDS ORDERED: diphenhydrAMINE 25MG PO PRIOR TO INFUSION PO ONE (13:30)
[2022-03-16 13:45] VITALS: BP 137/88
[2022-03-16 14:15] VITALS: BP 137/88
[2022-03-16 14:21] VITALS: BP 130/82
[2022-03-21] MEDS ORDERED: DITR1TAB PO (14:12)
== END 2022-03-16 14:25 | disposition home or self-care (01) ==
LOC: M INFU 12:30
PROVIDERS: ATTEND Internal Medicine Gastroenterology
DX: K50.00 Crohn's disease of small intestine without complications (principal); Z88.5 Allergy status to narcotic agent; Z88.8 Allergy status to other drugs, medicaments and biological substances; Z88.6 Allergy status to analgesic agent
CPT/HCPCS: 87635; 96365; Q5103

== ENCOUNTER → 2022-03-16 | Outpatient (CLI) | payer MEDICARE, MEDICAID | LOC: M LABSMTC 11:47 | PROVIDERS: ATTEND Anesthesiology | DX: Z11.52 Encounter for screening for COVID-19 (principal) ==

== ENCOUNTER → 2022-03-21 | Outpatient (CLI) | payer MEDICARE, MEDICAID ==
[~2022-03-21] MED LIST changes: +ACETAMINOPHEN 1000MG 100ML IV BTL (OFIRMEV) (J0131 PER 10MG) As Ordered ONE; +DITR1TAB PO; +LIDOCAINE 1% MDV 20ML VIAL As Ordered ONE; +LIDOCAINE 2% 100MG/5ML SDV (FOR ANES.) As Ordered ONE; +LR 1,000 ML IV SCH; +MIDAZOLAM INJ 2MG/2ML VIAL (J2250 PER 1MG) As Ordered ONE; +ONDANSETRON 4MG 2ML VIAL As Ordered ONE; +ONDANSETRON 4MG 2ML VIAL IV PRN; +ceFAZolin 2 GM/D5W 50 ML IV BAG (J0690 PER 500MG) As Ordered ONE; +ceFAZolin SOD 2 GM in IV 1 EA IV ONE; +fentaNYL 100 MCG/2 ML INJECTION As Ordered ONE; +fentaNYL 100 MCG/2 ML INJECTION IV PRN; +oxyCODONE 5MG TAB PO PRN; +propofoL 200 MG/20 ML VIAL As Ordered ONE
[2022-03-21 16:00] VITALS: BP 129/63
== END ==
LOC: M IRPRO 10:35
PROVIDERS: ATTEND Radiology Diagnostic Radiology
DX: Z45.2 Encounter for adjustment and management of vascular access device (principal); K50.90 Crohn's disease, unspecified, without complications; E66.9 Obesity, unspecified; G89.29 Other chronic pain; M06.9 Rheumatoid arthritis, unspecified; D64.9 Anemia, unspecified; Z79.899 Other long term (current) drug therapy; Z88.1 Allergy status to other antibiotic agents; Z88.6 Allergy status to analgesic agent
CPT/HCPCS: 36590; J0131; J0690; J1644; J2250; J2405; J3010

== ENCOUNTER → 2022-03-30 | Outpatient (CLI) | payer MEDICARE, MEDICAID ==
[~2022-03-30] MED LIST changes: -ACETAMINOPHEN 1000MG 100ML IV BTL (OFIRMEV) (J0131 PER 10MG) As Ordered ONE; -LIDOCAINE 1% MDV 20ML VIAL As Ordered ONE; -LIDOCAINE 2% 100MG/5ML SDV (FOR ANES.) As Ordered ONE; -LR 1,000 ML IV SCH; -MIDAZOLAM INJ 2MG/2ML VIAL (J2250 PER 1MG) As Ordered ONE; -ONDANSETRON 4MG 2ML VIAL As Ordered ONE; -ONDANSETRON 4MG 2ML VIAL IV PRN; -ceFAZolin 2 GM/D5W 50 ML IV BAG (J0690 PER 500MG) As Ordered ONE; -ceFAZolin SOD 2 GM in IV 1 EA IV ONE; -fentaNYL 100 MCG/2 ML INJECTION As Ordered ONE; -fentaNYL 100 MCG/2 ML INJECTION IV PRN; -oxyCODONE 5MG TAB PO PRN; -propofoL 200 MG/20 ML VIAL As Ordered ONE
== END ==
LOC: M PAIN 14:30
PROVIDERS: ATTEND Anesthesiology
DX: R52 Pain, unspecified (principal); L88 Pyoderma gangrenosum; M06.9 Rheumatoid arthritis, unspecified; M19.90 Unspecified osteoarthritis, unspecified site; K50.90 Crohn's disease, unspecified, without complications; D64.9 Anemia, unspecified; R10.9 Unspecified abdominal pain; Z85.43 Personal history of malignant neoplasm of ovary; Z85.41 Personal history of malignant neoplasm of cervix uteri; Z79.891 Long term (current) use of opiate analgesic; Z87.442 Personal history of urinary calculi; M25.50 Pain in unspecified joint; Z79.899 Other long term (current) drug therapy; F17.210 Nicotine dependence, cigarettes, uncomplicated; Z88.6 Allergy status to analgesic agent; Z88.1 Allergy status to other antibiotic agents; Z88.5 Allergy status to narcotic agent; Z88.8 Allergy status to other drugs, medicaments and biological substances

== ENCOUNTER → 2022-04-05 | Outpatient (POV) | payer MEDICARE, MEDICAID ==
[~2022-04-05] VITALS: Ht 160 cm; Wt 100.0 kg
[2022-04-05 12:45] VITALS: BP 173/89
== END ==
LOC: M IRPOV 12:35
PROVIDERS: ATTEND Radiology Diagnostic Radiology
DX: Z45.2 Encounter for adjustment and management of vascular access device (principal); Z88.5 Allergy status to narcotic agent; Z88.8 Allergy status to other drugs, medicaments and biological substances

== ENCOUNTER 2022-04-13 13:02 | Outpatient (CLI) | payer MEDICARE, MEDICAID ==
[2022-04-13 13:10] VITALS: BP 166/98
[2022-04-13] MEDS ORDERED: diphenhydrAMINE 25MG PO PRIOR TO INFUSION PO ONE (13:30)
[2022-04-13] MEDS ORDERED: INFLIXIMAB BIOSIMILAR 1,000 MG in NS 150 ML IV ONE (13:30)
[2022-04-13] MEDS ORDERED: NS 1,000 ML IV SCH (13:30)
[2022-04-13 15:30] VITALS: BP 145/82
== END 2022-04-13 15:20 | disposition home or self-care (01) ==
LOC: M INFU 13:02
PROVIDERS: ATTEND Internal Medicine Gastroenterology
DX: K50.00 Crohn's disease of small intestine without complications (principal); Z88.6 Allergy status to analgesic agent; Z88.8 Allergy status to other drugs, medicaments and biological substances
CPT/HCPCS: 96413; Q5103

== ENCOUNTER → 2022-04-20 | Outpatient (CLI) | payer MEDICARE, MEDICAID | LOC: M LABSMTC 11:21 | PROVIDERS: ATTEND Anesthesiology | DX: Z11.52 Encounter for screening for COVID-19 (principal) ==

== ENCOUNTER → 2022-04-25 | Outpatient (CLI) | payer MEDICARE, MEDICAID ==
[~2022-04-25] MED LIST changes: +KETAMINE HCL 200 MG/20 ML VIAL As Ordered ONE; +LIDOCAINE 1% MDV 20ML VIAL As Ordered ONE; +LIDOCAINE 2% 100MG/5ML SDV (FOR ANES.) As Ordered ONE; +MIDAZOLAM INJ 2MG/2ML VIAL (J2250 PER 1MG) As Ordered ONE; +NS 1,000 ML IV SCH; +ONDANSETRON 4MG 2ML VIAL As Ordered ONE; +ONDANSETRON 4MG 2ML VIAL IV PRN; +ceFAZolin 2 GM/D5W 50 ML IV BAG (J0690 PER 500MG) As Ordered ONE; +ceFAZolin SOD 2 GM in IV 1 EA IV ONE; +oxyCODONE 5MG TAB PO PRN; +propofoL 200 MG/20 ML VIAL As Ordered ONE
[2022-04-25 13:55] VITALS: BP 109/69
== END ==
LOC: M IRPRO 10:50
PROVIDERS: ATTEND Radiology Diagnostic Radiology
DX: K50.90 Crohn's disease, unspecified, without complications (principal); D64.9 Anemia, unspecified; E66.9 Obesity, unspecified; F17.210 Nicotine dependence, cigarettes, uncomplicated; G89.29 Other chronic pain; L88 Pyoderma gangrenosum; M06.9 Rheumatoid arthritis, unspecified; Z79.899 Other long term (current) drug therapy; Z88.5 Allergy status to narcotic agent; Z88.8 Allergy status to other drugs, medicaments and biological substances; Z90.710 Acquired absence of both cervix and uterus
CPT/HCPCS: 36561; C1769; C1788; C1894; J0690; J1642; J1644; J2250; J2405

== ENCOUNTER 2022-05-24 13:00 | Outpatient (CLI) | payer MEDICARE, MEDICAID ==
[~2022-05-24] VITALS: Ht 160 cm; Wt 102.3 kg
[~2022-05-24 13:00] MED LIST changes: +INFLIXIMAB BIOSIMILAR 1,000 MG in NS 150 ML IV ONE; -KETAMINE HCL 200 MG/20 ML VIAL As Ordered ONE; -LIDOCAINE 1% MDV 20ML VIAL As Ordered ONE; -LIDOCAINE 2% 100MG/5ML SDV (FOR ANES.) As Ordered ONE; -MIDAZOLAM INJ 2MG/2ML VIAL (J2250 PER 1MG) As Ordered ONE; -ONDANSETRON 4MG 2ML VIAL As Ordered ONE; -ONDANSETRON 4MG 2ML VIAL IV PRN; -ceFAZolin 2 GM/D5W 50 ML IV BAG (J0690 PER 500MG) As Ordered ONE; -ceFAZolin SOD 2 GM in IV 1 EA IV ONE; +diphenhydrAMINE 25MG PO PRIOR TO INFUSION PO ONE; -oxyCODONE 5MG TAB PO PRN; -propofoL 200 MG/20 ML VIAL As Ordered ONE
[2022-05-24 14:00] VITALS: BP 124/58
[2022-05-24 15:10] VITALS: BP 118/78
== END 2022-05-24 15:15 | disposition home or self-care (01) ==
LOC: M INFU 13:00
PROVIDERS: ATTEND Internal Medicine Gastroenterology
DX: K50.00 Crohn's disease of small intestine without complications (principal); Z88.8 Allergy status to other drugs, medicaments and biological substances; Z88.6 Allergy status to analgesic agent; Z88.5 Allergy status to narcotic agent
CPT/HCPCS: 96413; Q5103

== ENCOUNTER → 2022-06-01 | Outpatient (CLI) | payer MEDICARE, MEDICAID ==
[~2022-06-01] MED LIST changes: -INFLIXIMAB BIOSIMILAR 1,000 MG in NS 150 ML IV ONE; -NS 1,000 ML IV SCH; -diphenhydrAMINE 25MG PO PRIOR TO INFUSION PO ONE
== END ==
LOC: M WHC 12:16
PROVIDERS: ATTEND Internal Medicine Gastroenterology
DX: K50.00 Crohn's disease of small intestine without complications (principal); Z79.52 Long term (current) use of systemic steroids; M85.851 Other specified disorders of bone density and structure, right thigh; M85.852 Other specified disorders of bone density and structure, left thigh

== ENCOUNTER 2022-06-22 13:10 | Outpatient (CLI) | payer MEDICARE, MEDICAID ==
[~2022-06-22] VITALS: Ht 160 cm; Wt 102.3 kg
[2022-06-22 13:00] VITALS: BP 170/83
[~2022-06-22 13:10] MED LIST changes: +INFLIXIMAB BIOSIMILAR 1,000 MG in NS 150 ML IV ONE; +NS 1,000 ML IV SCH; +SODIUM CHLORIDE 0.9% INJ 10 ML SYR IV PRN; +SODIUM CHLORIDE 0.9% INJ 10 ML SYR IV SCH; +diphenhydrAMINE 25MG PO PRIOR TO INFUSION PO ONE
[2022-06-22 14:00] VITALS: BP 134/82
[2022-06-22 15:00] VITALS: BP 144/76
== END 2022-06-22 15:00 | disposition home or self-care (01) ==
LOC: M INFU 13:10
PROVIDERS: ATTEND Internal Medicine Gastroenterology
DX: K50.00 Crohn's disease of small intestine without complications (principal); Z88.8 Allergy status to other drugs, medicaments and biological substances; Z88.5 Allergy status to narcotic agent; Z88.6 Allergy status to analgesic agent
CPT/HCPCS: 96413; J1642; Q5103

== ENCOUNTER 2022-07-29 13:02 | Outpatient (CLI) | payer MEDICARE, MEDICAID ==
[~2022-07-29] VITALS: Ht 160 cm; Wt 102.1 kg
[~2022-07-29 13:02] MED LIST changes: -SODIUM CHLORIDE 0.9% INJ 10 ML SYR IV SCH
[2022-07-29 13:05] VITALS: BP 178/83
[2022-07-29 14:15] VITALS: BP 168/78
[2022-07-29 15:20] VITALS: BP 158/88
[2022-07-30] MEDS ORDERED: SODIUM CHLORIDE 0.9% INJ 10 ML SYR IV SCH (09:00)
== END 2022-07-29 15:20 | disposition home or self-care (01) ==
LOC: M INFU 13:02
PROVIDERS: ATTEND Internal Medicine Gastroenterology
DX: K50.00 Crohn's disease of small intestine without complications (principal); Z88.5 Allergy status to narcotic agent; Z88.6 Allergy status to analgesic agent; Z88.8 Allergy status to other drugs, medicaments and biological substances
CPT/HCPCS: 96413; 96415; Q5103

== ENCOUNTER → 2022-08-01 | Outpatient (REF) | payer MEDICARE, MEDICAID ==
[~2022-08-01] MED LIST changes: -INFLIXIMAB BIOSIMILAR 1,000 MG in NS 150 ML IV ONE; -NS 1,000 ML IV SCH; -SODIUM CHLORIDE 0.9% INJ 10 ML SYR IV PRN; -diphenhydrAMINE 25MG PO PRIOR TO INFUSION PO ONE
[2022-08-01 17:16] LABS: PERCENT SATURATION 17.1 % (13.2-45.0)
[2022-08-01 17:18] LABS: FERRITIN 66.4 NG/ML (7.3-270.7)
== END ==
LOC: M LAB REF 16:18
PROVIDERS: ATTEND Internal Medicine
DX: K50.00 Crohn's disease of small intestine without complications (principal)

== ENCOUNTER → 2022-08-04 | Outpatient (CLI) | payer MEDICARE, MEDICAID | LOC: M PAIN 14:30 | PROVIDERS: ATTEND Nurse Practitioner Family | DX: G89.29 Other chronic pain (principal); M06.9 Rheumatoid arthritis, unspecified; M19.90 Unspecified osteoarthritis, unspecified site; K50.90 Crohn's disease, unspecified, without complications; M25.50 Pain in unspecified joint; D64.9 Anemia, unspecified; M53.3 Sacrococcygeal disorders, not elsewhere classified; L88 Pyoderma gangrenosum; R10.9 Unspecified abdominal pain; Z85.43 Personal history of malignant neoplasm of ovary; Z85.41 Personal history of malignant neoplasm of cervix uteri; Z79.891 Long term (current) use of opiate analgesic; Z79.899 Other long term (current) drug therapy; F17.210 Nicotine dependence, cigarettes, uncomplicated; Z88.1 Allergy status to other antibiotic agents; Z88.5 Allergy status to narcotic agent; Z88.6 Allergy status to analgesic agent; Z88.8 Allergy status to other drugs, medicaments and biological substances ==

== ENCOUNTER 2022-09-06 13:30 | Outpatient (CLI) | payer MEDICARE, MEDICAID ==
[~2022-09-06] VITALS: Ht 160 cm; Wt 102.3 kg
[~2022-09-06 13:30] MED LIST changes: +INFLIXIMAB BIOSIMILAR 1,000 MG in NS 150 ML IV ONE; +NS 1,000 ML IV SCH; +SODIUM CHLORIDE 0.9% INJ 10 ML SYR IV PRN; +SODIUM CHLORIDE 0.9% INJ 10 ML SYR IV SCH; +diphenhydrAMINE 25MG PO PRIOR TO INFUSION PO ONE
[2022-09-06 13:58] VITALS: BP 144/89
[2022-09-06 15:47] VITALS: BP 169/97
== END 2022-09-06 15:50 | disposition home or self-care (01) ==
LOC: M INFU 13:30
PROVIDERS: ATTEND Internal Medicine Gastroenterology
DX: K50.00 Crohn's disease of small intestine without complications (principal); Z88.5 Allergy status to narcotic agent; Z88.6 Allergy status to analgesic agent; Z88.8 Allergy status to other drugs, medicaments and biological substances
CPT/HCPCS: 96413; J1642; Q5103

== ENCOUNTER → 2022-09-22 | Outpatient (REF) | payer MEDICARE, MEDICAID ==
[~2022-09-22] MED LIST changes: -INFLIXIMAB BIOSIMILAR 1,000 MG in NS 150 ML IV ONE; -NS 1,000 ML IV SCH; -SODIUM CHLORIDE 0.9% INJ 10 ML SYR IV PRN; -SODIUM CHLORIDE 0.9% INJ 10 ML SYR IV SCH; -diphenhydrAMINE 25MG PO PRIOR TO INFUSION PO ONE
[2022-09-22 19:10] LABS: C REACTIVE PROTEIN QUANTITATIV 0.5 MG/DL (<1.0)
== END ==
LOC: M LAB REF 16:20
PROVIDERS: ATTEND Internal Medicine
DX: K50.00 Crohn's disease of small intestine without complications (principal); M85.50 Aneurysmal bone cyst, unspecified site

== ENCOUNTER → 2022-10-04 | Outpatient (CLI) | payer MEDICARE, MEDICAID | LOC: M PAIN 14:30 | PROVIDERS: ATTEND Nurse Practitioner Family | DX: G89.29 Other chronic pain (principal); M06.9 Rheumatoid arthritis, unspecified; M19.90 Unspecified osteoarthritis, unspecified site; K50.90 Crohn's disease, unspecified, without complications; D64.9 Anemia, unspecified; L88 Pyoderma gangrenosum; F17.210 Nicotine dependence, cigarettes, uncomplicated; Z79.891 Long term (current) use of opiate analgesic; Z79.899 Other long term (current) drug therapy; Z88.1 Allergy status to other antibiotic agents; Z88.5 Allergy status to narcotic agent; Z88.6 Allergy status to analgesic agent; Z88.8 Allergy status to other drugs, medicaments and biological substances ==

== ENCOUNTER 2022-10-06 13:30 | Outpatient (CLI) | payer MEDICARE, MEDICAID ==
[~2022-10-06 13:30] MED LIST changes: +INFLIXIMAB BIOSIMILAR IV ONE; +NS 1,000 ML IV SCH; +NS IV ONE; +diphenhydrAMINE 25MG PO PRIOR TO INFUSION PO ONE
[2022-10-06 14:03] VITALS: BP 146/98
[2022-10-06 16:11] VITALS: BP 125/78
== END 2022-10-06 16:10 | disposition home or self-care (01) ==
LOC: M INFU 13:30
PROVIDERS: ATTEND Internal Medicine Gastroenterology
DX: K50.00 Crohn's disease of small intestine without complications (principal); Z88.5 Allergy status to narcotic agent; Z88.6 Allergy status to analgesic agent; Z88.8 Allergy status to other drugs, medicaments and biological substances
CPT/HCPCS: 96413; 96415; Q5103

== ENCOUNTER 2022-11-09 12:40 | Outpatient (CLI) | payer MEDICARE, MEDICAID ==
[~2022-11-09] VITALS: Ht 160 cm; Wt 115.0 kg
[~2022-11-09 12:40] MED LIST changes: +INFLIXIMAB BIOSIMILAR 1,000 MG in NS 150 ML IV ONE; -INFLIXIMAB BIOSIMILAR IV ONE; -NS IV ONE; +SODIUM CHLORIDE 0.9% INJ 10 ML SYR IV PRN; +SODIUM CHLORIDE 0.9% INJ 10 ML SYR IV SCH
[2022-11-09 13:29] VITALS: BP 165/99
[2022-11-09 14:35] VITALS: BP 145/82
== END 2022-11-09 14:35 | disposition home or self-care (01) ==
LOC: M INFU 12:40
PROVIDERS: ATTEND Internal Medicine Gastroenterology
DX: K50.00 Crohn's disease of small intestine without complications (principal); Z88.8 Allergy status to other drugs, medicaments and biological substances; Z88.5 Allergy status to narcotic agent; Z88.6 Allergy status to analgesic agent
CPT/HCPCS: 96413; Q5103

== ENCOUNTER 2022-12-13 13:00 | Outpatient (CLI) | payer MEDICARE, MEDICAID ==
[~2022-12-13] VITALS: Ht 160 cm; Wt 106.8 kg
[2022-12-13 12:59] VITALS: BP 133/71; TEMP 97.9; O2SAT 98
[~2022-12-13 13:00] MED LIST changes: -SODIUM CHLORIDE 0.9% INJ 10 ML SYR IV PRN; -SODIUM CHLORIDE 0.9% INJ 10 ML SYR IV SCH
[2022-12-13 15:08] VITALS: BP 133/81; TEMP 98.3; O2SAT 97
== END 2022-12-13 15:10 | disposition home or self-care (01) ==
LOC: M INFU 13:00
PROVIDERS: ATTEND Internal Medicine Gastroenterology
DX: K50.00 Crohn's disease of small intestine without complications (principal); Z88.5 Allergy status to narcotic agent; Z88.6 Allergy status to analgesic agent; Z88.8 Allergy status to other drugs, medicaments and biological substances
CPT/HCPCS: 96413; Q5103

== ENCOUNTER → 2023-01-12 | Outpatient (CLI) | payer MEDICARE, MEDICAID ==
[~2023-01-12] VITALS: Ht 160 cm; Wt 115.0 kg
[2023-01-12 13:21] VITALS: BP 170/92; TEMP 98.4; O2SAT 98
[2023-01-12 15:15] VITALS: BP 139/78; O2SAT 98
== END ==
LOC: M INFU 13:15
PROVIDERS: ATTEND Internal Medicine Gastroenterology
DX: K50.00 Crohn's disease of small intestine without complications (principal); Z88.1 Allergy status to other antibiotic agents; Z88.5 Allergy status to narcotic agent; Z88.8 Allergy status to other drugs, medicaments and biological substances; Z88.6 Allergy status to analgesic agent
CPT/HCPCS: 96413; Q5103

== ENCOUNTER 2023-02-09 11:00 | Outpatient (CLI) | payer MEDICARE, MEDICAID ==
[2023-02-09 11:03] VITALS: BP 178/79; TEMP 97.8; O2SAT 97
[2023-02-09] MEDS ORDERED: NS 1,000 ML IV SCH (11:15)
[2023-02-09] MEDS ORDERED: diphenhydrAMINE 25MG PO PRIOR TO INFUSION PO ONE (11:15)
[2023-02-09] MEDS ORDERED: INFLIXIMAB BIOSIMILAR 1,000 MG in NS 150 ML IV ONE (11:15)
[2023-02-09 13:04] VITALS: BP 143/82; O2SAT 98
== END 2023-02-09 13:00 | disposition home or self-care (01) ==
LOC: M INFU 11:00
PROVIDERS: ATTEND Internal Medicine Gastroenterology
DX: K50.00 Crohn's disease of small intestine without complications (principal); Z88.8 Allergy status to other drugs, medicaments and biological substances; Z88.5 Allergy status to narcotic agent; Z88.6 Allergy status to analgesic agent
CPT/HCPCS: 96413; Q5103

== ENCOUNTER → 2023-02-09 | Outpatient (CLI) | payer MEDICARE, MEDICAID ==
[~2023-02-09] MED LIST changes: -AMIT25TA17 PO; +AMIT25TA19 PO; -INFLIXIMAB BIOSIMILAR 1,000 MG in NS 150 ML IV ONE; -NS 1,000 ML IV SCH; -diphenhydrAMINE 25MG PO PRIOR TO INFUSION PO ONE
== END ==
LOC: M PAIN 14:30
PROVIDERS: ATTEND Nurse Practitioner Family
DX: G89.29 Other chronic pain (principal); M06.9 Rheumatoid arthritis, unspecified; M19.90 Unspecified osteoarthritis, unspecified site; K50.90 Crohn's disease, unspecified, without complications; L88 Pyoderma gangrenosum; D64.9 Anemia, unspecified; F17.210 Nicotine dependence, cigarettes, uncomplicated; Z79.891 Long term (current) use of opiate analgesic; Z79.899 Other long term (current) drug therapy; Z88.5 Allergy status to narcotic agent; Z88.6 Allergy status to analgesic agent; Z88.1 Allergy status to other antibiotic agents; Z88.8 Allergy status to other drugs, medicaments and biological substances

== ENCOUNTER 2023-05-08 13:05 | Outpatient (CLI) | payer MEDICARE, MEDICAID ==
[~2023-05-08] VITALS: Ht 160 cm; Wt 106.8 kg
[2023-05-08] VITALS (7 sets, daily range): BP systolic 112–138; BP diastolic 67–94; O2SAT 98–100
[2023-05-08] MEDS ORDERED: NS IV ONE ×2 (13:30)
[2023-05-08] MEDS ORDERED: diphenhydrAMINE 25MG CAP PO ONE (13:30)
[2023-05-08] MEDS ORDERED: INFLIXIMAB BIOSIMILAR IV ONE ×2 (13:30)
[2023-05-08] MEDS ORDERED: NS 1,000 ML IV SCH (13:30)
== END 2023-05-08 16:35 | disposition home or self-care (01) ==
LOC: M INFU 13:05
PROVIDERS: ATTEND Internal Medicine Gastroenterology
DX: K50.00 Crohn's disease of small intestine without complications (principal); Z88.5 Allergy status to narcotic agent; Z88.6 Allergy status to analgesic agent; Z88.8 Allergy status to other drugs, medicaments and biological substances
CPT/HCPCS: 96413; 96415; Q5103

== ENCOUNTER → 2023-05-11 | Outpatient (REF) | payer MEDICARE, MEDICAID ==
[2023-05-12 12:06] LABS: PERCENT SATURATION 20.5 % (13.2-45.0)
[2023-05-12 12:08] LABS: FERRITIN 67.2 NG/ML (7.3-270.7)
== END ==
LOC: M LAB REF 11:21
PROVIDERS: ATTEND Internal Medicine
DX: N18.30 Chronic kidney disease, stage 3 unspecified (principal)

== ENCOUNTER 2023-06-23 13:35 | Outpatient (CLI) | payer MEDICARE, MEDICAID ==
[~2023-06-23] VITALS: Ht 160 cm; Wt 104.8 kg
[~2023-06-23 13:35] MED LIST changes: +INFLIXIMAB BIOSIMILAR IV ONE; +NS 1,000 ML IV SCH; +NS IV ONE; +diphenhydrAMINE 25MG PO PRIOR TO INFUSION PO ONE
[2023-06-23 13:45] VITALS: BP 178/84; O2SAT 100
[2023-06-23 15:30] VITALS: BP 142/78; O2SAT 98
[2023-06-23 16:00] VITALS: BP 140/70; O2SAT 100
[2023-06-23 17:10] VITALS: BP 140/86; TEMP 36.8; O2SAT 100
== END 2023-06-23 17:10 | disposition home or self-care (01) ==
LOC: M INFU 13:35
PROVIDERS: ATTEND Internal Medicine Gastroenterology
DX: K50.00 Crohn's disease of small intestine without complications (principal); Z88.6 Allergy status to analgesic agent; Z88.8 Allergy status to other drugs, medicaments and biological substances; Z88.5 Allergy status to narcotic agent
CPT/HCPCS: 36592; 86480; 96413; 96415; Q5103

== ENCOUNTER → 2023-07-20 | Outpatient (CLI) | payer MEDICARE, MEDICAID ==
[~2023-07-20] MED LIST changes: -INFLIXIMAB BIOSIMILAR IV ONE; -NS 1,000 ML IV SCH; -NS IV ONE; -diphenhydrAMINE 25MG PO PRIOR TO INFUSION PO ONE
== END ==
LOC: M PAIN 15:00
PROVIDERS: ATTEND Nurse Practitioner Family
DX: G89.29 Other chronic pain (principal); Z79.891 Long term (current) use of opiate analgesic; R10.9 Unspecified abdominal pain; M47.816 Spondylosis without myelopathy or radiculopathy, lumbar region; M06.9 Rheumatoid arthritis, unspecified; K50.90 Crohn's disease, unspecified, without complications; Z79.899 Other long term (current) drug therapy; F17.210 Nicotine dependence, cigarettes, uncomplicated; Z88.1 Allergy status to other antibiotic agents; Z88.5 Allergy status to narcotic agent; Z88.8 Allergy status to other drugs, medicaments and biological substances

== ENCOUNTER 2023-08-09 13:20 | Outpatient (CLI) | payer MEDICARE, MEDICAID ==
[~2023-08-09] VITALS: Ht 160 cm; Wt 115.0 kg
[~2023-08-09 13:20] MED LIST changes: +INFLIXIMAB BIOSIMILAR IV ONE; +NS 1,000 ML IV SCH; +NS IV ONE; +SODIUM CHLORIDE 0.9% INJ 10 ML SYR IV PRN; +diphenhydrAMINE 25MG PO PRIOR TO INFUSION PO ONE
[2023-08-09 13:25] VITALS: BP 142/80; O2SAT 96
[2023-08-09] MEDS ORDERED: NS 1,000 ML IV SCH (13:30)
[2023-08-09] MEDS ORDERED: NS IV ONE ×3 (13:30→14:00)
[2023-08-09] MEDS ORDERED: diphenhydrAMINE 25MG PO PRIOR TO INFUSION PO ONE (13:30)
[2023-08-09] MEDS ORDERED: INFLIXIMAB BIOSIMILAR IV ONE ×3 (13:30→14:00)
[2023-08-09 14:30] VITALS: BP 155/72; O2SAT 97
[2023-08-09 15:00] VITALS: BP 151/70; O2SAT 97
[2023-08-09 16:15] VITALS: BP 138/75; O2SAT 97
[2023-08-10] MEDS ORDERED: SODIUM CHLORIDE 0.9% INJ 10 ML SYR IV SCH (09:00)
== END 2023-08-09 16:20 ==
LOC: M INFU 13:20
PROVIDERS: ATTEND Internal Medicine Gastroenterology
DX: K50.00 Crohn's disease of small intestine without complications (principal); Z88.5 Allergy status to narcotic agent; Z88.6 Allergy status to analgesic agent; Z88.8 Allergy status to other drugs, medicaments and biological substances
CPT/HCPCS: 96413; 96415; Q5103

== ENCOUNTER → 2023-09-18 | Outpatient (CLI) | payer MEDICARE, MEDICAID ==
[~2023-09-18] MED LIST changes: -INFLIXIMAB BIOSIMILAR IV ONE; -NS 1,000 ML IV SCH; -NS IV ONE; -SODIUM CHLORIDE 0.9% INJ 10 ML SYR IV PRN; -diphenhydrAMINE 25MG PO PRIOR TO INFUSION PO ONE
== END ==
LOC: M PAIN 14:30
PROVIDERS: ATTEND Nurse Practitioner Family
DX: G89.29 Other chronic pain (principal); Z79.891 Long term (current) use of opiate analgesic; R10.9 Unspecified abdominal pain; M47.816 Spondylosis without myelopathy or radiculopathy, lumbar region; M06.9 Rheumatoid arthritis, unspecified; M19.90 Unspecified osteoarthritis, unspecified site; K50.90 Crohn's disease, unspecified, without complications; L88 Pyoderma gangrenosum; F17.210 Nicotine dependence, cigarettes, uncomplicated; Z88.1 Allergy status to other antibiotic agents; Z88.5 Allergy status to narcotic agent; Z88.6 Allergy status to analgesic agent; Z88.8 Allergy status to other drugs, medicaments and biological substances; Z79.899 Other long term (current) drug therapy

== ENCOUNTER 2023-10-05 14:20 | Outpatient (CLI) | payer MEDICARE, MEDICAID ==
[~2023-10-05] VITALS: Ht 160 cm; Wt 231.2 kg
[~2023-10-05 14:20] MED LIST changes: +INFLIXIMAB BIOSIMILAR IV ONE; +NS 1,000 ML IV SCH; +NS IV ONE; +SODIUM CHLORIDE 0.9% INJ 10 ML SYR IV PRN; +SODIUM CHLORIDE 0.9% INJ 10 ML SYR IV SCH; +diphenhydrAMINE 25MG PO PRIOR TO INFUSION PO ONE
[2023-10-05] MEDS ORDERED: NS IV ONE (14:30)
[2023-10-05] MEDS ORDERED: diphenhydrAMINE 25MG PO PRIOR TO INFUSION PO ONE (14:30)
[2023-10-05] MEDS ORDERED: NS 1,000 ML IV SCH (14:30)
[2023-10-05] MEDS ORDERED: INFLIXIMAB BIOSIMILAR IV ONE (14:30)
[2023-10-05 15:00] VITALS: BP 132/74; TEMP 98.3; O2SAT 98
[2023-10-05 15:16] LABS: HEMATOCRIT 47.2 % (36.0-47.0); HEMOGLOBIN 15.6 g/dl (12.0-15.5); MEAN CORPUSCULAR HEMOGLOBIN 30.2 pg (27.0-33.0); MEAN CORPUSCULAR HGB CONC 33.1 g/dl (32.0-36.5); MEAN CORPUSCULAR VOLUME 91.5 fl (80.0-96.0); PLATELET COUNT, AUTOMATED 220 10^3/uL (150-450); RED BLOOD COUNT 5.16 10^6/uL (4.00-5.40)
[2023-10-05] MEDS: INFLIXIMAB BIOSIMILAR IV ONE (15:18)
[2023-10-05] MEDS: NS IV ONE (15:18)
[2023-10-05 15:43] LABS: C REACTIVE PROTEIN QUANTITATIV 0.6 MG/DL (<1.0)
[2023-10-05 15:44] LABS: ALBUMIN 3.3 G/DL (3.2-5.2); BILIRUBIN,DIRECT 0.1 MG/DL (<0.4); BILIRUBIN,TOTAL 0.4 MG/DL (0.3-1.2); PERCENT SATURATION 16.5 % (13.2-45.0); TOTAL PROTEIN 7.5 G/DL (5.7-8.2)
[2023-10-05 15:47] LABS: FERRITIN 96.1 NG/ML (7.3-270.7)
[2023-10-05 16:20] VITALS: BP 142/84; TEMP 98; O2SAT 98
[2023-10-05 17:20] VITALS: BP 136/80; TEMP 98.2; O2SAT 99
== END 2023-10-05 17:20 ==
LOC: M INFU 14:20
PROVIDERS: ATTEND Internal Medicine Gastroenterology
DX: K50.90 Crohn's disease, unspecified, without complications (principal); Z88.5 Allergy status to narcotic agent; Z88.6 Allergy status to analgesic agent; Z88.8 Allergy status to other drugs, medicaments and biological substances
CPT/HCPCS: 36415; 80076; 82306; 82607; 82728; 83550; 85027; 86140; 96413; 96415; Q5103

== ENCOUNTER 2023-11-02 13:41 | Outpatient (CLI) | payer MEDICARE, MEDICAID ==
[~2023-11-02 13:41] MED LIST changes: -INFLIXIMAB BIOSIMILAR IV ONE; -NS 1,000 ML IV SCH; -NS IV ONE; -SODIUM CHLORIDE 0.9% INJ 10 ML SYR IV PRN; -SODIUM CHLORIDE 0.9% INJ 10 ML SYR IV SCH; -diphenhydrAMINE 25MG PO PRIOR TO INFUSION PO ONE
[2023-11-02 13:55] VITALS: BP 132/68; O2SAT 99
[2023-11-02] MEDS ORDERED: NS 1,000 ML IV SCH (14:00)
[2023-11-02] MEDS: diphenhydrAMINE 25MG PO PRIOR TO INFUSION PO ONE (14:11)
[2023-11-02] MEDS: INFLIXIMAB BIOSIMILAR IV ONE (14:51)
[2023-11-02] MEDS: NS IV ONE (14:51)
[2023-11-02 15:45] VITALS: BP 126/64; O2SAT 99
[2023-11-02 16:15] VITALS: BP 117/72; O2SAT 100
[2023-11-02 17:00] VITALS: BP_SYST 117; BP_SYST 126; BP_DIAS 68; BP_DIAS 72; TEMP 36.3; O2SAT 100; O2SAT 99
== END 2023-11-02 17:00 ==
LOC: M INFU 13:41
PROVIDERS: ATTEND Internal Medicine Gastroenterology
DX: K50.00 Crohn's disease of small intestine without complications (principal); Z88.6 Allergy status to analgesic agent; Z88.8 Allergy status to other drugs, medicaments and biological substances; Z88.5 Allergy status to narcotic agent
CPT/HCPCS: 96365; 96366; Q5103

== ENCOUNTER → 2023-11-28 | Outpatient (REF) | payer MEDICARE, MEDICAID ==
[2023-11-28 17:04] LABS: PERCENT SATURATION 14.8 % (13.2-45.0)
[2023-11-28 17:08] LABS: FERRITIN 87.1 NG/ML (7.3-270.7)
== END ==
LOC: M LAB REF 16:35
PROVIDERS: ATTEND Internal Medicine
DX: N18.30 Chronic kidney disease, stage 3 unspecified (principal)

== ENCOUNTER 2023-11-30 13:41 | Outpatient (CLI) | payer MEDICARE, MEDICAID ==
[~2023-11-30] VITALS: Ht 157.5 cm; Wt 105.0 kg
[2023-11-30 14:00] VITALS: BP 170/91; O2SAT 98
[2023-11-30] MEDS ORDERED: NS 1,000 ML IV SCH (14:00)
[2023-11-30] MEDS: diphenhydrAMINE 25MG PO PRIOR TO INFUSION PO ONE (14:26)
[2023-11-30] MEDS: NS IV ONE (14:27)
[2023-11-30] MEDS: INFLIXIMAB BIOSIMILAR IV ONE (14:27)
== END 2023-11-30 16:05 | disposition home or self-care (01) ==
LOC: M INFU 13:41
PROVIDERS: ATTEND Internal Medicine Gastroenterology
DX: K50.00 Crohn's disease of small intestine without complications (principal); Z88.5 Allergy status to narcotic agent; Z88.6 Allergy status to analgesic agent; Z88.8 Allergy status to other drugs, medicaments and biological substances
CPT/HCPCS: 96413; 96415; Q5103

== ENCOUNTER → 2023-12-19 | Outpatient (CLI) | payer MEDICARE, MEDICAID ==
[~2023-12-19] MED LIST changes: +ONDA-282 PO; -ONDA4TAB6 PO
== END ==
LOC: M PAIN 14:30
PROVIDERS: ATTEND Nurse Practitioner Family
DX: G89.29 Other chronic pain (principal); Z79.891 Long term (current) use of opiate analgesic; R10.9 Unspecified abdominal pain; M47.816 Spondylosis without myelopathy or radiculopathy, lumbar region; M06.9 Rheumatoid arthritis, unspecified; M19.90 Unspecified osteoarthritis, unspecified site; K50.90 Crohn's disease, unspecified, without complications; D64.9 Anemia, unspecified; L88 Pyoderma gangrenosum; F17.210 Nicotine dependence, cigarettes, uncomplicated; Z79.899 Other long term (current) drug therapy; Z88.1 Allergy status to other antibiotic agents; Z88.5 Allergy status to narcotic agent; Z88.6 Allergy status to analgesic agent; Z88.8 Allergy status to other drugs, medicaments and biological substances

== ENCOUNTER 2024-01-03 11:55 | Outpatient (CLI) | payer MEDICARE, MEDICAID ==
[~2024-01-03] VITALS: Ht 160 cm; Wt 104.5 kg
[~2024-01-03 11:55] MED LIST changes: +INFLIXIMAB BIOSIMILAR IV ONE; +NS 1,000 ML IV SCH; +NS IV ONE; +diphenhydrAMINE 25MG PO PRIOR TO INFUSION PO ONE
[2024-01-03 12:00] VITALS: BP 160/90; TEMP 98; O2SAT 98
[2024-01-03] MEDS ORDERED: NS 1,000 ML IV SCH (12:00)
[2024-01-03] MEDS: diphenhydrAMINE 25MG PO PRIOR TO INFUSION PO ONE (12:15)
[2024-01-03] MEDS: NS IV ONE (13:07)
[2024-01-03] MEDS: INFLIXIMAB BIOSIMILAR IV ONE (13:07)
[2024-01-03 15:30] VITALS: BP 151/77; O2SAT 100
== END 2024-01-03 15:30 | disposition home or self-care (01) ==
LOC: M INFU 11:55
PROVIDERS: ATTEND Internal Medicine Gastroenterology
DX: K50.90 Crohn's disease, unspecified, without complications (principal); Z88.5 Allergy status to narcotic agent; Z88.8 Allergy status to other drugs, medicaments and biological substances
CPT/HCPCS: 96413; 96415; Q5103

== ENCOUNTER → 2024-01-04 | Outpatient (REF) | payer MEDICARE, MEDICAID ==
[~2024-01-04] MED LIST changes: -INFLIXIMAB BIOSIMILAR IV ONE; -NS 1,000 ML IV SCH; -NS IV ONE; -diphenhydrAMINE 25MG PO PRIOR TO INFUSION PO ONE
[2024-01-04 18:29] LABS: C REACTIVE PROTEIN QUANTITATIV < 0.40 MG/DL (<1.0)
[2024-01-04 18:36] LABS: VITAMIN B12 LEVEL 527 PG/ML (211-911)
[2024-01-04 18:38] LABS: FOLATE 23.3 NG/ML (>5.4)
== END ==
LOC: M LAB REF 16:53
PROVIDERS: ATTEND Internal Medicine
DX: K50.00 Crohn's disease of small intestine without complications (principal); D50.9 Iron deficiency anemia, unspecified

== ENCOUNTER 2024-02-06 12:30 | Outpatient (CLI) | payer MEDICARE, MEDICAID ==
[~2024-02-06] VITALS: Ht 160 cm; Wt 106.0 kg
[~2024-02-06 12:30] MED LIST changes: +INFLIXIMAB BIOSIMILAR IV ONE; +NS 1,000 ML IV SCH; +NS IV ONE
[2024-02-06] MEDS: diphenhydrAMINE 25MG PO PRIOR TO INFUSION PO ONE (14:13)
[2024-02-06] MEDS: NS IV ONE (14:16)
[2024-02-06] MEDS: INFLIXIMAB BIOSIMILAR IV ONE (14:16)
== END 2024-02-06 16:05 ==
LOC: M INFU 12:30
PROVIDERS: ATTEND Internal Medicine Gastroenterology
DX: K50.90 Crohn's disease, unspecified, without complications (principal); Z88.8 Allergy status to other drugs, medicaments and biological substances
CPT/HCPCS: 96365; 96366; Q5103

== ENCOUNTER → 2024-02-19 | Outpatient (CLI) | payer MEDICARE, MEDICAID ==
[~2024-02-19] MED LIST changes: -INFLIXIMAB BIOSIMILAR IV ONE; -NS 1,000 ML IV SCH; -NS IV ONE
== END ==
LOC: M PAIN 14:45
PROVIDERS: ATTEND Nurse Practitioner Family
DX: M54.6 Pain in thoracic spine (principal); R10.9 Unspecified abdominal pain; G89.29 Other chronic pain; M06.9 Rheumatoid arthritis, unspecified; M19.90 Unspecified osteoarthritis, unspecified site; K50.90 Crohn's disease, unspecified, without complications; L88 Pyoderma gangrenosum; D64.9 Anemia, unspecified; F17.210 Nicotine dependence, cigarettes, uncomplicated; Z79.891 Long term (current) use of opiate analgesic; Z79.899 Other long term (current) drug therapy; Z88.5 Allergy status to narcotic agent; Z88.6 Allergy status to analgesic agent; Z88.1 Allergy status to other antibiotic agents; Z88.8 Allergy status to other drugs, medicaments and biological substances

== ENCOUNTER 2024-03-05 14:00 | Outpatient (CLI) | payer MEDICARE, MEDICAID ==
[2024-03-05 14:00] VITALS: BP 132/85; O2SAT 97
[~2024-03-05 14:00] MED LIST changes: +NS 1,000 ML IV SCH
[2024-03-05] MEDS: diphenhydrAMINE 25MG PO PRIOR TO INFUSION PO ONE (14:08)
[2024-03-05] MEDS: INFLIXIMAB BIOSIMILAR IV ONE (15:06)
[2024-03-05] MEDS: NS IV ONE (15:06)
[2024-03-05 15:30] VITALS: BP 154/88; O2SAT 99
[2024-03-05 16:29] VITALS: BP 124/75; O2SAT 100
== END 2024-03-05 16:30 ==
LOC: M INFU 14:00
PROVIDERS: ATTEND Internal Medicine Gastroenterology
DX: K50.90 Crohn's disease, unspecified, without complications (principal); Z88.1 Allergy status to other antibiotic agents; Z88.5 Allergy status to narcotic agent; Z88.6 Allergy status to analgesic agent; Z88.8 Allergy status to other drugs, medicaments and biological substances
CPT/HCPCS: 96413; Q5103

== ENCOUNTER → 2024-03-25 | Outpatient (CLI) | payer MEDICARE, MEDICAID ==
[~2024-03-25] MED LIST changes: -NS 1,000 ML IV SCH
== END ==
LOC: M PAIN 16:30
PROVIDERS: ATTEND Nurse Practitioner Family
DX: M54.14 Radiculopathy, thoracic region (principal); Z79.891 Long term (current) use of opiate analgesic; M54.16 Radiculopathy, lumbar region; G89.29 Other chronic pain; M06.9 Rheumatoid arthritis, unspecified; M19.90 Unspecified osteoarthritis, unspecified site; K50.90 Crohn's disease, unspecified, without complications; D64.9 Anemia, unspecified; L88 Pyoderma gangrenosum; F17.210 Nicotine dependence, cigarettes, uncomplicated; Z79.899 Other long term (current) drug therapy; Z88.6 Allergy status to analgesic agent; Z88.5 Allergy status to narcotic agent; Z88.1 Allergy status to other antibiotic agents; Z88.8 Allergy status to other drugs, medicaments and biological substances

== ENCOUNTER 2024-04-02 13:47 | Outpatient (CLI) | payer MEDICARE, MEDICAID ==
[~2024-04-02] VITALS: Ht 160 cm; Wt 105.4 kg
[2024-04-02 13:55] VITALS: BP 191/91; O2SAT 97
[2024-04-02] MEDS ORDERED: NS 1,000 ML IV SCH (14:00)
[2024-04-02] MEDS: diphenhydrAMINE 25MG PO PRIOR TO INFUSION PO ONE (14:47)
[2024-04-02] MEDS: NS IV ONE (14:57)
[2024-04-02] MEDS: INFLIXIMAB BIOSIMILAR IV ONE (14:57)
== END 2024-04-02 16:45 ==
LOC: M INFU 13:47
PROVIDERS: ATTEND Internal Medicine Gastroenterology
DX: K50.90 Crohn's disease, unspecified, without complications (principal); Z88.8 Allergy status to other drugs, medicaments and biological substances
CPT/HCPCS: 96413; 96415; Q5103

== ENCOUNTER → 2024-05-10 | Outpatient (REF) | payer MEDICARE, MEDICAID ==
[~2024-05-10] MED LIST changes: +ACET1TAB55 PO; +UPAD45TA PO
[2024-05-10 16:46] LABS: RSV AMPLIFICATION NEGATIVE (NEGATIVE)
== END ==
LOC: M LAB REF 16:05
PROVIDERS: ATTEND Internal Medicine
DX: R05.9 Cough, unspecified (principal); J01.90 Acute sinusitis, unspecified; K50.00 Crohn's disease of small intestine without complications

== ENCOUNTER → 2024-06-04 | Outpatient (CLI) | payer MEDICARE, MEDICAID | LOC: M PAIN 14:30 | PROVIDERS: ATTEND Nurse Practitioner Family | DX: M51.16 Intervertebral disc disorders with radiculopathy, lumbar region (principal); G89.29 Other chronic pain; M06.9 Rheumatoid arthritis, unspecified; M19.90 Unspecified osteoarthritis, unspecified site; K50.90 Crohn's disease, unspecified, without complications; L88 Pyoderma gangrenosum; D64.9 Anemia, unspecified; K50.918 Crohn's disease, unspecified, with other complication; F17.210 Nicotine dependence, cigarettes, uncomplicated; Z79.891 Long term (current) use of opiate analgesic; Z79.899 Other long term (current) drug therapy; Z88.1 Allergy status to other antibiotic agents; Z88.5 Allergy status to narcotic agent; Z88.6 Allergy status to analgesic agent; Z88.8 Allergy status to other drugs, medicaments and biological substances ==

== ENCOUNTER → 2024-09-03 | Outpatient (CLI) | payer MEDICARE, MEDICAID | LOC: M PAIN 15:00 | PROVIDERS: ATTEND Nurse Practitioner Family | DX: R10.9 Unspecified abdominal pain (principal); M47.816 Spondylosis without myelopathy or radiculopathy, lumbar region; G89.29 Other chronic pain; F17.290 Nicotine dependence, other tobacco product, uncomplicated; Z79.899 Other long term (current) drug therapy; Z85.41 Personal history of malignant neoplasm of cervix uteri; Z85.43 Personal history of malignant neoplasm of ovary; Z88.1 Allergy status to other antibiotic agents; Z88.5 Allergy status to narcotic agent; Z88.6 Allergy status to analgesic agent; Z88.8 Allergy status to other drugs, medicaments and biological substances ==

== ENCOUNTER → 2024-10-30 | Outpatient (REF) | payer MEDICARE, MEDICAID ==
[2024-10-30 12:52] LABS: INR 0.93; PROTHROMBIN TIME 12.8 SECONDS (12.5-14.5)
[2024-10-30 13:09] LABS: C REACTIVE PROTEIN QUANTITATIV 0.74 MG/DL (<1.0)
== END ==
LOC: M LAB REF 12:34
PROVIDERS: ATTEND Internal Medicine
DX: Z01.818 Encounter for other preprocedural examination (principal); K50.00 Crohn's disease of small intestine without complications

== ENCOUNTER → 2024-11-11 | Outpatient (CLI) | payer MEDICARE, MEDICAID ==
[~2024-11-11] VITALS: Ht 160 cm; Wt 105.5 kg
[~2024-11-11] MED LIST changes: +HEPARIN 1,000UNITS/ML 10ML VIAL (FOR RADIOLOGY & DIALYSIS ONLY) IV STA; +ISOVUE-300 61% 100ML VIAL As Ordered ONE; +LIDOCAINE 2% 100MG/5ML SDV (FOR ANES.) As Ordered ONE; +MIDAZOLAM INJ 2MG/2ML VIAL As Ordered ONE; +PHENYLephrine 500MCG 5ML (100MCG/ML) SYRINGE As Ordered ONE; +SEVOFLURANE INHAL SOLN 250 ML BTL As Ordered ONE; +ePHEDrine SULFATE 25 MG/5 ML(5MG/ML) SYRINGE As Ordered ONE; +fentaNYL 100 MCG/2 ML INJECTION As Ordered ONE; +propofoL 200 MG/20 ML VIAL As Ordered ONE
[2024-11-11 12:23] VITALS: TEMP 97.6
[2024-11-11] MEDS: ceFAZolin SODIUM 2 GM in DEXTROSE 5% (D5W) ADV/MINI-BAG 50 ML IV ONE (12:57)
[2024-11-11] MEDS: NS (Normal Saline) 0.9% 1,000 ML IV SCH (15:43)
[2024-11-11] MEDS: LIDOCAINE 1% MDV 20ML VIAL SC SCH (15:43)
[2024-11-11 15:45] VITALS: BP 164/70; O2SAT 97
== END ==
LOC: M IRPRO 12:12
PROVIDERS: ATTEND Internal Medicine Gastroenterology
DX: K50.00 Crohn's disease of small intestine without complications (principal)
CPT/HCPCS: 36558; 36590; C1887; C1894; J0690; J2250; J2371; J3010; Q9967

== ENCOUNTER → 2024-11-19 | Outpatient (CLI) | payer MEDICARE, MEDICAID ==
[~2024-11-19] MED LIST changes: -HEPARIN 1,000UNITS/ML 10ML VIAL (FOR RADIOLOGY & DIALYSIS ONLY) IV STA; -ISOVUE-300 61% 100ML VIAL As Ordered ONE; -LIDOCAINE 2% 100MG/5ML SDV (FOR ANES.) As Ordered ONE; -MIDAZOLAM INJ 2MG/2ML VIAL As Ordered ONE; -PHENYLephrine 500MCG 5ML (100MCG/ML) SYRINGE As Ordered ONE; -SEVOFLURANE INHAL SOLN 250 ML BTL As Ordered ONE; -ePHEDrine SULFATE 25 MG/5 ML(5MG/ML) SYRINGE As Ordered ONE; -fentaNYL 100 MCG/2 ML INJECTION As Ordered ONE; -propofoL 200 MG/20 ML VIAL As Ordered ONE
[2024-11-19 15:15] LABS: CALCIUM LEVEL 9.1 MG/DL (8.5-10.1); CREATININE FOR GFR 0.89 MG/DL (0.55-1.30); POTASSIUM SERUM 4.3 MMOL/L (3.5-5.1)
== END ==
LOC: M LAB 14:01
DX: Z01.89 Encounter for other specified special examinations (principal)

== ENCOUNTER → 2024-11-20 | Outpatient (POV) | payer MEDICARE, MEDICAID ==
[2024-11-20 15:30] VITALS: BP 138/78; O2SAT 98
== END ==
LOC: M IRPOV 14:05
PROVIDERS: ATTEND Radiology Diagnostic Radiology
DX: Z48.812 Encounter for surgical aftercare following surgery on the circulatory system (principal); K50.90 Crohn's disease, unspecified, without complications; I82.211 Chronic embolism and thrombosis of superior vena cava; R91.8 Other nonspecific abnormal finding of lung field; Z88.5 Allergy status to narcotic agent; Z88.6 Allergy status to analgesic agent; Z88.8 Allergy status to other drugs, medicaments and biological substances

== ENCOUNTER → 2024-11-20 | Outpatient (CLI) | payer MEDICARE, MEDICAID ==
[~2024-11-20] MED LIST changes: +ISOVUE-370 76% 100ML VIAL As Ordered ONE
== END ==
LOC: M RAD 14:12
PROVIDERS: ATTEND Radiology Diagnostic Radiology
DX: T82.49XA Other complication of vascular dialysis catheter, initial encounter (principal); Z48.812 Encounter for surgical aftercare following surgery on the circulatory system; K50.90 Crohn's disease, unspecified, without complications; I82.211 Chronic embolism and thrombosis of superior vena cava; R91.8 Other nonspecific abnormal finding of lung field; Z88.5 Allergy status to narcotic agent; Z88.6 Allergy status to analgesic agent; Z88.8 Allergy status to other drugs, medicaments and biological substances
CPT/HCPCS: 71260; G0463; Q9967

== ENCOUNTER → 2024-11-22 | Outpatient (CLI) | payer MEDICARE, MEDICAID ==
[~2024-11-22] MED LIST changes: -ISOVUE-370 76% 100ML VIAL As Ordered ONE
== END ==
LOC: M LAB 15:04
PROVIDERS: ATTEND Radiology Diagnostic Radiology
DX: R91.8 Other nonspecific abnormal finding of lung field (principal)

== ENCOUNTER → 2025-01-21 | Outpatient (REF) | payer MEDICARE, MEDICAID ==
[~2025-01-21] MED LIST changes: +OXYB10TA23 PO
[2025-01-21 14:04] LABS: INR 0.93
== END ==
LOC: M LAB REF 13:35
PROVIDERS: ATTEND Internal Medicine
DX: Z01.818 Encounter for other preprocedural examination (principal); Z79.01 Long term (current) use of anticoagulants

== ENCOUNTER → 2025-01-31 | Outpatient (CLI) | payer MEDICARE, MEDICAID | LOC: M RAD 13:29 | PROVIDERS: ATTEND Internal Medicine | DX: I82.210 Acute embolism and thrombosis of superior vena cava (principal) ==

== ENCOUNTER → 2025-02-03 | Outpatient (CLI) | payer MEDICARE, MEDICAID ==
[~2025-02-03] VITALS: Ht 160 cm; Wt 108.9 kg
[~2025-02-03] MED LIST changes: +HYDROMORPHONE HCL 0.5 MG/0.5 ML SYRINGE IV PRN; +LIDOCAINE 2% 100 MG/5 ML SDV (FOR ANES.) As Ordered ONE; +LR 1,000 ML IV SCH; +MIDAZOLAM INJ 2 MG/2 ML VIAL As Ordered ONE; +NS (Normal Saline) 0.9% 1,000 ML IV SCH; +ONDANSETRON 4MG 2ML VIAL As Ordered ONE; +ONDANSETRON 4MG 2ML VIAL IV PRN; +ROCURONIUM BROMIDE 50MG/5ML VIAL As Ordered ONE; +SUGAMMADEX SODIUM 500 MG/5 ML VIAL As Ordered ONE; +dexAMETHasone 4 MG/ML 1 ML VIAL As Ordered ONE
[2025-02-03] MEDS: ceFAZolin SOD 2 GM in DEXTROSE 5% (D5W) ADV/MINI-BAG 50 ML IV ONE (08:58)
[2025-02-03] MEDS: HEPARIN 1,000 UNITS/ML 10 ML VIAL (FOR RADIOLOGY & DIALYSIS ONLY) IV PRN (09:44)
[2025-02-03] MEDS: LIDOCAINE 1% MDV 20 ML VIAL SC SCH (10:07)
[2025-02-03] MEDS: ISOVUE-300 61% 100 ML VIAL IV SCH (10:08)
[2025-02-03] MEDS: ALBUTEROL SULFATE 2.5 MG/0.5 ML INH CONCENTRATE NEB SOLN NEB ONE (11:36)
[2025-02-03 13:17] VITALS: BP 165/80; TEMP 98.5; O2SAT 99
== END ==
LOC: M IRPRO 07:06
PROVIDERS: ATTEND Radiology Diagnostic Radiology
DX: I82.210 Acute embolism and thrombosis of superior vena cava (principal)
CPT/HCPCS: 36005; 71045; 75820; C1769; C1894; J0690; J1100; J2250; J2405; J3010; Q9967

== ENCOUNTER → 2025-02-07 | Outpatient (CLI) | payer MEDICARE, MEDICAID ==
[~2025-02-07] MED LIST changes: -HYDROMORPHONE HCL 0.5 MG/0.5 ML SYRINGE IV PRN; -LIDOCAINE 2% 100 MG/5 ML SDV (FOR ANES.) As Ordered ONE; -LR 1,000 ML IV SCH; -MIDAZOLAM INJ 2 MG/2 ML VIAL As Ordered ONE; -NS (Normal Saline) 0.9% 1,000 ML IV SCH; -ONDANSETRON 4MG 2ML VIAL As Ordered ONE; -ONDANSETRON 4MG 2ML VIAL IV PRN; -ROCURONIUM BROMIDE 50MG/5ML VIAL As Ordered ONE; -SUGAMMADEX SODIUM 500 MG/5 ML VIAL As Ordered ONE; -dexAMETHasone 4 MG/ML 1 ML VIAL As Ordered ONE
== END ==
LOC: M PLAIMG 14:18
PROVIDERS: ATTEND Internal Medicine Critical Care Medicine
DX: R06.00 Dyspnea, unspecified (principal); I27.20 Pulmonary hypertension, unspecified

== ENCOUNTER 2025-04-16 14:33 | Day surgery (SDC) | payer MEDICARE, MEDICAID ==
[~2025-04-16] VITALS: Ht 160 cm; Wt 113.9 kg
[2025-04-16] MEDS: ISOVUE-300 61% 100 ML VIAL As Ordered ONE (07:20)
[2025-04-16] MEDS ORDERED: TAMS1CAP17 OR (14:58)
[2025-04-16] MEDS ORDERED: CEPH500C OR (14:58)
[2025-04-16] MEDS ORDERED: LIDOCAINE 2% 100 MG/5 ML SDV (FOR ANES.) As Ordered ONE (16:13)
[2025-04-16] MEDS ORDERED: MIDAZOLAM INJ 2 MG/2 ML VIAL As Ordered ONE (16:14)
[2025-04-16] MEDS: ceFAZolin SODIUM 2 GM in DEXTROSE 5% (D5W) ADV/MINI-BAG 50 ML IV ONE (16:46)
[2025-04-16] MEDS ORDERED: dexAMETHasone 4 MG/ML 1 ML VIAL As Ordered ONE (17:01)
[2025-04-16] MEDS ORDERED: ONDANSETRON 4MG/2ML VIAL As Ordered ONE (17:01)
[2025-04-16] MEDS ORDERED: ACETAMINOPHEN 1000MG/100ML IV BAG As Ordered ONE (17:01)
[2025-04-16] MEDS ORDERED: LR 1,000 ML IV SCH (17:45)
[2025-04-16] MEDS ORDERED: HYDROMORPHONE HCL 0.5 MG/0.5 ML SYRINGE IV PRN (17:45)
[2025-04-16] MEDS ORDERED: ONDANSETRON 4MG/2ML VIAL IV PRN (17:45)
[2025-04-16] MEDS ORDERED: PYRI1TAB5 PO (17:55)
[2025-04-16] MEDS ORDERED: OXYB5TAB14 PO (17:55)
[2025-04-16 18:40] VITALS: BP 131/68; TEMP 98; O2SAT 96
== END 2025-04-16 18:46 | disposition home or self-care (01) ==
LOC: M SDC 14:33
PROVIDERS: ATTEND Urology
DX: N20.1 Calculus of ureter (principal); R32 Unspecified urinary incontinence; Z87.440 Personal history of urinary (tract) infections; Z87.442 Personal history of urinary calculi; R31.9 Hematuria, unspecified; M06.9 Rheumatoid arthritis, unspecified; M79.7 Fibromyalgia; F41.9 Anxiety disorder, unspecified; Z88.8 Allergy status to other drugs, medicaments and biological substances; Z88.5 Allergy status to narcotic agent; Z88.3 Allergy status to other anti-infective agents; Z79.899 Other long term (current) drug therapy
CPT/HCPCS: 52356; 76000; C1769; C1894; C2617; J0131; J0688; J1100; J2250; J2405; J3010; Q9967

== ENCOUNTER → 2025-05-16 | Outpatient (CLI) | payer MEDICARE, MEDICAID ==
[~2025-05-16] MED LIST changes: +CEPH500C OR; +OXYB5TAB14 PO; +PYRI1TAB5 PO; +TAMS1CAP17 OR
[2025-05-16 16:49] LABS: BASO # 0.0 10^3/uL (0.0-0.2); BASO % 0.3 % (0.0-1.0); EOS # 0.0 10^3/uL (0.0-0.5); EOS % 0.5 % (0.0-3.0); LYMPH # 1.2 10^3/uL (1.5-5.0); LYMPH % 20.6 % (24.0-44.0); MONO # 0.4 10^3/uL (0.0-0.8); MONO % 7.3 % (2.0-8.0); NEUTROPHILS # 4.0 10^3/uL (1.5-8.5); NEUTROPHILS % 70.8 % (36.0-66.0); PLATELET COUNT, AUTOMATED 260 10^3/uL (150-450)
[2025-05-16 17:16] LABS: ALT/SGPT 21.0 U/L (7.0-40); AST/SGOT 17.0 U/L (<34); CHOLESTEROL LEVEL 170.0 MG/DL (<200); CHOLESTEROL RISK RATIO 2.65 (<5); LDL CHOLESTEROL 87.9 MG/DL (<100); NON-HDL-C 105.9 MG/DL; TRIGLYCERIDES LEVEL 90.0 MG/DL (<150)
== END ==
LOC: M LAB 16:00
PROVIDERS: ATTEND Internal Medicine Gastroenterology
DX: K50.00 Crohn's disease of small intestine without complications (principal); Z79.899 Other long term (current) drug therapy; N20.1 Calculus of ureter

== ENCOUNTER → 2025-05-16 | Outpatient (CLI) | payer MEDICARE, MEDICAID ==
[2025-05-16 16:49] LABS: PLATELET COUNT, AUTOMATED 272 10^3/uL (150-450)
[2025-05-16 17:16] LABS: ALT/SGPT 21.0 U/L (7.0-40); AST/SGOT 17.0 U/L (<34); CALCIUM LEVEL 9.4 MG/DL (8.5-10.1); CARBON DIOXIDE LEVEL 26.0 MMOL/L (20-31); CHLORIDE LEVEL 101.0 MMOL/L (98-107); CREATININE FOR GFR 0.93 MG/DL (0.55-1.30); GLOMERULAR FILTRATION RATE 72.6 (>51); POTASSIUM SERUM 4.5 MMOL/L (3.5-5.1); SODIUM LEVEL 137.0 MMOL/L (136-145)
== END ==
LOC: M LAB 15:58
PROVIDERS: ATTEND Urology
DX: N20.1 Calculus of ureter (principal)

== ENCOUNTER → 2025-06-02 | Outpatient (REF) | payer MEDICARE, MEDICAID | LOC: M LAB REF 17:13 | PROVIDERS: ATTEND Internal Medicine | DX: Z01.818 Encounter for other preprocedural examination (principal); Z79.899 Other long term (current) drug therapy ==

== ENCOUNTER → 2025-06-09 | Outpatient (CLI) | payer MEDICARE, MEDICAID | LOC: M LAB 13:41 | PROVIDERS: ATTEND Internal Medicine Gastroenterology | DX: K50.00 Crohn's disease of small intestine without complications (principal); Z79.899 Other long term (current) drug therapy ==

== ENCOUNTER 2025-06-12 07:05 | Day surgery (SDC) | payer MEDICARE, MEDICAID ==
[~2025-06-12] VITALS: Ht 160 cm; Wt 105.4 kg
[2025-06-12] MEDS: LR 1,000 ML IV SCH (07:45)
[2025-06-12] MEDS ORDERED: ISOVUE-300 61% 100 ML VIAL As Ordered ONE (08:10)
[2025-06-12] MEDS ORDERED: ONDANSETRON 4MG/2ML VIAL As Ordered ONE (08:14)
[2025-06-12] MEDS ORDERED: MIDAZOLAM INJ 2 MG/2 ML VIAL As Ordered ONE (08:14)
[2025-06-12] MEDS ORDERED: dexAMETHasone 4 MG/ML 1 ML VIAL As Ordered ONE (08:14)
[2025-06-12] MEDS ORDERED: ACETAMINOPHEN 1000MG/100ML IV BAG As Ordered ONE (08:14)
[2025-06-12] MEDS ORDERED: LIDOCAINE 2% 100 MG/5 ML SDV (FOR ANES.) As Ordered ONE (08:15)
[2025-06-12] MEDS ORDERED: LevoFLOXacin 500 MG/100 ML IV BAG As Ordered ONE (08:16)
[2025-06-12] MEDS ORDERED: SCOPOLAMINE 1MG TRANSDERMAL PATCH As Ordered ONE (08:21)
[2025-06-12] MEDS: LevoFLOXacin IV 500 MG in IV 1 EA IV ONE (08:29)
[2025-06-12] MEDS ORDERED: SCOPOLAMINE 1MG TRANSDERMAL PATCH TOP ONE (08:30)
[2025-06-12] MEDS: ceFAZolin SOD 2 GM IV ONCE IV ONE (08:38)
[2025-06-12] MEDS ORDERED: PHENYLephrine 500MCG 5ML (100MCG/ML) SYRINGE As Ordered ONE (09:05)
[2025-06-12] MEDS ORDERED: HYDROMORPHONE HCL 0.5 MG/0.5 ML SYRINGE IV PRN (09:15)
[2025-06-12] MEDS ORDERED: ONDANSETRON 4MG/2ML VIAL IV PRN (09:15)
[2025-06-12 09:54] VITALS: TEMP 97
[2025-06-12 10:29] VITALS: BP 129/74; O2SAT 96
== END 2025-06-12 10:33 | disposition home or self-care (01) ==
LOC: M SDC 07:05
PROVIDERS: ATTEND Urology
DX: N20.1 Calculus of ureter (principal); K50.90 Crohn's disease, unspecified, without complications; M79.7 Fibromyalgia; G62.9 Polyneuropathy, unspecified; Z90.710 Acquired absence of both cervix and uterus; Z85.43 Personal history of malignant neoplasm of ovary; Z85.41 Personal history of malignant neoplasm of cervix uteri; Z79.899 Other long term (current) drug therapy; Z88.5 Allergy status to narcotic agent; Z88.8 Allergy status to other drugs, medicaments and biological substances; Z90.49 Acquired absence of other specified parts of digestive tract; Z92.3 Personal history of irradiation; Z93.2 Ileostomy status; Z88.6 Allergy status to analgesic agent
CPT/HCPCS: 52332; 52352; 74420; 82365; C1769; C1894; C2617; J0131; J0688; J1100; J1956; J2250; J2371; J2405; J3010; Q9967